=== PATIENT | male | born 1945 | race Caucasian/White ===

== ENCOUNTER → 2018-12-12 | Outpatient (CLI) | payer MEDICARE, OTHER, SELFPAY ==
--- NOTE | 2018-12-12 12:47 | MRI_ITS ---
STUDY: MRI BRAIN WITH AND WITHOUT CONTRAST REASON FOR EXAM: Male, 73 years old. Headache. TECHNIQUE: Standardized multiplanar fat and water weighted pulse sequences were obtained. 22 IV Dotarem was administered for the contrast portion of the examination. COMPARISON: None. FINDINGS: No restricted diffusion to suspect acute or subacute ischemic infarct. Normal size of the ventricles and extra-axial spaces for the patient's age. T2 FLAIR hyperintensity foci in the white matter of both cerebral hemispheres are chronic white matter ischemic changes. No midline shift and no mass effects. No enhancing lesions in intra-axially and extra-axially. Normal bilateral basal ganglia. Normal thalami. There is no extra-axial fluid accumulation. Normal flow voids within the major intracranial circulation suggesting patency by spin echo criteria. Normal venous enhancement. There is no enhancing intra-axial or extra-axial abnormality. Normal sella turcica, pituitary gland, infundibular stalk, optic chiasm and hypothalamus. Normal tectal plate and pineal gland. Normal midbrain, chet and medulla. Old ischemic infarct with cystic encephalomalacia and atrophy of the right cerebellar hemisphere. Normal left cerebellum. Normal basal cisterns. Normal bilateral temporal bones. Normal bilateral internal auditory canals. No demonstrated orbital abnormality, within the constraints of a routine brain study. Normal visualized paranasal sinuses. Normal calvarium and skull base. Normal visualized soft tissue structures. Normal visualized upper cervical spine. MRI/Brain W/WO Contrast IMPRESSION: 1. No MRI evidence of acute or subacute ischemic infarct. 2. Old ischemic infarct with cystic atrophy of the right cerebellar hemisphere. 3. Chronic white matter ischemic changes in both cerebral hemispheres. 4. No MRI evidence of any enhancing lesions extra-axially and intraaxially. Electronically Signed: Triston Jaimes MD at 15:14 EDT , Service support ,
--- NOTE | 2018-12-12 12:47 | MRI_ITS ---
STUDY: MRI CERVICAL SPINE WITHOUT CONTRAST REASON FOR EXAM: Male, 73 years old. Neck pain. Headache. TECHNIQUE: Standardized fat and water weighted pulse sequences were obtained in the sagittal and axial planes. COMPARISON: None FINDINGS: Normal foramen magnum and brainstem-cervical cord junction. Normal craniovertebral junction. Normal anterior atlantoaxial articulation. Normal odontoid process. Straightening of the C-spine curve. Normal vertebral bodies and posterior osseous elements. C2-3: Normal endplates. Normal disc height, signal and morphology. Normal central canal and intervertebral neural foramina. C3-4: Normal endplates. Normal disc height, signal and morphology. Normal central canal and intervertebral neural foramina. C4-5: Normal endplates. Minimal disc space height narrowing. Small posterior bulging discs. Normal central canal and bilateral intervertebral neural foramina. C5-6: Normal endplates. Minimal disc space height narrowing. Small posterior bulging disc. Normal central canal and bilateral intervertebral neural foramina. C6-7: Normal endplates. Normal disc height, signal and morphology. Normal central canal and intervertebral neural foramina. C7-T1: Normal C7 inferior endplate. Minimal anterior wedging of T11 superior endplates may be developmental or from remote injury. Normal disc height and morphology. Normal central canal and bilateral intervertebral neural foramina. T1-T2, T2-T3 and T3-T4: (Sagittal only). Normal endplates. Normal disc height and morphology. Normal central canal and bilateral intervertebral neural foramina. Normal cervical cord. Old cystic infarct with atrophy of the right cerebellar hemisphere. Normal visualized soft tissue structures. MRI/Spine Cervical (Routine) IMPRESSION: 1. No MRI evidence of cervical extruded disc fragment, spinal stenosis or cervical nerve root displacement. 2. Small posterior bulging discs at C4-C5 and C5-C6 disc space levels. 3. Old cystic infarct with atrophy in the right cerebellar hemisphere. Electronically Signed: Triston Jaimes MD at 15:19 EDT , Service support ,
[2018-12-12 13:05] LABS: CREATININE FINGERSTICK 1.3 mg/dL (0.70-1.30)
== END | disposition home or self-care (01) ==
PROVIDERS: Family Provider Internal Medicine; PCP Internal Medicine; Referring Provider Internal Medicine; Visit Provider Internal Medicine
DX: R51 Headache (principal); M54.2 Cervicalgia
CPT/HCPCS: 70553; 72141; A9575

== ENCOUNTER 2020-03-20 10:33 | Inpatient (IN) | payer MEDICARE, OTHER, SELFPAY ==
[2020-03-20] VITALS (24 sets, daily range): BP systolic 123–142; BP diastolic 66–79; PULSE 55–79; RESP 13–20; TEMP 36.3–36.9; O2SAT 91–99; BMI 34.7; BMI 34.8
--- NOTE | 2020-03-20 10:47 | RAD_ITS ---
STUDY: X-RAY CHEST REASON FOR EXAM: Male, 75 years old. COVID, INCREASED SOB AND WEAKNESS TECHNIQUE: Single AP portable view of the chest. COMPARISON: Comparison is made with prior study dated 11/07/2012. FINDINGS: EKG electrodes are seen. There is evidence of a bilateral pulmonary infiltrates with a peripheral distribution. With the patient''s history of Covid positive, this is suggestive of a cold pneumonitis. Stable elevation of the right hemidiaphragm. Normal size heart. Normal mediastinum and anupam. Normal visualized pulmonary arteries. There is atherosclerotic tortuosity of the aortic arch and descending thoracic aorta. There are diffuse degenerative changes of the visualized thoracic spine. Healed right rib fractures. There is no demonstrated abnormality of the visualized soft tissue structures of the upper abdomen. RAD/Chest 1 View (Portable) IMPRESSION: Bilateral pulmonary infiltrates with a peripheral tendency for distribution. With the patient''s history of Covid positive, this is in keeping with coal but pneumonitis. Electronically Signed: Ross Ulrich, at 11:17 EDT , Service support ,
--- NOTE | 2020-03-20 10:47 | EKG12_ITS ---
Test Reason : SOB Blood Pressure : / mmHG Vent. Rate : 068 BPM Atrial Rate : 068 BPM P-R Int : 150 ms QRS Dur : 148 ms QT Int : 454 ms P-R-T Axes : 041 032 000 degrees QTc Int : 482 ms Normal sinus rhythm Right bundle branch block Abnormal ECG Confirmed by DEJA HEATH, KOBI ([id number]), design editor LEONEL DAILEY ([id number]) on 03/27/2020 12:51:00 P M Referred By: PARDEEP Confirmed By:RYAN SHORT MD
--- NOTE | 2020-03-20 10:49 | ED.DCSUM_ITS ---
History of Present Illness Chief Complaint: Shortness of Breath Informant: Patient Onset: Days Context: Gradual Onset Current Severity: Moderate Maximum Severity: Moderate Narrative: She presents with increased cough and congestion. He started becoming ill 6 days ago with cough and congestion. He states symptoms worsened over the weekend. He was tested for Covid on Tuesday and received the results yesterday that he was positive. Due to increased body aches, cough, shortness of breath he was evaluated by his PCP and found to have O2 sats in the 80s. EMS was called and patient was placed on nonrebreather. O2 sats are in the high 90s on this on arrival. - Past Medical History (1) Myocardial infarction Status: Resolved (2) Coronary artery disease Status: Chronic (3) CVA (cerebral vascular accident) Status: Chronic (4) Essential hypertension Status: Chronic (5) HLD (hyperlipidemia) Status: Chronic Past Medical History - Allergies and Home Meds Allergies/Adverse Reactions: Allergies Penicillins Allergy (Verified 03/20/20 10:34) Unknown Primary Care Physician: Libia Corona MD [Primary Care Provider] - Prior records reviewed: Yes Lives: Spouse/ Significant Other Smoking Status: Never smoker Review of Systems General: Denies: Chills, Fever Eyes: Denies: Visual changes - bilaterally ENT: Denies: Bilateral ear pain Cardiovascular: Denies: Chest pain Respiratory: Reports: Dyspnea, Cough Gastrointestinal: Reports: - - Anorexia. Denies: Abdominal pain Genitourinary: Denies: Dysuria Musculoskeletal: Reports: Myalgias Skin: Denies: Rash Hematologic: Denies: Easy bruising, Easy bleeding Allergy: Denies: Uticaria Physical Exam Vital Signs/Narrative: Vital Signs Temp Pulse Resp BP Pulse Ox 03/20/20 10:40 98 F 79 13 129/66 H 96 03/20/20 10:34 98 F 79 13 129/66 H 96 Inital Vital Signs reviewed: Yes General: Well nourished, Well developed Head: Normocephalic ENT: Moist mucous membranes Neck: Supple Cardiovascular: Regular rate, Regular rhythm Respiratory: No distress, CTA bilaterally Abdomen: Soft, Nontender, Normal bowel sounds Extremities: Nontender Skin: Normal color Neurological: Alert, Oriented x3 Psychological: Normal affect Diagnostic/Tx/Re-eval Impressions Chest X-Ray 03/20/20 10:47 IMPRESSION: Bilateral pulmonary infiltrates with a peripheral tendency for distribution. With the patient''s history of Covid positive, this is in keeping with coal but pneumonitis. Electronically Signed: Ross Ulrich, at 11:17 EDT , Service support , Chest CTA 03/20/20 11:43 IMPRESSION: Diffuse bilateral infiltrates involving both lungs in the differential peripheral distribution in keeping with the patient''s Covid diagnosis. 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 Electronically Signed: Ross Ulrich, at 12:45 EDT , Service support , 03/20/20 10:47 Chest 1 View (Portable) [RAD] Stat 03/20/20 11:43 CTA Chest W/WO Contrast [CT] Stat Laboratory Results 03/20/20 03/20/20 03/20/20 10:45 10:45 10:45 WBC 6.6 RBC 4.65 Hgb 13.4 Hct 42.1 MCV 90.5 MCH 28.8 MCHC 31.8 L RDW Std Deviation 48.4 H RDW Coeff of Fadumo 14.6 Plt Count 189 MPV 10.2 Immature Gran % (Auto) 0.600 Neut % (Auto) 81.6 H Lymph % (Auto) 11.1 L [place] % (Auto) 3.9 Eos % (Auto) 2.6 Baso % (Auto) 0.2 Absolute Neuts (auto) 5.4 Absolute Lymphs (auto) 0.73 L Nucleated RBC % 0 Differential Comment SCANNED D-Dimer Quant (PE/DVT) 0.95 H* Sodium 142 Potassium 3.8 Chloride 104 Carbon Dioxide 33.0 H Anion Gap 5 BUN 24 H Creatinine 1.39 H Estim Creat Clear Calc 48.87 Est GFR (MDRD) Af Amer 64 Est GFR (MDRD) Non-Af 53 L BUN/Creatinine Ratio 17.3 Glucose 123 H Lactic Acid Calcium 8.3 L Total Bilirubin 0.50 AST 78 H ALT 62 H Alkaline Phosphatase 64 Total Protein 7.4 Albumin 3.2 Globulin 4.2 Albumin/Globulin Ratio 0.8 L Procalcitonin 03/20/20 03/20/20 03/20/20 10:45 10:45 11:15 WBC RBC Hgb Hct MCV MCH MCHC RDW Std Deviation RDW Coeff of Fadumo Plt Count MPV Immature Gran % (Auto) Neut % (Auto) Lymph % (Auto) [place] % (Auto) Eos % (Auto) Baso % (Auto) Absolute Neuts (auto) Absolute Lymphs (auto) Nucleated RBC % Differential Comment D-Dimer Quant (PE/DVT) Sodium Potassium Chloride Carbon Dioxide Anion Gap BUN Creatinine Estim Creat Clear Calc Est GFR (MDRD) Af Amer Est GFR (MDRD) Non-Af BUN/Creatinine Ratio Glucose Lactic Acid Cancelled 1.3 Calcium Total Bilirubin AST ALT Alkaline Phosphatase Total Protein Albumin Globulin Albumin/Globulin Ratio Procalcitonin 0.49 H - EKG Initial EKG Interpretation: Sinus Rhythm - Sinus at 68 with a right bundle branch block. No old is available for comparison. No acute ischemia. - Medical Decision Making Patient is nonrebreather was changed down to 50% Ventimask. At this time his O2 sat is 90% on this. Blood work is reviewed. His d-dimer and pro calcitonin are both elevated. CTA of the chest reveals no evidence of PE, however changes consistent with Covid are noted in his lungs. Patient was given a dose of IV Solu-Medrol. I will speak with hospitalist regarding admission. ED Disposition - Plan for ED Patient: Disposition: [facility] Diagnosis: COVID-19, Respiratory failure Referrals: Libia Corona MD [Primary Care Provider] -
[2020-03-20] MEDS: MethylPREDNISolone 125 MG/2 ML Vial 80 MG IV (11:00)
[2020-03-20 11:04] LABS: Absolute Lymphocyte Count 0.73 X10^3/uL (0.83-4.51); Absolute Neutrophil Count 5.4 X10^3/uL (2.0-7.7); Basophil# 0.01 X10^3/uL; Basophil% 0.2 % (0-1); Eosinophil# 0.17 X10^3/uL; Eosinophils% 2.6 % (0-5); Hematocrit 42.1 % (40-54); Hemoglobin 13.4 g/dL (13.0-16.5); Lymphocyte # 0.73 X10^3/ul (4.0); Lymphocyte % 11.1 % (19-41); Mean Corp Hgb Conc 31.8 g/dL (32-36); Mean Corpuscular Hgb 28.8 pg (27.0-32.0); Mean Corpuscular Volume 90.5 fL (80-94); Mean Platelet Vol. 10.2 fl (6.2-12.0); Monocyte# 0.26 X10^3/uL; Monocyte% 3.9 % (0-10); NRBC Flagged by Analyzer 0 % (0-5); Neutrophil # 5.39 X10^3/uL (2.7-7.7); Neutrophil % 81.6 % (47-70); POSITIVE MORPHOLOGY YES; Platelet Count 189 K/mm3 (150-450); RBC Distribution Width CV 14.6 % (11.6-14.6); RBC Distribution Width SD 48.4 fl (35.1-43.9); Red Blood Count 4.65 M/mm3 (4.6-6.2); White Blood Count 6.6 K/mm3 (4.4-11.0)
[2020-03-20 11:17] LABS: ALB/GLOB Ratio 0.8 RATIO (0.9-2.4); AST(SGOT) 78 U/L (15-37); Alanine Aminotransfer ALT/SGPT 62 U/L (16-61); Albumin, Serum 3.2 g/dL (3.2-5.0); Alkaline Phosphatase 64 U/L (45-117); Anion Gap 5 (5-15); BUN 24 mg/dL (7-18); BUN/Creat Ratio 17.3 RATIO (10-20); Calcium,Total 8.3 mg/dL (8.5-10.1); Chloride 104 mmol/L (98-107); Creatinine, Serum 1.39 mg/dL (0.70-1.30); EST Glomerular Filtration Rate 53 mL/min (>60); Est Glom Filt Rate - Afr Amer 64 mL/min (>60); Estimated Creatinine Clearance 48.87 ml/min; Globulin 4.2 g/dL (2.2-4.2); Glucose 123 mg/dL (74-106); Potassium 3.8 mmol/L (3.5-5.1); Protein, Total 7.4 g/dL (6.4-8.2); Sodium Level 142 mmol/L (136-145)
[2020-03-20 11:20] LABS: D-Dimer Quantitative (DVT/PE) 0.95 FEU/ug/m (0.27-0.49)
[2020-03-20 11:33] LABS: Procalcitonin 0.49 ng/mL (0.00-0.09)
[2020-03-20 11:35] LABS: Differential Comment SCANNED; Differential Indicated SCAN CRITERIA MET
--- NOTE | 2020-03-20 11:43 | CT_ITS ---
STUDY: CTA CHEST REASON FOR EXAM: Male, 75 years old. PE. COVID + TUESDAY. INCREASE SOB AND WEAKNESS. HX-CVA, HTN, NH, CAD, HLD,STENTS RADIATION DOSAGE (If Supplied By Facility): CTDIvol = ( 13.69 ) mGy, DLP = ( 498.53 ) mGycm TECHNIQUE: The examination was performed with the intravenous administration of IV 100mL Isovue-370. Post-processing of the angiographic images was performed, with multiplanar reformation and 3D reconstruction. Individualized dose optimization techniques were used for this CT. COMPARISON: Comparison is made with prior study dated 11/02/2012. FINDINGS: Small benign-appearing bilateral axillary lymph nodes. Normal enhancement of the main pulmonary artery and right and left pulmonary arteries. Normal enhancement of the bilateral peripheral pulmonary arteries. There is no demonstrated pulmonary embolism. Normal thoracic aorta and visualized great vessels. There is no demonstrated aortic dissection. There are calcifications of the coronary arteries. Normal mediastinum. Normal hilar regions. Normal visualized trachea and bronchi. The lungs are well expanded. Diffuse bilateral infiltrates involving both lungs diffusely. There is also evidence of a preferential peripheral distribution. This is in keeping with the patient''s Covid diagnosis. Normal pleura. Normal chest wall structures. There are degenerative changes of thoracic spine. Hyperplasia and nodular thickening of the left adrenal gland. Fatty infiltration of the liver. CT/CTA Chest W/WO Contrast IMPRESSION: Diffuse bilateral infiltrates involving both lungs in the differential peripheral distribution in keeping with the patient''s Covid diagnosis. 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 Electronically Signed: Ross Ulrich, at 12:45 EDT , Service support ,
[2020-03-20 11:51] LABS: Lactic Acid 1.3 mmol/L (0.4-1.9)
--- NOTE | 2020-03-20 13:08 | NURSING ---
ICU COVID JUAN PABLO
--- NOTE | 2020-03-20 13:11 | ED.RN ---
TC MADE TO , UPDATED ON ADMISSION
--- NOTE | 2020-03-20 13:39 | HP.PCM_ITS ---
Problem List (1) Myocardial infarction Status: Resolved (2) Coronary artery disease Status: Chronic (3) COVID-19 Status: Acute (4) Respiratory failure Status: Acute (5) CVA (cerebral vascular accident) Status: Chronic (6) HLD (hyperlipidemia) Status: Chronic (7) Essential hypertension Status: Chronic History of Present Illness Date of Admission: 03/20/20 Chief Complaint: Shortness of breath. The patient is a 75 year old M who presents to the emergency room due to shortness of breath, cough X1 week. Patient was tested for COVID on Tuesday and received results yesterday that he was positive for COVID-19. He was evaluated by his primary care provider today and was noted to be hypoxic with O2 saturations in the 80s. He reports mild fever at home. Patient states his tested positive for COVID as well however she has very mild symptoms. Patient currently has Ventimask on in ED and reports improvement in breathing and cough. He denies nausea, vomiting, diarrhea. Denies other associated symptoms. He has a past medical history of chronic renal insufficiency, hypertension, hyperlipidemia, history of CVA. Past Medical History Past Medical History (Chronic Problems): Chronic Problems (Last Updated 02/12/19 @ 14:15 by Gisele Barnhart) Coronary artery disease (Chronic) CVA (cerebral vascular accident) (Chronic 2012) HLD (hyperlipidemia) (Chronic) Essential hypertension (Chronic) Medical History: Medical History (Last Updated 02/12/19 @ 14:15 by Gisele Barnhart) CVA (cerebral vascular accident) (Chronic) Onset Date: 2012 I63.9 HLD (hyperlipidemia) (Chronic) E78.5 Essential hypertension (Chronic) I10 Anemia D64.9 Obesity E66.9 GI bleed K92.2 Non-ST elevation (NSTEMI) myocardial infarction I21.4 Atherosclerosis of coronary artery of [place] heart without angina pectoris (Ruled-out) I25.10 Allergies Penicillins Allergy (Verified 03/20/20 10:34) Unknown Home Medications: Ambulatory Orders Medication Instructions Recorded Amlodipine [Norvasc] 10 mg PO DAILY 03/20/20 Aspirin [Aspirin, Baby] 81 mg PO DAILY@0800 03/20/20 Atorvastatin Calcium [Lipitor] 10 mg PO QHS 03/20/20 Cholecalciferol (Vitamin D3) 5,000 unit PO DAILY 03/20/20 [Vitamin D3] Hydralazine HCl 100 mg PO BID 03/20/20 Labetalol HCl 300 mg PO TID 03/20/20 Phenylephrine/Dm/Acetaminop/GG 1 tab PO BID 03/20/20 [Tylenol Cold & Flu Severe Cplt] Surgical History: Surgical History (Last Updated 02/03/18 @ 15:02 by Nettie Magallon) H/O: knee surgery Z98.890 Surgical History: - - Knee surgery Psychiatric History: No pertinent psych hx Lives: Spouse/ Significant Other Smoking Status: Never smoker Alcohol: None Drugs: None - *Family History Paternal Family History: Family History (Last Updated 02/03/18 @ 15:02 by Nettie Magallon) Father CAD (coronary artery disease) History Items: Heart Disease Maternal Family History: Family History (Last Updated 02/03/18 @ 15:02 by Nettie Magallon) Father CAD (coronary artery disease) History Items: - - Denies known maternal medical history including cardiac history. Review of Systems Constitutional: Reports: Chills, Fever, Malaise HEENT: Denies: Head Aches, Sinus Congestion, Sinus Drainage Cardiovascular: Denies: Chest Pain, Edema, Light Headedness, Palpitations, Syncope Respiratory: Reports: Cough, Shortness of Breath, Sputum production Gastrointestinal: Denies: Abdominal Pain, Nausea, Vomiting Genitourinary: Denies: Dysuria Musculoskeletal: Denies: Joint Pain, Joint Tenderness Skin: Denies: Rash, Wounds Neurological: Denies: Numbness, Tingling, Focal weakness Psychiatric: Denies: Anxiety, Depression, Homicidal Ideations, Suicidal Ideations Hematologic/ Lymphatic: Denies: Easy Bruising, Easy Bleeding VTE Information - Inpt Only VTE Present on Admission: No VTE Mechan Device Prophylaxis: None VTE Pharm Prophylaxis ordered?: Yes Patient Problems: Active and Suspected Problems (Last Updated 02/12/19 @ 14:15 by Gisele Barnhart) COVID-19 (Acute) Respiratory failure (Acute) - Physical Exam Vitals/I&O's: Vital Signs Temp Pulse Resp BP Pulse Ox 97.8 F 57 L 18 129/74 H 99 03/20/20 13:06 03/20/20 13:06 03/20/20 13:06 03/20/20 13:06 03/20/20 13:06 Oxygen Flow Rate (L/min) 12 Oxygen Delivery Method Venturi Mask Weight: 242 lb 4.608 oz Body Mass Index (BMI) 34.7 General: Alert, Oriented x3, Cooperative HEENT: Atraumatic, PERRLA, EOMI, Normocephalic Oral: Dry Mucosa Neck: Supple, No JVD, Negative Carotid Bruits Lungs: Clear to auscultation, Diminished Cardiovascular: Regular rate, No murmurs Abdomen: Bowel Sounds Present, Soft, Non Tender, Non-Distended Extremities: No clubbing, No cyanosis, No edema, Capillary Refill Less than 3 Seconds Skin: No rashes, No breakdown Musculoskeletal: No Tenderness to Palpation of Joints or Extremities Neurological: Cranial nerves II-XII grossly intact, Neuro grossly intact Psych/Mental Status: Normal Affect, Appropriate Laboratory Results 03/20/20 10:45: WBC 6.6, RBC 4.65, Hgb 13.4, Hct 42.1, MCV 90.5, MCH 28.8, MCHC 31.8 L, RDW Std Deviation 48.4 H, RDW Coeff of Fadumo 14.6, Plt Count 189, MPV 10.2, Immature Gran % (Auto) 0.600, Neut % (Auto) 81.6 H, Lymph % (Auto) 11.1 L, [place] % (Auto) 3.9, Eos % (Auto) 2.6, Baso % (Auto) 0.2, Absolute Neuts (auto) 5.4, Absolute Lymphs (auto) 0.73 L, Nucleated RBC % 0, Differential Comment SCANNED 03/20/20 10:45: D-Dimer Quant (PE/DVT) 0.95 H* 03/20/20 10:45: Sodium 142, Potassium 3.8, Chloride 104, Carbon Dioxide 33.0 H, Anion Gap 5, BUN 24 H, Creatinine 1.39 H, Estim Creat Clear Calc 48.87, Est GFR (MDRD) Af Amer 64, Est GFR (MDRD) Non-Af 53 L, BUN/Creatinine Ratio 17.3, Glucose 123 H, Calcium 8.3 L, Total Bilirubin 0.50, AST 78 H, ALT 62 H, Alkaline Phosphatase 64, Total Protein 7.4, Albumin 3.2, Globulin 4.2, Albumin/Globulin Ratio 0.8 L 03/20/20 10:45: Lactic Acid Cancelled 03/20/20 10:45: Procalcitonin 0.49 H 03/20/20 11:15: Lactic Acid 1.3 Assessment/Plan All Active Problems (Last Updated 02/12/19 @ 14:15 by Gisele Barnhart) Myocardial infarction (Resolved) COVID-19 (Acute) Respiratory failure (Acute) Atherosclerosis of coronary artery of [place] heart without angina pectoris (Ruled-out) 1. Acute hypoxic respiratory failure secondary to COVID-19/viral pneumonia-CT of chest demonstrates diffuse bilateral infiltrates involving both lungs. Continue supplement oxygen to maintain O2 sat above 90%. IV Solu-Medrol. Albuterol aerosol. IV fluids. ID consult. 2. Chronic renal insufficiency- appears at baseline. 3. Hypertension-stable, continue hydralazine, labetalol. 4. Hyperlipidemia- continue statin. 5. History of CVA-continue aspirin, statin. DVT prophylaxis-therapeutic Lovenox sc This patient was seen by DIVINA Lopez under the supervision of Dr. Gongora.
[2020-03-20] MEDS: 0.9% Normal Saline 1,000 ML 100 ML IV (15:30)
[2020-03-20] MEDS: Labetalol 200 MG Tablet 300 MG PO (17:55)
--- NOTE | 2020-03-20 19:00 | CPS ---
pt placed on airHublished- raghavendra well -60lpm, 60%, 31 degress
[2020-03-20] MEDS: 0.9% Saline Lock 10 ML Syringe IV (22:02)
[2020-03-20] MEDS: Enoxaparin 120 MG/0.8 ML Syringe 110 MG SC (22:04)
[2020-03-20] MEDS: hydrALAZINE 50 MG Tablet 100 MG PO (22:05)
[2020-03-20] MEDS: Temazepam 15 MG Capsule PO (22:05)
[2020-03-20] MEDS: guaiFENesin Dm 10 ML UDC PO (22:05)
--- NOTE | 2020-03-20 22:12 | CPS ---
O2 INCREASED TO 75% FOR LOW SATS 88%
[2020-03-21] VITALS (22 sets, daily range): BP systolic 108–131; BP diastolic 59–71; PULSE 51–70; RESP 16–23; TEMP 35.9–36.5; O2SAT 89–94; BMI 33.5
[2020-03-21 05:08] LABS: Absolute Lymphocyte Count 0.77 X10^3/uL (0.83-4.51); Basophil# 0.01 X10^3/uL; Basophil% 0.1 % (0-1); Hematocrit 41.4 % (40-54); Hemoglobin 13.3 g/dL (13.0-16.5); Lymphocyte # 0.77 X10^3/ul (4.0); Lymphocyte % 8.4 % (19-41); Mean Corp Hgb Conc 32.1 g/dL (32-36); Mean Corpuscular Hgb 28.8 pg (27.0-32.0); Mean Corpuscular Volume 89.6 fL (80-94); Mean Platelet Vol. 9.7 fl (6.2-12.0); Monocyte% 3.3 % (0-10); NRBC Flagged by Analyzer 0 % (0-5); Neutrophil # 8.03 X10^3/uL (2.7-7.7); Neutrophil % 87.4 % (47-70); POSITIVE MORPHOLOGY YES; Platelet Count 207 K/mm3 (150-450); RBC Distribution Width CV 14.3 % (11.6-14.6); Red Blood Count 4.62 M/mm3 (4.6-6.2); White Blood Count 9.2 K/mm3 (4.4-11.0)
[2020-03-21 05:09] LABS: Differential Indicated SCAN CRITERIA MET
[2020-03-21 05:23] LABS: AST(SGOT) 71 U/L (15-37); Alanine Aminotransfer ALT/SGPT 62 U/L (16-61); Albumin, Serum 2.9 g/dL (3.2-5.0); Alkaline Phosphatase 61 U/L (45-117); Anion Gap 9 (5-15); BUN 27 mg/dL (7-18); BUN/Creat Ratio 21.4 RATIO (10-20); Bilirubin, Direct 0.15 mg/dL (0.00-0.30); Calcium,Total 8.1 mg/dL (8.5-10.1); Chloride 104 mmol/L (98-107); Creatinine, Serum 1.26 mg/dL (0.70-1.30); EST Glomerular Filtration Rate 60 mL/min (>60); Est Glom Filt Rate - Afr Amer 72 mL/min (>60); Estimated Creatinine Clearance 53.91 ml/min; Globulin 4.3 g/dL (2.2-4.2); Glucose 182 mg/dL (74-106); Potassium 3.5 mmol/L (3.5-5.1); Protein, Total 7.2 g/dL (6.4-8.2); Sodium Level 142 mmol/L (136-145)
[2020-03-21 05:28] LABS: Differential Comment SCANNED
--- NOTE | 2020-03-21 06:23 | CON.PCM_ITS ---
Reason for Consult Date of Consultation: 03/21/20 Reason for Consultation: Acute hypoxemic respiratory failure History of Present Illness: The patient is a 75-year-old male, with a history as outlined below, who presented to the emergency department on March 20 with complaints of a one- week course of fatigue, cough, sputum production and low-grade fever. The patient was evaluated by his primary care provider, Dr. Corona, on March 17 with the aforementioned symptoms. A coronavirus test was ordered at that time and found to be positive on March 19. Despite conservative home management, the patient symptoms continue to progress. The patient is a lifelong non-smoker without any baseline pulmonary diagnoses. On presentation to the emergency department, the patient was noted to be afebrile and hemodynamically stable. He was, nevertheless, significantly hypoxemic requiring a nonrebreather. Laboratory evaluation revealed a normal white blood cell count. D-dimer was elevated to 0.95. Creatinine was mildly increased to 1.39. Lactate was within normal limits. AST and ALT were mildly increased to 78 and 62, respectively. Procalcitonin was elevated to 0.49. CTA chest was obtained and revealed no evidence for PE. There was evidence of bilateral infiltrates, nonetheless. The patient was started on steroids and admitted to the medical intensive care unit for further management. Overnight, the patient was transitioned to Airvo heated high flow with an FiO2 requirement of 75% and flow rate of 60 L/min. Past Medical History Past Medical History (Chronic Problems): Chronic Problems (Last Updated 02/12/19 @ 14:15 by Gisele Barnhart) Coronary artery disease (Chronic) CVA (cerebral vascular accident) (Chronic 2012) HLD (hyperlipidemia) (Chronic) Essential hypertension (Chronic) Medical History: Medical History (Last Updated 02/12/19 @ 14:15 by Gisele Barnhart) CVA (cerebral vascular accident) (Chronic) Onset Date: 2012 I63.9 HLD (hyperlipidemia) (Chronic) E78.5 Essential hypertension (Chronic) I10 Anemia D64.9 Obesity E66.9 GI bleed K92.2 Non-ST elevation (NSTEMI) myocardial infarction I21.4 Atherosclerosis of coronary artery of [place] heart without angina pectoris (Ruled-out) I25.10 Allergies Penicillins Allergy (Verified 03/20/20 10:34) Unknown Home Medications: Ambulatory Orders Medication Instructions Recorded Amlodipine [Norvasc] 10 mg PO DAILY 03/20/20 Aspirin [Aspirin, Baby] 81 mg PO DAILY@0800 03/20/20 Atorvastatin Calcium [Lipitor] 10 mg PO QHS 03/20/20 Cholecalciferol (Vitamin D3) 5,000 unit PO DAILY 03/20/20 [Vitamin D3] Hydralazine HCl 100 mg PO BID 03/20/20 Labetalol HCl 300 mg PO TID 03/20/20 Phenylephrine/Dm/Acetaminop/GG 1 tab PO BID 03/20/20 [Tylenol Cold & Flu Severe Cplt] Surgical History: Surgical History (Last Updated 02/03/18 @ 15:02 by Nettie Magallon) H/O: knee surgery Z98.890 Surgical History: - - Knee surgery Psychiatric History: No pertinent psych hx Lives: Spouse/ Significant Other Smoking Status: Never smoker Tobacco Use: Non-smoker Alcohol: None Drugs: None - *Family History Paternal Family History: Family History (Last Updated 02/03/18 @ 15:02 by Nettie Magallon) Father CAD (coronary artery disease) History Items: Heart Disease Maternal Family History: Family History (Last Updated 02/03/18 @ 15:02 by Nettie Magallon) Father CAD (coronary artery disease) History Items: - - Denies known maternal medical history including cardiac history. Review of Systems Constitutional: Reports: Fever, Malaise, Fatigue Eyes: Denies: Blurred vision, Double vision HEENT: Reports: Nasal Congestion, Sore Throat. Denies: Head Aches, Sinus Congestion, Sinus Drainage Cardiovascular: Denies: Chest Pain, Palpitations Respiratory: Reports: Cough, Shortness of Breath, Sputum production Gastrointestinal: Denies: Abdominal Pain, Nausea, Vomiting Genitourinary: Denies: Dysuria Musculoskeletal: Denies: Joint Pain, Joint Tenderness Skin: Denies: Rash, Wounds Neurological: Denies: Numbness, Tingling, Focal weakness Psychiatric: Denies: Anxiety, Depression, Homicidal Ideations, Suicidal Ideations Hematologic/ Lymphatic: Denies: Easy Bruising, Easy Bleeding Patient Problems: Active and Suspected Problems (Last Updated 02/12/19 @ 14:15 by Gisele Barnhart) COVID-19 (Acute) Respiratory failure (Acute) Objective: The patient's most recent lab work, culture data and imaging studies have all been personally reviewed. - Physical Exam Vitals/I&O's: Vital Signs Temp Pulse Resp BP Pulse Ox 97.7 F L 53 L 19 H 129/59 H 94 03/21/20 02:17 03/21/20 03:00 03/21/20 02:50 03/21/20 02:17 03/21/20 02:50 Oxygen Flow Rate (L/min) 60 Oxygen Delivery Method CPAP Weight: 233 lb 14.567 oz Body Mass Index (BMI) 34.7 Intake and Output for Last 24 Hours 03/19/20 03/20/20 03/21/20 23:59 23:59 23:59 Intake Total 376.67 / 676.67 650 / 650 Output Total 250 / 250 Balance 376.67 / 676.67 400 / 400 General: Alert, Oriented x3, Cooperative, No apparent distress HEENT: Atraumatic, PERRLA, Normocephalic Oral: Moist Mucosa, No Gingival or Mucosal Lesions/ Ulcerations Neck: Supple, No Nodes, Trachea Midline Lungs: Diminished Cardiovascular: Regular rate, Regular Rhythm Abdomen: Bowel Sounds Present, Soft, Non Tender, Obese Extremities: No clubbing, No cyanosis, No edema Skin: No breakdown Musculoskeletal: No Tenderness to Palpation of Joints or Extremities, No Muscle Wasting Lymphatic: No Cervical, Supraclavicular, or Inguinal Adenopathy Neurological: Cranial nerves II-XII grossly intact, Neuro grossly intact Psych/Mental Status: Normal Affect, Appropriate Labs (Last 48 Hours) 03/20/20 03/20/20 03/20/20 10:45 10:45 10:45 WBC 6.6 RBC 4.65 Hgb 13.4 Hct 42.1 MCV 90.5 MCH 28.8 MCHC 31.8 L RDW Std Deviation 48.4 H RDW Coeff of Fadumo 14.6 Plt Count 189 MPV 10.2 Immature Gran % (Auto) 0.600 Neut % (Auto) 81.6 H Lymph % (Auto) 11.1 L Evans % (Auto) 3.9 Eos % (Auto) 2.6 Baso % (Auto) 0.2 Absolute Neuts (auto) 5.4 Absolute Lymphs (auto) 0.73 L Nucleated RBC % 0 Differential Comment SCANNED D-Dimer Quant (PE/DVT) 0.95 H* Sodium 142 Potassium 3.8 Chloride 104 Carbon Dioxide 33.0 H Anion Gap 5 BUN 24 H Creatinine 1.39 H Estim Creat Clear Calc 48.87 Est GFR (MDRD) Af Amer 64 Est GFR (MDRD) Non-Af 53 L BUN/Creatinine Ratio 17.3 Glucose 123 H Lactic Acid Calcium 8.3 L Total Bilirubin 0.50 Direct Bilirubin AST 78 H ALT 62 H Alkaline Phosphatase 64 Total Protein 7.4 Albumin 3.2 Globulin 4.2 Albumin/Globulin Ratio 0.8 L Procalcitonin 03/20/20 03/20/20 03/20/20 10:45 10:45 11:15 WBC RBC Hgb Hct MCV MCH MCHC RDW Std Deviation RDW Coeff of Fadumo Plt Count MPV Immature Gran % (Auto) Neut % (Auto) Lymph % (Auto) [place] % (Auto) Eos % (Auto) Baso % (Auto) Absolute Neuts (auto) Absolute Lymphs (auto) Nucleated RBC % Differential Comment D-Dimer Quant (PE/DVT) Sodium Potassium Chloride Carbon Dioxide Anion Gap BUN Creatinine Estim Creat Clear Calc Est GFR (MDRD) Af Amer Est GFR (MDRD) Non-Af BUN/Creatinine Ratio Glucose Lactic Acid Cancelled 1.3 Calcium Total Bilirubin Direct Bilirubin AST ALT Alkaline Phosphatase Total Protein Albumin Globulin Albumin/Globulin Ratio Procalcitonin 0.49 H 03/21/20 03/21/20 05:00 05:00 WBC 9.2 RBC 4.62 Hgb 13.3 Hct 41.4 MCV 89.6 MCH 28.8 MCHC 32.1 RDW Std Deviation 47.0 H RDW Coeff of Fadumo 14.3 Plt Count 207 MPV 9.7 Immature Gran % (Auto) 0.800 Neut % (Auto) 87.4 H Lymph % (Auto) 8.4 L [place] % (Auto) 3.3 Eos % (Auto) 0.0 Baso % (Auto) 0.1 Absolute Neuts (auto) 8.0 H Absolute Lymphs (auto) 0.77 L Nucleated RBC % 0 Differential Comment SCANNED D-Dimer Quant (PE/DVT) Sodium 142 Potassium 3.5 Chloride 104 Carbon Dioxide 29.0 Anion Gap 9 BUN 27 H Creatinine 1.26 Estim Creat Clear Calc 53.91 Est GFR (MDRD) Af Amer 72 Est GFR (MDRD) Non-Af 60 BUN/Creatinine Ratio 21.4 H Glucose 182 H Lactic Acid Calcium 8.1 L Total Bilirubin 0.30 Direct Bilirubin 0.15 AST 71 H ALT 62 H Alkaline Phosphatase 61 Total Protein 7.2 Albumin 2.9 L Globulin 4.3 H Albumin/Globulin Ratio Procalcitonin Clinical Impression(s) from Imaging Studies Chest X-Ray 03/20/20 10:47 IMPRESSION: Bilateral pulmonary infiltrates with a peripheral tendency for distribution. With the patient''s history of Covid positive, this is in keeping with coal but pneumonitis. Electronically Signed: Ross Mojgan, at 11:17 EDT , Service support , Chest CTA 03/20/20 11:43 IMPRESSION: Diffuse bilateral infiltrates involving both lungs in the differential peripheral distribution in keeping with the patient''s Covid diagnosis. 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 Electronically Signed: Ross Ulrich, at 12:45 EDT , Service support , Current Medications Acetaminophen (Tylenol) 650 mg PO Q6H PRN PRN PRN Reason: Pain Score 1-10/Temp > 100.7 F Albuterol Sulfate (Ventolin Aerosols) 2.5 mg INHALATION Q2H PRN PRN PRN Reason: SOB/Wheezing Amlodipine Besylate (Norvasc) 10 mg PO DAILY [facility] Aspirin (Aspirin, Baby) 81 mg PO DAILY [facility] Atorvastatin Calcium (Lipitor) 10 mg PO DAILY [facility] Enoxaparin Sodium (Lovenox) 110 mg SC Q12 [facility] Last Admin: 03/20/20 22:04 Dose: 110 mg Documented by: Guaifenesin (Robitussin Dm) 10 ml PO Q6H PRN PRN PRN Reason: COUGH Last Admin: 03/20/20 22:05 Dose: 10 ml Documented by: Hydralazine HCl (Apresoline) 100 mg PO BID [facility] Last Admin: 03/20/20 22:05 Dose: 100 mg Documented by: Labetalol HCl (Trandate) 300 mg PO TIDCM [facility] Last Admin: 03/20/20 17:55 Dose: 300 mg Documented by: Methylprednisolone (Solu-Medrol) 40 mg IV TIDCM [facility] Last Admin: 03/20/20 17:50 Dose: 40 mg Documented by: Ondansetron HCl (Zofran) 4 mg IV Q8H PRN PRN PRN Reason: NAUSEA/VOMITING Sodium Chloride () 10 - 40 ml IV UD PRN PRN Reason: SALINE FLUSH Last Admin: 03/20/20 22:02 Dose: 10 ml Documented by: Temazepam (Restoril) 15 mg PO QHS PRN PRN PRN Reason: INSOMNIA Last Admin: 03/20/20 22:05 Dose: 15 mg Documented by: Assessment/Plan Active and Suspected Problems (Last Updated 02/12/19 @ 14:15 by Gisele Barnhart) COVID-19 (Acute) Respiratory failure (Acute) RECOMMENDATIONS: 1. Continue current supportive measures and wean FiO2 to maintain oxygen saturations at or above 90%. 2. Continue Decadron 6 mg daily with plans to complete a 10-day treatment course. 3. Infectious diseases consultation is pending. 4. Start Remdesevir. 5. Obtain consent for convalescent plasma. Orders have been placed. 6. Continue Lovenox therapy as ordered. IMPRESSIONS: 1. Acute hypoxemic respiratory failure secondary to coronavirus pneumonia The patient was diagnosed several days ago with coronavirus infection and does appear to have bilateral infiltrates on CTA chest consistent with COVID pneumonia. Plan at this time will include supportive measures including supplemental oxygen to maintain saturations at or above 90%. In addition, the patient has been started on Lovenox twice daily along with Decadron 6 mg by mouth daily with plans to complete a 10-day treatment course. I spoke with the patient this morning at the bedside regarding the use of remdesevir and convalescent plasma in this particular situation. The patient did give consent to proceed with both of the aforementioned interventions. Orders have been placed accordingly. If the patient were to continue to decompensate from a respiratory perspective, I would recommend that BiPAP be next utilized as a rescue intervention. 2. History of CVA/chronic kidney disease/hypertension/hyperlipidemia Complicates care, management, recovery and prognosis. Continue home medications as indicated. CODE status: Discussed CODE status at length including difference between FULL code, DNR-CCA and DNR-CC status. Following discussions about the differences in these status, patient requested FULL CODE STATUS. Advanced Care Planning Face to Face Time: 14 minutes. Patient or caregiver was given a copy of the Remdesivir Fact Sheet for Patients and Parents/Caregivers. The following information was communicated to the patient or caregiver: Remdesivir is not an FDA approved drug. The FDA has authorized the emergency use of Remdesivir. The patient had the option to refuse or accept treatment with Remdesivir. The patient was informed that the number of people treated with Remdesivir is small at this time. The potential benefits and potential risks of Remdesivir are not fully known. Potential benefits of Remdesivir include a shorter time to recovery of COVID-19 infection. Potential risks or side effects of Remdesivir include sweating, shivering, nausea and vomiting or low blood pressure related to a reaction to the medication infusion and increases in liver enzymes. No drugs are approved by the FDA to treat COVID-19 at this time. The patient (or appointed risk control representative) stated understanding of information communicated and wished to proceed with Remdesivir treatment. This note was generated with [employer] software. It may contain incorrect words, spelling, and punctuation that were not noted in checking the note before signing. Inpatient E&M: 69848 Init Hosp L3 Procedures: 29584 Advncd Care Plan 30 Min
--- NOTE | 2020-03-21 07:55 | NT.THERAPY_ITS ---
Nutrition Therapy Report - History Nutrition Services has been consulted to:: Manage nutrient details of diet order Current diet / nutrition support order:: Regular - general - Anthropometric Measurements Height:: 5 ft 10 in Weight:: 106.1 kg Body Mass Index (BMI):: 33.5 - Relevant Labs Relevant Labs:: MCHC 31.8 g/dL (32-36) L 03/20/20 10:45 RDW Std Deviation 47.0 fl (35.1-43.9) H 03/21/20 05:00 Neut % (Auto) 87.4 % (47-70) H 03/21/20 05:00 Lymph % (Auto) 8.4 % (19-41) L 03/21/20 05:00 Absolute Neuts (auto) 8.0 X10^3/uL (2.0-7.7) H 03/21/20 05:00 Absolute Lymphs (auto) 0.77 X10^3/uL (0.83-4.51) L 03/21/20 05:00 D-Dimer Quant (PE/DVT) 0.95 FEU/ug/m (0.27-0.49) H* 03/20/20 10:45 Carbon Dioxide 33.0 mmol/L (21.0-32.0) H 03/20/20 10:45 BUN 27 mg/dL (7-18) H 03/21/20 05:00 Creatinine 1.39 mg/dL (0.70-1.30) H 03/20/20 10:45 Est GFR (MDRD) Non-Af 53 mL/min (>60) L 03/20/20 10:45 BUN/Creatinine Ratio 21.4 RATIO (10-20) H 03/21/20 05:00 Glucose 182 mg/dL (74-106) H 03/21/20 05:00 Calcium 8.1 mg/dL (8.5-10.1) L 03/21/20 05:00 AST 71 U/L (15-37) H 03/21/20 05:00 ALT 62 U/L (16-61) H 03/21/20 05:00 Albumin 2.9 g/dL (3.2-5.0) L 03/21/20 05:00 Globulin 4.3 g/dL (2.2-4.2) H 03/21/20 05:00 Albumin/Globulin Ratio 0.8 RATIO (0.9-2.4) L 03/20/20 10:45 Procalcitonin 0.49 ng/mL (0.00-0.09) H 03/20/20 10:45 - Assessment Food / Nutrition-Related History:: Unable to talk to pt on phone so called spouse for diet/wt hx. Pt prepares low salt/no convenience foods at home. Pt po intake normally good, but lousy in past week d/t COVID. UBW: 111.13 kg - wt loss of 4.6% x 1 wk (significant). feels pt may be accepting of Ensure Clear - does not like milkshake type drinks. Pt has been on CPAP while in [facility]. Gluc elevated - on steroid. [ End ] - Nutrition Diagnosis Problem / Etiology / Signs & Symptoms (PES):: Pt with inadequate oral food/drink intake d/t feeling ill w/ +COVID AEB 4.6% wt loss and po intake <75% x 1 wk Evidence of Malnutrition Exists:: Yes Severe PCM:: Acute Illness - Nutrition Intervention Nutrition Prescription:: [id number] tab / 100-110 gm pro / day - Food / Nutrient Delivery Interventions Summary of nutrition intervention:: Rec continue liberal Regular diet. Will provide ensure clear w/ meals for increased nutrition if consumed. [ End ] - MNT Monitoring Further MNT monitoring and evaluation required?: Yes MNT Follow-up in:: 3-5 days - please call RD/LD if questions x [phone]
[2020-03-21] MEDS: 0.9% Saline Lock 10 ML Syringe IV ×2 (09:53→17:09)
[2020-03-21] MEDS: Atorvastatin Calcium 10 MG Tablet PO (09:54)
[2020-03-21] MEDS: Enoxaparin 120 MG/0.8 ML Syringe 110 MG SC (09:54)
[2020-03-21] MEDS: Aspirin 81 MG TAB.CHEW PO (09:54)
[2020-03-21] MEDS: hydrALAZINE 50 MG Tablet 100 MG PO ×2 (09:56→19:59)
[2020-03-21] MEDS: amLODIPine 10 MG Tablet PO (09:56)
[2020-03-21] MEDS: Labetalol 200 MG Tablet 300 MG PO ×2 (09:57→17:09)
--- NOTE | 2020-03-21 10:07 | PN_ITS ---
Patient Problems: Active and Suspected Problems (Last Updated 02/12/19 @ 14:15 by Gisele Barnhart) COVID-19 (Acute) Respiratory failure (Acute) Subjective: Patient seen and examined. Reports increased cough this morning. Denies fever, chills. Breathing is stable, on CPAP. - Physical Exam Vitals/I&O's: Vital Signs Temp Pulse Resp BP Pulse Ox 97.7 F L 61 20 H 129/59 H 92 03/21/20 02:17 03/21/20 10:05 03/21/20 10:05 03/21/20 02:17 03/21/20 10:05 Oxygen Flow Rate (L/min) 60 Oxygen Delivery Method CPAP Weight: 233 lb 14.567 oz Body Mass Index (BMI) 33.5 Intake and Output for Last 24 Hours 03/19/20 03/20/20 03/21/20 23:59 23:59 23:59 Intake Total 376.67 / 676.67 650 / 650 Output Total 250 / 250 Balance 376.67 / 676.67 400 / 400 General: Alert, Oriented x3, Cooperative HEENT: Atraumatic, PERRLA, EOMI, Normocephalic Neck: Supple, No JVD, Negative Carotid Bruits Lungs: Clear to auscultation, Diminished Cardiovascular: Regular rate, No murmurs Abdomen: Bowel Sounds Present, Soft, Non Tender Extremities: No clubbing, No cyanosis, No edema, Capillary Refill Less than 3 Seconds Skin: No rashes, No breakdown Musculoskeletal: No Tenderness to Palpation of Joints or Extremities Neurological: Cranial nerves II-XII grossly intact, Neuro grossly intact Psych/Mental Status: Normal Affect, Appropriate Laboratory Results 03/20/20 10:45: WBC 6.6, RBC 4.65, Hgb 13.4, Hct 42.1, MCV 90.5, MCH 28.8, MCHC 31.8 L, RDW Std Deviation 48.4 H, RDW Coeff of Fadumo 14.6, Plt Count 189, MPV 10.2, Immature Gran % (Auto) 0.600, Neut % (Auto) 81.6 H, Lymph % (Auto) 11.1 L, [place] % (Auto) 3.9, Eos % (Auto) 2.6, Baso % (Auto) 0.2, Absolute Neuts (auto) 5.4, Absolute Lymphs (auto) 0.73 L, Nucleated RBC % 0, Differential Comment SCANNED 03/20/20 10:45: D-Dimer Quant (PE/DVT) 0.95 H* 03/20/20 10:45: Sodium 142, Potassium 3.8, Chloride 104, Carbon Dioxide 33.0 H, Anion Gap 5, BUN 24 H, Creatinine 1.39 H, Estim Creat Clear Calc 48.87, Est GFR (MDRD) Af Amer 64, Est GFR (MDRD) Non-Af 53 L, BUN/Creatinine Ratio 17.3, Glucose 123 H, Calcium 8.3 L, Total Bilirubin 0.50, AST 78 H, ALT 62 H, Alkaline Phosphatase 64, Total Protein 7.4, Albumin 3.2, Globulin 4.2, Albumin/Globulin Ratio 0.8 L 03/20/20 10:45: Lactic Acid Cancelled 03/20/20 10:45: Procalcitonin 0.49 H 03/20/20 11:15: Lactic Acid 1.3 03/21/20 05:00: WBC 9.2, RBC 4.62, Hgb 13.3, Hct 41.4, MCV 89.6, MCH 28.8, MCHC 32.1, RDW Std Deviation 47.0 H, RDW Coeff of Fadumo 14.3, Plt Count 207, MPV 9.7, Immature Gran % (Auto) 0.800, Neut % (Auto) 87.4 H, Lymph % (Auto) 8.4 L, [place] % (Auto) 3.3, Eos % (Auto) 0.0, Baso % (Auto) 0.1, Absolute Neuts (auto) 8.0 H, Absolute Lymphs (auto) 0.77 L, Nucleated RBC % 0, Differential Comment SCANNED 03/21/20 05:00: Sodium 142, Potassium 3.5, Chloride 104, Carbon Dioxide 29.0, Anion Gap 9, BUN 27 H, Creatinine 1.26, Estim Creat Clear Calc 53.91, Est GFR (MDRD) Af Amer 72, Est GFR (MDRD) Non-Af 60, BUN/Creatinine Ratio 21.4 H, Glucose 182 H, Calcium 8.1 L, Total Bilirubin 0.30, Direct Bilirubin 0.15, AST 71 H, ALT 62 H, Alkaline Phosphatase 61, Total Protein 7.2, Albumin 2.9 L, Globulin 4.3 H 03/21/20 05:00: Alkaline Phosphatase Cancelled 03/21/20 09:30: Blood Type Pending Current Medications Acetaminophen (Tylenol) 650 mg PO Q6H PRN PRN PRN Reason: Pain Score 1-10/Temp > 100.7 F Albuterol Sulfate (Ventolin Aerosols) 2.5 mg INHALATION Q2H PRN PRN PRN Reason: SOB/Wheezing Amlodipine Besylate (Norvasc) 10 mg PO DAILY [facility] Last Admin: 03/21/20 09:56 Dose: 10 mg Documented by: Aspirin (Aspirin, Baby) 81 mg PO DAILY [facility] Last Admin: 03/21/20 09:54 Dose: 81 mg Documented by: Atorvastatin Calcium (Lipitor) 10 mg PO DAILY [facility] Last Admin: 03/21/20 09:54 Dose: 10 mg Documented by: Dexamethasone (Decadron) 6 mg PO DAILY@0800 [facility] Enoxaparin Sodium (Lovenox) 110 mg SC Q12 [facility] Last Admin: 03/21/20 09:54 Dose: 110 mg Documented by: Guaifenesin (Robitussin Dm) 10 ml PO Q6H PRN PRN PRN Reason: COUGH Last Admin: 03/20/20 22:05 Dose: 10 ml Documented by: Hydralazine HCl (Apresoline) 100 mg PO BID [facility] Last Admin: 03/21/20 09:56 Dose: 100 mg Documented by: Remdesivir (Investigational) (200 mg/ Sodium Chloride) 250 mls @ 125 mls/hr IV X1 ONE; Protocol Stop: 03/21/20 11:59 Remdesivir (Investigational) (100 mg/ Sodium Chloride) 250 mls @ 125 mls/hr IV DAILY [facility]; Protocol Stop: 03/25/20 11:59 Labetalol HCl (Trandate) 300 mg PO TIDCM [facility] Last Admin: 03/21/20 09:57 Dose: 300 mg Documented by: Ondansetron HCl (Zofran) 4 mg IV Q8H PRN PRN PRN Reason: NAUSEA/VOMITING Sodium Chloride () 10 - 40 ml IV UD PRN PRN Reason: SALINE FLUSH Last Admin: 03/21/20 09:53 Dose: 10 ml Documented by: Temazepam (Restoril) 15 mg PO QHS PRN PRN PRN Reason: INSOMNIA Last Admin: 03/20/20 22:05 Dose: 15 mg Documented by: Medical Necessity - Tobacco Use Smoking Status: Never smoker Tobacco Use: Non-smoker Assessment/Plan All Active Problems (Last Updated 02/12/19 @ 14:15 by Gisele Barnhart) Myocardial infarction (Resolved) COVID-19 (Acute) Respiratory failure (Acute) Atherosclerosis of coronary artery of [place] heart without angina pectoris (Ruled-out) 1. Acute hypoxic respiratory failure secondary to COVID-19/viral pneumonia-CT of chest demonstrates diffuse bilateral infiltrates involving both lungs. Continue supplement oxygen to maintain O2 sat above 90%. ID consulted. Continue Decadron. Initiated on Remdesevir. Plasma ordered. As needed albuterol aerosol. 2. Chronic renal insufficiency- appears at baseline. 3. Hypertension-stable, continue hydralazine, labetalol. 4. Hyperlipidemia- continue statin. 5. History of CVA-continue aspirin, statin. DVT prophylaxis-therapeutic Lovenox sc This patient was seen by DIVINA Lopez under the supervision of Dr. Gongora.
[2020-03-21] MEDS: dexAMETHasone 4 MG Tablet 6 MG PO (10:10)
--- NOTE | 2020-03-21 13:45 | CASEMGMT ---
RN CM GROCERY CARRIER CM placed call to pt's room for initial RN CM assessment. Introduced self and role of RN CM. Pt is A/O at this time and answers all questions appropriately. Care providers, pharmacy, and demographics verified/updated at this time. PCP: Dr Corona Specialists: None. [facility]erred [facility]acy[facility] Insurance: [facility], MMO. Prescription Benefit: Pt states thinks he has rx benefits but he is not certain. Living Will/HPOA: Has both LW and Healthcare POA, who is his , Sade. Pt aware copies are not on file @ [facility]. He states he will ask his to bring in if possible. LNOK: , Sade Living Arrangements: Lives w/his in 3-story home w/basement. Has elevator access to part of the home. Denies difficulty w/stairs. States is independent w/ADL's. does laundry. Pt/ share making meals and other home mgmt tasks. Transportation: Pt states drives self and states no transportation concerns at this time. also drives DME: Denies using any DME and denies needs. Does not have home O2. States has no preference of DME company if he would qualify for oxygen at discharge. HHC/SNF: Hx TCU. No history of HHC. Denies need for HHC at this time. States would be interested in OP therapy and would like to go to [facility]. PT/OT evals pending. Pt would like script for OP therapy and then could take to [facility] once no longer in COVID isolation precautions. Pt wishes to return home and states has no concerns with going home at time of discharge. CM to follow for home oxygen needs and any further discharge planning/needs. Pt voices no further concerns/needs at this time. Advised pt to ask for CM if any further questions/concerns/needs arise. Voices understanding. PLAN: Home w/. Will need Home oxygen qualification testing completed. If qualifies for Home O2, pt has no preference of DME company. PT/OT evals pending. Pt would like script for OP therapy @ [facility] and could go once COVID isolation precautions completed. Sapna CORONAN SHERINE BANKS
--- NOTE | 2020-03-21 14:08 | PCM.HP.ID ---
Problem List (1) COVID-19 Status: Acute Reason for Consult: covid Consulted by: Dr. Gongora History of Present Illness: The patient is a 75 year old M presented yesterday to ED with 6 days of dry cough, dyspnea, fever, aches. No change in taste/smell. Did have loss of appetite, nausea, and fatigue. at home also sick but improving. Admitted on decadron, feeling about the same today. Remdesivir and plasma ordered. Full ROS performed and neg except as noted above. - Medical History Past Medical History (Chronic Problems): Chronic Problems (Last Updated 02/12/19 @ 14:15 by Gisele Barnhart) Coronary artery disease (Chronic) CVA (cerebral vascular accident) (Chronic 2012) HLD (hyperlipidemia) (Chronic) Essential hypertension (Chronic) Allergies/Adverse Reactions: Allergies Penicillins Allergy (Verified 03/20/20 10:34) Unknown Home Medications: Ambulatory Orders Medication Instructions Recorded Amlodipine [Norvasc] 10 mg PO DAILY 03/20/20 Aspirin [Aspirin, Baby] 81 mg PO DAILY@0800 03/20/20 Atorvastatin Calcium [Lipitor] 10 mg PO QHS 03/20/20 Cholecalciferol (Vitamin D3) 5,000 unit PO DAILY 03/20/20 [Vitamin D3] Hydralazine HCl 100 mg PO BID 03/20/20 Labetalol HCl 300 mg PO TID 03/20/20 Phenylephrine/Dm/Acetaminop/GG 1 tab PO BID 03/20/20 [Tylenol Cold & Flu Severe Cplt] - Social History Tobacco Use: non-smoker Vital Signs Temp Pulse Resp BP Pulse Ox 97.0 F L 52 L 20 H 125/71 H 92 03/21/20 09:50 03/21/20 11:56 03/21/20 10:05 03/21/20 09:50 03/21/20 10:05 Oxygen Flow Rate (L/min) 60 Oxygen Delivery Method CPAP Weight: 106.1 kg Body Mass Index (BMI) 33.5 Laboratory Tests Past 24 Hrs 03/21/20 03/21/20 03/21/20 05:00 05:00 05:00 WBC 9.2 RBC 4.62 Hgb 13.3 Hct 41.4 MCV 89.6 MCH 28.8 MCHC 32.1 RDW Std Deviation 47.0 H RDW Coeff of Fadumo 14.3 Plt Count 207 MPV 9.7 Immature Gran % (Auto) 0.800 Neut % (Auto) 87.4 H Lymph % (Auto) 8.4 L [place] % (Auto) 3.3 Eos % (Auto) 0.0 Baso % (Auto) 0.1 Absolute Neuts (auto) 8.0 H Absolute Lymphs (auto) 0.77 L Nucleated RBC % 0 Differential Comment SCANNED Sodium 142 Potassium 3.5 Chloride 104 Carbon Dioxide 29.0 Anion Gap 9 BUN 27 H Creatinine 1.26 Estim Creat Clear Calc 53.91 Est GFR (MDRD) Af Amer 72 Est GFR (MDRD) Non-Af 60 BUN/Creatinine Ratio 21.4 H Glucose 182 H Calcium 8.1 L Total Bilirubin 0.30 Direct Bilirubin 0.15 AST 71 H ALT 62 H Alkaline Phosphatase 61 Cancelled Total Protein 7.2 Albumin 2.9 L Globulin 4.3 H Blood Type 03/21/20 09:30 WBC RBC Hgb Hct MCV MCH MCHC RDW Std Deviation RDW Coeff of Fadumo Plt Count MPV Immature Gran % (Auto) Neut % (Auto) Lymph % (Auto) [place] % (Auto) Eos % (Auto) Baso % (Auto) Absolute Neuts (auto) Absolute Lymphs (auto) Nucleated RBC % Differential Comment Sodium Potassium Chloride Carbon Dioxide Anion Gap BUN Creatinine Estim Creat Clear Calc Est GFR (MDRD) Af Amer Est GFR (MDRD) Non-Af BUN/Creatinine Ratio Glucose Calcium Total Bilirubin Direct Bilirubin AST ALT Alkaline Phosphatase Total Protein Albumin Globulin Blood Type O NEGATIVE - Other Studies Radiology: [] reviewed Other Studies: [] Route of nutrition/ use of supplements: [] Nutritional Intake: [] IV Site: [] Dejesus Catheter: [] - Physical Exam General: Alert, Oriented x3, Cooperative, - - ill appearing HEENT: Atraumatic, PERRLA, EOMI Neck: Supple, No Nodes Lungs: Diminished Cardiovascular: Regular rate, Regular Rhythm Abdomen: Soft, Non Tender, Non-Distended Extremities: No edema Skin: No rashes IV Site: Peripheral, without redness Musculoskeletal: No Tenderness to Palpation of Joints or Extremities Neurological: Cranial nerves II-XII grossly intact - Assessment/Plan Antibiotics: [] Assessment/Plan: [] Active and Suspected Problems (Last Updated 02/12/19 @ 14:15 by Gisele Barnhart) COVID-19 (Acute) Respiratory failure (Acute) Acute hypoxic resp failure due to covid - on decadron. CTA neg for PE. Mildly elevated d-dimer, so recommend decreasing lovenox dose. Discussed with Dr. Gongora and Dr. Ureña, agree with convalescent plasma and remdesivir. Order monitoring labs for next 5 days. will follow, thank you.
[2020-03-21] MEDS: Enoxaparin 40 MG/0.4 ML Syringe SC (19:59)
[2020-03-21] MEDS: guaiFENesin Dm 10 ML UDC PO (22:28)
[2020-03-21] MEDS: Temazepam 15 MG Capsule PO (22:28)
[2020-03-22] VITALS (34 sets, daily range): BP systolic 129–157; BP diastolic 60–83; PULSE 49–67; RESP 12–27; TEMP 36.1–36.6; O2SAT 92–97
[2020-03-22] MEDS: guaiFENesin Dm 10 ML UDC PO ×2 (04:04→20:20)
[2020-03-22] MEDS: 0.9% Saline Lock 10 ML Syringe IV ×3 (04:07→12:44)
[2020-03-22 04:24] LABS: Hematocrit 41.3 % (40-54); Hemoglobin 13.1 g/dL (13.0-16.5); Mean Corp Hgb Conc 31.7 g/dL (32-36); Mean Corpuscular Hgb 28.7 pg (27.0-32.0); Mean Corpuscular Volume 90.4 fL (80-94); Mean Platelet Vol. 10.1 fl (6.2-12.0); Platelet Count 300 K/mm3 (150-450); RBC Distribution Width CV 14.6 % (11.6-14.6); RBC Distribution Width SD 49.1 fl (35.1-43.9); Red Blood Count 4.57 M/mm3 (4.6-6.2); White Blood Count 17.2 K/mm3 (4.4-11.0)
[2020-03-22 04:44] LABS: ALB/GLOB Ratio 0.7 RATIO (0.9-2.4); AST(SGOT) 76 U/L (15-37); Alanine Aminotransfer ALT/SGPT 75 U/L (16-61); Alkaline Phosphatase 69 U/L (45-117); Anion Gap 9 (5-15); BUN 42 mg/dL (7-18); BUN/Creat Ratio 29.4 RATIO (10-20); Calcium,Total 8.3 mg/dL (8.5-10.1); Chloride 105 mmol/L (98-107); Creatinine, Serum 1.43 mg/dL (0.70-1.30); EST Glomerular Filtration Rate 52 mL/min (>60); Est Glom Filt Rate - Afr Amer 62 mL/min (>60); Globulin 4.3 g/dL (2.2-4.2); Glucose 160 mg/dL (74-106); Potassium 3.5 mmol/L (3.5-5.1); Protein, Total 7.3 g/dL (6.4-8.2); Sodium Level 143 mmol/L (136-145)
--- NOTE | 2020-03-22 06:08 | PN_ITS ---
Subjective: The patient was seen and examined at the bedside this morning. Events from the last 24 hours have been reviewed. The patient is currently afebrile, hemodynamically stable and maintaining appropriate oxygen saturations on Airvo high flow oxygen with an FiO2 requirement of 80% and flow rate of 60 L/min. Overnight, the patient ambulated to the bathroom to a bowel movement and reportedly became significantly hypoxemic, requiring an escalation in his FiO2 to 80%. Despite this, the patient reported to me this morning that he was feeling better. Nevertheless, he does continue to have shortness of breath and a dry, nonproductive cough. He is agreeable to BiPAP use and once again verbalized to me that he is agreeable with intubation, if needed. P.o. intake has been minimal over the last 24 hours. The patient did receive convalescent plasma overnight as well. Objective: The patient's most recent lab work, culture data and imaging studies have all been personally reviewed. Blood cultures are currently pending. General: Alert, Cooperative, - - Currently sitting upright in bed. HEENT: Atraumatic, Normocephalic Oral: No Gingival or Mucosal Lesions/ Ulcerations Neck: Supple, No Nodes, Trachea Midline Lungs: No rhonchi, No wheeze, No rales, Diminished, Tachypneic Cardiovascular: Normal S1, Normal S2, No murmurs, Bradycardic Abdomen: Bowel Sounds Present, Soft, Non Tender, Obese Extremities: No clubbing, No cyanosis, No edema Skin: No breakdown Musculoskeletal: No Tenderness to Palpation of Joints or Extremities, No Muscle Wasting Lymphatic: No Cervical, Supraclavicular, or Inguinal Adenopathy Neurological: Cranial nerves II-XII grossly intact, Neuro grossly intact Psych/Mental Status: Normal Affect, Appropriate Vital Signs Temp Pulse Resp BP Pulse Ox 97.9 F 51 L 25 H 136/62 H 93 03/22/20 03:00 03/22/20 05:00 03/22/20 05:00 03/22/20 05:03/22/20 05:00 Oxygen Flow Rate (L/min) 60 Oxygen Delivery Method CPAP Weight: 233 lb 3.985 oz Body Mass Index (BMI) 33.5 Intake and Output for Last 24 Hours 03/20/20 03/21/20 03/22/20 23:59 23:59 23:59 Intake Total 376.67 / 676.67 1150 / 1150 425 / 425 Output Total 1675 / 1675 Balance 376.67 / 676.67 -525 / -525 425 / 425 Labs (Last 48 Hours) 03/20/20 03/20/20 03/20/20 10:45 10:45 10:45 WBC 6.6 RBC 4.65 Hgb 13.4 Hct 42.1 MCV 90.5 MCH 28.8 MCHC 31.8 L RDW Std Deviation 48.4 H RDW Coeff of Fadumo 14.6 Plt Count 189 MPV 10.2 Immature Gran % (Auto) 0.600 Neut % (Auto) 81.6 H Lymph % (Auto) 11.1 L [place] % (Auto) 3.9 Eos % (Auto) 2.6 Baso % (Auto) 0.2 Absolute Neuts (auto) 5.4 Absolute Lymphs (auto) 0.73 L Nucleated RBC % 0 Differential Comment SCANNED D-Dimer Quant (PE/DVT) 0.95 H* Sodium 142 Potassium 3.8 Chloride 104 Carbon Dioxide 33.0 H Anion Gap 5 BUN 24 H Creatinine 1.39 H Estim Creat Clear Calc 48.87 Est GFR (MDRD) Af Amer 64 Est GFR (MDRD) Non-Af 53 L BUN/Creatinine Ratio 17.3 Glucose 123 H Lactic Acid Calcium 8.3 L Total Bilirubin 0.50 Direct Bilirubin AST 78 H ALT 62 H Alkaline Phosphatase 64 Total Protein 7.4 Albumin 3.2 Globulin 4.2 Albumin/Globulin Ratio 0.8 L Procalcitonin Blood Type 03/20/20 03/20/20 03/20/20 10:45 10:45 11:15 WBC RBC Hgb Hct MCV MCH MCHC RDW Std Deviation RDW Coeff of Fadumo Plt Count MPV Immature Gran % (Auto) Neut % (Auto) Lymph % (Auto) [place] % (Auto) Eos % (Auto) Baso % (Auto) Absolute Neuts (auto) Absolute Lymphs (auto) Nucleated RBC % Differential Comment D-Dimer Quant (PE/DVT) Sodium Potassium Chloride Carbon Dioxide Anion Gap BUN Creatinine Estim Creat Clear Calc Est GFR (MDRD) Af Amer Est GFR (MDRD) Non-Af BUN/Creatinine Ratio Glucose Lactic Acid Cancelled 1.3 Calcium Total Bilirubin Direct Bilirubin AST ALT Alkaline Phosphatase Total Protein Albumin Globulin Albumin/Globulin Ratio Procalcitonin 0.49 H Blood Type 03/21/20 03/21/20 03/21/20 05:00 05:00 05:00 WBC 9.2 RBC 4.62 Hgb 13.3 Hct 41.4 MCV 89.6 MCH 28.8 MCHC 32.1 RDW Std Deviation 47.0 H RDW Coeff of Fadumo 14.3 Plt Count 207 MPV 9.7 Immature Gran % (Auto) 0.800 Neut % (Auto) 87.4 H Lymph % (Auto) 8.4 L [place] % (Auto) 3.3 Eos % (Auto) 0.0 Baso % (Auto) 0.1 Absolute Neuts (auto) 8.0 H Absolute Lymphs (auto) 0.77 L Nucleated RBC % 0 Differential Comment SCANNED D-Dimer Quant (PE/DVT) Sodium 142 Potassium 3.5 Chloride 104 Carbon Dioxide 29.0 Anion Gap 9 BUN 27 H Creatinine 1.26 Estim Creat Clear Calc 53.91 Est GFR (MDRD) Af Amer 72 Est GFR (MDRD) Non-Af 60 BUN/Creatinine Ratio 21.4 H Glucose 182 H Lactic Acid Calcium 8.1 L Total Bilirubin 0.30 Direct Bilirubin 0.15 AST 71 H ALT 62 H Alkaline Phosphatase 61 Cancelled Total Protein 7.2 Albumin 2.9 L Globulin 4.3 H Albumin/Globulin Ratio Procalcitonin Blood Type 03/21/20 03/22/20 03/22/20 09:30 04:10 04:10 WBC 17.2 H RBC 4.57 L Hgb 13.1 Hct 41.3 MCV 90.4 MCH 28.7 MCHC 31.7 L RDW Std Deviation 49.1 H RDW Coeff of Fadumo 14.6 Plt Count 300 MPV 10.1 Immature Gran % (Auto) Neut % (Auto) Lymph % (Auto) [place] % (Auto) Eos % (Auto) Baso % (Auto) Absolute Neuts (auto) Absolute Lymphs (auto) Nucleated RBC % Differential Comment D-Dimer Quant (PE/DVT) Sodium 143 Potassium 3.5 Chloride 105 Carbon Dioxide 29.0 Anion Gap 9 BUN 42 H Creatinine 1.43 H Estim Creat Clear Calc 47.50 Est GFR (MDRD) Af Amer 62 Est GFR (MDRD) Non-Af 52 L BUN/Creatinine Ratio 29.4 H Glucose 160 H Lactic Acid Calcium 8.3 L Total Bilirubin 0.40 Direct Bilirubin AST 76 H ALT 75 H Alkaline Phosphatase 69 Total Protein 7.3 Albumin 3.0 L Globulin 4.3 H Albumin/Globulin Ratio 0.7 L Procalcitonin Blood Type O NEGATIVE Clinical Impression(s) from Imaging Studies Chest X-Ray 03/20/20 10:47 IMPRESSION: Bilateral pulmonary infiltrates with a peripheral tendency for distribution. With the patient''s history of Covid positive, this is in keeping with coal but pneumonitis. Electronically Signed: Ross Mojgan, at 11:17 EDT , Service support , Chest CTA 03/20/20 11:43 IMPRESSION: Diffuse bilateral infiltrates involving both lungs in the differential peripheral distribution in keeping with the patient''s Covid diagnosis. 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 Electronically Signed: Ross Ulrich, at 12:45 EDT , Service support , Medical Necessity - Tobacco Use Smoking Status: Never smoker Tobacco Use: Non-smoker Assessment/Plan All Active Problems (Last Updated 02/12/19 @ 14:15 by Gisele Barnhart) Myocardial infarction (Resolved) COVID-19 (Acute) Respiratory failure (Acute) Atherosclerosis of coronary artery of [place] heart without angina pectoris (Ruled-out) RECOMMENDATIONS: 1. Continue current supportive measures. Attempt to transition the patient from Airvo to BIPAP. Goal to maintain oxygen saturations at or above 90%. 2. Continue Decadron 6 mg daily with plans to complete a 10-day treatment course. 3. Continue Remdesevir and Lovenox. 4. Start gentle IV fluid hydration, given limited p.o. intake. 5. Obtain repeat plain film chest x-ray this morning. IMPRESSIONS: 1. Acute hypoxemic respiratory failure secondary to coronavirus pneumonia The patient was diagnosed several days ago with coronavirus infection and does appear to have bilateral infiltrates on CTA chest consistent with COVID pneumonia. Plan at this time will include supportive measures including supplemental oxygen to maintain saturations at or above 90%. In addition, the patient will be continued on Lovenox twice daily along with Decadron 6 mg by mouth daily with plans to complete a 10-day treatment course. The patient is already received convalescent plasma and is currently on a Remdesevir treatment regimen. Given the patient's marginal oxygen saturations on Airvo, will attempt to transition him to BiPAP therapy this morning. P.o. intake has been limited. Therefore, gentle IV fluid hydration will be initiated. 2. History of CVA/chronic kidney disease/hypertension/hyperlipidemia/CODE STATUS Complicates care, management, recovery and prognosis. Continue home medications as indicated. The patient remains full CODE STATUS following my discussion with him. This note was generated with [employer] dictation software. It may contain incorrect words, spelling, and punctuation that were not noted in checking the note before signing.
--- NOTE | 2020-03-22 06:29 | RAD_ITS ---
HISTORY: COUGH AND SOB ADDITIONAL HISTORY: None provided. EXAMINATION/TECHNIQUE: XR Chest 1 View AP/PA Number of images including paperwork: 2 COMPARISON: 03/20/2020 FINDINGS: LUNGS AND PLEURA: No gross change in bilateral infiltrates given lung volumes, projection and technique. CARDIAC SILHOUETTE: Stable. MEDIASTINUM AND USHA: Aortic tortuosity. UPPER ABDOMEN: Unremarkable. SKELETON AND SOFT TISSUES: No acute skeletal findings. Degenerative changes. OTHER DEVICES AND HARDWARE: None. RAD/Chest 1 View (Portable) IMPRESSION: Minimal change in bilateral infiltrates. at 0700 Reported and signed by: Sushma Fong MD Electronically Signed: Sushma Fong MD at 7:00 EDT Tel , Service support ,
[2020-03-22 08:02] LABS: BNP,B-Type NATRIURETIC PEPTIDE 44.6 pg/mL (0-100)
[2020-03-22] MEDS: Enoxaparin 40 MG/0.4 ML Syringe SC ×2 (10:53→20:21)
[2020-03-22] MEDS: Lactated Ringers 1,000 ML 100 ML IV (11:15)
[2020-03-22] MEDS: dexAMETHasone 10 MG/ML Vial 6 MG IV (12:44)
--- NOTE | 2020-03-22 12:57 | PCM.PROGNOTE ---
Patient Problems: Active and Suspected Problems (Last Updated 02/12/19 @ 14:15 by Gisele Barnhart) COVID-19 (Acute) Respiratory failure (Acute) Subjective: Patient seen and examined. Currently on BiPAP. Reports increased shortness of breath with minimal movement. Denies significant cough. States he feels improved while wearing a BiPAP. Earlier complained of abdominal pain to nursing however he states this is since resolved. Had a bowel movement earlier today. - Physical Exam Vitals/I&O's: Vital Signs Temp Pulse Resp BP Pulse Ox 97.8 F 64 22 H 142/80 H 95 03/22/20 12:00 03/22/20 12:15 03/22/20 12:15 03/22/20 12:00 03/22/20 12:15 Oxygen Flow Rate (L/min) 60 Oxygen Delivery Method Bi-pap Weight: 233 lb 3.985 oz Body Mass Index (BMI) 33.5 Intake and Output for Last 24 Hours 03/20/20 03/21/20 03/22/20 23:59 23:59 23:59 Intake Total 376.67 / 676.67 1150 / 1150 425 / 425 Output Total 1675 / 1675 Balance 376.67 / 676.67 -525 / -525 425 / 425 General: Alert, Oriented x3, Cooperative, - - Fatigued appearing Oral: Dry Mucosa Neck: Supple, No JVD, Negative Carotid Bruits Lungs: Clear to auscultation, Diminished Cardiovascular: Regular rate, No murmurs Abdomen: Bowel Sounds Present, Soft, Non Tender, Non-Distended, Obese Extremities: No clubbing, No cyanosis, No edema, Capillary Refill Less than 3 Seconds Skin: No rashes, No breakdown Musculoskeletal: No Tenderness to Palpation of Joints or Extremities Neurological: Cranial nerves II-XII grossly intact, Neuro grossly intact Psych/Mental Status: Normal Affect, Appropriate Microbiology Past 72 Hours 03/20/20 10:45 Blood Culture (Wb) - Anticubital Left Blood Culture - Preliminary No growth in 48 hours. 03/20/20 10:45 Blood Culture (Wb) - Left Hand Blood Culture - Preliminary No growth in 48 hours. Laboratory Results 03/21/20 09:30: Blood Type O NEGATIVE 03/22/20 04:10: WBC 17.2 H, RBC 4.57 L, Hgb 13.1, Hct 41.3, MCV 90.4, MCH 28.7, MCHC 31.7 L, RDW Std Deviation 49.1 H, RDW Coeff of Fadumo 14.6, Plt Count 300, MPV 10.1 03/22/20 04:10: Sodium 143, Potassium 3.5, Chloride 105, Carbon Dioxide 29.0, Anion Gap 9, BUN 42 H, Creatinine 1.43 H, Estim Creat Clear Calc 47.50, Est GFR (MDRD) Af Amer 62, Est GFR (MDRD) Non-Af 52 L, BUN/Creatinine Ratio 29.4 H, Glucose 160 H, Calcium 8.3 L, Total Bilirubin 0.40, AST 76 H, ALT 75 H, Alkaline Phosphatase 69, Total Protein 7.3, Albumin 3.0 L, Globulin 4.3 H, Albumin/Globulin Ratio 0.7 L 03/22/20 04:10: Troponin I 0.031 03/22/20 04:10: B-Natriuretic Peptide 44.6 Current Medications Acetaminophen (Tylenol) 650 mg PO Q6H PRN PRN PRN Reason: Pain Score 1-10/Temp > 100.7 F Albuterol Sulfate (Ventolin Aerosols) 2.5 mg INHALATION Q2H PRN PRN PRN Reason: SOB/Wheezing Amlodipine Besylate (Norvasc) 10 mg PO DAILY [facility] Last Admin: 03/21/20 09:56 Dose: 10 mg Documented by: Aspirin (Aspirin, Baby) 81 mg PO DAILY [facility] Last Admin: 03/21/20 09:54 Dose: 81 mg Documented by: Atorvastatin Calcium (Lipitor) 10 mg PO DAILY [facility] Last Admin: 03/21/20 09:54 Dose: 10 mg Documented by: Dexamethasone Sodium Phosphate (Decadron) 6 mg IV DAILY [facility] Last Admin: 03/22/20 12:44 Dose: 6 mg Documented by: Enoxaparin Sodium (Lovenox) 40 mg SC Q12 [facility] Last Admin: 03/22/20 10:53 Dose: 40 mg Documented by: Guaifenesin (Robitussin Dm) 10 ml PO Q6H PRN PRN PRN Reason: COUGH Last Admin: 03/22/20 04:04 Dose: 10 ml Documented by: Hydralazine HCl (Apresoline) 100 mg PO BID [facility] Last Admin: 03/21/20 19:59 Dose: 100 mg Documented by: Hydralazine HCl (Apresoline Iv) 20 mg IV Q4H PRN PRN PRN Reason: SBP > 160 Remdesivir (Investigational) (100 mg/ Sodium Chloride) 250 mls @ 125 mls/hr IV DAILY [facility]; Protocol Stop: 03/25/20 11:59 Lactated Ringer's () 1,000 mls @ 100 mls/hr IV .Q10H [facility] Last Admin: 03/22/20 11:15 Dose: 100 mls/hr Documented by: Ondansetron HCl (Zofran) 4 mg IV Q8H PRN PRN PRN Reason: NAUSEA/VOMITING Sodium Chloride () 10 - 40 ml IV UD PRN PRN Reason: SALINE FLUSH Last Admin: 03/22/20 12:44 Dose: 10 ml Documented by: Temazepam (Restoril) 15 mg PO QHS PRN PRN PRN Reason: INSOMNIA Last Admin: 03/21/20 22:28 Dose: 15 mg Documented by: Medical Necessity - Tobacco Use Smoking Status: Never smoker Tobacco Use: Non-smoker Assessment/Plan All Active Problems (Last Updated 02/12/19 @ 14:15 by Gisele Barnhart) Myocardial infarction (Resolved) COVID-19 (Acute) Respiratory failure (Acute) Atherosclerosis of coronary artery of [place] heart without angina pectoris (Ruled-out) 1. Acute hypoxic respiratory failure secondary to COVID-19/viral pneumonia-CT of chest demonstrates diffuse bilateral infiltrates involving both lungs. Continue supplement oxygen to maintain O2 sat above 90%. Continue BiPAP as tolerated. ID consulted. Continue Decadron. Continue Remdesevir. Patient received plasma. As needed albuterol aerosol. 2. Chronic renal insufficiency- appears at baseline. 3. Hypertension-stable, continue hydralazine, labetalol. 4. Hyperlipidemia- continue statin. 5. History of CVA-continue aspirin, statin. DVT prophylaxis- Lovenox sc This patient was seen by DIVINA Lopez under the supervision of Dr. Gongora.
[2020-03-22] MEDS: Temazepam 15 MG Capsule PO (20:20)
[2020-03-23] VITALS (40 sets, daily range): BP systolic 130–169; BP diastolic 67–88; PULSE 45–74; RESP 12–25; TEMP 35.7–36.2; O2SAT 91–98
[2020-03-23] MEDS: Lactated Ringers 1,000 ML 100 ML IV ×3 (00:48→22:00)
[2020-03-23] MEDS: hydrALAZINE 50 MG Tablet 100 MG PO ×2 (01:23→20:39)
[2020-03-23] MEDS: guaiFENesin Dm 10 ML UDC PO ×4 (01:25→20:39)
[2020-03-23 05:17] LABS: Hematocrit 39.1 % (40-54); Hemoglobin 12.3 g/dL (13.0-16.5); Mean Corp Hgb Conc 31.5 g/dL (32-36); Mean Corpuscular Hgb 28.9 pg (27.0-32.0); Mean Corpuscular Volume 91.8 fL (80-94); Mean Platelet Vol. 9.8 fl (6.2-12.0); Platelet Count 285 K/mm3 (150-450); RBC Distribution Width CV 14.8 % (11.6-14.6); RBC Distribution Width SD 49.7 fl (35.1-43.9); Red Blood Count 4.26 M/mm3 (4.6-6.2); White Blood Count 12.6 K/mm3 (4.4-11.0)
[2020-03-23 05:33] LABS: ALB/GLOB Ratio 0.7 RATIO (0.9-2.4); AST(SGOT) 53 U/L (15-37); Alanine Aminotransfer ALT/SGPT 75 U/L (16-61); Albumin, Serum 2.7 g/dL (3.2-5.0); Alkaline Phosphatase 63 U/L (45-117); Anion Gap 4 (5-15); BUN 35 mg/dL (7-18); BUN/Creat Ratio 39.8 RATIO (10-20); Calcium,Total 8.2 mg/dL (8.5-10.1); Chloride 109 mmol/L (98-107); Creatinine, Serum 0.88 mg/dL (0.70-1.30); EST Glomerular Filtration Rate 90 mL/min (>60); Est Glom Filt Rate - Afr Amer 109 mL/min (>60); Estimated Creatinine Clearance 77.19 ml/min; Globulin 4.1 g/dL (2.2-4.2); Glucose 172 mg/dL (74-106); Protein, Total 6.8 g/dL (6.4-8.2); Sodium Level 144 mmol/L (136-145)
--- NOTE | 2020-03-23 05:56 | PCM.PN.INT ---
Subjective: The patient was seen and examined at the bedside this morning. Events from the last 24 hours have been reviewed. The patient is currently afebrile, hemodynamically stable and maintaining appropriate oxygen saturations on AVAPS with an FiO2 requirement of 60%. The patient continues to have shortness of breath and nonproductive cough. He gets very dyspneic with even minimal amounts of exertion. Objective: The patient's most recent lab work, culture data and imaging studies have all been personally reviewed. Blood cultures have shown no growth to date. General: Alert, Cooperative, No apparent distress HEENT: Atraumatic, Normocephalic Oral: Moist Mucosa Neck: Supple, No Nodes, Trachea Midline Lungs: No rhonchi, No wheeze, No rales, Diminished Cardiovascular: Normal S1, Normal S2, No murmurs, Bradycardic Abdomen: Bowel Sounds Present, Soft, Non Tender, Obese Extremities: No clubbing, No cyanosis, No edema Skin: No breakdown Musculoskeletal: No Tenderness to Palpation of Joints or Extremities, No Muscle Wasting Lymphatic: No Cervical, Supraclavicular, or Inguinal Adenopathy Neurological: Cranial nerves II-XII grossly intact, Neuro grossly intact Psych/Mental Status: Normal Affect, Appropriate Vital Signs Temp Pulse Resp BP Pulse Ox 97.1 F L 47 L 16 150/67 H 96 03/23/20 05:00 03/23/20 05:00 03/23/20 05:00 03/23/20 05:00 03/23/20 05:00 Oxygen Flow Rate (L/min) 60 Oxygen Delivery Method Bi-pap Weight: 234 lb 9.149 oz Body Mass Index (BMI) 33.5 Intake and Output for Last 24 Hours 03/21/20 03/22/20 03/23/20 23:59 23:59 23:59 Intake Total 1150 / 1150 1675.00 / 1775.00 100 / 100 Output Total 1675 / 1675 675 / 975 300 / 300 Balance -525 / -525 1000.00 / 800.00 -200 / -200 Labs (Last 48 Hours) 03/21/20 03/21/20 03/22/20 05:00 09:30 04:10 WBC 17.2 H RBC 4.57 L Hgb 13.1 Hct 41.3 MCV 90.4 MCH 28.7 MCHC 31.7 L RDW Std Deviation 49.1 H RDW Coeff of Fadumo 14.6 Plt Count 300 MPV 10.1 Sodium Potassium Chloride Carbon Dioxide Anion Gap BUN Creatinine Estim Creat Clear Calc Est GFR (MDRD) Af Amer Est GFR (MDRD) Non-Af BUN/Creatinine Ratio Glucose Calcium Total Bilirubin AST ALT Alkaline Phosphatase Cancelled Troponin I B-Natriuretic Peptide Total Protein Albumin Globulin Albumin/Globulin Ratio Blood Type O NEGATIVE 03/22/20 03/22/20 03/22/20 04:10 04:10 04:10 WBC RBC Hgb Hct MCV MCH MCHC RDW Std Deviation RDW Coeff of Fadumo Plt Count MPV Sodium 143 Potassium 3.5 Chloride 105 Carbon Dioxide 29.0 Anion Gap 9 BUN 42 H Creatinine 1.43 H Estim Creat Clear Calc 47.50 Est GFR (MDRD) Af Amer 62 Est GFR (MDRD) Non-Af 52 L BUN/Creatinine Ratio 29.4 H Glucose 160 H Calcium 8.3 L Total Bilirubin 0.40 AST 76 H ALT 75 H Alkaline Phosphatase 69 Troponin I 0.031 B-Natriuretic Peptide 44.6 Total Protein 7.3 Albumin 3.0 L Globulin 4.3 H Albumin/Globulin Ratio 0.7 L Blood Type 03/23/20 03/23/20 05:10 05:10 WBC 12.6 H RBC 4.26 L Hgb 12.3 L Hct 39.1 L MCV 91.8 MCH 28.9 MCHC 31.5 L RDW Std Deviation 49.7 H RDW Coeff of Fadumo 14.8 H Plt Count 285 MPV 9.8 Sodium 144 Potassium 4.0 Chloride 109 H Carbon Dioxide 31.0 Anion Gap 4 L BUN 35 H Creatinine 0.88 Estim Creat Clear Calc 77.19 Est GFR (MDRD) Af Amer 109 Est GFR (MDRD) Non-Af 90 BUN/Creatinine Ratio 39.8 H Glucose 172 H Calcium 8.2 L Total Bilirubin 0.40 AST 53 H ALT 75 H Alkaline Phosphatase 63 Troponin I B-Natriuretic Peptide Total Protein 6.8 Albumin 2.7 L Globulin 4.1 Albumin/Globulin Ratio 0.7 L Blood Type Microbiology 03/20/20 10:45 Blood Culture (Wb) - Anticubital Left Blood Culture - Preliminary No growth in 48 hours. 03/20/20 10:45 Blood Culture (Wb) - Left Hand Blood Culture - Preliminary No growth in 48 hours. Clinical Impression(s) from Imaging Studies Chest X-Ray 03/20/20 10:47 IMPRESSION: Bilateral pulmonary infiltrates with a peripheral tendency for distribution. With the patient''s history of Covid positive, this is in keeping with coal but pneumonitis. Electronically Signed: Ross Ulrich, at 11:17 EDT , Service support , Chest CTA 03/20/20 11:43 IMPRESSION: Diffuse bilateral infiltrates involving both lungs in the differential peripheral distribution in keeping with the patient''s Covid diagnosis. 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 Electronically Signed: Ross Ulrich, at 12:45 EDT , Service support , Chest X-Ray 03/22/20 06:29 IMPRESSION: Minimal change in bilateral infiltrates. at 0700 Reported and signed by: Sushma Fong MD Electronically Signed: Sushma Fong MD at 7:00 EDT Tel , Service support , Medical Necessity - Tobacco Use Smoking Status: Never smoker Tobacco Use: Non-smoker Assessment/Plan All Active Problems (Last Updated 02/12/19 @ 14:15 by Gisele Barnhart) Myocardial infarction (Resolved) COVID-19 (Acute) Respiratory failure (Acute) Atherosclerosis of coronary artery of [place] heart without angina pectoris (Ruled-out) RECOMMENDATIONS: 1. Continue current supportive measures, including noninvasive positive pressure ventilatory support. Goal to maintain oxygen saturations at or above 90%. 2. Continue Decadron with plans to complete a 10-day treatment course. 3. Continue Remdesevir and Lovenox. 4. Continue gentle IV fluid hydration, given limited p.o. intake. 5. Continue to hold labetalol. IMPRESSIONS: 1. Acute hypoxemic respiratory failure secondary to coronavirus pneumonia The patient was diagnosed several days ago with coronavirus infection and does appear to have bilateral infiltrates on CTA chest consistent with COVID pneumonia. Plan at this time will include supportive measures including supplemental oxygen to maintain saturations at or above 90%. In addition, the patient will be continued on Lovenox twice daily along with Decadron 6 mg by mouth daily with plans to complete a 10-day treatment course. The patient has already received convalescent plasma and is currently on a Remdesevir treatment regimen. The patient will be continued on AVAPS with breaks given as tolerated. Given the patient's limited p.o. intake, continue supplemental IV fluid hydration to offset insensible losses. 2. History of CVA/chronic kidney disease/hypertension/hyperlipidemia/CODE STATUS Complicates care, management, recovery and prognosis. Home beta-blaze remains on hold due to bradycardia. The patient remains full CODE STATUS. This note was generated with [employer] dictation software. It may contain incorrect words, spelling, and punctuation that were not noted in checking the note before signing. Inpatient E&M: [id number] [facility] L3
[2020-03-23] MEDS: Aspirin 81 MG TAB.CHEW PO (09:14)
[2020-03-23] MEDS: dexAMETHasone 10 MG/ML Vial 6 MG IV (09:15)
[2020-03-23] MEDS: 0.9% Saline Lock 10 ML Syringe IV (09:15)
[2020-03-23] MEDS: Atorvastatin Calcium 10 MG Tablet PO (09:15)
[2020-03-23] MEDS: Enoxaparin 40 MG/0.4 ML Syringe SC ×2 (09:15→20:40)
[2020-03-23] MEDS: amLODIPine 10 MG Tablet PO (09:15)
--- NOTE | 2020-03-23 10:50 | PN_ITS ---
Patient Problems: Active and Suspected Problems (Last Updated 02/12/19 @ 14:15 by Gisele Barnhart) COVID-19 (Acute) Respiratory failure (Acute) Subjective: Patient seen and examined. Breathing improved overnight. Denies significant cough. Denies fever, chills. Denies further abdominal pain. - Physical Exam Vitals/I&O's: Vital Signs Temp Pulse Resp BP Pulse Ox 96.2 F L 50 L 17 150/68 H 98 03/23/20 08:00 03/23/20 10:00 03/23/20 10:00 03/23/20 10:00 03/23/20 10:00 Oxygen Flow Rate (L/min) 60 Oxygen Delivery Method Bi-pap Weight: 234 lb 9.149 oz Body Mass Index (BMI) 33.5 Intake and Output for Last 24 Hours 03/21/20 03/22/20 03/23/20 23:59 23:59 23:59 Intake Total 1150 / 1150 1675.00 / 1775.00 1341.67 / 1341.67 Output Total 1675 / 1675 675 / 975 1050 / 1050 Balance -525 / -525 1000.00 / 800.00 291.67 / 291.67 General: Alert, Oriented x3, Cooperative HEENT: Atraumatic, PERRLA, EOMI, Normocephalic Oral: Dry Mucosa Neck: Supple, No JVD, Negative Carotid Bruits Lungs: Clear to auscultation, Diminished Cardiovascular: Regular rate, No murmurs Abdomen: Bowel Sounds Present, Soft, Non Tender, Non-Distended, Obese Extremities: No clubbing, No cyanosis, No edema, Capillary Refill Less than 3 Seconds Skin: No rashes, No breakdown Musculoskeletal: No Tenderness to Palpation of Joints or Extremities Neurological: Cranial nerves II-XII grossly intact, Neuro grossly intact Psych/Mental Status: Normal Affect, Appropriate Microbiology Past 72 Hours 03/20/20 10:45 Blood Culture (Wb) - Anticubital Left Blood Culture - Preliminary No growth in 48 hours. 03/20/20 10:45 Blood Culture (Wb) - Left Hand Blood Culture - Preliminary No growth in 48 hours. Laboratory Results 03/23/20 05:10: WBC 12.6 H, RBC 4.26 L, Hgb 12.3 L, Hct 39.1 L, MCV 91.8, MCH 28.9, MCHC 31.5 L, RDW Std Deviation 49.7 H, RDW Coeff of Fadumo 14.8 H, Plt Count 285, MPV 9.8 03/23/20 05:10: Sodium 144, Potassium 4.0, Chloride 109 H, Carbon Dioxide 31.0, Anion Gap 4 L, BUN 35 H, Creatinine 0.88, Estim Creat Clear Calc 77.19, Est GFR (MDRD) Af Amer 109, Est GFR (MDRD) Non-Af 90, BUN/Creatinine Ratio 39.8 H, Glucose 172 H, Calcium 8.2 L, Total Bilirubin 0.40, AST 53 H, ALT 75 H, Alkaline Phosphatase 63, Total Protein 6.8, Albumin 2.7 L, Globulin 4.1, Albumin/Globulin Ratio 0.7 L Current Medications Acetaminophen (Tylenol) 650 mg PO Q6H PRN PRN PRN Reason: Pain Score 1-10/Temp > 100.7 F Albuterol Sulfate (Ventolin Aerosols) 2.5 mg INHALATION Q2H PRN PRN PRN Reason: SOB/Wheezing Amlodipine Besylate (Norvasc) 10 mg PO DAILY [facility] Last Admin: 03/23/20 09:15 Dose: 10 mg Documented by: Aspirin (Aspirin, Baby) 81 mg PO DAILY [facility] Last Admin: 03/23/20 09:14 Dose: 81 mg Documented by: Atorvastatin Calcium (Lipitor) 10 mg PO DAILY [facility] Last Admin: 03/23/20 09:15 Dose: 10 mg Documented by: Dexamethasone Sodium Phosphate (Decadron) 6 mg IV DAILY [facility] Last Admin: 03/23/20 09:15 Dose: 6 mg Documented by: Enoxaparin Sodium (Lovenox) 40 mg SC Q12 [facility] Last Admin: 03/23/20 09:15 Dose: 40 mg Documented by: Ergocalciferol (Vitamin D) 50,000 unit PO Q7D [facility] Last Admin: 03/23/20 09:15 Dose: 50,000 unit Documented by: Guaifenesin (Robitussin Dm) 10 ml PO Q4H PRN PRN PRN Reason: COUGH Last Admin: 03/23/20 09:23 Dose: 10 ml Documented by: Hydralazine HCl (Apresoline) 100 mg PO BID [facility] Last Admin: 03/23/20 01:23 Dose: 100 mg Documented by: Hydralazine HCl (Apresoline Iv) 20 mg IV Q4H PRN PRN PRN Reason: SBP > 160 Remdesivir (Investigational) (100 mg/ Sodium Chloride) 250 mls @ 125 mls/hr IV DAILY [facility]; Protocol Stop: 03/25/20 11:59 Last Admin: 03/23/20 09:59 Dose: 125 mls/hr Documented by: Lactated Ringer's () 1,000 mls @ 100 mls/hr IV .Q10H [facility] Last Infusion: 03/23/20 10:01 Dose: 0 mls/hr Documented by: Ondansetron HCl (Zofran) 4 mg IV Q8H PRN PRN PRN Reason: NAUSEA/VOMITING Sodium Chloride () 10 - 40 ml IV UD PRN PRN Reason: SALINE FLUSH Last Admin: 03/23/20 09:15 Dose: 10 ml Documented by: Temazepam (Restoril) 15 mg PO QHS PRN PRN PRN Reason: INSOMNIA Last Admin: 03/22/20 20:20 Dose: 15 mg Documented by: Medical Necessity - Tobacco Use Smoking Status: Never smoker Tobacco Use: Non-smoker Assessment/Plan All Active Problems (Last Updated 02/12/19 @ 14:15 by Gisele Barnhart) Myocardial infarction (Resolved) COVID-19 (Acute) Respiratory failure (Acute) Atherosclerosis of coronary artery of [place] heart without angina pectoris (Ruled-out) 1. Acute hypoxic respiratory failure secondary to COVID-19/viral pneumonia-CT of chest demonstrates diffuse bilateral infiltrates involving both lungs. Continue supplement oxygen to maintain O2 sat above 90%. ID following. [place] Decadron. Continue Remdesevir. Patient received plasma. As needed albuterol aerosol. 2. Chronic renal insufficiency- appears at baseline. 3. Hypertension-stable, continue hydralazine, amlodipine. Will resume labetalol at lower dose, 100 mg twice daily with hold for pulse less than 50. 4. Hyperlipidemia- continue statin. 5. History of CVA-continue aspirin, statin. DVT prophylaxis- Lovenox sc This patient was seen by DIVINA Lopez under the supervision of Dr. Gongora.
[2020-03-23] MEDS: Temazepam 15 MG Capsule PO (20:39)
[2020-03-24] VITALS (41 sets, daily range): BP systolic 93–167; BP diastolic 47–80; PULSE 45–75; RESP 12–26; TEMP 36.1–37.1; O2SAT 90–99
[2020-03-24] MEDS: guaiFENesin Dm 10 ML UDC PO (05:33)
[2020-03-24 05:51] LABS: Hematocrit 38.4 % (40-54); Hemoglobin 12.2 g/dL (13.0-16.5); Mean Corp Hgb Conc 31.8 g/dL (32-36); Mean Corpuscular Hgb 29.1 pg (27.0-32.0); Mean Corpuscular Volume 91.6 fL (80-94); Platelet Count 302 K/mm3 (150-450); RBC Distribution Width CV 14.4 % (11.6-14.6); RBC Distribution Width SD 48.6 fl (35.1-43.9); Red Blood Count 4.19 M/mm3 (4.6-6.2); White Blood Count 11.3 K/mm3 (4.4-11.0)
[2020-03-24 06:07] LABS: ALB/GLOB Ratio 0.7 RATIO (0.9-2.4); AST(SGOT) 75 U/L (15-37); Alanine Aminotransfer ALT/SGPT 129 U/L (16-61); Albumin, Serum 2.6 g/dL (3.2-5.0); Alkaline Phosphatase 66 U/L (45-117); Anion Gap 3 (5-15); BUN 32 mg/dL (7-18); BUN/Creat Ratio 39.3 RATIO (10-20); Calcium,Total 8.2 mg/dL (8.5-10.1); Chloride 108 mmol/L (98-107); Creatinine, Serum 0.82 mg/dL (0.70-1.30); EST Glomerular Filtration Rate 99 mL/min (>60); Est Glom Filt Rate - Afr Amer 119 mL/min (>60); Estimated Creatinine Clearance 82.84 ml/min; Globulin 3.7 g/dL (2.2-4.2); Glucose 157 mg/dL (74-106); Protein, Total 6.3 g/dL (6.4-8.2); Sodium Level 142 mmol/L (136-145)
--- NOTE | 2020-03-24 06:56 | PN_ITS ---
Subjective: Patient did well overnight. Patient was on BiPAP from 9 PM until 6 AM, but tolerated that well. Patient did require increased in high flow nasal cannula this morning to 80%, but subjectively feels improved compared to yesterday. Patient does have a cough, but this is largely nonproductive. General: Alert, Oriented x3, Cooperative, No apparent distress, Well developed, Well nourished, - - Obese. Speaking in full sentences. HEENT: Atraumatic, PERRLA, EOMI, Normocephalic, - - No scleral icterus or injection noted Oral: Moist Mucosa, No Gingival or Mucosal Lesions/ Ulcerations Neck: Supple, No JVD, No Nodes, Trachea Midline Lungs: No rhonchi, No wheeze, No rales, Diminished, - - Symmetric expansion. Cardiovascular: Regular rate, Regular Rhythm, Normal S1, Normal S2, No murmurs, No rub noted, No Gallop Abdomen: Bowel Sounds Present, Soft, Non Tender, Non-Distended, Obese Extremities: No clubbing, No cyanosis, No edema Skin: No rashes, No breakdown Musculoskeletal: No Tenderness to Palpation of Joints or Extremities Lymphatic: No Cervical, Supraclavicular, or Inguinal Adenopathy Neurological: Cranial nerves II-XII grossly intact, Neuro grossly intact, Motor Exam 5/5 strength throughout Psych/Mental Status: Alert and oriented to time, place, person, mood and affect Vital Signs Temp Pulse Resp BP Pulse Ox 36.1 C L 56 L 19 H 155/75 H 96 03/24/20 06:00 03/24/20 06:00 03/24/20 06:00 03/24/20 06:00 03/24/20 06:00 Oxygen Flow Rate (L/min) 60 Oxygen Delivery Method Bi-pap Weight: 107.2 kg Body Mass Index (BMI) 33.5 Intake and Output for Last 24 Hours 03/22/20 03/23/20 03/24/20 23:59 23:59 23:59 Intake Total 1675.00 / 1775.00 3530.00 / 3680.00 200 / 200 Output Total 675 / 975 2075 / 2425 750 / 750 Balance 1000.00 / 800.00 1455.00 / 1255.00 -550 / -550 Labs (Last 48 Hours) 03/22/20 03/22/20 03/23/20 04:10 04:10 05:10 WBC 12.6 H RBC 4.26 L Hgb 12.3 L Hct 39.1 L MCV 91.8 MCH 28.9 MCHC 31.5 L RDW Std Deviation 49.7 H RDW Coeff of Fadumo 14.8 H Plt Count 285 MPV 9.8 Sodium Potassium Chloride Carbon Dioxide Anion Gap BUN Creatinine Estim Creat Clear Calc Est GFR (MDRD) Af Amer Est GFR (MDRD) Non-Af BUN/Creatinine Ratio Glucose Calcium Total Bilirubin AST ALT Alkaline Phosphatase Troponin I 0.031 B-Natriuretic Peptide 44.6 Total Protein Albumin Globulin Albumin/Globulin Ratio 03/23/20 03/24/20 03/24/20 05:10 05:25 05:25 WBC 11.3 H RBC 4.19 L Hgb 12.2 L Hct 38.4 L MCV 91.6 MCH 29.1 MCHC 31.8 L RDW Std Deviation 48.6 H RDW Coeff of Fadumo 14.4 Plt Count 302 MPV 10.0 Sodium 144 142 Potassium 4.0 4.0 Chloride 109 H 108 H Carbon Dioxide 31.0 31.0 Anion Gap 4 L 3 L BUN 35 H 32 H Creatinine 0.88 0.82 Estim Creat Clear Calc 77.19 82.84 Est GFR (MDRD) Af Amer 109 119 Est GFR (MDRD) Non-Af 90 99 BUN/Creatinine Ratio 39.8 H 39.3 H Glucose 172 H 157 H Calcium 8.2 L 8.2 L Total Bilirubin 0.40 0.50 AST 53 H 75 H ALT 75 H 129 H Alkaline Phosphatase 63 66 Troponin I B-Natriuretic Peptide Total Protein 6.8 6.3 L Albumin 2.7 L 2.6 L Globulin 4.1 3.7 Albumin/Globulin Ratio 0.7 L 0.7 L Microbiology 03/20/20 10:45 Blood Culture (Wb) - Anticubital Left Blood Culture - Preliminary No growth in 48 hours. 03/20/20 10:45 Blood Culture (Wb) - Left Hand Blood Culture - Preliminary No growth in 48 hours. Medical Necessity - Tobacco Use Smoking Status: Never smoker Tobacco Use: Non-smoker Assessment/Plan All Active Problems (Last Updated 02/12/19 @ 14:15 by Gisele Barnhart) Myocardial infarction (Resolved) COVID-19 (Acute) Respiratory failure (Acute) Atherosclerosis of coronary artery of [place] heart without angina pectoris (Ruled-out) RECOMMENDATIONS: 1. High flow nasal cannula with BiPAP while sleeping and for rescue. Goal to maintain oxygen saturations at or above 90%. 2. Continue Decadron with plans to complete a 10-day treatment course. 3. Continue Remdesevir and Lovenox. Possibly transition to 10 a inhibitor in the next 48 hours 4. May attempt to discontinue IV fluids 5. Continue to hold labetalol. IMPRESSIONS: 1. Acute hypoxemic respiratory failure secondary to coronavirus pneumonia The patient was diagnosed several days ago with coronavirus infection and does appear to have bilateral infiltrates on CTA chest consistent with COVID pneumonia. Plan at this time will include supportive measures including supplemental oxygen to maintain saturations at or above 90%. In addition, the patient will be continued on Lovenox twice daily along with Decadron 6 mg by mouth daily with plans to complete a 10-day treatment course. The patient has already received convalescent plasma and is currently on a Remdesevir treatment regimen. The patient will be continued on AVAPS with breaks given as tolerated. May attempt to discontinue IV fluids to avoid fluid retention. Possibly transition to a 10 a inhibitor to avoid complications with high dose Lovenox in 24 to 48 hours. 2. History of CVA/chronic kidney disease/hypertension/hyperlipidemia/CODE STATUS Complicates care, management, recovery and prognosis. Home beta-blaze remains on hold due to bradycardia. The patient remains full CODE STATUS. Inpatient E&M: [id number] [facility] Hosp L3
[2020-03-24] MEDS: Enoxaparin 40 MG/0.4 ML Syringe SC (08:26)
[2020-03-24] MEDS: hydrALAZINE 50 MG Tablet 100 MG PO ×2 (08:26→19:55)
[2020-03-24] MEDS: Labetalol 100 MG Tablet PO ×2 (08:27→19:55)
[2020-03-24] MEDS: amLODIPine 10 MG Tablet PO (08:27)
[2020-03-24] MEDS: Atorvastatin Calcium 10 MG Tablet PO (08:27)
[2020-03-24] MEDS: Aspirin 81 MG TAB.CHEW PO (08:27)
[2020-03-24] MEDS: dexAMETHasone 10 MG/ML Vial 6 MG IV (08:27)
--- NOTE | 2020-03-24 08:56 | CPS ---
Talked to his nurse about lowering O2 and she stated wanted to leave at that level due to desats with any kind of activity.
--- NOTE | 2020-03-24 14:03 | PCM.PROGNOTE ---
Patient Problems: Active and Suspected Problems (Last Updated 02/12/19 @ 14:15 by Gisele Barnhart) COVID-19 (Acute) Respiratory failure (Acute) Subjective: Patient seen and examined. Reports continued improvement in breathing. Denies significant cough. Denies fever, chills. States he has been using incentive spirometer consistently. - Physical Exam Vitals/I&O's: Vital Signs Temp Pulse Resp BP Pulse Ox 98.7 F 62 26 H 114/58 L 95 03/24/20 12:00 03/24/20 13:00 03/24/20 13:00 03/24/20 13:00 03/24/20 13:00 Oxygen Flow Rate (L/min) 60 Oxygen Delivery Method CPAP Weight: 236 lb 5.369 oz Body Mass Index (BMI) 33.5 Intake and Output for Last 24 Hours 03/22/20 03/23/20 03/24/20 23:59 23:59 23:59 Intake Total 1675.00 / 1775.00 3530.00 / 3680.00 1495 / 1495 Output Total 675 / 975 2075 / 2425 1200 / 1200 Balance 1000.00 / 800.00 1455.00 / 1255.00 295 / 295 General: Alert, Oriented x3, Cooperative HEENT: Atraumatic, PERRLA, EOMI, Normocephalic Neck: Supple, No JVD, Negative Carotid Bruits Lungs: Clear to auscultation, Diminished Cardiovascular: Regular rate, No murmurs Abdomen: Bowel Sounds Present, Soft, Non Tender, Non-Distended Extremities: No clubbing, No cyanosis, No edema, Capillary Refill Less than 3 Seconds Skin: No rashes, No breakdown Musculoskeletal: No Tenderness to Palpation of Joints or Extremities Neurological: Cranial nerves II-XII grossly intact, Neuro grossly intact Psych/Mental Status: Normal Affect, Appropriate Microbiology Past 72 Hours 03/20/20 10:45 Blood Culture (Wb) - Anticubital Left Blood Culture - Preliminary No growth in 48 hours. 03/20/20 10:45 Blood Culture (Wb) - Left Hand Blood Culture - Preliminary No growth in 48 hours. Laboratory Results 03/24/20 05:25: WBC 11.3 H, RBC 4.19 L, Hgb 12.2 L, Hct 38.4 L, MCV 91.6, MCH 29.1, MCHC 31.8 L, RDW Std Deviation 48.6 H, RDW Coeff of Fadumo 14.4, Plt Count 302, MPV 10.0 03/24/20 05:25: Sodium 142, Potassium 4.0, Chloride 108 H, Carbon Dioxide 31.0, Anion Gap 3 L, BUN 32 H, Creatinine 0.82, Estim Creat Clear Calc 82.84, Est GFR (MDRD) Af Amer 119, Est GFR (MDRD) Non-Af 99, BUN/Creatinine Ratio 39.3 H, Glucose 157 H, Calcium 8.2 L, Total Bilirubin 0.50, AST 75 H, ALT 129 H, Alkaline Phosphatase 66, Total Protein 6.3 L, Albumin 2.6 L, Globulin 3.7, Albumin/Globulin Ratio 0.7 L Current Medications Acetaminophen (Tylenol) 650 mg PO Q6H PRN PRN PRN Reason: Pain Score 1-10/Temp > 100.7 F Albuterol Sulfate (Ventolin Aerosols) 2.5 mg INHALATION Q2H PRN PRN PRN Reason: SOB/Wheezing Amlodipine Besylate (Norvasc) 10 mg PO DAILY [facility] Last Admin: 03/24/20 08:27 Dose: 10 mg Documented by: Apixaban (Eliquis) 5 mg PO BID [facility] Aspirin (Aspirin, Baby) 81 mg PO DAILY [facility] Last Admin: 03/24/20 08:27 Dose: 81 mg Documented by: Atorvastatin Calcium (Lipitor) 10 mg PO DAILY [facility] Last Admin: 03/24/20 08:27 Dose: 10 mg Documented by: Dexamethasone Sodium Phosphate (Decadron) 6 mg IV DAILY [facility] Last Admin: 03/24/20 08:27 Dose: 6 mg Documented by: Ergocalciferol (Vitamin D) 50,000 unit PO Q7D [facility] Last Admin: 03/23/20 09:15 Dose: 50,000 unit Documented by: Guaifenesin (Robitussin Dm) 10 ml PO Q4H PRN PRN PRN Reason: COUGH Last Admin: 03/24/20 05:33 Dose: 10 ml Documented by: Hydralazine HCl (Apresoline) 100 mg PO BID [facility] Last Admin: 03/24/20 08:26 Dose: 100 mg Documented by: Hydralazine HCl (Apresoline Iv) 20 mg IV Q4H PRN PRN PRN Reason: SBP > 160 Remdesivir (Investigational) (100 mg/ Sodium Chloride) 250 mls @ 125 mls/hr IV DAILY [facility]; Protocol Stop: 03/25/20 11:59 Last Admin: 03/24/20 10:45 Dose: 125 mls/hr Documented by: Labetalol HCl (Trandate) 100 mg PO BID [facility] Last Admin: 03/24/20 08:27 Dose: 100 mg Documented by: Ondansetron HCl (Zofran) 4 mg IV Q8H PRN PRN PRN Reason: NAUSEA/VOMITING Sodium Chloride () 10 - 40 ml IV UD PRN PRN Reason: SALINE FLUSH Last Admin: 03/23/20 09:15 Dose: 10 ml Documented by: Temazepam (Restoril) 15 mg PO QHS PRN PRN PRN Reason: INSOMNIA Last Admin: 03/23/20 20:39 Dose: 15 mg Documented by: Medical Necessity - Tobacco Use Smoking Status: Never smoker Tobacco Use: Non-smoker Assessment/Plan All Active Problems (Last Updated 02/12/19 @ 14:15 by Gisele Barnhart) Myocardial infarction (Resolved) COVID-19 (Acute) Respiratory failure (Acute) Atherosclerosis of coronary artery of [place] heart without angina pectoris (Ruled-out) 1. Acute hypoxic respiratory failure secondary to COVID-19/viral pneumonia-CT of chest demonstrates diffuse bilateral infiltrates involving both lungs. Continue supplement oxygen to maintain O2 sat above 90%. ID following. Continue Decadron. Continue Remdesevir. Patient received plasma. As needed albuterol aerosol. Overall improving. 2. Chronic renal insufficiency-unknown stage of CKD. Appears at baseline. 3. Hypertension-stable, continue hydralazine, amlodipine. Will resume labetalol at lower dose, 100 mg twice daily with hold for pulse less than 60. 4. Hyperlipidemia- continue statin. 5. History of CVA-continue aspirin, statin. 6. Moderate protein calorie malnutrition-dietitian consult. DVT prophylaxis- Lovenox sc This patient was seen by DIVINA Lopez under the supervision of Dr. Gongora.
--- NOTE | 2020-03-24 14:17 | PN.ID_ITS ---
Patient Problems: Active and Suspected Problems (Last Updated 02/12/19 @ 14:15 by Gisele Barnhart) COVID-19 (Acute) Respiratory failure (Acute) Subjective: Feeling better, dyspnea and cough better. No fever, no n/v/d. - Physical Exam Vitals/I&O's: Vital Signs Temp Pulse Resp BP Pulse Ox 98.7 F 62 26 H 114/58 L 95 03/24/20 12:00 03/24/20 13:00 03/24/20 13:00 03/24/20 13:00 03/24/20 13:00 Oxygen Flow Rate (L/min) 60 Oxygen Delivery Method CPAP Weight: 107.2 kg Body Mass Index (BMI) 33.5 Intake and Output for Last 24 Hours 03/22/20 03/23/20 03/24/20 23:59 23:59 23:59 Intake Total 1675.00 / 1775.00 3530.00 / 3680.00 1495 / 1495 Output Total 675 / 975 2075 / 2425 1200 / 1200 Balance 1000.00 / 800.00 1455.00 / 1255.00 295 / 295 General: Alert, Cooperative, No apparent distress Lungs: Clear to auscultation, Normal air movement, Diminished Cardiovascular: Regular rate, Regular Rhythm Abdomen: Soft, Non Tender, Non-Distended Skin: No rashes Microbiology Past 72 Hours 03/20/20 10:45 Blood Culture (Wb) - Anticubital Left Blood Culture - Preliminary No growth in 48 hours. 03/20/20 10:45 Blood Culture (Wb) - Left Hand Blood Culture - Preliminary No growth in 48 hours. Laboratory Results 03/24/20 05:25: WBC 11.3 H, RBC 4.19 L, Hgb 12.2 L, Hct 38.4 L, MCV 91.6, MCH 29.1, MCHC 31.8 L, RDW Std Deviation 48.6 H, RDW Coeff of Fadumo 14.4, Plt Count 302, MPV 10.0 03/24/20 05:25: Sodium 142, Potassium 4.0, Chloride 108 H, Carbon Dioxide 31.0, Anion Gap 3 L, BUN 32 H, Creatinine 0.82, Estim Creat Clear Calc 82.84, Est GFR (MDRD) Af Amer 119, Est GFR (MDRD) Non-Af 99, BUN/Creatinine Ratio 39.3 H, Glucose 157 H, Calcium 8.2 L, Total Bilirubin 0.50, AST 75 H, ALT 129 H, Alkaline Phosphatase 66, Total Protein 6.3 L, Albumin 2.6 L, Globulin 3.7, Albumin/Globulin Ratio 0.7 L Current Medications Acetaminophen (Tylenol) 650 mg PO Q6H PRN PRN PRN Reason: Pain Score 1-10/Temp > 100.7 F Albuterol Sulfate (Ventolin Aerosols) 2.5 mg INHALATION Q2H PRN PRN PRN Reason: SOB/Wheezing Amlodipine Besylate (Norvasc) 10 mg PO DAILY [facility] Last Admin: 03/24/20 08:27 Dose: 10 mg Documented by: Apixaban (Eliquis) 5 mg PO BID [facility] Aspirin (Aspirin, Baby) 81 mg PO DAILY [facility] Last Admin: 03/24/20 08:27 Dose: 81 mg Documented by: Atorvastatin Calcium (Lipitor) 10 mg PO DAILY [facility] Last Admin: 03/24/20 08:27 Dose: 10 mg Documented by: Dexamethasone Sodium Phosphate (Decadron) 6 mg IV DAILY [facility] Last Admin: 03/24/20 08:27 Dose: 6 mg Documented by: Ergocalciferol (Vitamin D) 50,000 unit PO Q7D [facility] Last Admin: 03/23/20 09:15 Dose: 50,000 unit Documented by: Guaifenesin (Robitussin Dm) 10 ml PO Q4H PRN PRN PRN Reason: COUGH Last Admin: 03/24/20 05:33 Dose: 10 ml Documented by: Hydralazine HCl (Apresoline) 100 mg PO BID [facility] Last Admin: 03/24/20 08:26 Dose: 100 mg Documented by: Hydralazine HCl (Apresoline Iv) 20 mg IV Q4H PRN PRN PRN Reason: SBP > 160 Remdesivir (Investigational) (100 mg/ Sodium Chloride) 250 mls @ 125 mls/hr IV DAILY [facility]; Protocol Stop: 03/25/20 11:59 Last Admin: 03/24/20 10:45 Dose: 125 mls/hr Documented by: Labetalol HCl (Trandate) 100 mg PO BID [facility] Last Admin: 03/24/20 08:27 Dose: 100 mg Documented by: Ondansetron HCl (Zofran) 4 mg IV Q8H PRN PRN PRN Reason: NAUSEA/VOMITING Sodium Chloride () 10 - 40 ml IV UD PRN PRN Reason: SALINE FLUSH Last Admin: 03/23/20 09:15 Dose: 10 ml Documented by: Temazepam (Restoril) 15 mg PO QHS PRN PRN PRN Reason: INSOMNIA Last Admin: 03/23/20 20:39 Dose: 15 mg Documented by: Medical Necessity - Tobacco Use Smoking Status: Never smoker Tobacco Use: Non-smoker Route of nutrition/ use of supplements: [] Nutritional Intake: [] IV Site: [] Dejesus Catheter: [] - Assessment/Plan Antibiotics: [] Assessment/Plan: [] Active and Suspected Problems (Last Updated 02/12/19 @ 14:15 by Gisele Barnhart) COVID-19 (Acute) Respiratory failure (Acute) Acute hypoxic resp failure due to covid - on decadron. CTA neg for PE. Mildly elevated d-dimer. Received plasma, on 5 day course of remdesivir. Feeling better, still needing high O2. will follow
[2020-03-24] MEDS: APIXABAN 5 MG TABLET PO (19:56)
[2020-03-25] VITALS (34 sets, daily range): BP systolic 102–189; BP diastolic 45–105; PULSE 43–75; RESP 12–26; TEMP 36.4–37.1; O2SAT 19–97
[2020-03-25 04:32] LABS: Hematocrit 34.9 % (40-54); Hemoglobin 11.1 g/dL (13.0-16.5); Mean Corp Hgb Conc 31.8 g/dL (32-36); Mean Corpuscular Hgb 28.7 pg (27.0-32.0); Mean Corpuscular Volume 90.2 fL (80-94); Mean Platelet Vol. 10.3 fl (6.2-12.0); Platelet Count 329 K/mm3 (150-450); RBC Distribution Width CV 13.9 % (11.6-14.6); RBC Distribution Width SD 46.3 fl (35.1-43.9); Red Blood Count 3.87 M/mm3 (4.6-6.2); White Blood Count 10.9 K/mm3 (4.4-11.0)
[2020-03-25 04:47] LABS: ALB/GLOB Ratio 0.7 RATIO (0.9-2.4); AST(SGOT) 104 U/L (15-37); Alanine Aminotransfer ALT/SGPT 235 U/L (16-61); Albumin, Serum 2.5 g/dL (3.2-5.0); Alkaline Phosphatase 70 U/L (45-117); Anion Gap 4 (5-15); BUN 30 mg/dL (7-18); BUN/Creat Ratio 35.9 RATIO (10-20); Calcium,Total 8.2 mg/dL (8.5-10.1); Chloride 106 mmol/L (98-107); Creatinine, Serum 0.84 mg/dL (0.70-1.30); EST Glomerular Filtration Rate 96 mL/min (>60); Est Glom Filt Rate - Afr Amer 116 mL/min (>60); Estimated Creatinine Clearance 80.87 ml/min; Globulin 3.4 g/dL (2.2-4.2); Glucose 164 mg/dL (74-106); Protein, Total 5.9 g/dL (6.4-8.2); Sodium Level 141 mmol/L (136-145)
--- NOTE | 2020-03-25 08:09 | PCM.PN.INT ---
Subjective: Patient did well overnight. No acute issues were reported. Patient still requiring high flow nasal cannula at 70% FiO2 during the day. Patient with cooperation with therapy and took more p.o. yesterday. Patient reports subjective improvement. Patient did tolerate BiPAP overnight. General: Alert, Oriented x3, Cooperative, No apparent distress, - - No conversational dyspnea. Good BiPAP synchrony. Obese. HEENT: Atraumatic, PERRLA, EOMI, Normocephalic, - - No scleral icterus or injection noted Oral: Moist Mucosa, No Gingival or Mucosal Lesions/ Ulcerations Neck: Supple, No JVD, No Nodes, Trachea Midline Lungs: No rhonchi, No wheeze, No rales, Diminished, - - Symmetric expansion. No dullness to percussion. Cardiovascular: Normal S1, Normal S2, No murmurs, Bradycardic, No rub noted, No Gallop Abdomen: Bowel Sounds Present, Soft, Non Tender, Non-Distended, Obese Extremities: No clubbing, No cyanosis, No edema, Capillary Refill Less than 3 Seconds Skin: No rashes, No breakdown Musculoskeletal: No Tenderness to Palpation of Joints or Extremities Lymphatic: No Cervical, Supraclavicular, or Inguinal Adenopathy Neurological: Cranial nerves II-XII grossly intact, Neuro grossly intact, Motor Exam 5/5 strength throughout Psych/Mental Status: Alert and oriented to time, place, person, mood and affect Vital Signs Temp Pulse Resp BP Pulse Ox 36.8 C 55 L 26 H 159/72 H 91 03/25/20 04:00 03/25/20 07:00 03/25/20 07:00 03/25/20 07:00 03/25/20 07:00 Oxygen Flow Rate (L/min) 3 Oxygen Delivery Method Bi-pap Weight: 107.2 kg Body Mass Index (BMI) 33.5 Intake and Output for Last 24 Hours 03/23/20 03/24/20 03/25/20 23:59 23:59 23:59 Intake Total 3530.00 / 3680.00 1920 / 2040 120 / 120 Output Total 2075 / 2425 1500 / 1900 400 / 400 Balance 1455.00 / 1255.00 420 / 140 -280 / -280 Labs (Last 48 Hours) 03/24/20 03/24/20 03/25/20 05:25 05:25 03:45 WBC 11.3 H 10.9 RBC 4.19 L 3.87 L Hgb 12.2 L 11.1 L Hct 38.4 L 34.9 L MCV 91.6 90.2 MCH 29.1 28.7 MCHC 31.8 L 31.8 L RDW Std Deviation 48.6 H 46.3 H RDW Coeff of Fadumo 14.4 13.9 Plt Count 302 329 MPV 10.0 10.3 Sodium 142 Potassium 4.0 Chloride 108 H Carbon Dioxide 31.0 Anion Gap 3 L BUN 32 H Creatinine 0.82 Estim Creat Clear Calc 82.84 Est GFR (MDRD) Af Amer 119 Est GFR (MDRD) Non-Af 99 BUN/Creatinine Ratio 39.3 H Glucose 157 H Calcium 8.2 L Total Bilirubin 0.50 AST 75 H ALT 129 H Alkaline Phosphatase 66 Total Protein 6.3 L Albumin 2.6 L Globulin 3.7 Albumin/Globulin Ratio 0.7 L 03/25/20 03:45 WBC RBC Hgb Hct MCV MCH MCHC RDW Std Deviation RDW Coeff of Fadumo Plt Count MPV Sodium 141 Potassium 4.0 Chloride 106 Carbon Dioxide 31.0 Anion Gap 4 L BUN 30 H Creatinine 0.84 Estim Creat Clear Calc 80.87 Est GFR (MDRD) Af Amer 116 Est GFR (MDRD) Non-Af 96 BUN/Creatinine Ratio 35.9 H Glucose 164 H Calcium 8.2 L Total Bilirubin 0.40 AST 104 H ALT 235 H Alkaline Phosphatase 70 Total Protein 5.9 L Albumin 2.5 L Globulin 3.4 Albumin/Globulin Ratio 0.7 L Medical Necessity - Tobacco Use Smoking Status: Never smoker Tobacco Use: Non-smoker Assessment/Plan All Active Problems (Last Updated 02/12/19 @ 14:15 by Gisele Barnhart) Myocardial infarction (Resolved) COVID-19 (Acute) Respiratory failure (Acute) Atherosclerosis of coronary artery of [place] heart without angina pectoris (Ruled-out) RECOMMENDATIONS: 1. High flow nasal cannula with BiPAP while sleeping and for rescue. Goal to maintain oxygen saturations at or above 90%. 2. Continue Decadron with plans to complete a 10-day treatment course. 3. Continue Remdesevir and Eliquis 4. Could consider transition to p.o. Decadron, but defer to ID 5. Titrate antihypertensives IMPRESSIONS: 1. Acute hypoxemic respiratory failure secondary to coronavirus pneumonia The patient was diagnosed several days ago with coronavirus infection and does appear to have bilateral infiltrates on CTA chest consistent with COVID pneumonia. Plan at this time will include supportive measures including supplemental oxygen to maintain saturations at or above 90%. In addition, the patient will be continued on Eliquis for 21 days along with Decadron 6 mg by mouth daily with plans to complete a 10-day treatment course. The patient has already received convalescent plasma and is currently on a Remdesevir treatment regimen. The patient will be continued on AVAPS with sleep. Weight is slightly up today. May dose with Lasix therapy tomorrow if trend continues 2. History of CVA/chronic kidney disease/hypertension/hyperlipidemia/CODE STATUS Complicates care, management, recovery and prognosis. Home beta-blaze remains on hold due to bradycardia. The patient remains full CODE STATUS. Inpatient E&M: 74247 Subs Hosp L3
[2020-03-25] MEDS: 0.9% Saline Lock 10 ML Syringe IV ×3 (08:26→22:26)
[2020-03-25] MEDS: amLODIPine 10 MG Tablet PO (08:27)
[2020-03-25] MEDS: hydrALAZINE 50 MG Tablet 100 MG PO ×2 (08:28→20:34)
[2020-03-25] MEDS: Labetalol 100 MG Tablet PO ×2 (08:28→20:35)
[2020-03-25] MEDS: Aspirin 81 MG TAB.CHEW PO (08:28)
[2020-03-25] MEDS: Atorvastatin Calcium 10 MG Tablet PO (08:28)
[2020-03-25] MEDS: APIXABAN 5 MG TABLET PO ×2 (08:29→20:35)
[2020-03-25] MEDS: dexAMETHasone 10 MG/ML Vial 6 MG IV (08:29)
--- NOTE | 2020-03-25 10:19 | CASEMGMT ---
RN CM Note- participated in ICU interdisciplinary rounds. Patient remains on 70% airvo and 55% Bipap when sleeping. Will try to wean oxygen further today. Patient is ambulatory in room. Last dose Remdesivir today, then Decadron to continue x 10 days. Patient will need Home Oxygen testing prior to discharge and anticipate Home oxygen through [facility] as patient did not have a preference. DC PLAN: anticipate home with home oxygen. Subhash WEBER RN ACM
--- NOTE | 2020-03-25 14:02 | PCM.PROGNOTE ---
Patient Problems: Active and Suspected Problems (Last Updated 02/12/19 @ 14:15 by Gisele Barnhart) COVID-19 (Acute) Respiratory failure (Acute) Subjective: Patient seen and examined. Reports continued improvement in breathing. Tolerating a diet. Denies nausea, vomiting. States he is up to 1000 on incentive spirometer which is improved significantly from yesterday. Denies other symptoms or complaints. - Physical Exam Vitals/I&O's: Vital Signs Temp Pulse Resp BP Pulse Ox 97.9 F 56 L 15 133/45 H 95 03/25/20 12:00 03/25/20 12:00 03/25/20 12:00 03/25/20 12:00 03/25/20 12:00 Oxygen Flow Rate (L/min) 40 Oxygen Delivery Method CPAP Weight: 236 lb 5.369 oz Body Mass Index (BMI) 33.5 Intake and Output for Last 24 Hours 03/23/20 03/24/20 03/25/20 23:59 23:59 23:59 Intake Total 3530.00 / 3680.00 192 / 0 570 / 570 Output Total 2075 / 2425 1500 / 1900 1000 / 1000 Balance 1455.00 / 1255.00 420 / 140 -430 / -430 General: Alert, Oriented x3, Cooperative HEENT: Atraumatic, PERRLA, EOMI, Normocephalic Neck: Supple, No JVD, Negative Carotid Bruits Lungs: Clear to auscultation, Diminished Cardiovascular: Regular rate, No murmurs Abdomen: Bowel Sounds Present, Soft, Non Tender, Non-Distended Extremities: No clubbing, No cyanosis, No edema Skin: No rashes, No breakdown Musculoskeletal: No Tenderness to Palpation of Joints or Extremities Neurological: Cranial nerves II-XII grossly intact, Neuro grossly intact Psych/Mental Status: Normal Affect, Appropriate Microbiology Past 72 Hours 03/20/20 10:45 Blood Culture (Wb) - Left Hand Blood Culture - Final No growth in 5 days. 03/20/20 10:45 Blood Culture (Wb) - Anticubital Left Blood Culture - Final No growth in 5 days. Laboratory Results 03/25/20 03:45: WBC 10.9, RBC 3.87 L, Hgb 11.1 L, Hct 34.9 L, MCV 90.2, MCH 28.7, MCHC 31.8 L, RDW Std Deviation 46.3 H, RDW Coeff of Fadumo 13.9, Plt Count 329, MPV 10.3 03/25/20 03:45: Sodium 141, Potassium 4.0, Chloride 106, Carbon Dioxide 31.0, Anion Gap 4 L, BUN 30 H, Creatinine 0.84, Estim Creat Clear Calc 80.87, Est GFR (MDRD) Af Amer 116, Est GFR (MDRD) Non-Af 96, BUN/Creatinine Ratio 35.9 H, Glucose 164 H, Calcium 8.2 L, Total Bilirubin 0.40, AST 104 H, ALT 235 H, Alkaline Phosphatase 70, Total Protein 5.9 L, Albumin 2.5 L, Globulin 3.4, Albumin/Globulin Ratio 0.7 L Current Medications Acetaminophen (Tylenol) 650 mg PO Q6H PRN PRN PRN Reason: Pain Score 1-10/Temp > 100.7 F Albuterol Sulfate (Ventolin Aerosols) 2.5 mg INHALATION Q2H PRN PRN PRN Reason: SOB/Wheezing Amlodipine Besylate (Norvasc) 10 mg PO DAILY [facility] Last Admin: 03/25/20 08:27 Dose: 10 mg Documented by: Apixaban (Eliquis) 5 mg PO BID [facility] Last Admin: 03/25/20 08:29 Dose: 5 mg Documented by: Aspirin (Aspirin, Baby) 81 mg PO DAILY [facility] Last Admin: 03/25/20 08:28 Dose: 81 mg Documented by: Atorvastatin Calcium (Lipitor) 10 mg PO DAILY [facility] Last Admin: 03/25/20 08:28 Dose: 10 mg Documented by: Dexamethasone Sodium Phosphate (Decadron) 6 mg IV DAILY [facility] Last Admin: 03/25/20 08:29 Dose: 6 mg Documented by: Ergocalciferol (Vitamin D) 50,000 unit PO Q7D [facility] Last Admin: 03/23/20 09:15 Dose: 50,000 unit Documented by: Guaifenesin (Robitussin Dm) 10 ml PO Q4H PRN PRN PRN Reason: COUGH Last Admin: 03/24/20 05:33 Dose: 10 ml Documented by: Hydralazine HCl (Apresoline) 100 mg PO BID [facility] Last Admin: 03/25/20 08:28 Dose: 100 mg Documented by: Hydralazine HCl (Apresoline Iv) 20 mg IV Q4H PRN PRN PRN Reason: SBP > 160 Labetalol HCl (Trandate) 100 mg PO BID [facility] Last Admin: 03/25/20 08:28 Dose: 100 mg Documented by: Ondansetron HCl (Zofran) 4 mg IV Q8H PRN PRN PRN Reason: NAUSEA/VOMITING Sodium Chloride () 10 - 40 ml IV UD PRN PRN Reason: SALINE FLUSH Last Admin: 03/25/20 11:11 Dose: 10 ml Documented by: Temazepam (Restoril) 15 mg PO QHS PRN PRN PRN Reason: INSOMNIA Last Admin: 03/23/20 20:39 Dose: 15 mg Documented by: Medical Necessity - Tobacco Use Smoking Status: Never smoker Tobacco Use: Non-smoker Assessment/Plan All Active Problems (Last Updated 02/12/19 @ 14:15 by Gisele Barnhart) Myocardial infarction (Resolved) COVID-19 (Acute) Respiratory failure (Acute) Atherosclerosis of coronary artery of [place] heart without angina pectoris (Ruled-out) 1. Acute hypoxic respiratory failure secondary to COVID-19/viral pneumonia-CT of chest demonstrates diffuse bilateral infiltrates involving both lungs. Continue supplement oxygen to maintain O2 sat above 90%. ID following. Continue Decadron. Continue Remdesevir and Eliquis. Patient received plasma. As needed albuterol aerosol. Overall continuing to improve. 2. Chronic renal insufficiency-unknown stage of CKD. Appears at baseline. 3. Hypertension-stable, continue hydralazine, amlodipine. Will resume labetalol at lower dose, 100 mg twice daily with hold for pulse less than 60. 4. Hyperlipidemia- continue statin. 5. History of CVA-continue aspirin, statin. 6. Moderate protein calorie malnutrition-dietitian consult. DVT prophylaxis-Eliquis This patient was seen by DIVINA Lopez under the supervision of Dr. Gongora.
[2020-03-25] MEDS: Ondansetron 4 MG/2 ML Vial IV (22:26)
[2020-03-25] MEDS: Temazepam 15 MG Capsule PO (22:26)
[2020-03-26] VITALS (31 sets, daily range): BP systolic 117–181; BP diastolic 56–81; PULSE 50–91; RESP 13–21; TEMP 36.2–37.3; O2SAT 87–97
[2020-03-26] MEDS: hydrALAZINE 20 MG/ML Vial IV (00:23)
[2020-03-26] MEDS: proCHLORPERazine 10 MG/2 ML Vial 5 MG IV (00:24)
[2020-03-26] MEDS: 0.9% Saline Lock 10 ML Syringe IV ×3 (00:24→10:50)
--- NOTE | 2020-03-26 00:33 | NURSING ---
Pt has been having intractable nausea, after administration of ordered Zofran. Notified Dr. Michel and order for Compazine received and administered. Pt BP also elevated with SBP >180, administered ordered hydralazine. During episodes of dry heaving, pt desaturates and takes approximately 5-10 minutes to recuperate.
[2020-03-26] MEDS: guaiFENesin Dm 10 ML UDC PO (02:53)
[2020-03-26 03:32] LABS: Hemoglobin 12.5 g/dL (13.0-16.5); Mean Corp Hgb Conc 32.9 g/dL (32-36); Mean Corpuscular Hgb 29.1 pg (27.0-32.0); Mean Corpuscular Volume 88.6 fL (80-94); Mean Platelet Vol. 10.1 fl (6.2-12.0); Platelet Count 440 K/mm3 (150-450); RBC Distribution Width CV 13.8 % (11.6-14.6); RBC Distribution Width SD 44.5 fl (35.1-43.9); Red Blood Count 4.29 M/mm3 (4.6-6.2); White Blood Count 14.1 K/mm3 (4.4-11.0)
[2020-03-26 03:54] LABS: ALB/GLOB Ratio 0.7 RATIO (0.9-2.4); AST(SGOT) 45 U/L (15-37); Alanine Aminotransfer ALT/SGPT 186 U/L (16-61); Albumin, Serum 2.9 g/dL (3.2-5.0); Alkaline Phosphatase 70 U/L (45-117); Anion Gap 6 (5-15); BUN 28 mg/dL (7-18); BUN/Creat Ratio 30.8 RATIO (10-20); Calcium,Total 8.9 mg/dL (8.5-10.1); Chloride 103 mmol/L (98-107); Creatinine, Serum 0.91 mg/dL (0.70-1.30); EST Glomerular Filtration Rate 87 mL/min (>60); Est Glom Filt Rate - Afr Amer 105 mL/min (>60); Estimated Creatinine Clearance 74.65 ml/min; Globulin 3.9 g/dL (2.2-4.2); Glucose 173 mg/dL (74-106); Potassium 4.2 mmol/L (3.5-5.1); Protein, Total 6.8 g/dL (6.4-8.2); Sodium Level 139 mmol/L (136-145)
--- NOTE | 2020-03-26 06:45 | PN_ITS ---
Subjective: Patient has remained hemodynamically stable over the last 24 hours. However, patient has reported constipation with associated nausea. Patient states he is attempted to have a bowel movement but was unsuccessful. Because of nausea, patient was nervous about wearing BiPAP overnight, so remain on air Vo. Patient has had some improvement in oxygen demands. Patient does have difficulties with intermittent constipation prior to this hospitalization. General: Alert, Oriented x3, Cooperative, No apparent distress, Well developed, Well nourished, - - Obese. Speaking in full sentences. HEENT: Atraumatic, PERRLA, EOMI, Normocephalic, - - No scleral icterus or injection noted Oral: Moist Mucosa, No Gingival or Mucosal Lesions/ Ulcerations Neck: Supple, No JVD, No Nodes, Trachea Midline Lungs: No rhonchi, No wheeze, No rales, Diminished, - - Symmetric expansion. Cardiovascular: Regular rate, Regular Rhythm, Normal S1, Normal S2, No murmurs, No rub noted, No Gallop Abdomen: Bowel Sounds Present, Soft, Non Tender, Distended - Slightly, Obese, - - Reported nausea worsening with palpation Extremities: No clubbing, No cyanosis, No edema, Capillary Refill Less than 3 Seconds Skin: No rashes, No breakdown Musculoskeletal: No Tenderness to Palpation of Joints or Extremities Lymphatic: No Cervical, Supraclavicular, or Inguinal Adenopathy Neurological: Cranial nerves II-XII grossly intact, Neuro grossly intact, Motor Exam 5/5 strength throughout Psych/Mental Status: Alert and oriented to time, place, person, mood and affect Vital Signs Temp Pulse Resp BP Pulse Ox 36.2 C L 62 17 159/67 H 95 03/26/20 04:00 03/26/20 06:00 03/26/20 06:00 03/26/20 06:00 03/26/20 06:00 Oxygen Flow Rate (L/min) 40 Oxygen Delivery Method CPAP Weight: 107.2 kg Body Mass Index (BMI) 33.5 Intake and Output for Last 24 Hours 03/24/20 03/25/20 03/26/20 23:59 23:59 23:59 Intake Total 1920 / 2040 1380 / 1380 Output Total 1500 / 1900 2200 / 2200 300 / 300 Balance 420 / 140 -820 / -820 -300 / -300 Labs (Last 48 Hours) 03/25/20 03/25/20 03/26/20 03:45 03:45 03:05 WBC 10.9 14.1 H RBC 3.87 L 4.29 L Hgb 11.1 L 12.5 L Hct 34.9 L 38.0 L MCV 90.2 88.6 MCH 28.7 29.1 MCHC 31.8 L 32.9 RDW Std Deviation 46.3 H 44.5 H RDW Coeff of Fadumo 13.9 13.8 Plt Count 329 440 MPV 10.3 10.1 Sodium 141 Potassium 4.0 Chloride 106 Carbon Dioxide 31.0 Anion Gap 4 L BUN 30 H Creatinine 0.84 Estim Creat Clear Calc 80.87 Est GFR (MDRD) Af Amer 116 Est GFR (MDRD) Non-Af 96 BUN/Creatinine Ratio 35.9 H Glucose 164 H Calcium 8.2 L Total Bilirubin 0.40 AST 104 H ALT 235 H Alkaline Phosphatase 70 Total Protein 5.9 L Albumin 2.5 L Globulin 3.4 Albumin/Globulin Ratio 0.7 L 03/26/20 03:05 WBC RBC Hgb Hct MCV MCH MCHC RDW Std Deviation RDW Coeff of Fadumo Plt Count MPV Sodium 139 Potassium 4.2 Chloride 103 Carbon Dioxide 30.0 Anion Gap 6 BUN 28 H Creatinine 0.91 Estim Creat Clear Calc 74.65 Est GFR (MDRD) Af Amer 105 Est GFR (MDRD) Non-Af 87 BUN/Creatinine Ratio 30.8 H Glucose 173 H Calcium 8.9 Total Bilirubin 0.60 AST 45 H ALT 186 H Alkaline Phosphatase 70 Total Protein 6.8 Albumin 2.9 L Globulin 3.9 Albumin/Globulin Ratio 0.7 L Microbiology 03/20/20 10:45 Blood Culture (Wb) - Left Hand Blood Culture - Final No growth in 5 days. 03/20/20 10:45 Blood Culture (Wb) - Anticubital Left Blood Culture - Final No growth in 5 days. Medical Necessity - Tobacco Use Smoking Status: Never smoker Tobacco Use: Non-smoker Assessment/Plan All Active Problems (Last Updated 02/12/19 @ 14:15 by Gisele Barnhart) Myocardial infarction (Resolved) COVID-19 (Acute) Respiratory failure (Acute) Atherosclerosis of coronary artery of [place] heart without angina pectoris (Ruled-out) RECOMMENDATIONS: 1. High flow nasal cannula with BiPAP while sleeping and for rescue. Goal to maintain oxygen saturations at or above 90%. 2. Continue Decadron with plans to complete a 10-day treatment course. 3. Completed Remdesevir and anticipate 21 days of Eliquis 4. Could consider transition to p.o. Decadron, but defer to ID 5. Titrate antihypertensives IMPRESSIONS: 1. Acute hypoxemic respiratory failure secondary to coronavirus pneumonia The patient was diagnosed several days ago with coronavirus infection and does appear to have bilateral infiltrates on CTA chest consistent with COVID pneumonia. Plan at this time will include supportive measures including supplemental oxygen to maintain saturations at or above 90%. In addition, the patient will be continued on Eliquis for 21 days along with Decadron 6 mg by mouth daily with plans to complete a 10-day treatment course. The patient has already received convalescent plasma and completed course of Remdesevir treatment regimen. The patient will be continued on AVAPS with sleep. Will attempt to address constipation to see if nausea improves. Patient may be more somnolent today secondary to noncompliance with FAUSTO therapy. 2. History of CVA/chronic kidney disease/hypertension/hyperlipidemia/CODE STATUS Complicates care, management, recovery and prognosis. Home beta-blaze remains on hold due to bradycardia. The patient remains full CODE STATUS. Inpatient E&M: 24196 Subs Hosp L3
[2020-03-26] MEDS: Labetalol 100 MG Tablet PO ×2 (10:40→22:32)
[2020-03-26] MEDS: APIXABAN 5 MG TABLET PO ×2 (10:40→22:32)
[2020-03-26] MEDS: Atorvastatin Calcium 10 MG Tablet PO (10:40)
[2020-03-26] MEDS: amLODIPine 10 MG Tablet PO (10:40)
[2020-03-26] MEDS: Aspirin 81 MG TAB.CHEW PO (10:40)
[2020-03-26] MEDS: hydrALAZINE 50 MG Tablet 100 MG PO ×2 (10:40→22:32)
[2020-03-26] MEDS: dexAMETHasone 10 MG/ML Vial 6 MG IV (10:40)
[2020-03-26] MEDS: Ondansetron 4 MG/2 ML Vial IV (10:49)
[2020-03-26] MEDS: Senna Tablet 2 TABLET PO ×2 (10:49→18:32)
--- NOTE | 2020-03-26 12:48 | PN.ID_ITS ---
Patient Problems: Active and Suspected Problems (Last Updated 02/12/19 @ 14:15 by Gisele Barnhart) COVID-19 (Acute) Respiratory failure (Acute) Subjective: Feeling better, using IS, no fever, no n/v/d. - Physical Exam Vitals/I&O's: Vital Signs Temp Pulse Resp BP Pulse Ox 97.9 F 68 20 H 174/79 H 92 03/26/20 08:00 03/26/20 11:00 03/26/20 11:00 03/26/20 11:00 03/26/20 11:00 Oxygen Flow Rate (L/min) 40 Oxygen Delivery Method CPAP Weight: 107.2 kg Body Mass Index (BMI) 33.5 Intake and Output for Last 24 Hours 03/24/20 03/25/20 03/26/20 23:59 23:59 23:59 Intake Total 1920 / 2040 1380 / 1380 Output Total 1500 / 1900 2200 / 2200 1200 / 1200 Balance 420 / 140 -820 / -820 -1200 / -1200 General: Alert, Cooperative, No apparent distress Lungs: Clear to auscultation, Normal air movement Cardiovascular: Regular rate, Regular Rhythm Abdomen: Soft, Non Tender, Non-Distended Skin: No rashes Microbiology Past 72 Hours 03/20/20 10:45 Blood Culture (Wb) - Left Hand Blood Culture - Final No growth in 5 days. 03/20/20 10:45 Blood Culture (Wb) - Anticubital Left Blood Culture - Final No growth in 5 days. Laboratory Results 03/26/20 03:05: WBC 14.1 H, RBC 4.29 L, Hgb 12.5 L, Hct 38.0 L, MCV 88.6, MCH 29.1, MCHC 32.9, RDW Std Deviation 44.5 H, RDW Coeff of Fadumo 13.8, Plt Count 440, MPV 10.1 03/26/20 03:05: Sodium 139, Potassium 4.2, Chloride 103, Carbon Dioxide 30.0, Anion Gap 6, BUN 28 H, Creatinine 0.91, Estim Creat Clear Calc 74.65, Est GFR (MDRD) Af Amer 105, Est GFR (MDRD) Non-Af 87, BUN/Creatinine Ratio 30.8 H, Glucose 173 H, Calcium 8.9, Total Bilirubin 0.60, AST 45 H, ALT 186 H, Alkaline Phosphatase 70, Total Protein 6.8, Albumin 2.9 L, Globulin 3.9, Albumin/Globulin Ratio 0.7 L Current Medications Acetaminophen (Tylenol) 650 mg PO Q6H PRN PRN PRN Reason: Pain Score 1-10/Temp > 100.7 F Albuterol Sulfate (Ventolin Aerosols) 2.5 mg INHALATION Q2H PRN PRN PRN Reason: SOB/Wheezing Amlodipine Besylate (Norvasc) 10 mg PO DAILY [facility] Last Admin: 03/26/20 10:40 Dose: 10 mg Documented by: Apixaban (Eliquis) 5 mg PO BID [facility] Last Admin: 03/26/20 10:40 Dose: 5 mg Documented by: Aspirin (Aspirin, Baby) 81 mg PO DAILY [facility] Last Admin: 03/26/20 10:40 Dose: 81 mg Documented by: Atorvastatin Calcium (Lipitor) 10 mg PO DAILY [facility] Last Admin: 03/26/20 10:40 Dose: 10 mg Documented by: Dexamethasone Sodium Phosphate (Decadron) 6 mg IV DAILY [facility] Last Admin: 03/26/20 10:40 Dose: 6 mg Documented by: Ergocalciferol (Vitamin D) 50,000 unit PO Q7D [facility] Last Admin: 03/23/20 09:15 Dose: 50,000 unit Documented by: Guaifenesin (Robitussin Dm) 10 ml PO Q4H PRN PRN PRN Reason: COUGH Last Admin: 03/26/20 02:53 Dose: 10 ml Documented by: Hydralazine HCl (Apresoline) 100 mg PO BID [facility] Last Admin: 03/26/20 10:40 Dose: 100 mg Documented by: Hydralazine HCl (Apresoline Iv) 20 mg IV Q4H PRN PRN PRN Reason: SBP > 160 Last Admin: 03/26/20 00:23 Dose: 20 mg Documented by: Labetalol HCl (Trandate) 100 mg PO TID [facility] Last Admin: 03/26/20 10:40 Dose: 100 mg Documented by: Ondansetron HCl (Zofran) 4 mg IV Q8H PRN PRN PRN Reason: NAUSEA/VOMITING Last Admin: 03/26/20 10:49 Dose: 4 mg Documented by: Prochlorperazine Edisylate (Compazine Iv) 5 mg IV Q6H PRN PRN PRN Reason: NAUSEA/VOMITING Last Admin: 03/26/20 00:24 Dose: 5 mg Documented by: Senna (Senokot) 2 tablet PO BID [facility] Last Admin: 03/26/20 10:49 Dose: 2 tablet Documented by: Sodium Chloride () 10 - 40 ml IV UD PRN PRN Reason: SALINE FLUSH Last Admin: 03/26/20 10:50 Dose: 10 ml Documented by: Temazepam (Restoril) 15 mg PO QHS PRN PRN PRN Reason: INSOMNIA Last Admin: 03/25/20 22:26 Dose: 15 mg Documented by: Medical Necessity - Tobacco Use Smoking Status: Never smoker Tobacco Use: Non-smoker Route of nutrition/ use of supplements: [] Nutritional Intake: [] IV Site: [] Dejesus Catheter: [] - Assessment/Plan Antibiotics: [] Assessment/Plan: [] Active and Suspected Problems (Last Updated 02/12/19 @ 14:15 by Gisele Barnhart) COVID-19 (Acute) Respiratory failure (Acute) Acute hypoxic resp failure due to covid - on decadron. CTA neg for PE. Mildly elevated d-dimer. Received plasma, completed 5 day course of remdesivir. Feeling better, still needing high O2. will follow
--- NOTE | 2020-03-26 16:17 | PCM.PROGNOTE ---
Patient Problems: Active and Suspected Problems (Last Updated 02/12/19 @ 14:15 by Gisele Barnhart) COVID-19 (Acute) Respiratory failure (Acute) Subjective: Patient was seen and examined today in the ICU, he is resting quietly, he had a fitful night last night and had nausea and was not placed on BiPAP, he appears stable today on high flow oxygen. - Physical Exam Vitals/I&O's: Vital Signs Temp Pulse Resp BP Pulse Ox 98.7 F 74 18 152/72 H 94 03/26/20 14:00 03/26/20 15:15 03/26/20 15:15 03/26/20 14:00 03/26/20 15:15 Oxygen Flow Rate (L/min) 40 Oxygen Delivery Method CPAP Weight: 107.2 kg Body Mass Index (BMI) 33.5 Intake and Output for Last 24 Hours 03/24/20 03/25/20 03/26/20 23:59 23:59 23:59 Intake Total 1920 / 2040 1380 / 1380 Output Total 1500 / 1900 2200 / 2200 1325 / 1325 Balance 420 / 140 -820 / -820 -1325 / -1325 General: Alert, Oriented x3, Cooperative, No apparent distress, Well developed HEENT: Atraumatic, PERRLA, EOMI, Normocephalic Oral: Moist Mucosa Neck: Supple, No JVD, No Nuchal Rigidity, Trachea Midline Lungs: Clear to auscultation, Normal air movement, No rhonchi, No wheeze, No rales Cardiovascular: Regular rate, Regular Rhythm, Normal S1, Normal S2, No murmurs, PMI Normal, No rub noted, No Gallop Abdomen: Bowel Sounds Present, Soft, Non Tender, Non-Distended Extremities: No clubbing, No cyanosis, No edema, Capillary Refill Less than 3 Seconds Skin: No rashes, No breakdown Musculoskeletal: No Tenderness to Palpation of Joints or Extremities Neurological: Cranial nerves II-XII grossly intact, Neuro grossly intact, Sensory exam intact to light touch and pain, Coordination normal Psych/Mental Status: Normal Affect, Appropriate Microbiology Past 72 Hours 03/20/20 10:45 Blood Culture (Wb) - Left Hand Blood Culture - Final No growth in 5 days. 03/20/20 10:45 Blood Culture (Wb) - Anticubital Left Blood Culture - Final No growth in 5 days. Laboratory Results 03/26/20 03:05: WBC 14.1 H, RBC 4.29 L, Hgb 12.5 L, Hct 38.0 L, MCV 88.6, MCH 29.1, MCHC 32.9, RDW Std Deviation 44.5 H, RDW Coeff of Fadumo 13.8, Plt Count 440, MPV 10.1 03/26/20 03:05: Sodium 139, Potassium 4.2, Chloride 103, Carbon Dioxide 30.0, Anion Gap 6, BUN 28 H, Creatinine 0.91, Estim Creat Clear Calc 74.65, Est GFR (MDRD) Af Amer 105, Est GFR (MDRD) Non-Af 87, BUN/Creatinine Ratio 30.8 H, Glucose 173 H, Calcium 8.9, Total Bilirubin 0.60, AST 45 H, ALT 186 H, Alkaline Phosphatase 70, Total Protein 6.8, Albumin 2.9 L, Globulin 3.9, Albumin/Globulin Ratio 0.7 L Current Medications Acetaminophen (Tylenol) 650 mg PO Q6H PRN PRN PRN Reason: Pain Score 1-10/Temp > 100.7 F Albuterol Sulfate (Ventolin Aerosols) 2.5 mg INHALATION Q2H PRN PRN PRN Reason: SOB/Wheezing Amlodipine Besylate (Norvasc) 10 mg PO DAILY [facility] Last Admin: 03/26/20 10:40 Dose: 10 mg Documented by: Apixaban (Eliquis) 5 mg PO BID [facility] Last Admin: 03/26/20 10:40 Dose: 5 mg Documented by: Aspirin (Aspirin, Baby) 81 mg PO DAILY [facility] Last Admin: 03/26/20 10:40 Dose: 81 mg Documented by: Atorvastatin Calcium (Lipitor) 10 mg PO DAILY [facility] Last Admin: 03/26/20 10:40 Dose: 10 mg Documented by: Dexamethasone Sodium Phosphate (Decadron) 6 mg IV DAILY [facility] Last Admin: 03/26/20 10:40 Dose: 6 mg Documented by: Ergocalciferol (Vitamin D) 50,000 unit PO Q7D [facility] Last Admin: 03/23/20 09:15 Dose: 50,000 unit Documented by: Guaifenesin (Robitussin Dm) 10 ml PO Q4H PRN PRN PRN Reason: COUGH Last Admin: 03/26/20 02:53 Dose: 10 ml Documented by: Hydralazine HCl (Apresoline) 100 mg PO BID [facility] Last Admin: 03/26/20 10:40 Dose: 100 mg Documented by: Hydralazine HCl (Apresoline Iv) 20 mg IV Q4H PRN PRN PRN Reason: SBP > 160 Last Admin: 03/26/20 00:23 Dose: 20 mg Documented by: Labetalol HCl (Trandate) 100 mg PO TID [facility] Last Admin: 03/26/20 14:02 Dose: Not Given Documented by: Ondansetron HCl (Zofran) 4 mg IV Q8H PRN PRN PRN Reason: NAUSEA/VOMITING Last Admin: 03/26/20 10:49 Dose: 4 mg Documented by: Prochlorperazine Edisylate (Compazine Iv) 5 mg IV Q6H PRN PRN PRN Reason: NAUSEA/VOMITING Last Admin: 03/26/20 00:24 Dose: 5 mg Documented by: Senna (Senokot) 2 tablet PO BID [facility] Last Admin: 03/26/20 10:49 Dose: 2 tablet Documented by: Sodium Chloride () 10 - 40 ml IV UD PRN PRN Reason: SALINE FLUSH Last Admin: 03/26/20 10:50 Dose: 10 ml Documented by: Temazepam (Restoril) 15 mg PO QHS PRN PRN PRN Reason: INSOMNIA Last Admin: 03/25/20 22:26 Dose: 15 mg Documented by: Medical Necessity - Tobacco Use Smoking Status: Never smoker Tobacco Use: Non-smoker Assessment/Plan All Active Problems (Last Updated 02/12/19 @ 14:15 by Gisele Barnhart) Myocardial infarction (Resolved) COVID-19 (Acute) Respiratory failure (Acute) Atherosclerosis of coronary artery of [place] heart without angina pectoris (Ruled-out) #1 acute COVID-19 infection with resultant viral pneumonia-continue present care per infectious diseases and pulmonary medicine #2 acute hypoxic respiratory failure secondary to COVID-19 pneumonia-continue present treatment #3 cerebrovascular disease #4 essential hypertension-continue to monitor blood pressure #5 hyperlipidemia #6 coronary artery disease-nonocclusive Inpatient E&M: [id number] [facility] Hosp L2
[2020-03-26] MEDS: Temazepam 15 MG Capsule PO (22:32)
[2020-03-27] VITALS (19 sets, daily range): BP systolic 99–160; BP diastolic 54–79; PULSE 54–78; RESP 15–24; TEMP 36.5–36.7; O2SAT 90–97
[2020-03-27] MEDS: Labetalol 100 MG Tablet PO ×3 (05:41→21:08)
--- NOTE | 2020-03-27 06:49 | PCM.PN.INT ---
Subjective: Patient did well overnight. Patient has not had a bowel movement and still reporting some nausea. No fever or hemodynamic instability was noted. Patient has had some elevated blood pressures. No emesis has been reported. Patient believes his lack of bowel movement is secondary to not having coffee and thinks this will work. Patient has not had any change in his FiO2 overnight, but baseline saturations have been improving. General: Alert, Oriented x3, Cooperative, No apparent distress, Well developed, Well nourished, - - Obese. Speaking in full sentences. HEENT: Atraumatic, PERRLA, EOMI, Normocephalic, - - No scleral icterus or injection noted Oral: Moist Mucosa, No Gingival or Mucosal Lesions/ Ulcerations Neck: Supple, No JVD, No Nodes, Trachea Midline Lungs: No rhonchi, No wheeze, No rales, Diminished, - - Symmetric expansion. No dullness to percussion. Cardiovascular: Normal S1, Normal S2, No murmurs, Bradycardic, No rub noted, No Gallop Abdomen: Bowel Sounds Present, Soft, Non Tender, Non-Distended, Obese Extremities: No clubbing, No cyanosis, No edema, Capillary Refill Less than 3 Seconds Skin: No rashes, No breakdown Musculoskeletal: No Tenderness to Palpation of Joints or Extremities Lymphatic: No Cervical, Supraclavicular, or Inguinal Adenopathy Neurological: Cranial nerves II-XII grossly intact, Neuro grossly intact, Motor Exam 5/5 strength throughout Psych/Mental Status: Alert and oriented to time, place, person, mood and affect Vital Signs Temp Pulse Resp BP Pulse Ox 36.5 C L 63 16 139/79 H 95 03/27/20 02:00 03/27/20 05:41 03/27/20 04:45 03/27/20 05:41 03/27/20 04:45 Oxygen Flow Rate (L/min) 40 Oxygen Delivery Method CPAP Weight: 107.2 kg Body Mass Index (BMI) 33.5 Intake and Output for Last 24 Hours 03/25/20 03/26/20 03/27/20 23:59 23:59 23:59 Intake Total 1380 / 1380 460 / 460 50 / 50 Output Total 2200 / 2200 2049 / 2049 375 / 375 Balance -820 / -820 -1590 / -1590 -325 / -325 Labs (Last 48 Hours) 03/26/20 03/26/20 03:05 03:05 WBC 14.1 H RBC 4.29 L Hgb 12.5 L Hct 38.0 L MCV 88.6 MCH 29.1 MCHC 32.9 RDW Std Deviation 44.5 H RDW Coeff of Fadumo 13.8 Plt Count 440 MPV 10.1 Sodium 139 Potassium 4.2 Chloride 103 Carbon Dioxide 30.0 Anion Gap 6 BUN 28 H Creatinine 0.91 Estim Creat Clear Calc 74.65 Est GFR (MDRD) Af Amer 105 Est GFR (MDRD) Non-Af 87 BUN/Creatinine Ratio 30.8 H Glucose 173 H Calcium 8.9 Total Bilirubin 0.60 AST 45 H ALT 186 H Alkaline Phosphatase 70 Total Protein 6.8 Albumin 2.9 L Globulin 3.9 Albumin/Globulin Ratio 0.7 L Microbiology 03/20/20 10:45 Blood Culture (Wb) - Left Hand Blood Culture - Final No growth in 5 days. 03/20/20 10:45 Blood Culture (Wb) - Anticubital Left Blood Culture - Final No growth in 5 days. Medical Necessity - Tobacco Use Smoking Status: Never smoker Tobacco Use: Non-smoker Assessment/Plan All Active Problems (Last Updated 02/12/19 @ 14:15 by Gisele Barnhart) Myocardial infarction (Resolved) COVID-19 (Acute) Respiratory failure (Acute) Atherosclerosis of coronary artery of [place] heart without angina pectoris (Ruled-out) RECOMMENDATIONS: 1. High flow nasal cannula. Okay to discontinue AVAPS. Goal to maintain oxygen saturations at or above 90%. 2. Continue Decadron with plans to complete a 10-day treatment course. 3. Completed Remdesevir and anticipate 21 days of Eliquis 4. Lab holiday today. 5. Add MiraLAX as needed for bowel regimen IMPRESSIONS: 1. Acute hypoxemic respiratory failure secondary to coronavirus pneumonia The patient was diagnosed several days ago with coronavirus infection and does appear to have bilateral infiltrates on CTA chest consistent with COVID pneumonia. Plan at this time will include supportive measures including supplemental oxygen to maintain saturations at or above 90%. In addition, the patient will be continued on Eliquis for 21 days along with Decadron 6 mg daily with plans to complete a 10-day treatment course. The patient has already received convalescent plasma and completed course of Remdesevir treatment regimen. Okay to discontinue BiPAP from my perspective. We will add MiraLAX for constipation. Potentially obtain abdominal x-ray if continues to have complaints. Does not appear to be progressing. 2. History of CVA/chronic kidney disease/hypertension/hyperlipidemia/CODE STATUS Complicates care, management, recovery and prognosis. Home beta-blaze remains on hold due to bradycardia. The patient remains full CODE STATUS. Inpatient E&M: 43447 Subs Hosp L3
[2020-03-27] MEDS: APIXABAN 5 MG TABLET PO ×2 (08:50→21:08)
[2020-03-27] MEDS: Senna Tablet 2 TABLET PO ×2 (08:50→21:08)
[2020-03-27] MEDS: hydrALAZINE 50 MG Tablet 100 MG PO ×2 (08:50→21:08)
[2020-03-27] MEDS: Atorvastatin Calcium 10 MG Tablet PO (08:51)
[2020-03-27] MEDS: Aspirin 81 MG TAB.CHEW PO (08:51)
[2020-03-27] MEDS: proCHLORPERazine 10 MG/2 ML Vial 5 MG IV (09:33)
[2020-03-27] MEDS: 0.9% Saline Lock 10 ML Syringe IV ×2 (09:34→21:07)
[2020-03-27] MEDS: dexAMETHasone 10 MG/ML Vial 6 MG IV (09:34)
[2020-03-27] MEDS: Polyethylene Glycol 3350 17 GM PACKET PO (11:19)
[2020-03-27] MEDS: Bisacodyl 10 MG Suppository RECTAL (14:06)
--- NOTE | 2020-03-27 15:44 | PN_ITS ---
Patient Problems: Active and Suspected Problems (Last Updated 02/12/19 @ 14:15 by Gisele Barnhart) COVID-19 (Acute) Respiratory failure (Acute) Subjective: Patient was seen and examined today, he is still on high flow oxygen, he is sitting in a chair and voices no complaints. Objective: eneral: Alert, Oriented x3, Cooperative, No apparent distress, Well developed HEENT: Atraumatic, PERRLA, EOMI, Normocephalic Oral: Moist Mucosa Neck: Supple, No JVD, No Nuchal Rigidity, Trachea Midline Lungs: Clear to auscultation, Normal air movement, No rhonchi, No wheeze, No rales Cardiovascular: Regular rate, Regular Rhythm, Normal S1, Normal S2, No murmurs, PMI Normal, No rub noted, No Gallop Abdomen: Bowel Sounds Present, Soft, Non Tender, Non-Distended Extremities: No clubbing, No cyanosis, No edema, Capillary Refill Less than 3 Seconds Skin: No rashes, No breakdown Musculoskeletal: No Tenderness to Palpation of Joints or Extremities Neurological: Cranial nerves II-XII grossly intact, Neuro grossly intact, Sensory exam intact to light touch and pain, Coordination normal Psych/Mental Status: Normal Affect, Appropriate - Physical Exam Vitals/I&O's: Vital Signs Temp Pulse Resp BP Pulse Ox 98.0 F 71 20 H 99/54 L 91 03/27/20 11:25 03/27/20 11:25 03/27/20 11:25 03/27/20 11:25 03/27/20 11:25 Oxygen Flow Rate (L/min) 5 Oxygen Delivery Method Nasal Cannula Weight: 107.2 kg Body Mass Index (BMI) 33.5 Intake and Output for Last 24 Hours 03/25/20 03/26/20 03/27/20 23:59 23:59 23:59 Intake Total 1380 / 1380 460 / 460 350 / 350 Output Total 2200 / 2200 2049 / 2049 650 / 650 Balance -820 / -820 -1590 / -1590 -300 / -300 Microbiology Past 72 Hours 03/20/20 10:45 Blood Culture (Wb) - Left Hand Blood Culture - Final No growth in 5 days. 03/20/20 10:45 Blood Culture (Wb) - Anticubital Left Blood Culture - Final No growth in 5 days. Current Medications Acetaminophen (Tylenol) 650 mg PO Q6H PRN PRN PRN Reason: Pain Score 1-10/Temp > 100.7 F Albuterol Sulfate (Ventolin Aerosols) 2.5 mg INHALATION Q2H PRN PRN PRN Reason: SOB/Wheezing Amlodipine Besylate (Norvasc) 10 mg PO DAILY [facility] Last Admin: 03/26/20 10:40 Dose: 10 mg Documented by: Apixaban (Eliquis) 5 mg PO BID [facility] Last Admin: 03/27/20 08:50 Dose: 5 mg Documented by: Aspirin (Aspirin, Baby) 81 mg PO DAILY [facility] Last Admin: 03/27/20 08:51 Dose: 81 mg Documented by: Atorvastatin Calcium (Lipitor) 10 mg PO DAILY [facility] Last Admin: 03/27/20 08:51 Dose: 10 mg Documented by: Dexamethasone Sodium Phosphate (Decadron) 6 mg IV DAILY [facility] Last Admin: 03/27/20 09:34 Dose: 6 mg Documented by: Ergocalciferol (Vitamin D) 50,000 unit PO Q7D [facility] Last Admin: 03/23/20 09:15 Dose: 50,000 unit Documented by: Guaifenesin (Robitussin Dm) 10 ml PO Q4H PRN PRN PRN Reason: COUGH Last Admin: 03/26/20 02:53 Dose: 10 ml Documented by: Hydralazine HCl (Apresoline) 100 mg PO BID [facility] Last Admin: 03/27/20 08:50 Dose: 100 mg Documented by: Hydralazine HCl (Apresoline Iv) 20 mg IV Q4H PRN PRN PRN Reason: SBP > 160 Last Admin: 03/26/20 00:23 Dose: 20 mg Documented by: Labetalol HCl (Trandate) 100 mg PO TID [facility] Last Admin: 03/27/20 08:51 Dose: 100 mg Documented by: Lisinopril (Zestril) 5 mg PO DAILY [facility] Ondansetron HCl (Zofran) 4 mg IV Q8H PRN PRN PRN Reason: NAUSEA/VOMITING Last Admin: 03/26/20 10:49 Dose: 4 mg Documented by: Polyethylene Glycol (Miralax) 17 gm PO DAILY PRN PRN Reason: Constipation Last Admin: 03/27/20 11:19 Dose: 17 gm Documented by: Prochlorperazine Edisylate (Compazine Iv) 5 mg IV Q6H PRN PRN PRN Reason: NAUSEA/VOMITING Last Admin: 03/27/20 09:33 Dose: 5 mg Documented by: Senmat (Senokot) 2 tablet PO BID [facility] Last Admin: 03/27/20 08:50 Dose: 2 tablet Documented by: Sodium Chloride () 10 - 40 ml IV UD PRN PRN Reason: SALINE FLUSH Last Admin: 03/27/20 09:34 Dose: 30 ml Documented by: Temazepam (Restoril) 15 mg PO QHS PRN PRN PRN Reason: INSOMNIA Last Admin: 03/26/20 22:32 Dose: 15 mg Documented by: Medical Necessity - Tobacco Use Smoking Status: Never smoker Tobacco Use: Non-smoker Assessment/Plan All Active Problems (Last Updated 02/12/19 @ 14:15 by Gisele Barnhart) Myocardial infarction (Resolved) COVID-19 (Acute) Respiratory failure (Acute) Atherosclerosis of coronary artery of [place] heart without angina pectoris (Ruled-out) #1 acute COVID-19 infection with resultant viral pneumonia-continue present care per infectious diseases and pulmonary medicine, patient's oxygen requirement has remained stable since yesterday #2 acute hypoxic respiratory failure secondary to COVID-19 pneumonia-continue present treatment #3 cerebrovascular disease #4 essential hypertension-continue to monitor blood pressure #5 hyperlipidemia #6 coronary artery disease-nonocclusive Inpatient E&M: [id number] Subs Hosp L2
[2020-03-27] MEDS: Temazepam 15 MG Capsule PO (21:08)
[2020-03-28] VITALS (71 sets, daily range): BP systolic 51–176; BP diastolic 21–114; PULSE 68–116; RESP 12–60; TEMP 36.6–38.7; O2SAT 82–100
[2020-03-28] MEDS: 0.9% Saline Lock 10 ML Syringe IV ×2 (04:20→08:33)
[2020-03-28] MEDS: Labetalol 100 MG Tablet PO (04:20)
[2020-03-28 05:38] LABS: Absolute Lymphocyte Count 0.57 X10^3/uL (0.83-4.51); Absolute Neutrophil Count 17.3 X10^3/uL (2.0-7.7); Basophil# 0.02 X10^3/uL; Basophil% 0.1 % (0-1); Hematocrit 34.8 % (40-54); Hemoglobin 11.4 g/dL (13.0-16.5); Lymphocyte # 0.57 X10^3/ul (4.0); Mean Corp Hgb Conc 32.8 g/dL (32-36); Mean Corpuscular Hgb 29.2 pg (27.0-32.0); Mean Corpuscular Volume 89.2 fL (80-94); Mean Platelet Vol. 10.4 fl (6.2-12.0); Monocyte% 4.7 % (0-10); NRBC Flagged by Analyzer 0 % (0-5); Neutrophil # 17.28 X10^3/uL (2.7-7.7); Neutrophil % 90.9 % (47-70); POSITIVE DIFFERENTIAL YES; Platelet Count 518 K/mm3 (150-450); RBC Distribution Width CV 13.9 % (11.6-14.6); RBC Distribution Width SD 44.8 fl (35.1-43.9)
[2020-03-28 05:41] LABS: Differential Indicated SCAN CRITERIA MET
[2020-03-28 05:47] LABS: Anion Gap 5 (5-15); BUN 50 mg/dL (7-18); BUN/Creat Ratio 44.2 RATIO (10-20); Calcium,Total 8.4 mg/dL (8.5-10.1); Chloride 100 mmol/L (98-107); Creatinine, Serum 1.13 mg/dL (0.70-1.30); EST Glomerular Filtration Rate 68 mL/min (>60); Est Glom Filt Rate - Afr Amer 82 mL/min (>60); Estimated Creatinine Clearance 60.12 ml/min; Glucose 196 mg/dL (74-106); Potassium 4.3 mmol/L (3.5-5.1); Sodium Level 138 mmol/L (136-145)
[2020-03-28 06:19] LABS: Differential Comment SCANNED
--- NOTE | 2020-03-28 07:12 | NURSING ---
Called to room by [employer] d/t pt acting weird after getting patient up to [facility]. DR. Villanueva notified also. Upon entering room pt was nonresponsive. Pt was placed back into bed at which time a large amount of melana was noted along with a strong iron smell. initial bp 63/33, HR 63. REpeat BP 83/55 with pt in supine position in bed. CBC, PT/INR, PTT, 1L bolus ordered per Dr. Villanueva.
[2020-03-28] MEDS: 0.9% Normal Saline 1,000 ML 999 ML IV (07:31)
[2020-03-28 07:51] LABS: Absolute Lymphocyte Count 1.15 X10^3/uL (0.83-4.51); Absolute Neutrophil Count 16.9 X10^3/uL (2.0-7.7); Basophil# 0.03 X10^3/uL; Basophil% 0.2 % (0-1); Eosinophil# 0.01 X10^3/uL; Eosinophils% 0.1 % (0-5); Hematocrit 32.1 % (40-54); Hemoglobin 10.3 g/dL (13.0-16.5); Lymphocyte # 1.15 X10^3/ul (4.0); Lymphocyte % 5.9 % (19-41); Mean Corp Hgb Conc 32.1 g/dL (32-36); Mean Corpuscular Hgb 29.2 pg (27.0-32.0); Mean Corpuscular Volume 90.9 fL (80-94); Mean Platelet Vol. 10.8 fl (6.2-12.0); Monocyte# 0.87 X10^3/uL; Monocyte% 4.5 % (0-10); NRBC Flagged by Analyzer 0 % (0-5); Neutrophil # 16.91 X10^3/uL (2.7-7.7); Neutrophil % 87.4 % (47-70); Platelet Count 433 K/mm3 (150-450); RBC Distribution Width SD 45.8 fl (35.1-43.9); Red Blood Count 3.53 M/mm3 (4.6-6.2); White Blood Count 19.3 K/mm3 (4.4-11.0)
[2020-03-28 08:08] LABS: ALB/GLOB Ratio 0.7 RATIO (0.9-2.4); AST(SGOT) 26 U/L (15-37); Alanine Aminotransfer ALT/SGPT 87 U/L (16-61); Albumin, Serum 2.3 g/dL (3.2-5.0); Alkaline Phosphatase 53 U/L (45-117); Anion Gap 11 (5-15); BUN 63 mg/dL (7-18); BUN/Creat Ratio 39.6 RATIO (10-20); Calcium,Total 8.3 mg/dL (8.5-10.1); Chloride 101 mmol/L (98-107); Creatinine, Serum 1.59 mg/dL (0.70-1.30); EST Glomerular Filtration Rate 46 mL/min (>60); Est Glom Filt Rate - Afr Amer 55 mL/min (>60); Estimated Creatinine Clearance 42.72 ml/min; Globulin 3.2 g/dL (2.2-4.2); Glucose 290 mg/dL (74-106); Potassium 4.5 mmol/L (3.5-5.1); Protein, Total 5.5 g/dL (6.4-8.2); Sodium Level 140 mmol/L (136-145)
[2020-03-28] MEDS: HUMAN PROTHROMBIN COMPLX IV (08:10)
[2020-03-28] MEDS: VIAFLEX IV (08:10)
[2020-03-28 08:12] LABS: International Normalized Ratio 1.6; Prothrombin Time (Protime)PT. 18.2 SECONDS (11.7-14.9)
[2020-03-28 08:13] LABS: Partial Thromboplast Time 25.2 Seconds (24.1-36.2)
--- NOTE | 2020-03-28 09:30 | NURSING ---
Dr. Villanueva, Ashley [facility], and myself at bedside for intubation. Procedure explained to patient, consent signed by d/t patient confusion. Etomidate and Succinylcholine given. Size [address] Villanueva using Glidescope. 24 @LL. 14F OG inserted 50cm, taped to ET tube. CXR ordered. ET advanced 2cm and OG advanced 6cm.
--- NOTE | 2020-03-28 09:45 | CON.PCM_ITS ---
Problem List (1) Upper GI bleed Status: Acute Reason for Consult Date of Consultation: 03/28/20 Reason for Consultation: Upper GI bleed and possible bleeding ulcer History of Present Illness: The patient is a 75 year old M who has been in the intensive care unit being treated for COVID. He has been on Eliquis as well as steroids. He was on nasal cannula and improving but he had not had a bowel movement. The patient has been having retching and vomiting for the last few days. He does describe some abdominal pain but does not localize. The patient's says that he had a bleeding ulcer in 2012 which was treated endoscopically. The patient had a large melanotic stool this morning and began to have hypotension. There is no blood in his vomiting yesterday. Past Medical History Past Medical History (Chronic Problems): Chronic Problems (Last Updated 02/12/19 @ 14:15 by Gisele Barnhart) Coronary artery disease (Chronic) CVA (cerebral vascular accident) (Chronic 2012) HLD (hyperlipidemia) (Chronic) Essential hypertension (Chronic) Medical History: Medical History (Last Updated 02/12/19 @ 14:15 by Gisele Barnhart) CVA (cerebral vascular accident) (Chronic) Onset Date: 2012 I63.9 HLD (hyperlipidemia) (Chronic) E78.5 Essential hypertension (Chronic) I10 Anemia D64.9 Obesity E66.9 GI bleed K92.2 Non-ST elevation (NSTEMI) myocardial infarction I21.4 Atherosclerosis of coronary artery of [place] heart without angina pectoris (Ruled-out) I25.10 Allergies Penicillins Allergy (Verified 03/20/20 10:34) Unknown Home Medications: Ambulatory Orders Medication Instructions Recorded Amlodipine [Norvasc] 10 mg PO DAILY 03/20/20 Aspirin [Aspirin, Baby] 81 mg PO DAILY@0800 03/20/20 Atorvastatin Calcium [Lipitor] 10 mg PO QHS 03/20/20 Cholecalciferol (Vitamin D3) 5,000 unit PO DAILY 03/20/20 [Vitamin D3] Hydralazine HCl 100 mg PO BID 03/20/20 Labetalol HCl 300 mg PO TID 03/20/20 Phenylephrine/Dm/Acetaminop/GG 1 tab PO BID 03/20/20 [Tylenol Cold & Flu Severe Cplt] Surgical History: Surgical History (Last Updated 02/03/18 @ 15:02 by Nettie Magallon) H/O: knee surgery Z98.890 Surgical History: - - Knee surgery Psychiatric History: No pertinent psych hx Lives: Spouse/ Significant Other Smoking Status: Never smoker Tobacco Use: Non-smoker Alcohol: None Drugs: None - *Family History Paternal Family History: Family History (Last Updated 02/03/18 @ 15:02 by Nettie Magallon) Father CAD (coronary artery disease) History Items: Heart Disease Maternal Family History: Family History (Last Updated 02/03/18 @ 15:02 by Nettie Magallon) Father CAD (coronary artery disease) History Items: - - Denies known maternal medical history including cardiac history. Review of Systems Constitutional: Denies: Anorexia, Fever HEENT: Denies: Difficulty Swallowing Respiratory: Reports: Shortness of Breath Gastrointestinal: Reports: Abdominal Pain, Constipation, Hematochezia, Nausea, Melena, Vomiting. Denies: Diarrhea, Hematemesis Musculoskeletal: Denies: Joint Tenderness Skin: Denies: Jaundice Hematologic/ Lymphatic: Reports: - - History of bleeding ulcer Patient Problems: Active and Suspected Problems (Last Updated 02/12/19 @ 14:15 by Gisele Barnhart) COVID-19 (Acute) Respiratory failure (Acute) Upper GI bleed (Acute) - Physical Exam Vitals/I&O's: Vital Signs Temp Pulse Resp BP Pulse Ox 98.5 F 88 19 H 99/50 L 93 03/28/20 04:05 03/28/20 09:10 03/28/20 09:10 03/28/20 09:10 03/28/20 09:10 Oxygen Flow Rate (L/min) 4 Oxygen Delivery Method Bi-pap Weight: 236 lb 5.369 oz Body Mass Index (BMI) 33.5 Intake and Output for Last 24 Hours 03/26/20 03/27/20 03/28/20 23:59 23:59 23:59 Intake Total 460 / 460 940 / 940 1421.96 / 1421.96 Output Total 2049 1175 / 1175 550 / 550 Balance -1590 / -1590 -235 / -235 871.96 / 871.96 General: Alert HEENT: Atraumatic Lungs: Short of Breath Cardiovascular: Regular rate, Regular Rhythm Abdomen: Soft, Non-Distended Extremities: No clubbing Musculoskeletal: No Muscle Wasting Microbiology Past 72 Hours 03/20/20 10:45 Blood Culture (Wb) - Left Hand Blood Culture - Final No growth in 5 days. 03/20/20 10:45 Blood Culture (Wb) - Anticubital Left Blood Culture - Final No growth in 5 days. Laboratory Results 03/28/20 04:15: WBC 19.0 H, RBC 3.90 L, Hgb 11.4 L, Hct 34.8 L, MCV 89.2, MCH 29.2, MCHC 32.8, RDW Std Deviation 44.8 H, RDW Coeff of Faduom 13.9, Plt Count 518 H, MPV 10.4, Immature Gran % (Auto) 1.300 H, Neut % (Auto) 90.9 H, Lymph % (Auto) 3.0 L, [place] % (Auto) 4.7, Eos % (Auto) 0.0, Baso % (Auto) 0.1, Absolute Neuts (auto) 17.3 H, Absolute Lymphs (auto) 0.57 L, Nucleated RBC % 0, Differential Comment SCANNED 03/28/20 04:15: Sodium 138, Potassium 4.3, Chloride 100, Carbon Dioxide 33.0 H, Anion Gap 5, BUN 50 H, Creatinine 1.13, Estim Creat Clear Calc 60.12, Est GFR (MDRD) Af Amer 82, Est GFR (MDRD) Non-Af 68, BUN/Creatinine Ratio 44.2 H, Glucose 196 H, Calcium 8.4 L 03/28/20 07:35: WBC 19.3 H, RBC 3.53 L, Hgb 10.3 L, Hct 32.1 L, MCV 90.9, MCH 29.2, MCHC 32.1, RDW Std Deviation 45.8 H, RDW Coeff of Fadumo 14.0, Plt Count 433, MPV 10.8, Immature Gran % (Auto) 1.900 H, Neut % (Auto) 87.4 H, Lymph % (Auto) 5.9 L, [place] % (Auto) 4.5, Eos % (Auto) 0.1, Baso % (Auto) 0.2, Absolute Neuts (auto) 16.9 H, Absolute Lymphs (auto) 1.15, Nucleated RBC % 0 03/28/20 07:35: PT 18.2 H, INR 1.6, APTT 25.2 03/28/20 07:35: Blood Type O NEGATIVE, Antibody Screen NEGATIVE 03/28/20 07:35: Sodium 140, Potassium 4.5, Chloride 101, Carbon Dioxide 28.0, Anion Gap 11, BUN 63 H, Creatinine 1.59 H, Estim Creat Clear Calc 42.72, Est GFR (MDRD) Af Amer 55 L, Est GFR (MDRD) Non-Af 46 L, BUN/Creatinine Ratio 39.6 H, Glucose 290 H, Calcium 8.3 L, Total Bilirubin 0.50, AST 26, ALT 87 H, Alkaline Phosphatase 53, Total Protein 5.5 L, Albumin 2.3 L, Globulin 3.2, Albumin/Globulin Ratio 0.7 L 03/28/20 07:35: Crossmatch See Detail Current Medications Acetaminophen (Tylenol) 650 mg PO Q6H PRN PRN PRN Reason: Pain Score 1-10/Temp > 100.7 F Albuterol Sulfate (Ventolin Aerosols) 2.5 mg INHALATION Q2H PRN PRN PRN Reason: SOB/Wheezing Amlodipine Besylate (Norvasc) 10 mg PO DAILY [facility] Last Admin: 03/26/20 10:40 Dose: 10 mg Documented by: Aspirin (Aspirin, Baby) 81 mg PO DAILY [facility] Last Admin: 03/27/20 08:51 Dose: 81 mg Documented by: Atorvastatin Calcium (Lipitor) 10 mg PO DAILY [facility] Last Admin: 03/27/20 08:51 Dose: 10 mg Documented by: Dexamethasone Sodium Phosphate (Decadron) 6 mg IV DAILY [facility] Last Admin: 03/27/20 09:34 Dose: 6 mg Documented by: Ergocalciferol (Vitamin D) 50,000 unit PO Q7D [facility] Last Admin: 03/23/20 09:15 Dose: 50,000 unit Documented by: Guaifenesin (Robitussin Dm) 10 ml PO Q4H PRN PRN PRN Reason: COUGH Last Admin: 03/26/20 02:53 Dose: 10 ml Documented by: Hydralazine HCl (Apresoline) 100 mg PO BID [facility] Last Admin: 03/27/20 21:08 Dose: 100 mg Documented by: Hydralazine HCl (Apresoline Iv) 20 mg IV Q4H PRN PRN PRN Reason: SBP > 160 Last Admin: 03/26/20 00:23 Dose: 20 mg Documented by: Norepinephrine Bitartrate 8 mg (/ Sodium Chloride) 250 mls @ 9.375 mls/hr CONT INF .[id number] [facility]; Protocol Last Titration: 03/28/20 09:10 Dose: 10 mcg/min, 18.8 mls/hr Documented by: Labetalol HCl (Trandate) 100 mg PO TID [facility] Last Admin: 03/28/20 04:20 Dose: 100 mg Documented by: Lisinopril (Zestril) 5 mg PO DAILY [facility] Ondansetron HCl (Zofran) 4 mg IV Q8H PRN PRN PRN Reason: NAUSEA/VOMITING Last Admin: 03/26/20 10:49 Dose: 4 mg Documented by: Polyethylene Glycol (Miralax) 17 gm PO DAILY PRN PRN Reason: Constipation Last Admin: 03/27/20 11:19 Dose: 17 gm Documented by: Prochlorperazine Edisylate (Compazine Iv) 5 mg IV Q6H PRN PRN PRN Reason: NAUSEA/VOMITING Last Admin: 03/27/20 09:33 Dose: 5 mg Documented by: Senna (Senokot) 2 tablet PO BID [facility] Last Admin: 03/27/20 21:08 Dose: 2 tablet Documented by: Sodium Chloride () 10 - 40 ml IV UD PRN PRN Reason: SALINE FLUSH Last Admin: 03/28/20 08:33 Dose: 40 ml Documented by: Temazepam (Restoril) 15 mg PO QHS PRN PRN PRN Reason: INSOMNIA Last Admin: 03/27/20 21:08 Dose: 15 mg Documented by: Assessment/Plan All Active Problems (Last Updated 02/12/19 @ 14:15 by Gisele Barnhart) Myocardial infarction (Resolved) COVID-19 (Acute) Respiratory failure (Acute) Upper GI bleed (Acute) Atherosclerosis of coronary artery of [place] heart without angina pectoris (Ruled-out) 75-year-old male with upper GI bleeding and melena 1. Patient had large melanotic bowel movement this morning. The patient's hemoglobin slightly decreased but his blood pressure had became unstable. He was started on pressors. I discussed the case with his and the securities attorney. I discussed utility of EGD in this situation. The patient's was informed that if EGD was to be attempted he would need to be intubated. A central line would also need to be placed for pressor support. The patient is ordered bolus and blood transfusion. Patient is started on a PPI. 2. I discussed EGD with the patient's and I discussed the risks of increasing the bleeding. I discussed the attempts to stop the bleeding if it was a bleeding ulcer including injection of epinephrine or clipping. Patient understands the risks of an EGD and consents for procedure. The patient will be intubated and a central line will be placed and the patient will be stabilized. Plan for EGD later this morning at the bedside. I explained endoscopy in detail to the patient. I explained the risks including but not limited to stroke or heart attack with anesthesia, perforation of the GI tract, bleeding, infection. I explained that any of these could necessitate further emergency surgery. The patient understands and all questions were answered sufficiently. The patient wishes to proceed with procedure. Sami Figueroa MD Pager: [facility] [address] [place] [address] [address] [place] [address] Office:
[2020-03-28] MEDS: Etomidate 20 MG/10 ML Vial IV (10:00)
[2020-03-28] MEDS: Propofol 10MG/Ml 1,000 MG/100 ML Bottle 6.4 MG CONT INF (10:01)
--- NOTE | 2020-03-28 10:05 | RAD_ITS ---
STUDY: X-RAY CHEST REASON FOR EXAM: Male, 75 years old. ETT AND OG PLACEMENT TECHNIQUE: Single AP portable view of the chest. COMPARISON: Comparison is made with prior study dated 03/22/2020. FINDINGS: An endotracheal tube in situ. The tip is at 4.8 cm proximal to the juan luis. An orogastric tube is in place. The tip is at the gastroesophageal junction. Persistent increased markings at the lung bases worse on the left side although there has been moderate improvement as compared to prior study. Blunting of the left costophrenic angle. Normal size heart. Normal mediastinum and anupam. Normal visualized pulmonary arteries. There is atherosclerotic tortuosity of the aortic arch and descending thoracic aorta. There are diffuse degenerative changes of the visualized thoracic spine. Normal visualized ribs, clavicles, and shoulders. Gaseous distention of the stomach. RAD/Chest 1 View (Portable) IMPRESSION: Bibasilar infiltrates left greater than right although there has been improvement. The tip of the orogastric tube is at the gastroesophageal junction. Electronically Signed: Ross Ulrich, at 10:24 EDT , Service support ,
--- NOTE | 2020-03-28 10:11 | PN_ITS ---
Subjective: The patient did well overnight with no acute issues. No fevers have been noted. Patient did not have a bowel movement yesterday despite suppository, MiraLAX and senna. Patient was alert and oriented this morning when first evaluated around 6 AM. Patient did not require BiPAP overnight. At approximately 7 AM, patient was taken to the bedside commode by the preventive maintenance coordinator. While on the bedside commode, patient became pale and unresponsive. Several staff responded including myself. Patient was found to have melena from his rectum and was put back into bed. Patient received 1 L of normal saline emergently. Patient was also increased to 100% FiO2 through the high flow nasal cannula. There was discussion about possible intubation, but mentation continue to improve. Patient's initial blood pressure was 50s over 20s. This did respond to fluid resuscitation. Patient was also given K Centra and vitamin K. Type and cross along with CBC were also obtained. Patient was initiated on peripheral Levophed to allow for perfusion. Patient was eventually able to answer questions and denied any nausea. Patient stated that his abdominal fullness felt better. General surgery was contacted urgently, along with spouse. The patient did not receive CPR or any vasoactive medications initially. Patient did eventually have to be placed on Levophed secondary to persistent hypotension. When spouse arrived she was updated. Patient reportedly has had a bleeding ulcer previously that was not mentioned. Spouse was updated on patient's condition and after review the risks, benefits and alternatives it was decided to proceed with an elective intubation, central line placement and possible EGD later this morning after stabilization. Patient spouse understands the patient was on blood thinners previously and would have increased risk for both excessive bleeding and blood clots at this time. At 947, the patient was semi-electively intubated using 20 of etomidate and 80 of succinylcholine and a glide scope. Patient tolerated the procedure well without complication. Central line is currently being addressed. General: - - Before intubation patient was pale, but alert, oriented and aware of his situation. HEENT: Atraumatic, PERRLA, EOMI, Normocephalic, - - Pale conjunctive a Oral: No Gingival or Mucosal Lesions/ Ulcerations, Dry Mucosa Neck: Supple, No JVD, No Nodes, Trachea Midline Lungs: No rhonchi, No wheeze, No rales, Diminished, - - Symmetric expansion. No dullness to percussion. Cardiovascular: Regular rate, Regular Rhythm, Normal S1, Normal S2, No murmurs, No rub noted, No Gallop Abdomen: Bowel Sounds Present, Soft, Non Tender, Non-Distended, Obese Extremities: No clubbing, No cyanosis, Edema - Trace lower extremity Skin: No rashes, No breakdown Musculoskeletal: No Tenderness to Palpation of Joints or Extremities Lymphatic: No Cervical, Supraclavicular, or Inguinal Adenopathy Neurological: Cranial nerves II-XII grossly intact, Neuro grossly intact Psych/Mental Status: Appropriate, Flat Affect Vital Signs Temp Pulse Resp BP Pulse Ox 36.9 C 88 19 H 99/50 L 93 03/28/20 04:05 03/28/20 09:10 03/28/20 09:10 03/28/20 09:10 03/28/20 09:10 Oxygen Flow Rate (L/min) 4 Oxygen Delivery Method Bi-pap Weight: 107.2 kg Body Mass Index (BMI) 33.5 Intake and Output for Last 24 Hours 03/26/20 03/27/20 03/28/20 23:59 23:59 23:59 Intake Total 460 / 460 940 / 940 1421.96 / 1421.96 Output Total 2049 / 2049 1175 / 1175 550 / 550 Balance -1590 / -1590 -235 / -235 871.96 / 871.96 Labs (Last 48 Hours) 03/28/20 03/28/20 03/28/20 04:15 04:15 07:35 WBC 19.0 H 19.3 H RBC 3.90 L 3.53 L Hgb 11.4 L 10.3 L Hct 34.8 L 32.1 L MCV 89.2 90.9 MCH 29.2 29.2 MCHC 32.8 32.1 RDW Std Deviation 44.8 H 45.8 H RDW Coeff of Fadumo 13.9 14.0 Plt Count 518 H 433 MPV 10.4 10.8 Immature Gran % (Auto) 1.300 H 1.900 H Neut % (Auto) 90.9 H 87.4 H Lymph % (Auto) 3.0 L 5.9 L [place] % (Auto) 4.7 4.5 Eos % (Auto) 0.0 0.1 Baso % (Auto) 0.1 0.2 Absolute Neuts (auto) 17.3 H 16.9 H Absolute Lymphs (auto) 0.57 L 1.15 Nucleated RBC % 0 0 Differential Comment SCANNED PT INR APTT Sodium 138 Potassium 4.3 Chloride 100 Carbon Dioxide 33.0 H Anion Gap 5 BUN 50 H Creatinine 1.13 Estim Creat Clear Calc 60.12 Est GFR (MDRD) Af Amer 82 Est GFR (MDRD) Non-Af 68 BUN/Creatinine Ratio 44.2 H Glucose 196 H Calcium 8.4 L Total Bilirubin AST ALT Alkaline Phosphatase Total Protein Albumin Globulin Albumin/Globulin Ratio Blood Type Antibody Screen Crossmatch 03/28/20 03/28/20 03/28/20 07:35 07:35 07:35 WBC RBC Hgb Hct MCV MCH MCHC RDW Std Deviation RDW Coeff of Fadumo Plt Count MPV Immature Gran % (Auto) Neut % (Auto) Lymph % (Auto) [place] % (Auto) Eos % (Auto) Baso % (Auto) Absolute Neuts (auto) Absolute Lymphs (auto) Nucleated RBC % Differential Comment PT 18.2 H INR 1.6 APTT 25.2 Sodium 140 Potassium 4.5 Chloride 101 Carbon Dioxide 28.0 Anion Gap 11 BUN 63 H Creatinine 1.59 H Estim Creat Clear Calc 42.72 Est GFR (MDRD) Af Amer 55 L Est GFR (MDRD) Non-Af 46 L BUN/Creatinine Ratio 39.6 H Glucose 290 H Calcium 8.3 L Total Bilirubin 0.50 AST 26 ALT 87 H Alkaline Phosphatase 53 Total Protein 5.5 L Albumin 2.3 L Globulin 3.2 Albumin/Globulin Ratio 0.7 L Blood Type O NEGATIVE Antibody Screen NEGATIVE Crossmatch 03/28/20 07:35 WBC RBC Hgb Hct MCV MCH MCHC RDW Std Deviation RDW Coeff of Fadumo Plt Count MPV Immature Gran % (Auto) Neut % (Auto) Lymph % (Auto) [place] % (Auto) Eos % (Auto) Baso % (Auto) Absolute Neuts (auto) Absolute Lymphs (auto) Nucleated RBC % Differential Comment PT INR APTT Sodium Potassium Chloride Carbon Dioxide Anion Gap BUN Creatinine Estim Creat Clear Calc Est GFR (MDRD) Af Amer Est GFR (MDRD) Non-Af BUN/Creatinine Ratio Glucose Calcium Total Bilirubin AST ALT Alkaline Phosphatase Total Protein Albumin Globulin Albumin/Globulin Ratio Blood Type Antibody Screen Crossmatch See Detail Medical Necessity - Tobacco Use Smoking Status: Never smoker Tobacco Use: Non-smoker Assessment/Plan All Active Problems (Last Updated 02/12/19 @ 14:15 by Gisele Barnhart) Myocardial infarction (Resolved) COVID-19 (Acute) Respiratory failure (Acute) Upper GI bleed (Acute) Atherosclerosis of coronary artery of [place] heart without angina pectoris (Ruled-out) RECOMMENDATIONS: 1. Continue mechanical ventilation at the current settings. Goal to maintain oxygen saturations at or above 90%. 2. Discontinue Decadron if patient is found to have an upper GI bleed from ulcer 3. Completed Remdesevir. Discontinue anticoagulation 4. Continue H&H every 4 for 24 hours 5. Possible EGD once hemodynamically stable IMPRESSIONS: 1. Acute hypoxemic respiratory failure secondary to coronavirus pneumonia The patient was diagnosed several days ago with coronavirus infection and does appear to have bilateral infiltrates on CTA chest consistent with COVID pneumonia. Plan at this time will include supportive measures including supplemental oxygen to maintain saturations at or above 90%. In addition, the patient will be continued on Eliquis for 21 days along with Decadron 6 mg daily with plans to complete a 10-day treatment course. The patient has already received convalescent plasma and completed course of Remdesevir treatment regimen. Patient was intubated more for protection of the airway and hemodynamic stability more than progression of COVID-19. We will continue with spontaneous breathing and awakening trials per protocol and hopefully extubate in the next 24 to 48 hours with stabilization of hemodynamics. 2. Hemorrhagic shock secondary to possible upper GI bleed, complicated by anticoagulation Patient may have had an element of vasovagal reaction associated with GI bleed. Patient reportedly does have a history of a GI bleed in 2006 that was not mentioned previously. Patient is currently on Levophed pending volume resuscitation. H&H has not changed much, but this may take time to normalize. Patient was given 2 units of crossmatched blood to help with blood pressures. Patient is also received vitamin K and Kcentra. Patient will be placed on a Protonix drip. 3. History of CVA/chronic kidney disease/hypertension/hyperlipidemia/CODE STATUS Complicates care, management, recovery and prognosis. Hold antihypertensives for now.. The patient remains full CODE STATUS. Addendum 1:53 PM: Patient had his EGD at approximately noon. Surgery was supported with propofol for sedation. OG was found coiled in the back of the throat and had to be removed. Extensive investigation with approximately 750 ML's of blood was removed from the stomach. An ulcer was noted by surgery and extensive injections and 5 clips showed some marginal improvement, but still had some oozing. Patient remained hemodynamically stable throughout the procedure. See surgical documentation for further details. has been updated. Patient wi ll remain on H&H's every 4 hours. Will add vasopressin to help with pressor requirements and potentially help with GI bleed despite this not being variceal in nature. TIME: 215 minutes of critical care time spent addressing patient's hemorrhagic shock, hypoxic respiratory failure, COVID-19, anticoagulation, review of all data and collaboration with care team (7 AM to 10:30 AM, 12 PM to 1:45 PM) Procedures: [id number] Critial Care Addl 30 Min - x5 -215 minutes of critical care time 9xxxx: [id number] Critical care first hour
--- NOTE | 2020-03-28 10:20 | NURSING ---
KENNEDI Machuca at bedside for central line placement.
[2020-03-28 10:26] LABS: Bedside Glucose 280 mg/dL (70-110)
--- NOTE | 2020-03-28 10:45 | RAD_ITS ---
STUDY: X-RAY CHEST REASON FOR EXAM: Male, 75 years old. LINE PLACEMENT TECHNIQUE: Single AP portable view of the chest. COMPARISON: Comparison is made with prior examination done earlier in the day at 9:55 AM. FINDINGS: A right-sided central venous catheter has been placed. Tip is at the junction of the superior vena cava and right atrium. The remainder of the examination is unchanged. RAD/CXR for Line Placement IMPRESSION: The tip of the right central catheter is at the junction of the superior vena cava and right atrium. Electronically Signed: Ross Ulrich, at 11:48 EDT , Service support ,
--- NOTE | 2020-03-28 10:54 | PCM.OPRPT ---
Report of Operation Date of Procedure: 03/28/20 Surgery/Procedure Performed:: Triple-lumen catheter insertion Description of Surgical Findings:: Central line placement procedure note Indication: IV access/hemodynamic instability/vasoactive medications Procedure: A time-out was completed to verify correct patient, indication, medication allergies, procedure, coagulation studies, informed consent signed, and equipment needed. The patient was placed in the supine position for a central line placement to the rt IJ vein. The patients rt neck was prepped using chlorhexidine and a full body sterile drape was applied. 1% lidocaine was used to anesthetize the surrounding skin. A 7fr 16 cm blue guard triple lumen catheter introduced into the internal jugular vein using the modified Seldinger technique with the assistance of ultrasound. The catheter was threaded smoothly over the guidewire, the guidewire was removed easily, nonpulsatile blood returned. All ports were aspirated of air and flushed with sterile saline. The catheter was sutured in place and covered with an occlusive dressing impregnated with chlorhexidine. Post-procedure: The patient tolerated the procedure well. Vital signs remained stable. EBL 3 cc. No complications. Chest X Ray ordered to confirm tip placement and the absence of pneumothorax. Procedures: [id number] Insert Non-tunnel CV Cath
--- NOTE | 2020-03-28 11:45 | NURSING ---
Dr. Figueroa at bedside for EGD. Upon inserting scope OG coiled in oropharynx. OG removed and replaced by Dr. Figueroa post scope.
[2020-03-28 11:49] LABS: CPK Total, Creatine Kinase 150 U/L (39-308); Triglycerides 136 mg/dL
[2020-03-28 11:51] LABS: Allen Test Positive; Base Excess 2 mmol/L (-2 to +2); Bicarbonate 25.7 mmol/L (22-26); Blood Gas Specimen Type ART; FI02 45; Mode AC; O2 Delivery Device Adult Vent; PO2 66 mmHG (75-100); SITE R Radial; SO2 94 % (95-99); Total Carbon Dioxide 27 mmol/L; Vt 500; pH 7.44 (7.35-7.45)
[2020-03-28 12:14] LABS: Hematocrit 31.3 % (40-54); Hemoglobin 10.1 g/dL (13.0-16.5)
--- NOTE | 2020-03-28 13:26 | OP.CCLET_ITS ---
03/28/2020 Libia Corona Re : Upper GI endoscopy procedure for Phu Mccormackr Chloe This procedure was performed on Saturday, March 28, 2020. My impressions and recommendations are as follows: Impressions : - Spurting gastric ulcer with adherent clot. Treatment not successful. Clips were placed. - No specimens collected. Recommendations : - Continue present medications. My findings are described in the full procedure note, which is enclosed. If I can be of further assistance, please feel free to contact me at Doctor phone number(s): , Work: . Sincerely, Sami Figueroa MD 03/28/2020 1:25:25 PM This report has been signed electronically.
--- NOTE | 2020-03-28 13:26 | OP.EGD_ITS ---
Patient Name: Phu Hatfield Procedure Date: 03/28/2020 11:43 AM Date of : 1945 Age: 75 Procedure: Upper GI endoscopy Indications: Hematochezia, Melena Providers: Sami Figueroa MD Medicines: Monitored Anesthesia Care Patient Profile: This is a 75 year old male. Refer to note in patient chart for documentation of history and physical. Complications: Significant bleeding - required epinephrine Procedure: Pre-Anesthesia Assessment: - Prior to the procedure, a History and Physical was performed, and patient medications and allergies were reviewed. The patient's tolerance of previous anesthesia was also reviewed. The risks and benefits of the procedure and the sedation options and risks were discussed with the patient. All questions were answered, and informed consent was obtained. Prior Anticoagulants: The patient has taken Eliquis (apixaban), last dose was day of procedure. After reviewing the risks and benefits, the patient was deemed in satisfactory condition to undergo the procedure. After obtaining informed consent, the endoscope was passed under direct vision. Throughout the procedure, the patient's blood pressure, pulse, and oxygen saturations were monitored continuously. The Endoscope was introduced through the mouth, and advanced to the second part of duodenum. Scope In: 11:55:17 AM Scope Out: 12:56:36 PM Total Procedure Duration Time 1 hour 1 minute 19 seconds Findings: One spurting cratered gastric ulcer with adherent clot was found at the pylorus. Area was unsuccessfully injected with 5 mL of a 1:10,000 solution of epinephrine for hemostasis. For hemostasis, four hemostatic clips were successfully placed. Impression: - Spurting gastric ulcer with adherent clot. Treatment not successful. Clips were placed. - No specimens collected. Recommendation: - Continue present medications. Procedure Code(s): --- Professional --- 29243, Esophagogastroduodenoscopy, flexible, transoral; with control of bleeding, any method Diagnosis Code(s): --- Professional --- K25.4, Chronic or unspecified gastric ulcer with hemorrhage K92.1, Melena (includes Hematochezia) CPT copyright 2017 [employer]. All rights reserved. The codes documented in this report are preliminary and upon ingot caster review may be revised to meet current compliance requirements. Sami Figueroa MD 03/28/2020 1:25:25 PM This report has been signed electronically. Number of Addenda: 0 Note Initiated On: 03/28/2020 11:43 AM
--- NOTE | 2020-03-28 14:42 | PCM.PN.ID ---
Patient Problems: Active and Suspected Problems (Last Updated 02/12/19 @ 14:15 by Gisele Barnhart) COVID-19 (Acute) Respiratory failure (Acute) Upper GI bleed (Acute) Subjective: Intubation, pressors, and EGD this AM due to UGI bleed. - Physical Exam Vitals/I&O's: Vital Signs Temp Pulse Resp BP Pulse Ox 98.9 F 101 H 17 92/49 L 95 03/28/20 12:00 03/28/20 13:30 03/28/20 13:30 03/28/20 13:15 03/28/20 13:30 Oxygen Flow Rate (L/min) 4 Oxygen Delivery Method Mechanical Ventilator Weight: 107.2 kg Body Mass Index (BMI) 33.5 Intake and Output for Last 24 Hours 03/26/20 03/27/20 03/28/20 23:59 23:59 23:59 Intake Total 460 / 460 940 / 940 2032.13 / 2032.13 Output Total 2049 / 2049 1175 / 1175 1750 / 1750 Balance -1590 / -1590 -235 / -235 282.13 / 282.13 General: - - intubated, sedated Lungs: Clear to auscultation, Normal air movement Cardiovascular: Tachycardic Abdomen: Soft, Non Tender, Distended Skin: No rashes Microbiology Past 72 Hours 03/20/20 10:45 Blood Culture (Wb) - Left Hand Blood Culture - Final No growth in 5 days. 03/20/20 10:45 Blood Culture (Wb) - Anticubital Left Blood Culture - Final No growth in 5 days. Laboratory Results 03/28/20 04:15: WBC 19.0 H, RBC 3.90 L, Hgb 11.4 L, Hct 34.8 L, MCV 89.2, MCH 29.2, MCHC 32.8, RDW Std Deviation 44.8 H, RDW Coeff of Fadumo 13.9, Plt Count 518 H, MPV 10.4, Immature Gran % (Auto) 1.300 H, Neut % (Auto) 90.9 H, Lymph % (Auto) 3.0 L, [place] % (Auto) 4.7, Eos % (Auto) 0.0, Baso % (Auto) 0.1, Absolute Neuts (auto) 17.3 H, Absolute Lymphs (auto) 0.57 L, Nucleated RBC % 0, Differential Comment SCANNED 03/28/20 04:15: Sodium 138, Potassium 4.3, Chloride 100, Carbon Dioxide 33.0 H, Anion Gap 5, BUN 50 H, Creatinine 1.13, Estim Creat Clear Calc 60.12, Est GFR (MDRD) Af Amer 82, Est GFR (MDRD) Non-Af 68, BUN/Creatinine Ratio 44.2 H, Glucose 196 H, Calcium 8.4 L 03/28/20 07:26: POC Glucose 280 H 03/28/20 07:35: WBC 19.3 H, RBC 3.53 L, Hgb 10.3 L, Hct 32.1 L, MCV 90.9, MCH 29.2, MCHC 32.1, RDW Std Deviation 45.8 H, RDW Coeff of Fadumo 14.0, Plt Count 433, MPV 10.8, Immature Gran % (Auto) 1.900 H, Neut % (Auto) 87.4 H, Lymph % (Auto) 5.9 L, [place] % (Auto) 4.5, Eos % (Auto) 0.1, Baso % (Auto) 0.2, Absolute Neuts (auto) 16.9 H, Absolute Lymphs (auto) 1.15, Nucleated RBC % 0 03/28/20 07:35: PT 18.2 H, INR 1.6, APTT 25.2 03/28/20 07:35: Blood Type O NEGATIVE, Antibody Screen NEGATIVE 03/28/20 07:35: Sodium 140, Potassium 4.5, Chloride 101, Carbon Dioxide 28.0, Anion Gap 11, BUN 63 H, Creatinine 1.59 H, Estim Creat Clear Calc 42.72, Est GFR (MDRD) Af Amer 55 L, Est GFR (MDRD) Non-Af 46 L, BUN/Creatinine Ratio 39.6 H, Glucose 290 H, Calcium 8.3 L, Total Bilirubin 0.50, AST 26, ALT 87 H, Alkaline Phosphatase 53, Total Protein 5.5 L, Albumin 2.3 L, Globulin 3.2, Albumin/Globulin Ratio 0.7 L 03/28/20 07:35: Crossmatch See Detail 03/28/20 07:35: Total Creatine Kinase 150, Triglycerides 136 03/28/20 11:45: Specimen Type ART, Sample Site R Radial, pH 7.44, Bicarbonate Actual 25.7, Total CO2 27, Base Excess 2, O2 Saturation 94 L, O2 % 45, ABG pCO2 38.0, ABG pO2 66 L, Floyd Test Positive, Respiration Rate 14.0000, O2 Delivery Device Adult Vent, Vent Mode AC, Tidal Volume 500 03/28/20 12:00: Hgb 10.1 L, Hct 31.3 L Current Medications Acetaminophen (Tylenol) 650 mg PO Q6H PRN PRN PRN Reason: Pain Score 1-10/Temp > 100.7 F Albuterol Sulfate (Ventolin Aerosols) 2.5 mg INHALATION Q2H PRN PRN PRN Reason: SOB/Wheezing Aspirin (Aspirin, Baby) 81 mg PO DAILY [facility] Last Admin: 03/28/20 11:08 Dose: Not Given Documented by: Atorvastatin Calcium (Lipitor) 10 mg PO DAILY [facility] Last Admin: 03/28/20 11:30 Dose: Not Given Documented by: Ergocalciferol (Vitamin D) 50,000 unit PO Q7D [facility] Last Admin: 03/23/20 09:15 Dose: 50,000 unit Documented by: Guaifenesin (Robitussin Dm) 10 ml PO Q4H PRN PRN PRN Reason: COUGH Last Admin: 03/26/20 02:53 Dose: 10 ml Documented by: Hydralazine HCl (Apresoline Iv) 20 mg IV Q4H PRN PRN PRN Reason: SBP > 160 Last Admin: 03/26/20 00:23 Dose: 20 mg Documented by: Norepinephrine Bitartrate 8 mg (/ Sodium Chloride) 250 mls @ 9.375 mls/hr CONT INF .[id number] [facility]; Protocol Last Titration: 03/28/20 13:15 Dose: 20 mcg/min, 37.5 mls/hr Documented by: Pantoprazole Sodium 80 mg/ (Sodium Chloride) 100 mls @ 10 mls/hr CONT INF Q10H [facility] Last Admin: 03/28/20 11:45 Dose: 10 mls/hr Documented by: Fentanyl Citrate 1,000 mcg/ (Sodium Chloride) 100 mls @ 5 mls/hr CONT INF .Q20H [facility]; Protocol Last Titration: 03/28/20 13:00 Dose: 200 mcg/hr, 20 mls/hr Documented by: Propofol (Diprivan) 1,000 mg in 100 mls @ 6.432 mls/hr CONT INF .Q12H [facility]; Protocol Last Titration: 03/28/20 13:00 Dose: 10 mcg/kg/min, 6.4 mls/hr Documented by: Vasopressin 20 units/ Sodium (Chloride) 25 mls @ 3 mls/hr IV .Q8H20M [facility] Last Admin: 03/28/20 14:07 Dose: 0.04 units/min, 3 mls/hr Documented by: Ondansetron HCl (Zofran) 4 mg IV Q8H PRN PRN PRN Reason: NAUSEA/VOMITING Last Admin: 03/26/20 10:49 Dose: 4 mg Documented by: Polyethylene Glycol (Miralax) 17 gm PO DAILY PRN PRN Reason: Constipation Last Admin: 03/27/20 11:19 Dose: 17 gm Documented by: Prochlorperazine Edisylate (Compazine Iv) 5 mg IV Q6H PRN PRN PRN Reason: NAUSEA/VOMITING Last Admin: 03/27/20 09:33 Dose: 5 mg Documented by: Senna (Senokot) 2 tablet PO BID [facility] Last Admin: 03/28/20 11:08 Dose: Not Given Documented by: Sodium Chloride () 10 - 40 ml IV UD PRN PRN Reason: SALINE FLUSH Last Admin: 03/28/20 08:33 Dose: 40 ml Documented by: Temazepam (Restoril) 15 mg PO QHS PRN PRN PRN Reason: INSOMNIA Last Admin: 03/27/20 21:08 Dose: 15 mg Documented by: Medical Necessity - Tobacco Use Smoking Status: Never smoker Tobacco Use: Non-smoker Route of nutrition/ use of supplements: [] Nutritional Intake: [] IV Site: [] Dejesus Catheter: [] - Assessment/Plan Antibiotics: [] Assessment/Plan: [] Active and Suspected Problems (Last Updated 02/12/19 @ 14:15 by Gisele Barnhart) COVID-19 (Acute) Respiratory failure (Acute) Acute hypoxic resp failure due to covid - on decadron. CTA neg for PE. Received plasma, completed 5 day course of remdesivir. Now on vent due to GI bleed. will follow, d/w nursing.
--- NOTE | 2020-03-28 15:00 | PCM.PN.BLA ---
Progress Note EGD was performed at the bedside. There was 750 cc of dark blood in the stomach upon entry of the stomach. The patient had a bleeding prepyloric ulcer. Injection of epinephrine around the site did not stop the bleeding. Placement of clips was technically very difficult due to the amount of bleeding. At the end of the procedure there was still bright red blood oozing from the ulcer. OG was replaced in the stomach. At this point I was unable to stop the bleed adequately. The patient will likely need transfer to a tertiary care center for IR intervention for hemostasis. I discussed this with the patient's . Sami Figueroa MD Pager: [facility] [address] [place] [address], [address] [place] [address] Office: [facility] Vital Signs/Narrative: Vital Signs Temp Pulse Resp BP Pulse Ox 03/28/20 14:45 92 18 118/68 96 03/28/20 14:30 93 18 67/49 L 97 03/28/20 14:15 97 19 H 79/53 L 96 03/28/20 14:00 94 18 112/71 96 03/28/20 13:45 102 H 17 78/47 L 96 03/28/20 13:30 102 H 18 92/52 L 95 03/28/20 13:15 101 H 14 92/49 L 96 03/28/20 13:00 101 H 20 H 109/64 96 03/28/20 12:45 93 19 H 112/66 100 03/28/20 12:30 81 20 H 124/63 H 100 03/28/20 12:15 84 20 H 143/67 H 100 03/28/20 12:00 98.9 F 93 19 H 119/59 L 98 03/28/20 11:25 83 18 94 03/28/20 11:15 83 18 109/43 L 94 03/28/20 11:02 82
[2020-03-28 16:38] LABS: Hemoglobin 10.2 g/dL (13.0-16.5)
--- NOTE | 2020-03-28 17:59 | PCM.PROGNOTE ---
Patient Problems: Active and Suspected Problems (Last Updated 02/12/19 @ 14:15 by Gisele Barnhart) COVID-19 (Acute) Respiratory failure (Acute) Upper GI bleed (Acute) Subjective: Patient was seen and examined today, around 7:00 this morning he had to be intubated and lines had to be placed due to hypotension and shock from presumed blood loss. Patient underwent an EGD which showed a gastric ulceration with a clot adhered to it, attempts were made to inject the area but this was unsuccessful at stopping bleeding. It was finally stapled, patient's condition has stabilized somewhat since that time. Patient had a central line inserted, he is still on pressor agents. Time my examination, patient is sedated and on the ventilator - Physical Exam Vitals/I&O's: Vital Signs Temp Pulse Resp BP Pulse Ox 98.9 F 89 18 104/70 94 03/28/20 12:00 03/28/20 17:00 03/28/20 17:00 03/28/20 17:00 03/28/20 17:00 Oxygen Flow Rate (L/min) 4 Oxygen Delivery Method Mechanical Ventilator Weight: 107.2 kg Body Mass Index (BMI) 33.5 Intake and Output for Last 24 Hours 03/26/20 03/27/20 03/28/20 23:59 23:59 23:59 Intake Total 460 / 460 940 / 940 2276.77 / 2276.77 Output Total 2049 / 2049 1175 / 1175 1750 / 1750 Balance -1590 / -1590 -235 / -235 526.77 / 526.77 General: - - Patient is currently on the ventilator and is under sedation HEENT: Atraumatic, Normocephalic Oral: Moist Mucosa Neck: Supple, Trachea Midline, Thyroid Normal Size and Texture Lungs: Clear to auscultation, Normal air movement, No rhonchi, No wheeze, No rales Cardiovascular: Regular rate, Regular Rhythm, Normal S1, Normal S2, No murmurs, PMI Normal, No rub noted, No Gallop Abdomen: Bowel Sounds Present, Soft, Non Tender, Non-Distended Extremities: No clubbing, No cyanosis, No edema, Capillary Refill Less than 3 Seconds Skin: No rashes, No breakdown Neurological: Cranial nerves II-XII grossly intact Laboratory Results 03/28/20 04:15: WBC 19.0 H, RBC 3.90 L, Hgb 11.4 L, Hct 34.8 L, MCV 89.2, MCH 29.2, MCHC 32.8, RDW Std Deviation 44.8 H, RDW Coeff of Fadumo 13.9, Plt Count 518 H, MPV 10.4, Immature Gran % (Auto) 1.300 H, Neut % (Auto) 90.9 H, Lymph % (Auto) 3.0 L, [place] % (Auto) 4.7, Eos % (Auto) 0.0, Baso % (Auto) 0.1, Absolute Neuts (auto) 17.3 H, Absolute Lymphs (auto) 0.57 L, Nucleated RBC % 0, Differential Comment SCANNED 03/28/20 04:15: Sodium 138, Potassium 4.3, Chloride 100, Carbon Dioxide 33.0 H, Anion Gap 5, BUN 50 H, Creatinine 1.13, Estim Creat Clear Calc 60.12, Est GFR (MDRD) Af Amer 82, Est GFR (MDRD) Non-Af 68, BUN/Creatinine Ratio 44.2 H, Glucose 196 H, Calcium 8.4 L 03/28/20 07:26: POC Glucose 280 H 03/28/20 07:35: WBC 19.3 H, RBC 3.53 L, Hgb 10.3 L, Hct 32.1 L, MCV 90.9, MCH 29.2, MCHC 32.1, RDW Std Deviation 45.8 H, RDW Coeff of Fadumo 14.0, Plt Count 433, MPV 10.8, Immature Gran % (Auto) 1.900 H, Neut % (Auto) 87.4 H, Lymph % (Auto) 5.9 L, [place] % (Auto) 4.5, Eos % (Auto) 0.1, Baso % (Auto) 0.2, Absolute Neuts (auto) 16.9 H, Absolute Lymphs (auto) 1.15, Nucleated RBC % 0 03/28/20 07:35: PT 18.2 H, INR 1.6, APTT 25.2 03/28/20 07:35: Blood Type O NEGATIVE, Antibody Screen NEGATIVE 03/28/20 07:35: Sodium 140, Potassium 4.5, Chloride 101, Carbon Dioxide 28.0, Anion Gap 11, BUN 63 H, Creatinine 1.59 H, Estim Creat Clear Calc 42.72, Est GFR (MDRD) Af Amer 55 L, Est GFR (MDRD) Non-Af 46 L, BUN/Creatinine Ratio 39.6 H, Glucose 290 H, Calcium 8.3 L, Total Bilirubin 0.50, AST 26, ALT 87 H, Alkaline Phosphatase 53, Total Protein 5.5 L, Albumin 2.3 L, Globulin 3.2, Albumin/Globulin Ratio 0.7 L 03/28/20 07:35: Crossmatch See Detail 03/28/20 07:35: Total Creatine Kinase 150, Triglycerides 136 03/28/20 11:45: Specimen Type ART, Sample Site R Radial, pH 7.44, Bicarbonate Actual 25.7, Total CO2 27, Base Excess 2, O2 Saturation 94 L, O2 % 45, ABG pCO2 38.0, ABG pO2 66 L, Floyd Test Positive, Respiration Rate 14.0000, O2 Delivery Device Adult Vent, Vent Mode AC, Tidal Volume 500 03/28/20 12:00: Hgb 10.1 L, Hct 31.3 L 03/28/20 16:05: Hgb 10.2 L, Hct 32.0 L Current Medications Acetaminophen (Tylenol) 650 mg PO Q6H PRN PRN PRN Reason: Pain Score 1-10/Temp > 100.7 F Albuterol Sulfate (Ventolin Aerosols) 2.5 mg INHALATION Q2H PRN PRN PRN Reason: SOB/Wheezing Aspirin (Aspirin, Baby) 81 mg PO DAILY [facility] Last Admin: 03/28/20 11:08 Dose: Not Given Documented by: Atorvastatin Calcium (Lipitor) 10 mg PO DAILY [facility] Last Admin: 03/28/20 11:30 Dose: Not Given Documented by: Ergocalciferol (Vitamin D) 50,000 unit PO Q7D [facility] Last Admin: 03/23/20 09:15 Dose: 50,000 unit Documented by: Guaifenesin (Robitussin Dm) 10 ml PO Q4H PRN PRN PRN Reason: COUGH Last Admin: 03/26/20 02:53 Dose: 10 ml Documented by: Hydralazine HCl (Apresoline Iv) 20 mg IV Q4H PRN PRN PRN Reason: SBP > 160 Last Admin: 03/26/20 00:23 Dose: 20 mg Documented by: Norepinephrine Bitartrate 8 mg (/ Sodium Chloride) 250 mls @ 9.375 mls/hr CONT INF .[id number] [facility]; Protocol Last Titration: 03/28/20 17:00 Dose: 20 mcg/min, 37.5 mls/hr Documented by: Pantoprazole Sodium 80 mg/ (Sodium Chloride) 100 mls @ 10 mls/hr CONT INF Q10H [facility] Last Admin: 03/28/20 11:45 Dose: 10 mls/hr Documented by: Fentanyl Citrate 1,000 mcg/ (Sodium Chloride) 100 mls @ 5 mls/hr CONT INF .Q20H [facility]; Protocol Last Titration: 03/28/20 17:00 Dose: 200 mcg/hr, 20 mls/hr Documented by: Vasopressin 20 units/ Sodium (Chloride) 25 mls @ 3 mls/hr IV .Q8H20M [facility] Last Admin: 03/28/20 16:43 Dose: 0.04 units/min, 3 mls/hr Documented by: Dexmedetomidine HCl 400 mcg/ (Sodium Chloride) 100 mls @ 13.4 mls/hr CONT INF .Q7H28M [facility]; Protocol Last Titration: 03/28/20 17:15 Dose: 0.5 mcg/kg/hr, 13.4 mls/hr Documented by: Ondansetron HCl (Zofran) 4 mg IV Q8H PRN PRN PRN Reason: NAUSEA/VOMITING Last Admin: 03/26/20 10:49 Dose: 4 mg Documented by: Polyethylene Glycol (Miralax) 17 gm PO DAILY PRN PRN Reason: Constipation Last Admin: 03/27/20 11:19 Dose: 17 gm Documented by: Prochlorperazine Edisylate (Compazine Iv) 5 mg IV Q6H PRN PRN PRN Reason: NAUSEA/VOMITING Last Admin: 03/27/20 09:33 Dose: 5 mg Documented by: Senna (Senokot) 2 tablet PO BID [facility] Last Admin: 03/28/20 11:08 Dose: Not Given Documented by: Sodium Chloride () 10 - 40 ml IV UD PRN PRN Reason: SALINE FLUSH Last Admin: 03/28/20 08:33 Dose: 40 ml Documented by: Temazepam (Restoril) 15 mg PO QHS PRN PRN PRN Reason: INSOMNIA Last Admin: 03/27/20 21:08 Dose: 15 mg Documented by: Medical Necessity - Tobacco Use Smoking Status: Never smoker Tobacco Use: Non-smoker Assessment/Plan All Active Problems (Last Updated 02/12/19 @ 14:15 by Gisele Barnhart) Myocardial infarction (Resolved) COVID-19 (Acute) Respiratory failure (Acute) Upper GI bleed (Acute) Atherosclerosis of coronary artery of [place] heart without angina pectoris (Ruled-out) #1 acute COVID-19 infection with resultant viral pneumonia-patient completed treatment with Remdisivir and with convalescent plasma #2 acute hemorrhagic shock-secondary to upper GI bleed, patient is still on pressor agents ##3 acute hypoxic respiratory failure secondary to COVID-19 pneumonia with hemorrhagic shock-patient is currently on the ventilator #4 cerebrovascular disease #4 essential hypertension #5 hyperlipidemia #6 coronary artery disease-nonocclusive #7 gastric ulcer with resultant upper GI bleed causing hemorrhagic shock-continue IV PPI, transfuse as necessary #8 acute blood loss anemia secondary to hemorrhagic gastric ulcer Inpatient E&M: 65222 Subs Hosp L2
[2020-03-28 20:41] LABS: Hemoglobin 9.8 g/dL (13.0-16.5)
[2020-03-28] MEDS: Acetaminophen 650 MG/20 ML UDC GT (22:58)
[2020-03-29] VITALS (47 sets, daily range): BP systolic 99–152; BP diastolic 30–61; PULSE 65–90; RESP 14–20; TEMP 37.9–38.7; O2SAT 88–98; BMI 31.8
[2020-03-29 00:30] LABS: Hemoglobin 9.7 g/dL (13.0-16.5)
[2020-03-29 04:02] LABS: Absolute Neutrophil Count 19.8 X10^3/uL (2.0-7.7); Basophil# 0.04 X10^3/uL; Basophil% 0.2 % (0-1); Eosinophil# 0.01 X10^3/uL; Hematocrit 30.6 % (40-54); Hemoglobin 10.1 g/dL (13.0-16.5); Lymphocyte % 5.6 % (19-41); Mean Corpuscular Hgb 29.4 pg (27.0-32.0); Mean Platelet Vol. 10.4 fl (6.2-12.0); Monocyte# 1.51 X10^3/uL; Monocyte% 6.5 % (0-10); NRBC Flagged by Analyzer 0 % (0-5); Neutrophil % 85.9 % (47-70); POSITIVE DIFFERENTIAL YES; Platelet Count 433 K/mm3 (150-450); RBC Distribution Width CV 15.1 % (11.6-14.6); Red Blood Count 3.44 M/mm3 (4.6-6.2); White Blood Count 23.1 K/mm3 (4.4-11.0)
[2020-03-29 04:04] LABS: Differential Indicated SCAN CRITERIA MET
[2020-03-29 04:43] LABS: Anion Gap 6 (5-15); BUN 92 mg/dL (7-18); BUN/Creat Ratio 32.9 RATIO (10-20); Calcium,Total 7.3 mg/dL (8.5-10.1); Chloride 104 mmol/L (98-107); EST Glomerular Filtration Rate 24 mL/min (>60); Est Glom Filt Rate - Afr Amer 29 mL/min (>60); Estimated Creatinine Clearance 24.26 ml/min; Glucose 302 mg/dL (74-106); Magnesium 2.6 mg/dL (1.6-2.6); Phosphorus 3.5 mg/dL (2.5-4.9); Potassium 4.9 mmol/L (3.5-5.1); Sodium Level 140 mmol/L (136-145)
[2020-03-29 05:50] LABS: Differential Comment SCANNED
--- NOTE | 2020-03-29 06:36 | PCM.PN.SRG ---
Patient Problems: Active and Suspected Problems (Last Updated 02/12/19 @ 14:15 by Gisele Barnhart) COVID-19 (Acute) Respiratory failure (Acute) Upper GI bleed (Acute) Objective: Patient on ventilator. Still requiring 2 pressors. No report of stool overnight. By report NG tube output has diminished significantly. Still appears coffee-ground no bright red blood. The patient is denying abdominal pain. Hemoglobin hematocrit has remained stable on serial evaluation. Current white blood cell count remains elevated at 23.1 thousand. Hemoglobin 10.1 with a hematocrit of 30.6. Platelet count 433,000. 85% neutrophils - Physical Exam Vitals/I&O's: Vital Signs Temp Pulse Resp BP Pulse Ox 100.4 F H 69 14 124/55 H 94 03/29/20 06:00 03/29/20 06:00 03/29/20 06:00 03/29/20 06:00 03/29/20 06:00 Oxygen Flow Rate (L/min) 4 Oxygen Delivery Method Mechanical Ventilator Weight: 221 lb 12.56 oz Body Mass Index (BMI) 33.5 Intake and Output for Last 24 Hours 03/27/20 03/28/20 03/29/20 23:59 23:59 23:59 Intake Total 940 / 940 2858.34 / 2902.13 585.66 / 585.66 Output Total 1175 / 1175 3350 / 3380 Balance -235 / -235 -491.66 / -477.87 555.66 / 555.66 Laboratory Results 03/28/20 07:26: POC Glucose 280 H 03/28/20 07:35: WBC 19.3 H, RBC 3.53 L, Hgb 10.3 L, Hct 32.1 L, MCV 90.9, MCH 29.2, MCHC 32.1, RDW Std Deviation 45.8 H, RDW Coeff of Fadumo 14.0, Plt Count 433, MPV 10.8, Immature Gran % (Auto) 1.900 H, Neut % (Auto) 87.4 H, Lymph % (Auto) 5.9 L, [place] % (Auto) 4.5, Eos % (Auto) 0.1, Baso % (Auto) 0.2, Absolute Neuts (auto) 16.9 H, Absolute Lymphs (auto) 1.15, Nucleated RBC % 0 03/28/20 07:35: PT 18.2 H, INR 1.6, APTT 25.2 03/28/20 07:35: Blood Type O NEGATIVE, Antibody Screen NEGATIVE 03/28/20 07:35: Sodium 140, Potassium 4.5, Chloride 101, Carbon Dioxide 28.0, Anion Gap 11, BUN 63 H, Creatinine 1.59 H, Estim Creat Clear Calc 42.72, Est GFR (MDRD) Af Amer 55 L, Est GFR (MDRD) Non-Af 46 L, BUN/Creatinine Ratio 39.6 H, Glucose 290 H, Calcium 8.3 L, Total Bilirubin 0.50, AST 26, ALT 87 H, Alkaline Phosphatase 53, Total Protein 5.5 L, Albumin 2.3 L, Globulin 3.2, Albumin/Globulin Ratio 0.7 L 03/28/20 07:35: Crossmatch See Detail 03/28/20 07:35: Total Creatine Kinase 150, Triglycerides 136 03/28/20 07:35: Crossmatch See Detail 03/28/20 11:45: Specimen Type ART, Sample Site R Radial, pH 7.44, Bicarbonate Actual 25.7, Total CO2 27, Base Excess 2, O2 Saturation 94 L, O2 % 45, ABG pCO2 38.0, ABG pO2 66 L, Floyd Test Positive, Respiration Rate 14.0000, O2 Delivery Device Adult Vent, Vent Mode AC, Tidal Volume 500 03/28/20 12:00: Hgb 10.1 L, Hct 31.3 L 03/28/20 16:05: Hgb 10.2 L, Hct 32.0 L 03/28/20 20:20: Hgb 9.8 L, Hct 30.0 L 03/29/20 00:20: Hgb 9.7 L, Hct 30.0 L 03/29/20 03:55: WBC 23.1 H, RBC 3.44 L, Hgb 10.1 L, Hct 30.6 L, MCV 89.0, MCH 29.4, MCHC 33.0, RDW Std Deviation 49.0 H, RDW Coeff of Fadumo 15.1 H, Plt Count 433, MPV 10.4, Immature Gran % (Auto) 1.800 H, Neut % (Auto) 85.9 H, Lymph % (Auto) 5.6 L, [place] % (Auto) 6.5, Eos % (Auto) 0.0, Baso % (Auto) 0.2, Absolute Neuts (auto) 19.8 H, Absolute Lymphs (auto) 1.30, Nucleated RBC % 0, Differential Comment SCANNED, Diff Path Review October03/29/20 03:55: Sodium 140, Potassium 4.9, Chloride 104, Carbon Dioxide 30.0, Anion Gap 6, BUN 92 H, Creatinine 2.80 H, Estim Creat Clear Calc 24.26, Est GFR (MDRD) Af Amer 29 L, Est GFR (MDRD) Non-Af 24 L, BUN/Creatinine Ratio 32.9 H, Glucose 302 H, Calcium 7.3 L, Phosphorus 3.5, Magnesium 2.6 Current Medications Acetaminophen (Tylenol Liquid) 650 mg GT Q6H PRN PRN PRN Reason: Pain Score 1-10/Temp > 100.7 F Last Admin: 03/28/20 22:58 Dose: 650 mg Documented by: Albuterol Sulfate (Ventolin Aerosols) 2.5 mg INHALATION Q2H PRN PRN PRN Reason: SOB/Wheezing Atorvastatin Calcium (Lipitor) 10 mg GT DAILY [facility] Chlorhexidine Gluconate () 15 ml PO BID [facility] Chlorhexidine Gluconate () 1 each TOPICAL DAILY [facility] Ergocalciferol (Vitamin D) 50,000 unit PO Q7D [facility] Last Admin: 03/23/20 09:15 Dose: 50,000 unit Documented by: Guaifenesin (Robitussin Dm) 10 ml GT Q4H PRN PRN PRN Reason: COUGH Hydralazine HCl (Apresoline Iv) 20 mg IV Q4H PRN PRN PRN Reason: SBP > 160 Last Admin: 03/26/20 00:23 Dose: 20 mg Documented by: Norepinephrine Bitartrate 8 mg (/ Sodium Chloride) 250 mls @ 9.375 mls/hr CONT INF .[id number] [facility]; Protocol Last Titration: 03/29/20 06:00 Dose: 21 mcg/min, 39.4 mls/hr Documented by: Pantoprazole Sodium 80 mg/ (Sodium Chloride) 100 mls @ 10 mls/hr CONT INF Q10H [facility] Last Admin: 03/29/20 06:00 Dose: 10 mls/hr Documented by: Fentanyl Citrate 1,000 mcg/ (Sodium Chloride) 100 mls @ 5 mls/hr CONT INF .Q20H [facility]; Protocol Last Titration: 03/29/20 05:00 Dose: 50 mcg/hr, 5 mls/hr Documented by: Vasopressin 20 units/ Sodium (Chloride) 25 mls @ 3 mls/hr IV .Q8H20M [facility] Last Infusion: 03/29/20 05:34 Dose: 0.04 units/min, 3 mls/hr Documented by: Dexmedetomidine HCl 400 mcg/ (Sodium Chloride) 100 mls @ 13.4 mls/hr CONT INF .Q7H28M [facility]; Protocol Last Admin: 03/29/20 06:00 Dose: 0.5 mcg/kg/hr, 13.4 mls/hr Documented by: Ondansetron HCl (Zofran) 4 mg IV Q8H PRN PRN PRN Reason: NAUSEA/VOMITING Last Admin: 03/26/20 10:49 Dose: 4 mg Documented by: Polyethylene Glycol (Miralax) 17 gm GT DAILY PRN PRN Reason: Constipation Prochlorperazine Edisylate (Compazine Iv) 5 mg IV Q6H PRN PRN PRN Reason: NAUSEA/VOMITING Last Admin: 03/27/20 09:33 Dose: 5 mg Documented by: Senna (Senokot) 2 tablet GT BID [facility] Sodium Chloride () 10 - 40 ml IV UD PRN PRN Reason: SALINE FLUSH Last Admin: 03/28/20 08:33 Dose: 40 ml Documented by: Temazepam (Restoril) 15 mg PO QHS PRN PRN PRN Reason: INSOMNIA Last Admin: 03/27/20 21:08 Dose: 15 mg Documented by: Medical Necessity - Tobacco Use Smoking Status: Never smoker Tobacco Use: Non-smoker Assessment/Plan All Active Problems (Last Updated 02/12/19 @ 14:15 by Gisele Barnhart) Myocardial infarction (Resolved) COVID-19 (Acute) Respiratory failure (Acute) Upper GI bleed (Acute) Atherosclerosis of coronary artery of [place] heart without angina pectoris (Ruled-out) Patient requiring persistent use of norepinephrine and vasopressin. Pantoprazole therapy ongoing. Aspirin will now be ceased. Steroids have been ceased. Anticoagulation has been ceased. DVT prophylaxis in the form of sequential venous compression devices BUN is now 92 and creatinine 2.8. This may be in part secondary to the upper GI bleed and resorption. Urine output yesterday appears sufficient; today appears to be decreasing likely in part secondary to the pressor treatment. Does not appear that he has persistent active upper GI bleeding at this time. Kishan Sutherland M.D., F.A.C.S.
[2020-03-29] MEDS: CHLORHEXIDINE GLUC 2% CLOTH 1 EACH TOWELETTE TOPICAL (07:18)
--- NOTE | 2020-03-29 07:41 | PCM.PN.INT ---
Subjective: Patient did okay overnight. Patient has had pressor requirement since acute issues yesterday. These have been relatively stable. Patient has been able to be decreased on fentanyl drip and is interacting. Patient is denying any abdominal pain at this time. No spontaneous breathing trial was attempted this morning secondary to high pressor requirements. H&H has remained stable and no bowel movements have been reported overnight. General: Alert, Cooperative, No apparent distress, - - Good vent synchrony. Follows commands and interacts appropriately HEENT: Atraumatic, PERRLA, EOMI, Normocephalic, - - No scleral icterus or injection noted. Color improved compared to acute issues yesterday. Oral: Moist Mucosa, No Gingival or Mucosal Lesions/ Ulcerations Neck: Supple, No JVD, No Nodes, Trachea Midline Lungs: Clear to auscultation, Normal air movement, No rhonchi, No wheeze, No rales, - - Symmetric expansion Cardiovascular: Regular rate, Regular Rhythm, Normal S1, Normal S2, No murmurs, No rub noted, No Gallop Abdomen: Bowel Sounds Present, Soft, Distended - Slightly, Obese, Tender - Right upper quadrant tenderness and rebound improved from yesterday Extremities: No clubbing, No cyanosis, Edema Skin: No rashes, No breakdown Musculoskeletal: No Tenderness to Palpation of Joints or Extremities Lymphatic: No Cervical, Supraclavicular, or Inguinal Adenopathy Neurological: Cranial nerves II-XII grossly intact, Neuro grossly intact, Motor Exam 5/5 strength throughout Psych/Mental Status: Normal Affect, Appropriate Vital Signs Temp Pulse Resp BP Pulse Ox 37.9 C H 69 14 152/30 H 94 03/29/20 07:00 03/29/20 07:00 03/29/20 07:00 03/29/20 07:00 03/29/20 07:00 Oxygen Flow Rate (L/min) 4 Oxygen Delivery Method Mechanical Ventilator Weight: 100.6 kg Body Mass Index (BMI) 33.5 Intake and Output for Last 24 Hours 03/27/20 03/28/20 03/29/20 23:59 23:59 23:59 Intake Total 940 / 940 2858.34 / 2902.13 648.46 / 648.46 Output Total 1175 / 1175 3350 / 3380 705 / 705 Balance -235 / -235 -491.66 / -477.87 -56.54 / -56.54 Labs (Last 48 Hours) 03/28/20 03/28/20 03/28/20 04:15 04:15 07:26 WBC 19.0 H RBC 3.90 L Hgb 11.4 L Hct 34.8 L MCV 89.2 MCH 29.2 MCHC 32.8 RDW Std Deviation 44.8 H RDW Coeff of Fadumo 13.9 Plt Count 518 H MPV 10.4 Immature Gran % (Auto) 1.300 H Neut % (Auto) 90.9 H Lymph % (Auto) 3.0 L [place] % (Auto) 4.7 Eos % (Auto) 0.0 Baso % (Auto) 0.1 Absolute Neuts (auto) 17.3 H Absolute Lymphs (auto) 0.57 L Nucleated RBC % 0 Differential Comment SCANNED Diff Path Review PT INR APTT Specimen Type Sample Site pH Bicarbonate Actual Total CO2 Base Excess O2 Saturation O2 % ABG pCO2 ABG pO2 Floyd Test Respiration Rate O2 Delivery Device Vent Mode Tidal Volume Sodium 138 Potassium 4.3 Chloride 100 Carbon Dioxide 33.0 H Anion Gap 5 BUN 50 H Creatinine 1.13 Estim Creat Clear Calc 60.12 Est GFR (MDRD) Af Amer 82 Est GFR (MDRD) Non-Af 68 BUN/Creatinine Ratio 44.2 H Glucose 196 H Calcium 8.4 L Phosphorus Magnesium Total Bilirubin AST ALT Alkaline Phosphatase Total Creatine Kinase Total Protein Albumin Globulin Albumin/Globulin Ratio Triglycerides POC Glucose 280 H Blood Type Antibody Screen Crossmatch 03/28/20 03/28/20 03/28/20 07:35 07:35 07:35 WBC 19.3 H RBC 3.53 L Hgb 10.3 L Hct 32.1 L MCV 90.9 MCH 29.2 MCHC 32.1 RDW Std Deviation 45.8 H RDW Coeff of Fadumo 14.0 Plt Count 433 MPV 10.8 Immature Gran % (Auto) 1.900 H Neut % (Auto) 87.4 H Lymph % (Auto) 5.9 L [place] % (Auto) 4.5 Eos % (Auto) 0.1 Baso % (Auto) 0.2 Absolute Neuts (auto) 16.9 H Absolute Lymphs (auto) 1.15 Nucleated RBC % 0 Differential Comment Diff Path Review PT 18.2 H INR 1.6 APTT 25.2 Specimen Type Sample Site pH Bicarbonate Actual Total CO2 Base Excess O2 Saturation O2 % ABG pCO2 ABG pO2 Floyd Test Respiration Rate O2 Delivery Device Vent Mode Tidal Volume Sodium Potassium Chloride Carbon Dioxide Anion Gap BUN Creatinine Estim Creat Clear Calc Est GFR (MDRD) Af Amer Est GFR (MDRD) Non-Af BUN/Creatinine Ratio Glucose Calcium Phosphorus Magnesium Total Bilirubin AST ALT Alkaline Phosphatase Total Creatine Kinase Total Protein Albumin Globulin Albumin/Globulin Ratio Triglycerides POC Glucose Blood Type O NEGATIVE Antibody Screen NEGATIVE Crossmatch 03/28/20 03/28/20 03/28/20 07:35 07:35 07:35 WBC RBC Hgb Hct MCV MCH MCHC RDW Std Deviation RDW Coeff of Fadumo Plt Count MPV Immature Gran % (Auto) Neut % (Auto) Lymph % (Auto) [place] % (Auto) Eos % (Auto) Baso % (Auto) Absolute Neuts (auto) Absolute Lymphs (auto) Nucleated RBC % Differential Comment Diff Path Review PT INR APTT Specimen Type Sample Site pH Bicarbonate Actual Total CO2 Base Excess O2 Saturation O2 % ABG pCO2 ABG pO2 Flody Test Respiration Rate O2 Delivery Device Vent Mode Tidal Volume Sodium 140 Potassium 4.5 Chloride 101 Carbon Dioxide 28.0 Anion Gap 11 BUN 63 H Creatinine 1.59 H Estim Creat Clear Calc 42.72 Est GFR (MDRD) Af Amer 55 L Est GFR (MDRD) Non-Af 46 L BUN/Creatinine Ratio 39.6 H Glucose 290 H Calcium 8.3 L Phosphorus Magnesium Total Bilirubin 0.50 AST 26 ALT 87 H Alkaline Phosphatase 53 Total Creatine Kinase 150 Total Protein 5.5 L Albumin 2.3 L Globulin 3.2 Albumin/Globulin Ratio 0.7 L Triglycerides 136 POC Glucose Blood Type Antibody Screen Crossmatch See Detail 03/28/20 03/28/20 03/28/20 07:35 11:45 12:00 WBC RBC Hgb 10.1 L Hct 31.3 L MCV MCH MCHC RDW Std Deviation RDW Coeff of Fadumo Plt Count MPV Immature Gran % (Auto) Neut % (Auto) Lymph % (Auto) [place] % (Auto) Eos % (Auto) Baso % (Auto) Absolute Neuts (auto) Absolute Lymphs (auto) Nucleated RBC % Differential Comment Diff Path Review PT INR APTT Specimen Type ART Sample Site R Radial pH 7.44 Bicarbonate Actual 25.7 Total CO2 27 Base Excess 2 O2 Saturation 94 L O2 % 45 ABG pCO2 38.0 ABG pO2 66 L Floyd Test Positive Respiration Rate 14.0000 O2 Delivery Device Adult Vent Vent Mode AC Tidal Volume 500 Sodium Potassium Chloride Carbon Dioxide Anion Gap BUN Creatinine Estim Creat Clear Calc Est GFR (MDRD) Af Amer Est GFR (MDRD) Non-Af BUN/Creatinine Ratio Glucose Calcium Phosphorus Magnesium Total Bilirubin AST ALT Alkaline Phosphatase Total Creatine Kinase Total Protein Albumin Globulin Albumin/Globulin Ratio Triglycerides POC Glucose Blood Type Antibody Screen Crossmatch See Detail 03/28/20 03/28/20 03/29/20 16:05 20:20 00:20 WBC RBC Hgb 10.2 L 9.8 L 9.7 L Hct 32.0 L 30.0 L 30.0 L MCV MCH MCHC RDW Std Deviation RDW Coeff of Fadumo Plt Count MPV Immature Gran % (Auto) Neut % (Auto) Lymph % (Auto) [place] % (Auto) Eos % (Auto) Baso % (Auto) Absolute Neuts (auto) Absolute Lymphs (auto) Nucleated RBC % Differential Comment Diff Path Review PT INR APTT Specimen Type Sample Site pH Bicarbonate Actual Total CO2 Base Excess O2 Saturation O2 % ABG pCO2 ABG pO2 Floyd Test Respiration Rate O2 Delivery Device Vent Mode Tidal Volume Sodium Potassium Chloride Carbon Dioxide Anion Gap BUN Creatinine Estim Creat Clear Calc Est GFR (MDRD) Af Amer Est GFR (MDRD) Non-Af BUN/Creatinine Ratio Glucose Calcium Phosphorus Magnesium Total Bilirubin AST ALT Alkaline Phosphatase Total Creatine Kinase Total Protein Albumin Globulin Albumin/Globulin Ratio Triglycerides POC Glucose Blood Type Antibody Screen Crossmatch 03/29/20 03/29/20 03:55 03:55 WBC 23.1 H RBC 3.44 L Hgb 10.1 L Hct 30.6 L MCV 89.0 MCH 29.4 MCHC 33.0 RDW Std Deviation 49.0 H RDW Coeff of Fadumo 15.1 H Plt Count 433 MPV 10.4 Immature Gran % (Auto) 1.800 H Neut % (Auto) 85.9 H Lymph % (Auto) 5.6 L [place] % (Auto) 6.5 Eos % (Auto) 0.0 Baso % (Auto) 0.2 Absolute Neuts (auto) 19.8 H Absolute Lymphs (auto) 1.30 Nucleated RBC % 0 Differential Comment SCANNED Diff Path Review May foll PT INR APTT Specimen Type Sample Site pH Bicarbonate Actual Total CO2 Base Excess O2 Saturation O2 % ABG pCO2 ABG pO2 Floyd Test Respiration Rate O2 Delivery Device Vent Mode Tidal Volume Sodium 140 Potassium 4.9 Chloride 104 Carbon Dioxide 30.0 Anion Gap 6 BUN 92 H Creatinine 2.80 H Estim Creat Clear Calc 24.26 Est GFR (MDRD) Af Amer 29 L Est GFR (MDRD) Non-Af 24 L BUN/Creatinine Ratio 32.9 H Glucose 302 H Calcium 7.3 L Phosphorus 3.5 Magnesium 2.6 Total Bilirubin AST ALT Alkaline Phosphatase Total Creatine Kinase Total Protein Albumin Globulin Albumin/Globulin Ratio Triglycerides POC Glucose Blood Type Antibody Screen Crossmatch Clinical Impression(s) from Imaging Studies Chest X-Ray 03/28/20 10:05 IMPRESSION: Bibasilar infiltrates left greater than right although there has been improvement. The tip of the orogastric tube is at the gastroesophageal junction. Electronically Signed: Ross Ulrich, at 10:24 EDT , Service support , Chest X-Ray 03/28/20 10:45 IMPRESSION: The tip of the right central catheter is at the junction of the superior vena cava and right atrium. Electronically Signed: Ross Ulrich, at 11:48 EDT , Service support , Medical Necessity - Tobacco Use Smoking Status: Never smoker Tobacco Use: Non-smoker Assessment/Plan All Active Problems (Last Updated 02/12/19 @ 14:15 by Gisele Barnhart) Myocardial infarction (Resolved) COVID-19 (Acute) Respiratory failure (Acute) Upper GI bleed (Acute) Atherosclerosis of coronary artery of [place] heart without angina pectoris (Ruled-out) RECOMMENDATIONS: 1. Continue mechanical ventilation at the current settings. Goal to maintain oxygen saturations at or above 90%. 2. May attempt stress dose steroids if still requires pressors in another 24 to 48 hours 3. Completed Remdesevir. Discontinue anticoagulation given bleeding peptic ulcer 4. Continue H&H every 8 for 24 hours 5. No transfusions at this time 6. Spontaneous breathing and awakening trials per protocol IMPRESSIONS: 1. Acute hypoxemic respiratory failure secondary to coronavirus pneumonia The patient was diagnosed several days ago with coronavirus infection and does appear to have bilateral infiltrates on CTA chest consistent with COVID pneumonia. Plan at this time will include supportive measures including supplemental oxygen to maintain saturations at or above 90%. Patient was significant decompensation yesterday from a hemodynamic standpoint requiring repeat intubation. Patient did complete a course of REM does severe, but steroids and anticoagulation have been discontinued secondary to high risk profile. 2. Hemorrhagic shock secondary to bleeding peptic ulcer, complicated by anticoagulation Patient may have had an element of vasovagal reaction associated with GI bleed. Patient reportedly does have a history of a GI bleed in 2006 that was not mentioned previously. Patient has been given 2 units of packed red blood cells and does appear to be holding his blood counts. Patient did receive vitamin K and Kcentra yesterday, but Eliquis should be out of his system at this point. Patient currently on Levophed and vasopressin. If not improving in the next 24 hours, may initiate stress dose steroids as adrenal insufficiency may also lead to the current symptomatology. Patient's reports that she is open for the patient to be transferred if necessary if bleeding were to recur. May attempt to place an arterial line later today to facilitate weaning of pressors. 3. History of CVA/chronic kidney disease/hypertension/hyperlipidemia/CODE STATUS Complicates care, management, recovery and prognosis. Hold antihypertensives for now.. The patient remains full CODE STATUS. TIME: 35 minutes of critical care time spent addressing patient's hemorrhagic shock, hypoxic respiratory failure, COVID-19, anticoagulation, review of all data and collaboration with care team (7 AM to 8 AM) [phone]: [phone] Critical care first hour
--- NOTE | 2020-03-29 08:04 | PCM.NTREPORT ---
Nutrition Therapy Report - History Nutrition Services has been consulted to:: Manage enteral nutrition Current diet / nutrition support order:: NPO - Anthropometric Measurements Height:: 5 ft 10 in Weight:: 100.6 kg Body Mass Index (BMI):: 31.8 - Relevant Labs Relevant Labs:: WBC 23.1 K/mm3 (4.4-11.0) H 03/29/20 03:55 RBC 3.44 M/mm3 (4.6-6.2) L 03/29/20 03:55 Hgb 10.1 g/dL (13.0-16.5) L 03/29/20 03:55 Hct 30.6 % (40-54) L 03/29/20 03:55 MCHC 31.8 g/dL (32-36) L 03/25/20 03:45 RDW Std Deviation 49.0 fl (35.1-43.9) H 03/29/20 03:55 RDW Coeff of Fadumo 15.1 % (11.6-14.6) H 03/29/20 03:55 Plt Count 518 K/mm3 (150-450) H 03/28/20 04:15 Immature Gran % (Auto) 1.800 % (0.0-0.9) H 03/29/20 03:55 Neut % (Auto) 85.9 % (47-70) H 03/29/20 03:55 Lymph % (Auto) 5.6 % (19-41) L 03/29/20 03:55 Absolute Neuts (auto) 19.8 X10^3/uL (2.0-7.7) H 03/29/20 03:55 Absolute Lymphs (auto) 0.57 X10^3/uL (0.83-4.51) L 03/28/20 04:15 PT 18.2 SECONDS (11.7-14.9) H 03/28/20 07:35 D-Dimer Quant (PE/DVT) 0.95 FEU/ug/m (0.27-0.49) H* 03/20/20 10:45 Chloride 108 mmol/L (98-107) H 03/24/20 05:25 Carbon Dioxide 33.0 mmol/L (21.0-32.0) H 03/28/20 04:15 Anion Gap 4 (5-15) L 03/25/20 03:45 BUN 92 mg/dL (7-18) H 03/29/20 03:55 Creatinine 2.80 mg/dL (0.70-1.30) H 03/29/20 03:55 Est GFR (MDRD) Af Amer 29 mL/min (>60) L 03/29/20 03:55 Est GFR (MDRD) Non-Af 24 mL/min (>60) L 03/29/20 03:55 BUN/Creatinine Ratio 32.9 RATIO (10-20) H 03/29/20 03:55 Glucose 302 mg/dL (74-106) H 03/29/20 03:55 Calcium 7.3 mg/dL (8.5-10.1) L 03/29/20 03:55 AST 45 U/L (15-37) H 03/26/20 03:05 ALT 87 U/L (16-61) H 03/28/20 07:35 Total Protein 5.5 g/dL (6.4-8.2) L 03/28/20 07:35 Albumin 2.3 g/dL (3.2-5.0) L 03/28/20 07:35 Globulin 4.3 g/dL (2.2-4.2) H 03/22/20 04:10 Albumin/Globulin Ratio 0.7 RATIO (0.9-2.4) L 03/28/20 07:35 Procalcitonin 0.49 ng/mL (0.00-0.09) H 03/20/20 10:45 - Assessment Food / Nutrition-Related History:: Pt now on vent. Has OG to low wall suction. Wt decrease of 6.6 kg since last review - will monitor for wt trends. No BM since 03/25 on meds to help w/ bowel regularity. On steroid which may cause elevated gluc. . [ End ] - Nutrition Diagnosis Problem / Etiology / Signs & Symptoms (PES):: Pt w/ s/s of severe malnutrition in the context of acute illness/injury r/t inadequate energy intake d/t feeling ill w/ +COVID AEB 4.6% wt loss and consuming <50% of estimated energy intake >/=5 days - now NPO d/t on vent. [ End ] Evidence of Malnutrition Exists:: Yes Severe PCM:: Acute Illness - Nutrition Intervention Nutrition Prescription:: [id number] tab / 100-110 gm pro / day - Food / Nutrient Delivery Interventions Summary of nutrition intervention:: While pt on vent, rec enteral nutrition support. Rec Vital AF 1.2 at goal of 240 ml every 4 hours with 100 ml water flush to provide ~ 1728 tab / 108 gm pro /1767 ml free water per day. Would start tf at 100 ml for first fours hours, increase to 160 ml for second four hours and then to goal of 240 ml every four hours as pt tolerates. [ End ]. [ End ] Nutrition education provided?: No - MNT Monitoring Further MNT monitoring and evaluation required?: Yes MNT Follow-up in:: 1-2 days - if questions, please call RD/LD at [phone]
--- NOTE | 2020-03-29 09:09 | PCM.PN.HOSP ---
Patient Problems: Active and Suspected Problems (Last Updated 02/12/19 @ 14:15 by Gisele Barnhart) COVID-19 (Acute) Respiratory failure (Acute) Upper GI bleed (Acute) Subjective: Patient seen and examined. He had no acute event overnight per discussion with his nurse. Patient still remains on pressors. He was alert and able to communicate. He denied any pain, any nausea vomiting. NG tube suctioning has decreased. He has remained hemodynamically stable. He is running a low fever this morning of 100.3 Fahrenheit. Creatinine has trended up to 2.8. WBC is also trended up to 23.1. Hemoglobin today is 10.1. Vitals/I&O's: Vital Signs Temp Pulse Resp BP Pulse Ox 100.3 F H 65 14 145/50 H 92 03/29/20 08:00 03/29/20 08:00 03/29/20 08:00 03/29/20 08:00 03/29/20 08:00 Oxygen Flow Rate (L/min) 4 Oxygen Delivery Method Mechanical Ventilator Weight: 221 lb 12.56 oz Body Mass Index (BMI) 31.8 Intake and Output for Last 24 Hours 03/27/20 03/28/20 03/29/20 23:59 23:59 23:59 Intake Total 940 / 940 2858.34 / 2902.13 695.74 / 695.74 Output Total 1175 / 1175 3350 / 3380 705 / 705 Balance -235 / -235 -491.66 / -477.87 -9.26 / -9.26 General: Alert, Cooperative, No apparent distress HEENT: Atraumatic, PERRLA, EOMI, Normocephalic, - - intubated, RASS score is 0 Neck: Supple, No JVD, Negative Carotid Bruits Lungs: Clear to auscultation, Normal air movement, No rhonchi, No wheeze, - - intubated Cardiovascular: Regular rate, Regular Rhythm, Normal S1, Normal S2, No murmurs Abdomen: Bowel Sounds Present, Soft, Non Tender, Non-Distended, No Hepato-splenomegaly Extremities: No clubbing, No cyanosis, No edema, Capillary Refill Less than 3 Seconds Skin: No rashes, No breakdown Musculoskeletal: No Tenderness to Palpation of Joints or Extremities Lymphatic: No Cervical, Supraclavicular, or Inguinal Adenopathy Neurological: Cranial nerves II-XII grossly intact, Neuro grossly intact, Motor Exam 5/5 strength throughout Psych/Mental Status: - - intubated, sedated, RASS score is 0 Laboratory Results 03/28/20 07:26: POC Glucose 280 H 03/28/20 07:35: Crossmatch See Detail 03/28/20 07:35: Total Creatine Kinase 150, Triglycerides 136 03/28/20 07:35: Crossmatch See Detail 03/28/20 11:45: Specimen Type ART, Sample Site R Radial, pH 7.44, Bicarbonate Actual 25.7, Total CO2 27, Base Excess 2, O2 Saturation 94 L, O2 % 45, ABG pCO2 38.0, ABG pO2 66 L, Floyd Test Positive, Respiration Rate 14.0000, O2 Delivery Device Adult Vent, Vent Mode AC, Tidal Volume 500 03/28/20 12:00: Hgb 10.1 L, Hct 31.3 L 03/28/20 16:05: Hgb 10.2 L, Hct 32.0 L 03/28/20 20:20: Hgb 9.8 L, Hct 30.0 L 03/29/20 00:20: Hgb 9.7 L, Hct 30.0 L 03/29/20 03:55: WBC 23.1 H, RBC 3.44 L, Hgb 10.1 L, Hct 30.6 L, MCV 89.0, MCH 29.4, MCHC 33.0, RDW Std Deviation 49.0 H, RDW Coeff of Fadumo 15.1 H, Plt Count 433, MPV 10.4, Immature Gran % (Auto) 1.800 H, Neut % (Auto) 85.9 H, Lymph % (Auto) 5.6 L, [place] % (Auto) 6.5, Eos % (Auto) 0.0, Baso % (Auto) 0.2, Absolute Neuts (auto) 19.8 H, Absolute Lymphs (auto) 1.30, Nucleated RBC % 0, Differential Comment SCANNED, Diff Path Review October03/29/20 03:55: Sodium 140, Potassium 4.9, Chloride 104, Carbon Dioxide 30.0, Anion Gap 6, BUN 92 H, Creatinine 2.80 H, Estim Creat Clear Calc 24.26, Est GFR (MDRD) Af Amer 29 L, Est GFR (MDRD) Non-Af 24 L, BUN/Creatinine Ratio 32.9 H, Glucose 302 H, Calcium 7.3 L, Phosphorus 3.5, Magnesium 2.6 Current Medications Acetaminophen (Tylenol Liquid) 650 mg GT Q6H PRN PRN PRN Reason: Pain Score 1-10/Temp > 100.7 F Last Admin: 03/28/20 22:58 Dose: 650 mg Documented by: Albuterol Sulfate (Ventolin Aerosols) 2.5 mg INHALATION Q2H PRN PRN PRN Reason: SOB/Wheezing Atorvastatin Calcium (Lipitor) 10 mg GT DAILY [facility] Chlorhexidine Gluconate () 15 ml PO BID [facility] Chlorhexidine Gluconate () 1 each TOPICAL DAILY [facility] Last Admin: 03/29/20 07:18 Dose: 1 each Documented by: Ergocalciferol (Vitamin D) 50,000 unit PO Q7D [facility] Last Admin: 03/23/20 09:15 Dose: 50,000 unit Documented by: Guaifenesin (Robitussin Dm) 10 ml GT Q4H PRN PRN PRN Reason: COUGH Hydralazine HCl (Apresoline Iv) 20 mg IV Q4H PRN PRN PRN Reason: SBP > 160 Last Admin: 03/26/20 00:23 Dose: 20 mg Documented by: Norepinephrine Bitartrate 8 mg (/ Sodium Chloride) 250 mls @ 9.375 mls/hr CONT INF .[id number] [facility]; Protocol Last Admin: 03/29/20 08:12 Dose: 21 mcg/min, 39.4 mls/hr Documented by: Pantoprazole Sodium 80 mg/ (Sodium Chloride) 100 mls @ 10 mls/hr CONT INF Q10H [facility] Last Admin: 03/29/20 06:00 Dose: 10 mls/hr Documented by: Fentanyl Citrate 1,000 mcg/ (Sodium Chloride) 100 mls @ 5 mls/hr CONT INF .Q20H [facility]; Protocol Last Titration: 03/29/20 07:00 Dose: 50 mcg/hr, 5 mls/hr Documented by: Vasopressin 20 units/ Sodium (Chloride) 25 mls @ 3 mls/hr IV .Q8H20M [facility] Last Infusion: 03/29/20 05:34 Dose: 0.04 units/min, 3 mls/hr Documented by: Dexmedetomidine HCl 400 mcg/ (Sodium Chloride) 100 mls @ 13.4 mls/hr CONT INF .Q7H28M [facility]; Protocol Last Titration: 03/29/20 07:00 Dose: 0.5 mcg/kg/hr, 13.4 mls/hr Documented by: Ciprofloxacin (Cipro) 200 mg in 100 mls @ 100 mls/hr IV Q12 [facility] Ondansetron HCl (Zofran) 4 mg IV Q8H PRN PRN PRN Reason: NAUSEA/VOMITING Last Admin: 03/26/20 10:49 Dose: 4 mg Documented by: Polyethylene Glycol (Miralax) 17 gm GT DAILY PRN PRN Reason: Constipation Prochlorperazine Edisylate (Compazine Iv) 5 mg IV Q6H PRN PRN PRN Reason: NAUSEA/VOMITING Last Admin: 03/27/20 09:33 Dose: 5 mg Documented by: Senna (Senokot) 2 tablet GT BID [facility] Sodium Chloride () 10 - 40 ml IV UD PRN PRN Reason: SALINE FLUSH Last Admin: 03/28/20 08:33 Dose: 40 ml Documented by: Temazepam (Restoril) 15 mg PO QHS PRN PRN PRN Reason: INSOMNIA Last Admin: 03/27/20 21:08 Dose: 15 mg Documented by: STROKE Vital Signs/Narrative: Vital Signs Temp Pulse Resp BP Pulse Ox 03/29/20 08:00 100.3 F H 65 14 145/50 H 92 03/29/20 07:25 71 14 96 03/29/20 07:00 100.3 F H 69 14 152/30 H 94 03/29/20 06:00 100.4 F H 69 14 124/55 H 94 03/29/20 05:15 70 15 95 Medical Necessity - Tobacco Use Smoking Status: Never smoker Tobacco Use: Non-smoker Assessment/Plan All Active Problems (Last Updated 02/12/19 @ 14:15 by Gisele Barnhart) Myocardial infarction (Resolved) COVID-19 (Acute) Respiratory failure (Acute) Upper GI bleed (Acute) Atherosclerosis of coronary artery of [place] heart without angina pectoris (Ruled-out) # Acute hemorrhagic shock due to bleeding peptic ulcer patient still on pressors. received Kcentra and Vitamin K yesterday had EGD which showed bleeding peptic ulcer with adherent clot, and required injection of epinephrine, and clips. Hb today is ~ 10 on protonix drip critical care and general surgery on board # Acute hypoxic respiratory failure in setting of covid 19 infection patient was emergently intubated yesterday to protect his airway critical care on board # COVID 19 infection: completed course of remdesivir and received convalescent plasma. steroids and anticoagulation discontinued due to bleeding ulcer. # Bleeding peptic ulcer: as under hemorrhagic shock. # CAROLYNN: Cr today is 2.8./ may be due to bleeding peptic ulcer. was 1.59 yesterday. Will check renal USG and hydrate gently with iVF. IF Cr doesnt trend down, will consult nephrology # History of CVA; stable # Hypertension; BP meds on hold o/a of of hemorrhgic shock # CAD: on statin. aspirin on hold o/a of bleeding peptic ulcer DVT prophylaxis: on SCDs Inpatient E&M: 24570 Subs Hosp L3
--- NOTE | 2020-03-29 09:43 | US_ITS ---
STUDY: RENAL ULTRASOUND - COMPLETE REASON FOR EXAM: Male, 75 years old. CAROLYNN TECHNIQUE: Ultrasound evaluation of the kidneys was performed with real-time and static larose-scale imaging. COMPARISON: None. FINDINGS: RIGHT KIDNEY: Normal location of the right kidney, which is normal in size. The right kidney measures 11.5 x 5.5 x 5.5 cm. There is a normal cortex of the right kidney. The renal cortex measures 1.4 cm. There is no right renal mass or cyst. There are no right renal calculi. There is no right hydronephrosis. DISTAL RIGHT URETER: There is non-visualization of the distal right ureter. There is no demonstrated right ureterovesical junction calculus. There is no demonstrated right ureteral jet. LEFT KIDNEY: Normal location of the left kidney, which is normal in size. The left kidney measures 10.9 x 5.1 x 6.4 cm. There is a normal cortex of the left kidney. The renal cortex measures 1.9 cm. There is no left renal mass or cyst. There are no left renal calculi. There is no left hydronephrosis. DISTAL LEFT URETER: There is non-visualization of the distal left ureter. There is no demonstrated left ureterovesical junction calculus. There is no demonstrated left ureteral jet. BLADDER: The urinary bladder is decompressed by a JOHANSEN catheter. US/Kidney and Bladder IMPRESSION: No hydronephrosis. Electronically Signed: Kostas Aquino MD ([place]) at 12:42 EDT , Service support ,
--- NOTE | 2020-03-29 11:20 | NURSING ---
Vasopressin continues to run despite EMAR states the bag is infused. The bags are messed up d/t extra tubing being used for covid isolation.
[2020-03-29 13:50] LABS: Hematocrit 27.7 % (40-54); Hemoglobin 9.3 g/dL (13.0-16.5)
[2020-03-29] MEDS: Chlorhexidine 15 ML PO ×2 (14:20→20:41)
[2020-03-29] MEDS: Ciprofloxacin 200 MG/100 ML BAG 100 MG IV ×2 (14:20→21:16)
[2020-03-29] MEDS: Atorvastatin Calcium 10 MG Tablet GT (14:21)
[2020-03-29 14:37] LABS: Urine Sodium 14 mmol/L (Not Establ.)
--- NOTE | 2020-03-29 16:55 | NURSING ---
Vasopressin has been running continuously today at 0.04 units/min (3 ml/hr) despite EMAR showing it completed. The bag volumes were off d/t priming extra extension tubing for covid isolation as pumps are outside room.
[2020-03-29] MEDS: 0.9% Saline Lock 10 ML Syringe IV ×2 (17:34→20:42)
[2020-03-29] MEDS: Insulin Lispro 100 UNIT/ML INSULN.PEN SC (17:34)
[2020-03-29 18:00] LABS: Bedside Glucose 288 mg/dL (70-110)
--- NOTE | 2020-03-29 18:05 | NURSING ---
Protonix GTT has been running continuously despite EMAR stating it ws infused. Timing off on meds.
[2020-03-29 21:37] LABS: Hemoglobin 8.6 g/dL (13.0-16.5)
[2020-03-30] VITALS (88 sets, daily range): BP systolic 84–169; BP diastolic 45–63; PULSE 57–95; RESP 13–27; TEMP 37.1–38.8; O2SAT 90–97
[2020-03-30] MEDS: Insulin Lispro 100 UNIT/ML INSULN.PEN SC ×5 (00:01→23:00)
[2020-03-30 02:01] LABS: Bedside Glucose 313 mg/dL (70-110)
[2020-03-30] MEDS: 0.9% Saline Lock 10 ML Syringe IV ×3 (04:06→20:12)
[2020-03-30 04:35] LABS: International Normalized Ratio 1.6; Prothrombin Time (Protime)PT. 18.3 SECONDS (11.7-14.9)
[2020-03-30 04:36] LABS: Partial Thromboplast Time 30.3 Seconds (24.1-36.2)
[2020-03-30 04:39] LABS: Absolute Neutrophil Count 15.8 X10^3/uL (2.0-7.7); Basophil# 0.02 X10^3/uL; Basophil% 0.1 % (0-1); Hematocrit 28.5 % (40-54); Hemoglobin 9.3 g/dL (13.0-16.5); Lymphocyte % 3.4 % (19-41); Mean Corp Hgb Conc 32.6 g/dL (32-36); Mean Corpuscular Hgb 29.3 pg (27.0-32.0); Mean Corpuscular Volume 89.9 fL (80-94); Mean Platelet Vol. 10.4 fl (6.2-12.0); Monocyte# 1.08 X10^3/uL; Monocyte% 6.1 % (0-10); NRBC Flagged by Analyzer 0 % (0-5); Neutrophil # 15.82 X10^3/uL (2.7-7.7); Neutrophil % 89.6 % (47-70); POSITIVE DIFFERENTIAL YES; POSITIVE MORPHOLOGY YES; Platelet Count 366 K/mm3 (150-450); RBC Distribution Width CV 14.6 % (11.6-14.6); Red Blood Count 3.17 M/mm3 (4.6-6.2); White Blood Count 17.7 K/mm3 (4.4-11.0)
[2020-03-30 04:41] LABS: Differential Indicated SCAN CRITERIA MET
[2020-03-30 04:43] LABS: ALB/GLOB Ratio 0.5 RATIO (0.9-2.4); AST(SGOT) 16 U/L (15-37); Alanine Aminotransfer ALT/SGPT 42 U/L (16-61); Albumin, Serum 1.8 g/dL (3.2-5.0); Alkaline Phosphatase 59 U/L (45-117); Anion Gap 3 (5-15); BUN 75 mg/dL (7-18); BUN/Creat Ratio 40.1 RATIO (10-20); Calcium,Total 7.5 mg/dL (8.5-10.1); Chloride 112 mmol/L (98-107); Creatinine, Serum 1.87 mg/dL (0.70-1.30); EST Glomerular Filtration Rate 38 mL/min (>60); Est Glom Filt Rate - Afr Amer 46 mL/min (>60); Estimated Creatinine Clearance 36.33 ml/min; Globulin 3.7 g/dL (2.2-4.2); Glucose 310 mg/dL (74-106); Magnesium 2.8 mg/dL (1.6-2.6); Protein, Total 5.5 g/dL (6.4-8.2); Sodium Level 145 mmol/L (136-145)
[2020-03-30] MEDS: TITRATION PARAMETER CHANGE 1 EACH IV (05:32)
[2020-03-30 06:11] LABS: Bedside Glucose 285 mg/dL (70-110)
[2020-03-30 06:47] LABS: Platelet Estimate ADEQUATE (ADEQ)
--- NOTE | 2020-03-30 06:56 | PCM.PN.SRG ---
Patient Problems: Active and Suspected Problems (Last Updated 02/12/19 @ 14:15 by Gisele Barnhart) COVID-19 (Acute) Respiratory failure (Acute) Upper GI bleed (Acute) Subjective: Report from nursing patient still having NG tube output dark coffee-ground very thick. Hemoglobin dropped to 8.6 so he received 1 unit of packed red cells. His current white blood cell count has improved to 17.7. Hemoglobin 9.3. Hematocrit 28.5. Platelet count 366,000. 89% neutrophils. INR is 1.6 with a PT of 18.3 and a PTT of 30.3. BUN has improved to 75 and creatinine has improved to 1.87. Glucose remains uncontrolled at 310. Albumin is low at 1.8 with a total protein of 5.5 - Physical Exam Vitals/I&O's: Vital Signs Temp Pulse Resp BP Pulse Ox 101.1 F H 76 16 148/54 H 92 03/30/20 06:30 03/30/20 06:30 03/30/20 06:30 03/30/20 06:30 03/30/20 06:30 Oxygen Flow Rate (L/min) 4 Oxygen Delivery Method Mechanical Ventilator Weight: 220 lb 3.869 oz Body Mass Index (BMI) 31.8 Intake and Output for Last 24 Hours 03/28/20 03/29/20 03/30/20 23:59 23:59 23:59 Intake Total 2858.34 / 2902.13 1957.92 / 2042.49 888.40 / 888.40 Output Total 3350 / 3380 2905 / 3005 875 / 875 Balance -491.66 / -477.87 -947.08 / -962.51 13.40 / 13.40 Laboratory Results 03/28/20 07:35: Crossmatch See Detail 03/28/20 07:35: Crossmatch See Detail 03/28/20 07:35: Crossmatch See Detail 03/29/20 13:30: Hgb 9.3 L, Hct 27.7 L 03/29/20 14:00: Urine Creatinine 84.70 03/29/20 14:00: Ur Random Sodium 14 03/29/20 17:28: POC Glucose 288 H 03/29/20 21:00: Hgb 8.6 L, Hct 27.0 L 03/29/20 23:55: POC Glucose 313 H 03/30/20 04:00: WBC 17.7 H, RBC 3.17 L, Hgb 9.3 L, Hct 28.5 L, MCV 89.9, MCH 29.3, MCHC 32.6, RDW Std Deviation 48.0 H, RDW Coeff of Fadumo 14.6, Plt Count 366, MPV 10.4, Immature Gran % (Auto) 0.800, Neut % (Auto) 89.6 H, Lymph % (Auto) 3.4 L, [place] % (Auto) 6.1, Eos % (Auto) 0.0, Baso % (Auto) 0.1, Absolute Neuts (auto) 15.8 H, Absolute Lymphs (auto) 0.60 L, Nucleated RBC % 0, Differential Comment COMMENT, Platelet Estimate ADEQUATE, Anisocytosis 2+, Crenated Cell 1+ 03/30/20 04:00: PT 18.3 H, INR 1.6, APTT 30.3 03/30/20 04:00: Sodium 145, Potassium 4.0, Chloride 112 H, Carbon Dioxide 30.0, Anion Gap 3 L, BUN 75 H, Creatinine 1.87 H, Estim Creat Clear Calc 36.33, Est GFR (MDRD) Af Amer 46 L, Est GFR (MDRD) Non-Af 38 L, BUN/Creatinine Ratio 40.1 H, Glucose 310 H, Calcium 7.5 L, Phosphorus 2.0 L, Magnesium 2.8 H, Total Bilirubin 0.50, AST 16, ALT 42, Alkaline Phosphatase 59, Total Protein 5.5 L, Albumin 1.8 L, Globulin 3.7, Albumin/Globulin Ratio 0.5 L 03/30/20 05:38: POC Glucose 285 H Current Medications Acetaminophen (Tylenol Liquid) 650 mg GT Q6H PRN PRN PRN Reason: Pain Score 1-10/Temp > 100.7 F Last Admin: 03/28/20 22:58 Dose: 650 mg Documented by: Albuterol Sulfate (Ventolin Aerosols) 2.5 mg INHALATION Q2H PRN PRN PRN Reason: SOB/Wheezing Atorvastatin Calcium (Lipitor) 10 mg GT DAILY [facility] Last Admin: 03/29/20 14:21 Dose: 10 mg Documented by: Chlorhexidine Gluconate () 15 ml PO BID [facility] Last Admin: 03/29/20 20:41 Dose: 15 ml Documented by: Chlorhexidine Gluconate () 1 each TOPICAL DAILY [facility] Last Admin: 03/29/20 07:18 Dose: 1 each Documented by: Dextrose (D50w Syringe) 0 gm IV X1 PRN; Protocol PRN Reason: Hypoglycemia Ergocalciferol (Vitamin D) 50,000 unit PO Q7D [facility] Last Admin: 03/23/20 09:15 Dose: 50,000 unit Documented by: Glucagon () 1 mg IM .X1 PRN PRN Reason: Hypoglycemia Guaifenesin (Robitussin Dm) 10 ml GT Q4H PRN PRN PRN Reason: COUGH Hydralazine HCl (Apresoline Iv) 20 mg IV Q4H PRN PRN PRN Reason: SBP > 160 Last Admin: 03/26/20 00:23 Dose: 20 mg Documented by: Norepinephrine Bitartrate 8 mg (/ Sodium Chloride) 250 mls @ 9.375 mls/hr CONT INF .[id number] [facility]; Protocol Last Titration: 03/30/20 06:30 Dose: 11 mcg/min, 20.6 mls/hr Documented by: Pantoprazole Sodium 80 mg/ (Sodium Chloride) 100 mls @ 10 mls/hr CONT INF Q10H [facility] Last Admin: 03/30/20 03:21 Dose: 10 mls/hr Documented by: Fentanyl Citrate 1,000 mcg/ (Sodium Chloride) 100 mls @ 5 mls/hr CONT INF .Q20H [facility]; Protocol Last Titration: 03/30/20 06:00 Dose: 75 mcg/hr, 7.5 mls/hr Documented by: Vasopressin 20 units/ Sodium (Chloride) 25 mls @ 3 mls/hr IV .Q8H20M [facility] Last Infusion: 03/30/20 06:00 Dose: 0.04 units/min, 3 mls/hr Documented by: Dexmedetomidine HCl 400 mcg/ (Sodium Chloride) 100 mls @ 12.488 mls/hr CONT INF .Q8H1M [facility]; Protocol Last Titration: 03/30/20 06:00 Dose: 0.5 mcg/kg/hr, 12.5 mls/hr Documented by: Ciprofloxacin (Cipro) 200 mg in 100 mls @ 100 mls/hr IV Q12 [facility] Last Infusion: 03/29/20 22:16 Dose: Infused Documented by: Insulin Glargine (Lantus (Bk)) 10 units SC DAILY [facility] Insulin Human Lispro (Humalog Kwikpen ([facility])) 0 unit SC Q6 [facility]; Protocol Last Admin: 03/30/20 05:40 Dose: 3 u Documented by: Ondansetron HCl (Zofran) 4 mg IV Q8H PRN PRN PRN Reason: NAUSEA/VOMITING Last Admin: 03/26/20 10:49 Dose: 4 mg Documented by: Polyethylene Glycol (Miralax) 17 gm GT DAILY PRN PRN Reason: Constipation Prochlorperazine Edisylate (Compazine Iv) 5 mg IV Q6H PRN PRN PRN Reason: NAUSEA/VOMITING Last Admin: 03/27/20 09:33 Dose: 5 mg Documented by: Senna (Senokot) 2 tablet GT BID [facility] Last Admin: 03/29/20 20:26 Dose: Not Given Documented by: Sodium Chloride () 10 - 40 ml IV UD PRN PRN Reason: SALINE FLUSH Last Admin: 03/30/20 04:06 Dose: 40 ml Documented by: Temazepam (Restoril) 15 mg PO QHS PRN PRN PRN Reason: INSOMNIA Last Admin: 03/27/20 21:08 Dose: 15 mg Documented by: Medical Necessity - Tobacco Use Smoking Status: Never smoker Tobacco Use: Non-smoker Assessment/Plan All Active Problems (Last Updated 02/12/19 @ 14:15 by Gisele Barnhart) Myocardial infarction (Resolved) COVID-19 (Acute) Respiratory failure (Acute) Upper GI bleed (Acute) Atherosclerosis of coronary artery of [place] heart without angina pectoris (Ruled-out) Unit of blood transfused. Ongoing thick coffee ground NG tube return which should have resolved at this point if the upper GI bleed had stopped. 1 would have anticipated that the anticoagulation effect from the patient's apixaban would now be resolved. BUN and creatinine have improved which obviously is a good sign. Leukocytosis also improving Findings would suggest ongoing slow upper GI bleed. I am aware that previous recommendations were for patient transfer because of the difficulty encountered during the upper endoscopy. It is not clear whether the upper GI bleeding will come to a complete stop but the patient is otherwise showing signs of improvement and stability. Kishan Sutherland M.D., F.A.C.S.
[2020-03-30 06:57] LABS: Anisocytosis 1+
--- NOTE | 2020-03-30 07:58 | PN_ITS ---
Subjective: Patient did okay overnight. Nursing did report increased tracheal secretions, so a repeat sputum culture was obtained. Patient has been persistently febrile since Precedex was initiated. Patient did receive a unit of packed red blood cells overnight secondary to a decrease in blood counts. Patient continues to have approximately 300 cc of gastric removal of dark secretions. No diarrhea has been noted. Patient is denying any pain at this time. Objective: No spontaneous breathing trial this morning secondary to high pressor requirements. General: Alert, Cooperative, No apparent distress, - - Good vent synchrony. HEENT: Atraumatic, PERRLA, EOMI, Normocephalic, - - Better color today. No scleral icterus or injection noted Oral: No Gingival or Mucosal Lesions/ Ulcerations, Dry Mucosa Neck: Supple, No JVD, No Nodes, Trachea Midline Lungs: No rhonchi, No wheeze, Diminished, Rales, - - Symmetric expansion. No dullness to percussion. Cardiovascular: Regular rate, Regular Rhythm, Normal S1, Normal S2, No murmurs, No rub noted, No Gallop Abdomen: Bowel Sounds Present, Soft, Non Tender, Non-Distended, Obese Extremities: No clubbing, No cyanosis, Edema Skin: No rashes, No breakdown Musculoskeletal: No Tenderness to Palpation of Joints or Extremities Lymphatic: No Cervical, Supraclavicular, or Inguinal Adenopathy Neurological: Cranial nerves II-XII grossly intact, Neuro grossly intact, Motor Exam 5/5 strength throughout Psych/Mental Status: Normal Affect, Appropriate Vital Signs Temp Pulse Resp BP Pulse Ox 38.4 C H 84 18 107/51 L 92 03/30/20 07:00 03/30/20 07:00 03/30/20 07:00 03/30/20 07:00 03/30/20 07:00 Oxygen Flow Rate (L/min) 4 Oxygen Delivery Method Mechanical Ventilator Weight: 99.9 kg Body Mass Index (BMI) 31.8 Intake and Output for Last 24 Hours 03/28/20 03/29/20 03/30/20 23:59 23:59 23:59 Intake Total 2858.34 / 2902.13 1957.92 / 2042.49 921.66 / 921.66 Output Total 3350 / 3380 2905 / 3005 875 / 875 Balance -491.66 / -477.87 -947.08 / -962.51 46.66 / 46.66 Labs (Last 48 Hours) 03/28/20 03/28/20 03/28/20 07:26 07:35 07:35 WBC RBC Hgb Hct MCV MCH MCHC RDW Std Deviation RDW Coeff of Fadumo Plt Count MPV Immature Gran % (Auto) Neut % (Auto) Lymph % (Auto) [place] % (Auto) Eos % (Auto) Baso % (Auto) Absolute Neuts (auto) Absolute Lymphs (auto) Nucleated RBC % Differential Comment Diff Path Review Platelet Estimate Anisocytosis Crenated Cell PT 18.2 H INR 1.6 APTT 25.2 Specimen Type Sample Site pH Bicarbonate Actual Total CO2 Base Excess O2 Saturation O2 % ABG pCO2 ABG pO2 Floyd Test Respiration Rate O2 Delivery Device Vent Mode Tidal Volume Sodium Potassium Chloride Carbon Dioxide Anion Gap BUN Creatinine Estim Creat Clear Calc Est GFR (MDRD) Af Amer Est GFR (MDRD) Non-Af BUN/Creatinine Ratio Glucose Calcium Phosphorus Magnesium Total Bilirubin AST ALT Alkaline Phosphatase Total Creatine Kinase Total Protein Albumin Globulin Albumin/Globulin Ratio Triglycerides Ur Random Sodium Urine Creatinine POC Glucose 280 H Blood Type O NEGATIVE Antibody Screen NEGATIVE Crossmatch 03/28/20 03/28/20 03/28/20 07:35 07:35 07:35 WBC RBC Hgb Hct MCV MCH MCHC RDW Std Deviation RDW Coeff of Fadumo Plt Count MPV Immature Gran % (Auto) Neut % (Auto) Lymph % (Auto) [place] % (Auto) Eos % (Auto) Baso % (Auto) Absolute Neuts (auto) Absolute Lymphs (auto) Nucleated RBC % Differential Comment Diff Path Review Platelet Estimate Anisocytosis Crenated Cell PT INR APTT Specimen Type Sample Site pH Bicarbonate Actual Total CO2 Base Excess O2 Saturation O2 % ABG pCO2 ABG pO2 Floyd Test Respiration Rate O2 Delivery Device Vent Mode Tidal Volume Sodium 140 Potassium 4.5 Chloride 101 Carbon Dioxide 28.0 Anion Gap 11 BUN 63 H Creatinine 1.59 H Estim Creat Clear Calc 42.72 Est GFR (MDRD) Af Amer 55 L Est GFR (MDRD) Non-Af 46 L BUN/Creatinine Ratio 39.6 H Glucose 290 H Calcium 8.3 L Phosphorus Magnesium Total Bilirubin 0.50 AST 26 ALT 87 H Alkaline Phosphatase 53 Total Creatine Kinase 150 Total Protein 5.5 L Albumin 2.3 L Globulin 3.2 Albumin/Globulin Ratio 0.7 L Triglycerides 136 Ur Random Sodium Urine Creatinine POC Glucose Blood Type Antibody Screen Crossmatch See Detail 03/28/20 03/28/20 03/28/20 07:35 07:35 11:45 WBC RBC Hgb Hct MCV MCH MCHC RDW Std Deviation RDW Coeff of Fadumo Plt Count MPV Immature Gran % (Auto) Neut % (Auto) Lymph % (Auto) [place] % (Auto) Eos % (Auto) Baso % (Auto) Absolute Neuts (auto) Absolute Lymphs (auto) Nucleated RBC % Differential Comment Diff Path Review Platelet Estimate Anisocytosis Crenated Cell PT INR APTT Specimen Type ART Sample Site R Radial pH 7.44 Bicarbonate Actual 25.7 Total CO2 27 Base Excess 2 O2 Saturation 94 L O2 % 45 ABG pCO2 38.0 ABG pO2 66 L Floyd Test Positive Respiration Rate 14.0000 O2 Delivery Device Adult Vent Vent Mode AC Tidal Volume 500 Sodium Potassium Chloride Carbon Dioxide Anion Gap BUN Creatinine Estim Creat Clear Calc Est GFR (MDRD) Af Amer Est GFR (MDRD) Non-Af BUN/Creatinine Ratio Glucose Calcium Phosphorus Magnesium Total Bilirubin AST ALT Alkaline Phosphatase Total Creatine Kinase Total Protein Albumin Globulin Albumin/Globulin Ratio Triglycerides Ur Random Sodium Urine Creatinine POC Glucose Blood Type Antibody Screen Crossmatch See Detail See Detail 03/28/20 03/28/20 03/28/20 12:00 16:05 20:20 WBC RBC Hgb 10.1 L 10.2 L 9.8 L Hct 31.3 L 32.0 L 30.0 L MCV MCH MCHC RDW Std Deviation RDW Coeff of Fadumo Plt Count MPV Immature Gran % (Auto) Neut % (Auto) Lymph % (Auto) [place] % (Auto) Eos % (Auto) Baso % (Auto) Absolute Neuts (auto) Absolute Lymphs (auto) Nucleated RBC % Differential Comment Diff Path Review Platelet Estimate Anisocytosis Crenated Cell PT INR APTT Specimen Type Sample Site pH Bicarbonate Actual Total CO2 Base Excess O2 Saturation O2 % ABG pCO2 ABG pO2 Floyd Test Respiration Rate O2 Delivery Device Vent Mode Tidal Volume Sodium Potassium Chloride Carbon Dioxide Anion Gap BUN Creatinine Estim Creat Clear Calc Est GFR (MDRD) Af Amer Est GFR (MDRD) Non-Af BUN/Creatinine Ratio Glucose Calcium Phosphorus Magnesium Total Bilirubin AST ALT Alkaline Phosphatase Total Creatine Kinase Total Protein Albumin Globulin Albumin/Globulin Ratio Triglycerides Ur Random Sodium Urine Creatinine POC Glucose Blood Type Antibody Screen Crossmatch 03/29/20 03/29/20 03/29/20 00:20 03:55 03:55 WBC 23.1 H RBC 3.44 L Hgb 9.7 L 10.1 L Hct 30.0 L 30.6 L MCV 89.0 MCH 29.4 MCHC 33.0 RDW Std Deviation 49.0 H RDW Coeff of Fadumo 15.1 H Plt Count 433 MPV 10.4 Immature Gran % (Auto) 1.800 H Neut % (Auto) 85.9 H Lymph % (Auto) 5.6 L [place] % (Auto) 6.5 Eos % (Auto) 0.0 Baso % (Auto) 0.2 Absolute Neuts (auto) 19.8 H Absolute Lymphs (auto) 1.30 Nucleated RBC % 0 Differential Comment SCANNED Diff Path Review May foll Platelet Estimate Anisocytosis Crenated Cell PT INR APTT Specimen Type Sample Site pH Bicarbonate Actual Total CO2 Base Excess O2 Saturation O2 % ABG pCO2 ABG pO2 Floyd Test Respiration Rate O2 Delivery Device Vent Mode Tidal Volume Sodium 140 Potassium 4.9 Chloride 104 Carbon Dioxide 30.0 Anion Gap 6 BUN 92 H Creatinine 2.80 H Estim Creat Clear Calc 24.26 Est GFR (MDRD) Af Amer 29 L Est GFR (MDRD) Non-Af 24 L BUN/Creatinine Ratio 32.9 H Glucose 302 H Calcium 7.3 L Phosphorus 3.5 Magnesium 2.6 Total Bilirubin AST ALT Alkaline Phosphatase Total Creatine Kinase Total Protein Albumin Globulin Albumin/Globulin Ratio Triglycerides Ur Random Sodium Urine Creatinine POC Glucose Blood Type Antibody Screen Crossmatch 03/29/20 03/29/20 03/29/20 13:30 14:00 14:00 WBC RBC Hgb 9.3 L Hct 27.7 L MCV MCH MCHC RDW Std Deviation RDW Coeff of Fadumo Plt Count MPV Immature Gran % (Auto) Neut % (Auto) Lymph % (Auto) [place] % (Auto) Eos % (Auto) Baso % (Auto) Absolute Neuts (auto) Absolute Lymphs (auto) Nucleated RBC % Differential Comment Diff Path Review Platelet Estimate Anisocytosis Crenated Cell PT INR APTT Specimen Type Sample Site pH Bicarbonate Actual Total CO2 Base Excess O2 Saturation O2 % ABG pCO2 ABG pO2 Floyd Test Respiration Rate O2 Delivery Device Vent Mode Tidal Volume Sodium Potassium Chloride Carbon Dioxide Anion Gap BUN Creatinine Estim Creat Clear Calc Est GFR (MDRD) Af Amer Est GFR (MDRD) Non-Af BUN/Creatinine Ratio Glucose Calcium Phosphorus Magnesium Total Bilirubin AST ALT Alkaline Phosphatase Total Creatine Kinase Total Protein Albumin Globulin Albumin/Globulin Ratio Triglycerides Ur Random Sodium 14 Urine Creatinine 84.70 POC Glucose Blood Type Antibody Screen Crossmatch 03/29/20 03/29/20 03/29/20 17:28 21:00 23:55 WBC RBC Hgb 8.6 L Hct 27.0 L MCV MCH MCHC RDW Std Deviation RDW Coeff of Fadumo Plt Count MPV Immature Gran % (Auto) Neut % (Auto) Lymph % (Auto) [place] % (Auto) Eos % (Auto) Baso % (Auto) Absolute Neuts (auto) Absolute Lymphs (auto) Nucleated RBC % Differential Comment Diff Path Review Platelet Estimate Anisocytosis Crenated Cell PT INR APTT Specimen Type Sample Site pH Bicarbonate Actual Total CO2 Base Excess O2 Saturation O2 % ABG pCO2 ABG pO2 Floyd Test Respiration Rate O2 Delivery Device Vent Mode Tidal Volume Sodium Potassium Chloride Carbon Dioxide Anion Gap BUN Creatinine Estim Creat Clear Calc Est GFR (MDRD) Af Amer Est GFR (MDRD) Non-Af BUN/Creatinine Ratio Glucose Calcium Phosphorus Magnesium Total Bilirubin AST ALT Alkaline Phosphatase Total Creatine Kinase Total Protein Albumin Globulin Albumin/Globulin Ratio Triglycerides Ur Random Sodium Urine Creatinine POC Glucose 288 H 313 H Blood Type Antibody Screen Crossmatch 03/30/20 03/30/20 03/30/20 04:00 04:00 04:00 WBC 17.7 H RBC 3.17 L Hgb 9.3 L Hct 28.5 L MCV 89.9 MCH 29.3 MCHC 32.6 RDW Std Deviation 48.0 H RDW Coeff of Fadumo 14.6 Plt Count 366 MPV 10.4 Immature Gran % (Auto) 0.800 Neut % (Auto) 89.6 H Lymph % (Auto) 3.4 L [place] % (Auto) 6.1 Eos % (Auto) 0.0 Baso % (Auto) 0.1 Absolute Neuts (auto) 15.8 H Absolute Lymphs (auto) 0.60 L Nucleated RBC % 0 Differential Comment COMMENT Diff Path Review Platelet Estimate ADEQUATE Anisocytosis 1+ Crenated Cell OCCUPATIONAL NURSE PT 18.3 H INR 1.6 APTT 30.3 Specimen Type Sample Site pH Bicarbonate Actual Total CO2 Base Excess O2 Saturation O2 % ABG pCO2 ABG pO2 Floyd Test Respiration Rate O2 Delivery Device Vent Mode Tidal Volume Sodium 145 Potassium 4.0 Chloride 112 H Carbon Dioxide 30.0 Anion Gap 3 L BUN 75 H Creatinine 1.87 H Estim Creat Clear Calc 36.33 Est GFR (MDRD) Af Amer 46 L Est GFR (MDRD) Non-Af 38 L BUN/Creatinine Ratio 40.1 H Glucose 310 H Calcium 7.5 L Phosphorus 2.0 L Magnesium 2.8 H Total Bilirubin 0.50 AST 16 ALT 42 Alkaline Phosphatase 59 Total Creatine Kinase Total Protein 5.5 L Albumin 1.8 L Globulin 3.7 Albumin/Globulin Ratio 0.5 L Triglycerides Ur Random Sodium Urine Creatinine POC Glucose Blood Type Antibody Screen Crossmatch 03/30/20 05:38 WBC RBC Hgb Hct MCV MCH MCHC RDW Std Deviation RDW Coeff of Fadumo Plt Count MPV Immature Gran % (Auto) Neut % (Auto) Lymph % (Auto) [place] % (Auto) Eos % (Auto) Baso % (Auto) Absolute Neuts (auto) Absolute Lymphs (auto) Nucleated RBC % Differential Comment Diff Path Review Platelet Estimate Anisocytosis Crenated Cell PT INR APTT Specimen Type Sample Site pH Bicarbonate Actual Total CO2 Base Excess O2 Saturation O2 % ABG pCO2 ABG pO2 Floyd Test Respiration Rate O2 Delivery Device Vent Mode Tidal Volume Sodium Potassium Chloride Carbon Dioxide Anion Gap BUN Creatinine Estim Creat Clear Calc Est GFR (MDRD) Af Amer Est GFR (MDRD) Non-Af BUN/Creatinine Ratio Glucose Calcium Phosphorus Magnesium Total Bilirubin AST ALT Alkaline Phosphatase Total Creatine Kinase Total Protein Albumin Globulin Albumin/Globulin Ratio Triglycerides Ur Random Sodium Urine Creatinine POC Glucose 285 H Blood Type Antibody Screen Crossmatch Clinical Impression(s) from Imaging Studies Renal Ultrasound 03/29/20 09:43 IMPRESSION: No hydronephrosis. Electronically Signed: Kostas Aquino MD ([place]) at 12:42 EDT , Service support , Medical Necessity - Tobacco Use Smoking Status: Never smoker Tobacco Use: Non-smoker Assessment/Plan All Active Problems (Last Updated 02/12/19 @ 14:15 by Gisele Barnhart) Myocardial infarction (Resolved) COVID-19 (Acute) Respiratory failure (Acute) Upper GI bleed (Acute) Atherosclerosis of coronary artery of [place] heart without angina pectoris (Ruled-out) RECOMMENDATIONS: 1. Continue mechanical ventilation at the current settings. Goal to maintain oxygen saturations at or above 90%. 2. Continue to wean pressors as tolerated 3. Completed Remdesevir. Discontinue anticoagulation given bleeding peptic ulcer 4. Continue H&H every 8 for 24 hours 5. No transfusions at this time 6. Spontaneous breathing and awakening trials per protocol IMPRESSIONS: 1. Acute hypoxemic respiratory failure secondary to coronavirus pneumonia The patient was diagnosed several days ago with coronavirus infection and does appear to have bilateral infiltrates on CTA chest consistent with COVID pneumonia. Plan at this time will include supportive measures including supplemental oxygen to maintain saturations at or above 90%. Patient was taken off of steroids and anticoagulation secondary to gastric ulcer. Increased FiO2 over the last 24 hours likely secondary to volume. Patient will be given Lasix today. Will attempt a spontaneous breathing trial tomorrow if patient is able to be taken off of pressor agents. Patient has had fever since initiation of Precedex therapy, so drug fever is suspected. However, patient did have a change in tracheal secretions, so cultures have been sent. Patient was empirically placed on ciprofloxacin yesterday secondary to concerns for possible GI source 2. Hemorrhagic shock secondary to bleeding peptic ulcer, complicated by anticoagulation Patient may have had an element of vasovagal reaction associated with GI bleed. Patient reportedly does have a history of a GI bleed in 2006 that was not mentioned previously. Patient has been given 3 units of packed red blood cells thus far since the initial event and does appear to be holding his blood counts. Patient did receive vitamin K and Kcentra on the day of bleeding, but Eliquis should be out of his system at this point. Patient currently on Levophed and vasopressin, but doses are improving. Patient's reports that she is open for the patient to be transferred if necessary if bleeding were to recur. Continue arterial line for now 3. History of CVA/chronic kidney disease/hypertension/hyperlipidemia/CODE STATUS Complicates care, management, recovery and prognosis. Hold antihypertensives for now.. The patient remains full CODE STATUS. TIME: 33 minutes of critical care time spent addressing patient's hemorrhagic shock, hypoxic respiratory failure, COVID-19, anticoagulation, review of all data and collaboration with care team (6:30 AM to 7:30 AM) 9xxxx: [id number] Critical care first hour
[2020-03-30] MEDS: Furosemide 20 MG/2 ML VIAL IV (09:13)
--- NOTE | 2020-03-30 09:50 | PN_ITS ---
Patient Problems: Active and Suspected Problems (Last Updated 02/12/19 @ 14:15 by Gisele Barnhart) COVID-19 (Acute) Respiratory failure (Acute) Upper GI bleed (Acute) Subjective: Patient seen and examined. He remains intubated and on Precedex. He is still requiring vasopressor support. He remains on Levophed but vasopressin was weaned off. Patient alert and able to nod or shake his head in response to questions. He denied any chest pain, abdominal pain, diarrhea or vomiting. Hemoglobin dropped to 8.6 yesterday so he was transfused 1 unit of packed red blood cells. He still remains febrile with temperature of 101.2 Fahrenheit today. Per discussion with his nurse, patient also had increase intracheal secretions, so cultures have been sent. he has had increase in FiO2 requirements to 50%. Cr has trended down to 1.87, and wbc is also down to 17.7. Hb is 9.3 today. Vitals/I&O's: Vital Signs Temp Pulse Resp BP Pulse Ox 101.2 F H 84 18 107/51 L 92 03/30/20 07:00 03/30/20 07:00 03/30/20 07:00 03/30/20 07:00 03/30/20 07:00 Oxygen Flow Rate (L/min) 4 Oxygen Delivery Method Mechanical Ventilator Weight: 220 lb 3.869 oz Body Mass Index (BMI) 31.8 Intake and Output for Last 24 Hours 03/28/20 03/29/20 03/30/20 23:59 23:59 23:59 Intake Total 2858.34 / 2902.13 1957.92 / 2042.49 1012.41 / 1012.41 Output Total 3350 / 3380 2905 / 3005 875 / 875 Balance -491.66 / -477.87 -947.08 / -962.51 137.41 / 137.41 General: Alert, Cooperative, No apparent distress HEENT: Atraumatic, PERRLA, EOMI, Normocephalic, - - intubated, RASS score is 0 Neck: Supple, No JVD, Negative Carotid Bruits Lungs: Normal air movement, mildly diminished breath sounds bibasally, No rhonchi, No wheeze, - - intubated Cardiovascular: Regular rate, Regular Rhythm, Normal S1, Normal S2, No murmurs Abdomen: Bowel Sounds Present, Soft, Non Tender, Non-Distended, No Hepato- splenomegaly Extremities: No clubbing, No cyanosis, No edema, Capillary Refill Less than 3 Seconds Skin: No rashes, No breakdown Musculoskeletal: No Tenderness to Palpation of Joints or Extremities Lymphatic: No Cervical, Supraclavicular, or Inguinal Adenopathy Neurological: Cranial nerves II-XII grossly intact, Neuro grossly intact, Motor Exam 5/5 strength throughout Psych/Mental Status: - - intubated, sedated, RASS score is 0 Laboratory Results 03/28/20 07:35: Crossmatch See Detail 03/28/20 07:35: Crossmatch See Detail 03/28/20 07:35: Crossmatch See Detail 03/29/20 13:30: Hgb 9.3 L, Hct 27.7 L 03/29/20 14:00: Urine Creatinine 84.70 03/29/20 14:00: Ur Random Sodium 14 03/29/20 17:28: POC Glucose 288 H 03/29/20 21:00: Hgb 8.6 L, Hct 27.0 L 03/29/20 23:55: POC Glucose 313 H 03/30/20 04:00: WBC 17.7 H, RBC 3.17 L, Hgb 9.3 L, Hct 28.5 L, MCV 89.9, MCH 29.3, MCHC 32.6, RDW Std Deviation 48.0 H, RDW Coeff of Fadumo 14.6, Plt Count 366, MPV 10.4, Immature Gran % (Auto) 0.800, Neut % (Auto) 89.6 H, Lymph % (Auto) 3.4 L, [place] % (Auto) 6.1, Eos % (Auto) 0.0, Baso % (Auto) 0.1, Absolute Neuts (auto) 15.8 H, Absolute Lymphs (auto) 0.60 L, Nucleated RBC % 0, Differential Comment COMMENT, Platelet Estimate ADEQUATE, Anisocytosis 1+, Crenated Cell SMOKE JUMPER 03/30/20 04:00: PT 18.3 H, INR 1.6, APTT 30.3 03/30/20 04:00: Sodium 145, Potassium 4.0, Chloride 112 H, Carbon Dioxide 30.0, Anion Gap 3 L, BUN 75 H, Creatinine 1.87 H, Estim Creat Clear Calc 36.33, Est GFR (MDRD) Af Amer 46 L, Est GFR (MDRD) Non-Af 38 L, BUN/Creatinine Ratio 40.1 H , Glucose 310 H, Calcium 7.5 L, Phosphorus 2.0 L, Magnesium 2.8 H, Total Bilirubin 0.50, AST 16, ALT 42, Alkaline Phosphatase 59, Total Protein 5.5 L, Albumin 1.8 L, Globulin 3.7, Albumin/Globulin Ratio 0.5 L 03/30/20 05:38: POC Glucose 285 H Current Medications Acetaminophen (Tylenol Liquid) 650 mg GT Q6H PRN PRN PRN Reason: Pain Score 1-10/Temp > 100.7 F Last Admin: 03/28/20 22:58 Dose: 650 mg Documented by: Albuterol Sulfate (Ventolin Aerosols) 2.5 mg INHALATION Q2H PRN PRN PRN Reason: SOB/Wheezing Atorvastatin Calcium (Lipitor) 10 mg GT DAILY [facility] Last Admin: 03/29/20 14:21 Dose: 10 mg Documented by: Chlorhexidine Gluconate () 15 ml PO BID [facility] Last Admin: 03/29/20 20:41 Dose: 15 ml Documented by: Chlorhexidine Gluconate () 1 each TOPICAL DAILY [facility] Last Admin: 03/29/20 07:18 Dose: 1 each Documented by: Dextrose (D50w Syringe) 0 gm IV X1 PRN; Protocol PRN Reason: Hypoglycemia Ergocalciferol (Vitamin D) 50,000 unit PO Q7D [facility] Last Admin: 03/23/20 09:15 Dose: 50,000 unit Documented by: Glucagon () 1 mg IM .X1 PRN PRN Reason: Hypoglycemia Guaifenesin (Robitussin Dm) 10 ml GT Q4H PRN PRN PRN Reason: COUGH Hydralazine HCl (Apresoline Iv) 20 mg IV Q4H PRN PRN PRN Reason: SBP > 160 Last Admin: 03/26/20 00:23 Dose: 20 mg Documented by: Norepinephrine Bitartrate 8 mg (/ Sodium Chloride) 250 mls @ 9.375 mls/hr CONT INF .[id number] [facility]; Protocol Last Titration: 03/30/20 07:00 Dose: 11 mcg/min, 20.6 mls/hr Documented by: Pantoprazole Sodium 80 mg/ (Sodium Chloride) 100 mls @ 10 mls/hr CONT INF Q10H [facility] Last Infusion: 03/30/20 08:00 Dose: 10 mls/hr Documented by: Fentanyl Citrate 1,000 mcg/ (Sodium Chloride) 100 mls @ 5 mls/hr CONT INF .Q20H [facility]; Protocol Last Titration: 03/30/20 09:00 Dose: 75 mcg/hr, 7.5 mls/hr Documented by: Vasopressin 20 units/ Sodium (Chloride) 25 mls @ 3 mls/hr IV .Q8H20M [facility] Last Admin: 03/30/20 09:40 Dose: Not Given Documented by: Dexmedetomidine HCl 400 mcg/ (Sodium Chloride) 100 mls @ 12.488 mls/hr CONT INF .Q8H1M [facility]; Protocol Last Titration: 03/30/20 09:00 Dose: 0.5 mcg/kg/hr, 12.5 mls/hr Documented by: Ciprofloxacin (Cipro) 200 mg in 100 mls @ 100 mls/hr IV Q12 [facility] Last Infusion: 03/29/20 22:16 Dose: Infused Documented by: Insulin Glargine (Lantus (Bkc)) 10 units SC DAILY [facility] Insulin Human Lispro (Humalog Kwikpen (Bkc)) 0 unit SC Q6 [facility]; Protocol Last Admin: 03/30/20 05:40 Dose: 3 u Documented by: Ondansetron HCl (Zofran) 4 mg IV Q8H PRN PRN PRN Reason: NAUSEA/VOMITING Last Admin: 03/26/20 10:49 Dose: 4 mg Documented by: Polyethylene Glycol (Miralax) 17 gm GT DAILY PRN PRN Reason: Constipation Prochlorperazine Edisylate (Compazine Iv) 5 mg IV Q6H PRN PRN PRN Reason: NAUSEA/VOMITING Last Admin: 03/27/20 09:33 Dose: 5 mg Documented by: Senna (Senokot) 2 tablet GT BID PRN PRN PRN Reason: Constipation Sodium Chloride () 10 - 40 ml IV UD PRN PRN Reason: SALINE FLUSH Last Admin: 03/30/20 09:13 Dose: 20 ml Documented by: Temazepam (Restoril) 15 mg PO QHS PRN PRN PRN Reason: INSOMNIA Last Admin: 03/27/20 21:08 Dose: 15 mg Documented by: STROKE Vital Signs/Narrative: Vital Signs Temp Pulse Resp BP Pulse Ox 03/30/20 07:00 101.2 F H 84 18 107/51 L 92 03/30/20 06:45 101.1 F H 76 15 147/54 H 92 03/30/20 06:35 72 15 92 03/30/20 06:30 101.1 F H 76 16 148/54 H 92 03/30/20 06:15 101.1 F H 76 15 146/55 H 92 03/30/20 06:00 101 F H 75 16 149/56 H 92 Medical Necessity - Tobacco Use Smoking Status: Never smoker Tobacco Use: Non-smoker Assessment/Plan All Active Problems (Last Updated 02/12/19 @ 14:15 by Gisele Barnhart) Myocardial infarction (Resolved) COVID-19 (Acute) Respiratory failure (Acute) Upper GI bleed (Acute) Atherosclerosis of coronary artery of [place] heart without angina pectoris (Ruled-out) # Acute hemorrhagic shock due to bleeding peptic ulcer * patient still on pressors.now off vasopressin and on levophed. * had EGD which showed bleeding peptic ulcer with adherent clot, and required injection of epinephrine, and clips. * hb dropped to 8.6 yesterday, and he was transfused one unit of PRBC * Hb today is 9.3 * on protonix drip; there is diminished bloody gastric output via NG tube * critical care and general surgery on board * * # Acute hypoxic respiratory failure in setting of covid 19 infection * patient was emergently intubated to protect his airway * critical care on board * now requiring 50% of FiO2; also had increased tracheal secretions * also had a fever, and was started on IV ciprofloxacin for possible GI source of infection. If cultuers are positive, or secretions continue to increase, will consider broadening antibiotics to cover respiratory source; will stop ciprofloxacin and start on meropenem. * in cumulative negative balance by 1.17L; will receive a dose of lasix today # COVID 19 infection: completed course of remdesivir and received convalescent plasma. steroids and anticoagulation discontinued due to bleeding ulcer. # Bleeding peptic ulcer: as under hemorrhagic shock. # CAROLYNN: * Cr today is down to 1.87 today * renal USG was essentially normal * continue trending Cr. * # History of CVA; stable # Hypertension; BP meds on hold o/a of of hemorrhgic shock # CAD: on statin. aspirin on hold o/a of bleeding peptic ulcer DVT prophylaxis: on SCDs Inpatient E&M: [id number] Subs Hosp L3
[2020-03-30] MEDS: CHLORHEXIDINE GLUC 2% CLOTH 1 EACH TOWELETTE TOPICAL (11:54)
[2020-03-30] MEDS: Chlorhexidine 15 ML PO ×2 (11:54→20:11)
[2020-03-30 12:04] LABS: Hemoglobin 8.8 g/dL (13.0-16.5)
[2020-03-30 13:21] LABS: Bedside Glucose 214 mg/dL (70-110)
[2020-03-30] MEDS: Atorvastatin Calcium 10 MG Tablet GT (14:05)
--- NOTE | 2020-03-30 15:23 | PCM.RX.CS ---
Consult Pharmacy has been consulted to manage selected antiobiotic: Vancomycin Type of Consult: New start Suspected Infection: Pneumonia Labs: Sodium 145 mmol/L (136-145) 03/30/20 04:00 Potassium 4.0 mmol/L (3.5-5.1) 03/30/20 04:00 Chloride 112 mmol/L (98-107) H 03/30/20 04:00 Carbon Dioxide 30.0 mmol/L (21.0-32.0) 03/30/20 04:00 Anion Gap 3 (5-15) L 03/30/20 04:00 BUN 75 mg/dL (7-18) H 03/30/20 04:00 Creatinine 1.87 mg/dL (0.70-1.30) H 03/30/20 04:00 Est GFR (MDRD) Af Amer 46 mL/min (>60) L 03/30/20 04:00 Est GFR (MDRD) Non-Af 38 mL/min (>60) L 03/30/20 04:00 BUN/Creatinine Ratio 40.1 RATIO (-20) H 03/30/20 04:00 Glucose 310 mg/dL (74-106) H 03/30/20 04:00 Microbiology: Microbiology 03/29/20 19:15 Sputum, Induced/Lukens Gram Stain - Final 03/29/20 19:15 Sputum, Induced/Lukens Respiratory Culture - Preliminary Staphylococcus aureus 03/20/20 10:45 Blood Culture (Wb) - Left Hand Blood Culture - Final No growth in 5 days. 03/20/20 10:45 Blood Culture (Wb) - Anticubital Left Blood Culture - Final No growth in 5 days. Goal Trough: 15-20 mcg/mL Pharmacy Plan for Drug Dosing: NEW START IV VANCOMYCIN Consulting Physician: TYREL Indication: PNEUMONIA Goal Trough: 15-20 MG/DL SrCr: 1.87 CrCl: 41.7 ML/MIN USING ADJUTED BW Comments: LOADING DOSE OF 2000MG GIVEN 03/30 @ 1500. SPUTUM CX GROWING PRELIM STAPH AUREUS Vancomycin Dose: 750MG Q12H STARTING 03/31 @ 0300 Pharmacy Service will continue to monitor and adjust dosing as required. Labs to be done on [date and time ordered]: 04/01/20 @ 0230
--- NOTE | 2020-03-30 19:25 | NURSING ---
Protonix, Precedex, Fentanyl and Levophed gtts have been continuously running all day despite the EMAR at times showing they are empty.
[2020-03-30 21:07] LABS: Hematocrit 27.2 % (40-54); Hemoglobin 8.7 g/dL (13.0-16.5)
[2020-03-30 21:46] LABS: Bedside Glucose 191 mg/dL (70-110)
[2020-03-30 23:36] LABS: Bedside Glucose 185 mg/dL (70-110)
[2020-03-31] VITALS (43 sets, daily range): BP systolic 93–161; BP diastolic 49–68; PULSE 45–85; RESP 11–23; TEMP 36.2–37; O2SAT 95–99
[2020-03-31] MEDS: 0.9% Saline Lock 10 ML Syringe IV ×3 (03:35→12:51)
[2020-03-31 04:09] LABS: Absolute Neutrophil Count 9.5 X10^3/uL (2.0-7.7); Basophil# 0.01 X10^3/uL; Basophil% 0.1 % (0-1); Eosinophil# 0.01 X10^3/uL; Eosinophils% 0.1 % (0-5); Hematocrit 28.9 % (40-54); Hemoglobin 9.1 g/dL (13.0-16.5); Lymphocyte % 6.4 % (19-41); Mean Corp Hgb Conc 31.5 g/dL (32-36); Mean Corpuscular Hgb 28.2 pg (27.0-32.0); Mean Corpuscular Volume 89.5 fL (80-94); Monocyte# 0.63 X10^3/uL; Monocyte% 5.7 % (0-10); NRBC Flagged by Analyzer 0 % (0-5); Neutrophil # 9.53 X10^3/uL (2.7-7.7); Platelet Count 255 K/mm3 (150-450); RBC Distribution Width CV 15.8 % (11.6-14.6); RBC Distribution Width SD 51.7 fl (35.1-43.9); Red Blood Count 3.23 M/mm3 (4.6-6.2)
[2020-03-31] MEDS: TITRATION PARAMETER CHANGE 1 EACH IV (04:27)
[2020-03-31 04:44] LABS: Anion Gap 2 (5-15); BUN 50 mg/dL (7-18); BUN/Creat Ratio 38.5 RATIO (10-20); Calcium,Total 7.1 mg/dL (8.5-10.1); Chloride 119 mmol/L (98-107); EST Glomerular Filtration Rate 58 mL/min (>60); Est Glom Filt Rate - Afr Amer 70 mL/min (>60); Estimated Creatinine Clearance 52.25 ml/min; Glucose 158 mg/dL (74-106); Potassium 3.6 mmol/L (3.5-5.1); Sodium Level 153 mmol/L (136-145)
[2020-03-31] MEDS: Insulin Lispro 100 UNIT/ML INSULN.PEN SC ×2 (05:18→17:03)
[2020-03-31 05:31] LABS: Bedside Glucose 153 mg/dL (70-110)
--- NOTE | 2020-03-31 07:01 | PCM.PN.INT ---
Subjective: The patient was seen and examined at the bedside this morning. Events from the last 24 hours have been reviewed. The patient is currently afebrile, hemodynamically stable and maintaining appropriate oxygen saturations with an FiO2 requirement of 40%. The patient is currently doing well this morning on spontaneous mode of mechanical ventilation. He was able to be weaned off of levophed just after 1 AM last night. Hemoglobin is stable this morning at 9.1 g/dL. The patient continues to have dark output from his OG tube. Sodium is high this morning at 153. Creatinine has improved to 1.3. The patient is currently documented to be overall net -1.5 L for the hospital admission. Objective: The patient's most recent lab work, culture data and imaging studies have all been personally reviewed. General: - - Remains intubated, minimally sedated and mechanically ventilated. Currently tolerating spontaneous mode of mechanical ventilation. HEENT: Atraumatic, PERRLA, Normocephalic Oral: No Gingival or Mucosal Lesions/ Ulcerations, - - Endotracheal and OG tubes remain in place Neck: Supple, No Nodes, Trachea Midline Lungs: No rhonchi, No wheeze, No rales, Diminished Cardiovascular: Normal S1, Normal S2, No murmurs, Bradycardic Abdomen: Bowel Sounds Present, Soft, Non Tender, Obese Extremities: No clubbing, No cyanosis, No edema Skin: No breakdown Musculoskeletal: No Tenderness to Palpation of Joints or Extremities Lymphatic: No Cervical, Supraclavicular, or Inguinal Adenopathy Neurological: - - No focal neurological deficits. The patient is alert and following simple commands. RASS noted to be 0 to 1+ Vital Signs Temp Pulse Resp BP Pulse Ox 97.8 F 51 L 11 L 130/57 H 96 03/31/20 06:00 03/31/20 06:00 03/31/20 06:00 03/31/20 06:00 03/31/20 06:00 Oxygen Flow Rate (L/min) 4 Oxygen Delivery Method Mechanical Ventilator Weight: 219 lb 2.232 oz Body Mass Index (BMI) 31.8 Intake and Output for Last 24 Hours 03/29/20 03/30/20 03/31/20 23:59 23:59 23:59 Intake Total 1957.92 / 2042.49 3150.17 / 3162.37 857.40 / 857.40 Output Total 2905 / 3005 3550 / 3550 625 / 625 Balance -947.08 / -962.51 -399.83 / -387.63 232.40 / 232.40 Labs (Last 48 Hours) 03/28/20 03/28/20 03/28/20 07:35 07:35 07:35 WBC RBC Hgb Hct MCV MCH MCHC RDW Std Deviation RDW Coeff of Fadumo Plt Count MPV Immature Gran % (Auto) Neut % (Auto) Lymph % (Auto) [place] % (Auto) Eos % (Auto) Baso % (Auto) Absolute Neuts (auto) Absolute Lymphs (auto) Nucleated RBC % Differential Comment Platelet Estimate Anisocytosis Crenated Cell PT INR APTT Sodium Potassium Chloride Carbon Dioxide Anion Gap BUN Creatinine Estim Creat Clear Calc Est GFR (MDRD) Af Amer Est GFR (MDRD) Non-Af BUN/Creatinine Ratio Glucose Calcium Phosphorus Magnesium Total Bilirubin AST ALT Alkaline Phosphatase Total Protein Albumin Globulin Albumin/Globulin Ratio Ur Random Sodium Urine Creatinine POC Glucose Crossmatch See Detail See Detail See Detail 03/29/20 03/29/20 03/29/20 13:30 14:00 14:00 WBC RBC Hgb 9.3 L Hct 27.7 L MCV MCH MCHC RDW Std Deviation RDW Coeff of Fadumo Plt Count MPV Immature Gran % (Auto) Neut % (Auto) Lymph % (Auto) [place] % (Auto) Eos % (Auto) Baso % (Auto) Absolute Neuts (auto) Absolute Lymphs (auto) Nucleated RBC % Differential Comment Platelet Estimate Anisocytosis Crenated Cell PT INR APTT Sodium Potassium Chloride Carbon Dioxide Anion Gap BUN Creatinine Estim Creat Clear Calc Est GFR (MDRD) Af Amer Est GFR (MDRD) Non-Af BUN/Creatinine Ratio Glucose Calcium Phosphorus Magnesium Total Bilirubin AST ALT Alkaline Phosphatase Total Protein Albumin Globulin Albumin/Globulin Ratio Ur Random Sodium 14 Urine Creatinine 84.70 POC Glucose Crossmatch 03/29/20 03/29/20 03/29/20 17:28 21:00 23:55 WBC RBC Hgb 8.6 L Hct 27.0 L MCV MCH MCHC RDW Std Deviation RDW Coeff of Fadumo Plt Count MPV Immature Gran % (Auto) Neut % (Auto) Lymph % (Auto) [place] % (Auto) Eos % (Auto) Baso % (Auto) Absolute Neuts (auto) Absolute Lymphs (auto) Nucleated RBC % Differential Comment Platelet Estimate Anisocytosis Crenated Cell PT INR APTT Sodium Potassium Chloride Carbon Dioxide Anion Gap BUN Creatinine Estim Creat Clear Calc Est GFR (MDRD) Af Amer Est GFR (MDRD) Non-Af BUN/Creatinine Ratio Glucose Calcium Phosphorus Magnesium Total Bilirubin AST ALT Alkaline Phosphatase Total Protein Albumin Globulin Albumin/Globulin Ratio Ur Random Sodium Urine Creatinine POC Glucose 288 H 313 H Crossmatch 03/30/20 03/30/20 03/30/20 04:00 04:00 04:00 WBC 17.7 H RBC 3.17 L Hgb 9.3 L Hct 28.5 L MCV 89.9 MCH 29.3 MCHC 32.6 RDW Std Deviation 48.0 H RDW Coeff of Fadumo 14.6 Plt Count 366 MPV 10.4 Immature Gran % (Auto) 0.800 Neut % (Auto) 89.6 H Lymph % (Auto) 3.4 L [place] % (Auto) 6.1 Eos % (Auto) 0.0 Baso % (Auto) 0.1 Absolute Neuts (auto) 15.8 H Absolute Lymphs (auto) 0.60 L Nucleated RBC % 0 Differential Comment COMMENT Platelet Estimate ADEQUATE Anisocytosis 1+ Crenated Cell FISHING LURE ASSEMBLER PT 18.3 H INR 1.6 APTT 30.3 Sodium 145 Potassium 4.0 Chloride 112 H Carbon Dioxide 30.0 Anion Gap 3 L BUN 75 H Creatinine 1.87 H Estim Creat Clear Calc 36.33 Est GFR (MDRD) Af Amer 46 L Est GFR (MDRD) Non-Af 38 L BUN/Creatinine Ratio 40.1 H Glucose 310 H Calcium 7.5 L Phosphorus 2.0 L Magnesium 2.8 H Total Bilirubin 0.50 AST 16 ALT 42 Alkaline Phosphatase 59 Total Protein 5.5 L Albumin 1.8 L Globulin 3.7 Albumin/Globulin Ratio 0.5 L Ur Random Sodium Urine Creatinine POC Glucose Crossmatch 03/30/20 03/30/20 03/30/20 05:38 07:35 07:35 WBC RBC Hgb Hct MCV MCH MCHC RDW Std Deviation RDW Coeff of Fadumo Plt Count MPV Immature Gran % (Auto) Neut % (Auto) Lymph % (Auto) [place] % (Auto) Eos % (Auto) Baso % (Auto) Absolute Neuts (auto) Absolute Lymphs (auto) Nucleated RBC % Differential Comment Platelet Estimate Anisocytosis Crenated Cell PT INR APTT Sodium Potassium Chloride Carbon Dioxide Anion Gap BUN Creatinine Estim Creat Clear Calc Est GFR (MDRD) Af Amer Est GFR (MDRD) Non-Af BUN/Creatinine Ratio Glucose Calcium Phosphorus Magnesium Total Bilirubin AST ALT Alkaline Phosphatase Total Protein Albumin Globulin Albumin/Globulin Ratio Ur Random Sodium Urine Creatinine POC Glucose 285 H Crossmatch See Detail See Detail 03/30/20 03/30/20 03/30/20 11:29 11:45 18:36 WBC RBC Hgb 8.8 L Hct 27.0 L MCV MCH MCHC RDW Std Deviation RDW Coeff of Fadumo Plt Count MPV Immature Gran % (Auto) Neut % (Auto) Lymph % (Auto) [place] % (Auto) Eos % (Auto) Baso % (Auto) Absolute Neuts (auto) Absolute Lymphs (auto) Nucleated RBC % Differential Comment Platelet Estimate Anisocytosis Crenated Cell PT INR APTT Sodium Potassium Chloride Carbon Dioxide Anion Gap BUN Creatinine Estim Creat Clear Calc Est GFR (MDRD) Af Amer Est GFR (MDRD) Non-Af BUN/Creatinine Ratio Glucose Calcium Phosphorus Magnesium Total Bilirubin AST ALT Alkaline Phosphatase Total Protein Albumin Globulin Albumin/Globulin Ratio Ur Random Sodium Urine Creatinine POC Glucose 214 H 191 H Crossmatch 03/30/20 03/30/20 03/31/20 20:30 22:33 03:50 WBC 11.0 RBC 3.23 L Hgb 8.7 L 9.1 L Hct 27.2 L 28.9 L MCV 89.5 MCH 28.2 MCHC 31.5 L RDW Std Deviation 51.7 H RDW Coeff of Fadumo 15.8 H Plt Count 255 MPV 10.0 Immature Gran % (Auto) 0.700 Neut % (Auto) 87.0 H Lymph % (Auto) 6.4 L [place] % (Auto) 5.7 Eos % (Auto) 0.1 Baso % (Auto) 0.1 Absolute Neuts (auto) 9.5 H Absolute Lymphs (auto) 0.70 L Nucleated RBC % 0 Differential Comment Platelet Estimate Anisocytosis Crenated Cell PT INR APTT Sodium Potassium Chloride Carbon Dioxide Anion Gap BUN Creatinine Estim Creat Clear Calc Est GFR (MDRD) Af Amer Est GFR (MDRD) Non-Af BUN/Creatinine Ratio Glucose Calcium Phosphorus Magnesium Total Bilirubin AST ALT Alkaline Phosphatase Total Protein Albumin Globulin Albumin/Globulin Ratio Ur Random Sodium Urine Creatinine POC Glucose 185 H Crossmatch 03/31/20 03/31/20 03:50 05:15 WBC RBC Hgb Hct MCV MCH MCHC RDW Std Deviation RDW Coeff of Fadumo Plt Count MPV Immature Gran % (Auto) Neut % (Auto) Lymph % (Auto) [place] % (Auto) Eos % (Auto) Baso % (Auto) Absolute Neuts (auto) Absolute Lymphs (auto) Nucleated RBC % Differential Comment Platelet Estimate Anisocytosis Crenated Cell PT INR APTT Sodium 153 H Potassium 3.6 Chloride 119 H Carbon Dioxide 32.0 Anion Gap 2 L BUN 50 H Creatinine 1.30 Estim Creat Clear Calc 52.25 Est GFR (MDRD) Af Amer 70 Est GFR (MDRD) Non-Af 58 L BUN/Creatinine Ratio 38.5 H Glucose 158 H Calcium 7.1 L Phosphorus Magnesium Total Bilirubin AST ALT Alkaline Phosphatase Total Protein Albumin Globulin Albumin/Globulin Ratio Ur Random Sodium Urine Creatinine POC Glucose 153 H Crossmatch Microbiology 03/29/20 19:15 Sputum, Induced/Lukens Gram Stain - Final 03/29/20 19:15 Sputum, Induced/Lukens Respiratory Culture - Preliminary Staphylococcus aureus Clinical Impression(s) from Imaging Studies Chest X-Ray 03/20/20 10:47 IMPRESSION: Bilateral pulmonary infiltrates with a peripheral tendency for distribution. With the patient''s history of Covid positive, this is in keeping with coal but pneumonitis. Electronically Signed: Ross Ulrich, at 11:17 EDT , Service support , Chest CTA 03/20/20 11:43 IMPRESSION: Diffuse bilateral infiltrates involving both lungs in the differential peripheral distribution in keeping with the patient''s Covid diagnosis. 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 Electronically Signed: Ross Ulrich, at 12:45 EDT , Service support , Chest X-Ray 03/22/20 06:29 IMPRESSION: Minimal change in bilateral infiltrates. at 0700 Reported and signed by: Sushma Fong MD Electronically Signed: Sushma Fong MD at 7:00 EDT Tel , Service support , Chest X-Ray 03/28/20 10:05 IMPRESSION: Bibasilar infiltrates left greater than right although there has been improvement. The tip of the orogastric tube is at the gastroesophageal junction. Electronically Signed: Ross Ulrich, at 10:24 EDT , Service support , Chest X-Ray 03/28/20 10:45 IMPRESSION: The tip of the right central catheter is at the junction of the superior vena cava and right atrium. Electronically Signed: Ross Ulrich, at 11:48 EDT , Service support , Renal Ultrasound 03/29/20 09:43 IMPRESSION: No hydronephrosis. Electronically Signed: Kostas Aquino MD ([place]) at 12:42 EDT , Service support , Medical Necessity - Tobacco Use Smoking Status: Never smoker Tobacco Use: Non-smoker Assessment/Plan All Active Problems (Last Updated 02/12/19 @ 14:15 by Gisele Barnhart) Myocardial infarction (Resolved) COVID-19 (Acute) Respiratory failure (Acute) Upper GI bleed (Acute) Atherosclerosis of coronary artery of [place] heart without angina pectoris (Ruled-out) RECOMMENDATIONS: 1. Hold off on extubation until further discussion with general surgery. 2. Transition from continuous PPI therapy to bolus injections twice daily. 3. Start D5W given rising sodium and chloride levels. 4. Place back on assist control mode of mechanical ventilation for now. 5. Continue antimicrobials. IMPRESSIONS: 1. Acute hypoxemic respiratory failure secondary to coronavirus pneumonia The patient was diagnosed with coronavirus infection and does have bilateral infiltrates on CTA chest consistent with COVID pneumonia. The patient initially received supportive measures with supplemental oxygen, convalescent plasma, Remdesevir and Decadron. In addition, the patient was placed on systemic anticoagulation. However, he developed what is likely a bleeding ulcer as a consequence of systemic anticoagulation and eventually had to be intubated. The patient has stabilized at this time. Respiratory status is improving. 2. Hemorrhagic shock secondary to bleeding peptic ulcer complicated by systemic anticoagulation The patient continues to have what is likely slow upper GI bleeding. However, he has been weaned from vasopressor support at this time. Plan to continue to monitor blood counts and transfuse if hemoglobin drops below 7 g/dL. The patient will be continued on twice daily PPI therapy. There are tentative plans for repeat upper endoscopy later today by general surgery. If the patient continues to have a visible source of blood loss, would then need to consider transfer to a care tertiary care facility. 3. Hypernatremia The patients sodium and chloride levels have risen this morning. Accordingly, the patient will be started on D5W. 4. History of CVA/chronic kidney disease/hypertension/hyperlipidemia/CODE STATUS Complicates care, management, recovery and prognosis. CODE STATUS remains full code. TIME: 38 minutes of critical care time, independent of procedures, was spent addressing the patient's acute hypoxemic respiratory failure secondary to coronavirus pneumonia, hemorrhagic shock secondary to bleeding peptic ulcer, hypernatremia, review of all data and collaboration with the care team. [id number]) [phone] [id number] Critical care first hour
--- NOTE | 2020-03-31 08:37 | PCM.PN.SRG ---
Patient Problems: Active and Suspected Problems (Last Updated 02/12/19 @ 14:15 by Gisele Barnhart) COVID-19 (Acute) Respiratory failure (Acute) Upper GI bleed (Acute) Subjective: The patient continues to have dark NG output through the weekend. He received a transfusion yesterday afternoon as well as yesterday evening. - Physical Exam Vitals/I&O's: Vital Signs Temp Pulse Resp BP Pulse Ox 97.7 F L 53 L 14 145/67 H 98 03/31/20 07:00 03/31/20 07:00 03/31/20 07:00 03/31/20 07:00 03/31/20 07:00 Oxygen Flow Rate (L/min) 4 Oxygen Delivery Method Mechanical Ventilator Weight: 219 lb 2.232 oz Body Mass Index (BMI) 31.8 Intake and Output for Last 24 Hours 03/29/20 03/30/20 03/31/20 23:59 23:59 23:59 Intake Total 1957.92 / 2042.49 3150.17 / 3162.37 948.35 / 948.35 Output Total 2905 / 3005 3550 / 3550 625 / 625 Balance -947.08 / -962.51 -399.83 / -387.63 323.35 / 323.35 General: - - Intubated and sedated Microbiology Past 72 Hours 03/29/20 19:15 Sputum, Induced/Lukens Gram Stain - Final 03/29/20 19:15 Sputum, Induced/Lukens Respiratory Culture - Preliminary Staphylococcus aureus Laboratory Results 03/28/20 07:35: Crossmatch See Detail 03/28/20 07:35: Crossmatch See Detail 03/28/20 07:35: Crossmatch See Detail 03/30/20 07:35: Crossmatch See Detail 03/30/20 07:35: Crossmatch See Detail 03/30/20 11:29: POC Glucose 214 H 03/30/20 11:45: Hgb 8.8 L, Hct 27.0 L 03/30/20 18:36: POC Glucose 191 H 03/30/20 20:30: Hgb 8.7 L, Hct 27.2 L 03/30/20 22:33: POC Glucose 185 H 03/31/20 03:50: WBC 11.0, RBC 3.23 L, Hgb 9.1 L, Hct 28.9 L, MCV 89.5, MCH 28.2, MCHC 31.5 L, RDW Std Deviation 51.7 H, RDW Coeff of Fadumo 15.8 H, Plt Count 255, MPV 10.0, Immature Gran % (Auto) 0.700, Neut % (Auto) 87.0 H, Lymph % (Auto) 6.4 L, [place] % (Auto) 5.7, Eos % (Auto) 0.1, Baso % (Auto) 0.1, Absolute Neuts (auto) 9.5 H, Absolute Lymphs (auto) 0.70 L, Nucleated RBC % 0 03/31/20 03:50: Sodium 153 H, Potassium 3.6, Chloride 119 H, Carbon Dioxide 32.0, Anion Gap 2 L, BUN 50 H, Creatinine 1.30, Estim Creat Clear Calc 52.25, Est GFR (MDRD) Af Amer 70, Est GFR (MDRD) Non-Af 58 L, BUN/Creatinine Ratio 38.5 H, Glucose 158 H, Calcium 7.1 L 03/31/20 05:15: POC Glucose 153 H Current Medications Acetaminophen (Tylenol Liquid) 650 mg GT Q6H PRN PRN PRN Reason: Pain Score 1-10/Temp > 100.7 F Last Admin: 03/28/20 22:58 Dose: 650 mg Documented by: Albuterol Sulfate (Ventolin Aerosols) 2.5 mg INHALATION Q2H PRN PRN PRN Reason: SOB/Wheezing Atorvastatin Calcium (Lipitor) 10 mg GT DAILY [facility] Last Admin: 03/30/20 14:05 Dose: 10 mg Documented by: Chlorhexidine Gluconate () 15 ml PO BID [facility] Last Admin: 03/30/20 20:11 Dose: 15 ml Documented by: Chlorhexidine Gluconate () 1 each TOPICAL DAILY [facility] Last Admin: 03/30/20 11:54 Dose: 1 each Documented by: Dextrose (D50w Syringe) 0 gm IV X1 PRN; Protocol PRN Reason: Hypoglycemia Ergocalciferol (Vitamin D) 50,000 unit PO Q7D [facility] Last Admin: 03/30/20 14:06 Dose: Not Given Documented by: Glucagon () 1 mg IM .X1 PRN PRN Reason: Hypoglycemia Guaifenesin (Robitussin Dm) 10 ml GT Q4H PRN PRN PRN Reason: COUGH Hydralazine HCl (Apresoline Iv) 20 mg IV Q4H PRN PRN PRN Reason: SBP > 160 Last Admin: 03/26/20 00:23 Dose: 20 mg Documented by: Fentanyl Citrate 1,000 mcg/ (Sodium Chloride) 100 mls @ 5 mls/hr CONT INF .Q20H [facility]; Protocol Last Titration: 03/31/20 07:00 Dose: 0 mcg/hr, 0 mls/hr Documented by: Vasopressin 20 units/ Sodium (Chloride) 25 mls @ 3 mls/hr IV .Q8H20M [facility] Last Admin: 03/31/20 00:20 Dose: Not Given Documented by: Dexmedetomidine HCl 400 mcg/ (Sodium Chloride) 100 mls @ 12.425 mls/hr CONT INF .Q8H3M [facility]; Protocol Last Admin: 03/31/20 08:00 Dose: 0.6 mcg/kg/hr, 14.9 mls/hr Documented by: Meropenem 2 gm/ Sodium (Chloride) 290 mls @ 97 mls/hr IV Q12 [facility] Last Infusion: 03/30/20 23:46 Dose: Infused Documented by: Vancomycin IV Pharmacy to Dose (1 ea/ Sodium Chloride) 500 mls @ 250 mls/hr IV X1 PRN; Protocol PRN Reason: Rx to Dose Sodium Chloride () 500 mls @ 15 mls/hr IV PRN PRN PRN Reason: Blood Transfusion Sodium Chloride () 250 mls @ 15 mls/hr IV .[id number] PRN PRN Reason: Saline Flush Sodium Chloride () 250 mls @ 15 mls/hr IV .[id number] PRN PRN Reason: Additional IVPB Infusion Vancomycin HCl 750 mg/ Sodium (Chloride) 265 mls @ 250 mls/hr IV Q12H [facility] Last Infusion: 03/31/20 03:27 Dose: Infused Documented by: Pantoprazole Sodium 40 mg/ (Sodium Chloride) 110 mls @ 330 mls/hr IV Q12 [facility] Dextrose () 1,000 mls @ 100 mls/hr IV .Q10H [facility] Last Admin: 03/31/20 08:25 Dose: 100 mls/hr Documented by: Insulin Glargine (Lantus (Bkc)) 10 units SC DAILY [facility] Last Admin: 03/30/20 11:33 Dose: 10 u Documented by: Insulin Human Lispro (Humalog Kwikpen ([facility])) 0 unit SC Q6 [facility]; Protocol Last Admin: 03/31/20 05:18 Dose: 1 u Documented by: Ondansetron HCl (Zofran) 4 mg IV Q8H PRN PRN PRN Reason: NAUSEA/VOMITING Last Admin: 03/26/20 10:49 Dose: 4 mg Documented by: Polyethylene Glycol (Miralax) 17 gm GT DAILY PRN PRN Reason: Constipation Prochlorperazine Edisylate (Compazine Iv) 5 mg IV Q6H PRN PRN PRN Reason: NAUSEA/VOMITING Last Admin: 03/27/20 09:33 Dose: 5 mg Documented by: Senna (Senokot) 2 tablet GT BID PRN PRN PRN Reason: Constipation Sodium Chloride () 10 - 40 ml IV UD PRN PRN Reason: SALINE FLUSH Last Admin: 03/31/20 03:35 Dose: 40 ml Documented by: Sodium Chloride () 10 - 40 ml IV UD PRN PRN Reason: Multilumen/Kim Flush Sodium Chloride (0.9% Nacl (Sterile) Posiflush) 10 - 40 ml IV UD PRN PRN Reason: Port access or dressing change Temazepam (Restoril) 15 mg PO QHS PRN PRN PRN Reason: INSOMNIA Last Admin: 03/27/20 21:08 Dose: 15 mg Documented by: Medical Necessity - Tobacco Use Smoking Status: Never smoker Tobacco Use: Non-smoker Assessment/Plan All Active Problems (Last Updated 02/12/19 @ 14:15 by Gisele Barnhart) Myocardial infarction (Resolved) COVID-19 (Acute) Respiratory failure (Acute) Upper GI bleed (Acute) Atherosclerosis of coronary artery of [place] heart without angina pectoris (Ruled-out) 75-year-old male with GI bleed 1. Patient has upper GI bleed and it seems that the bleeding has continued. The patient has had 300 cc of dark output from his NG. His hemoglobin is 9.1 after receiving two units of packed red blood cells. The response was inadequate. I believe the patient is still slowly bleeding. I discussed this with the patient's . I recommend an EGD this afternoon with hopefully better visualization and slower bleeding I may be able to stop the bleed. If I am unable to stop the bleed during a second scope I recommend transfer to a tertiary care center for interventional radiology intervention. The patient's understands and is willing to david consent. I discussed the procedure with the patient's and I did warn her that it would be possible to make the bleeding worse but she understands the necessity of the procedure and gives consent. Sami Figueroa MD Pager: [facility] [address] [place] [address] [address] [place] [address] Office:
[2020-03-31] MEDS: Chlorhexidine 15 ML PO ×2 (09:23→22:04)
[2020-03-31] MEDS: CHLORHEXIDINE GLUC 2% CLOTH 1 EACH TOWELETTE TOPICAL (09:24)
--- NOTE | 2020-03-31 10:06 | PN_ITS ---
Patient Problems: Active and Suspected Problems (Last Updated 02/12/19 @ 14:15 by Gisele Barnhart) COVID-19 (Acute) Respiratory failure (Acute) Upper GI bleed (Acute) Subjective: Patient seen and examined. He is off pressors. He remains intubated and did well with a spontaneous breathing trial today. he is to have a repeat EGD today before being extubated to make sure bleeding from ulcer has ceased. He has no complaints today. He has remained hemodynamically stable. Sodium has trended up to 153. WBC is down to 11. Hb is 9.1 today. Vitals/I&O's: Vital Signs Temp Pulse Resp BP Pulse Ox 97.8 F 51 L 13 93/63 97 03/31/20 08:00 03/31/20 08:00 03/31/20 08:00 03/31/20 08:00 03/31/20 08:00 Oxygen Flow Rate (L/min) 4 Oxygen Delivery Method Mechanical Ventilator Weight: 219 lb 2.232 oz Body Mass Index (BMI) 31.8 Intake and Output for Last 24 Hours 03/29/20 03/30/20 03/31/20 23:59 23:59 23:59 Intake Total 1957.92 / 2042.49 3150.17 / 3162.37 1058.35 / 1058.35 Output Total 2905 / 3005 3550 / 3550 1100 / 1100 Balance -947.08 / -962.51 -399.83 / -387.63 -41.65 / -41.65 General: Alert, Cooperative, No apparent distress HEENT: Atraumatic, PERRLA, EOMI, Normocephalic, - - intubated, RASS score is 0 Neck: Supple, No JVD, Negative Carotid Bruits Lungs: Normal air movement, mildly diminished breath sounds bibasally, No rhonchi, No wheeze, - - intubated Cardiovascular: Regular rate, Regular Rhythm, Normal S1, Normal S2, No murmurs Abdomen: Bowel Sounds Present, Soft, Non Tender, Non-Distended, No Hepato- splenomegaly Extremities: No clubbing, No cyanosis, No edema, Capillary Refill Less than 3 Seconds Skin: No rashes, No breakdown Musculoskeletal: No Tenderness to Palpation of Joints or Extremities Lymphatic: No Cervical, Supraclavicular, or Inguinal Adenopathy Neurological: Cranial nerves II-XII grossly intact, Neuro grossly intact, Motor Exam 5/5 strength throughout Psych/Mental Status: - - intubated, sedated, RASS score is 0 Microbiology Past 72 Hours 03/29/20 19:15 Sputum, Induced/Lukens Gram Stain - Final 03/29/20 19:15 Sputum, Induced/Lukens Respiratory Culture - Preliminary Staphylococcus aureus Laboratory Results 03/28/20 07:35: Crossmatch See Detail 03/28/20 07:35: Crossmatch See Detail 03/28/20 07:35: Crossmatch See Detail 03/30/20 07:35: Crossmatch See Detail 03/30/20 07:35: Crossmatch See Detail 03/30/20 11:29: POC Glucose 214 H 03/30/20 11:45: Hgb 8.8 L, Hct 27.0 L 03/30/20 18:36: POC Glucose 191 H 03/30/20 20:30: Hgb 8.7 L, Hct 27.2 L 03/30/20 22:33: POC Glucose 185 H 03/31/20 03:50: WBC 11.0, RBC 3.23 L, Hgb 9.1 L, Hct 28.9 L, MCV 89.5, MCH 28.2, MCHC 31.5 L, RDW Std Deviation 51.7 H, RDW Coeff of Fadumo 15.8 H, Plt Count 255, MPV 10.0, Immature Gran % (Auto) 0.700, Neut % (Auto) 87.0 H, Lymph % (Auto) 6.4 L, [place] % (Auto) 5.7, Eos % (Auto) 0.1, Baso % (Auto) 0.1, Absolute Neuts (auto) 9.5 H, Absolute Lymphs (auto) 0.70 L, Nucleated RBC % 0 03/31/20 03:50: Sodium 153 H, Potassium 3.6, Chloride 119 H, Carbon Dioxide 32.0, Anion Gap 2 L, BUN 50 H, Creatinine 1.30, Estim Creat Clear Calc 52.25, Est GFR (MDRD) Af Amer 70, Est GFR (MDRD) Non-Af 58 L, BUN/Creatinine Ratio 38.5 H, Glucose 158 H, Calcium 7.1 L 03/31/20 05:15: POC Glucose 153 H Diagnostic Data Chest CTA 03/20/20 11:43 IMPRESSION: Diffuse bilateral infiltrates involving both lungs in the differential peripheral distribution in keeping with the patient''s Covid diagnosis. 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 Electronically Signed: Ross Mojgan, at 12:45 EDT , Service support , Chest X-Ray 03/28/20 10:45 IMPRESSION: The tip of the right central catheter is at the junction of the superior vena cava and right atrium. Electronically Signed: Ross Ulrich, at 11:48 EDT , Service support , Renal Ultrasound 03/29/20 09:43 IMPRESSION: No hydronephrosis. Electronically Signed: Kostas Aquino MD ([place]) at 12:42 EDT , Service support , Current Medications Acetaminophen (Tylenol Liquid) 650 mg GT Q6H PRN PRN PRN Reason: Pain Score 1-10/Temp > 100.7 F Last Admin: 03/28/20 22:58 Dose: 650 mg Documented by: Albuterol Sulfate (Ventolin Aerosols) 2.5 mg INHALATION Q2H PRN PRN PRN Reason: SOB/Wheezing Atorvastatin Calcium (Lipitor) 10 mg GT DAILY [facility] Last Admin: 03/30/20 14:05 Dose: 10 mg Documented by: Chlorhexidine Gluconate () 15 ml PO BID [facility] Last Admin: 03/31/20 09:23 Dose: 15 ml Documented by: Chlorhexidine Gluconate () 1 each TOPICAL DAILY [facility] Last Admin: 03/31/20 09:24 Dose: 1 each Documented by: Dextrose (D50w Syringe) 0 gm IV X1 PRN; Protocol PRN Reason: Hypoglycemia Ergocalciferol (Vitamin D) 50,000 unit PO Q7D [facility] Last Admin: 03/30/20 14:06 Dose: Not Given Documented by: Glucagon () 1 mg IM .X1 PRN PRN Reason: Hypoglycemia Guaifenesin (Robitussin Dm) 10 ml GT Q4H PRN PRN PRN Reason: COUGH Hydralazine HCl (Apresoline Iv) 20 mg IV Q4H PRN PRN PRN Reason: SBP > 160 Last Admin: 03/26/20 00:23 Dose: 20 mg Documented by: Fentanyl Citrate 1,000 mcg/ (Sodium Chloride) 100 mls @ 5 mls/hr CONT INF .Q20H [facility]; Protocol Last Titration: 03/31/20 07:00 Dose: 0 mcg/hr, 0 mls/hr Documented by: Dexmedetomidine HCl 400 mcg/ (Sodium Chloride) 100 mls @ 12.425 mls/hr CONT INF .Q8H3M [facility]; Protocol Last Admin: 03/31/20 08:00 Dose: 0.6 mcg/kg/hr, 14.9 mls/hr Documented by: Meropenem 2 gm/ Sodium (Chloride) 290 mls @ 97 mls/hr IV Q12 [facility] Last Infusion: 03/30/20 23:46 Dose: Infused Documented by: Vancomycin IV Pharmacy to Dose (1 ea/ Sodium Chloride) 500 mls @ 250 mls/hr IV X1 PRN; Protocol PRN Reason: Rx to Dose Sodium Chloride () 500 mls @ 15 mls/hr IV PRN PRN PRN Reason: Blood Transfusion Sodium Chloride () 250 mls @ 15 mls/hr IV .[id number] PRN PRN Reason: Saline Flush Sodium Chloride () 250 mls @ 15 mls/hr IV .[id number] PRN PRN Reason: Additional IVPB Infusion Vancomycin HCl 750 mg/ Sodium (Chloride) 265 mls @ 250 mls/hr IV Q12H [facility] Last Infusion: 03/31/20 03:27 Dose: Infused Documented by: Pantoprazole Sodium 40 mg/ (Sodium Chloride) 110 mls @ 330 mls/hr IV Q12 [facility] Last Infusion: 03/31/20 09:35 Dose: Infused Documented by: Dextrose () 1,000 mls @ 100 mls/hr IV .Q10H [facility] Last Admin: 03/31/20 08:25 Dose: 100 mls/hr Documented by: Insulin Glargine (Lantus (Bkc)) 10 units SC DAILY [facility] Last Admin: 03/31/20 09:25 Dose: 10 u Documented by: Insulin Human Lispro (Humalog Kwikpen (Bkc)) 0 unit SC Q6 [facility]; Protocol Last Admin: 03/31/20 05:18 Dose: 1 u Documented by: Ondansetron HCl (Zofran) 4 mg IV Q8H PRN PRN PRN Reason: NAUSEA/VOMITING Last Admin: 03/26/20 10:49 Dose: 4 mg Documented by: Polyethylene Glycol (Miralax) 17 gm GT DAILY PRN PRN Reason: Constipation Prochlorperazine Edisylate (Compazine Iv) 5 mg IV Q6H PRN PRN PRN Reason: NAUSEA/VOMITING Last Admin: 03/27/20 09:33 Dose: 5 mg Documented by: Senna (Senokot) 2 tablet GT BID PRN PRN PRN Reason: Constipation Sodium Chloride () 10 - 40 ml IV UD PRN PRN Reason: SALINE FLUSH Last Admin: 03/31/20 09:37 Dose: 10 ml Documented by: Sodium Chloride () 10 - 40 ml IV UD PRN PRN Reason: Multilumen/Kim Flush Sodium Chloride (0.9% Nacl (Sterile) Posiflush) 10 - 40 ml IV UD PRN PRN Reason: Port access or dressing change Temazepam (Restoril) 15 mg PO QHS PRN PRN PRN Reason: INSOMNIA Last Admin: 03/27/20 21:08 Dose: 15 mg Documented by: STROKE Vital Signs/Narrative: Vital Signs Temp Pulse Resp BP BP Pulse Ox 03/31/20 08:00 97.8 F 51 L 13 93/63 97 03/31/20 07:00 97.7 F L 85 16 145/67 H 161/59 H 98 Medical Necessity - Tobacco Use Smoking Status: Never smoker Tobacco Use: Non-smoker Assessment/Plan All Active Problems (Last Updated 02/12/19 @ 14:15 by Gisele Barnhart) Myocardial infarction (Resolved) COVID-19 (Acute) Respiratory failure (Acute) Upper GI bleed (Acute) Atherosclerosis of coronary artery of [place] heart without angina pectoris (Ruled-out) # Acute hemorrhagic shock due to bleeding peptic ulcer * patient now off vasopressors and hemodynamically stable * had EGD which showed bleeding peptic ulcer with adherent clot, and required injection of epinephrine, and clips. * s/p transfusion of 4 units of PRBCs * Hb today is 9.1 * on protonix drip; * critical care and general surgery on board * for repeat EGD today to ensure bleeding has ceased. * * # Acute hypoxic respiratory failure in setting of covid 19 infection * patient was emergently intubated to protect his airway * critical care on board * sputum cultured Staph aureus. on IV meropenem and IV vancomycin * on IV lasix * # COVID 19 infection: * completed course of remdesivir and received convalescent plasma. * steroids and anticoagulation discontinued due to bleeding ulcer. # Bleeding peptic ulcer: as under hemorrhagic shock. # CAROLYNN: * Cr today is down to 1.87 today * renal USG was essentially normal * continue trending Cr. * # History of CVA; stable # Hypertension; BP meds on hold o/a of of hemorrhgic shock # CAD: on statin. aspirin on hold o/a of bleeding peptic ulcer DVT prophylaxis: on SCDs Sade Hatfield updated by phone about patient's condition and plan of care by hospitalist. Inpatient E&M: [id number] [facility] L3
[2020-03-31 12:15] LABS: Pathologist Review Reviewed
[2020-03-31] MEDS: Propofol 200 MG/20 ML Vial 50 MG IV BOLUS (12:43)
[2020-03-31] MEDS: Propofol 200 MG/20 ML Vial 20 MG IV BOLUS (12:52)
--- NOTE | 2020-03-31 12:57 | RAD_ITS ---
STUDY: X-RAY - ABDOMEN/PELVIS REASON FOR EXAM: Male, 75 years old. COVID, NG tube placement TECHNIQUE: Frontal view COMPARISON: None. FINDINGS: Atelectasis at the visualized lung bases. Focal left basilar infiltrate cannot be excluded. There is an unremarkable bowel gas pattern. There is no demonstrated free abdominal air. Nasogastric tube extends into the stomach. Normal soft tissue structures. Degenerative vertebral changes. RAD/Abdomen Single View (Portable) IMPRESSION: Nasogastric tube extends into the stomach. Bibasilar atelectasis. Focal left basilar infiltrate cannot be excluded. Electronically Signed: Moose Simon DO at 15:15 EDT Tel [phone], Service support ,
[2020-03-31 13:10] LABS: Bedside Glucose 149 mg/dL (70-110)
--- NOTE | 2020-03-31 13:15 | OP.CCLET_ITS ---
03/31/2020 Libia Corona Re : Upper GI endoscopy procedure for Phu Hatfield Dear Chloe This procedure was performed on Tuesday, March 31, 2020. My impressions and recommendations are as follows: Impressions : - One non-bleeding duodenal ulcer with pigmented material. - Normal stomach. - Normal esophagus. - No specimens collected. Recommendations : - [facility]. - NPO. - Continue present medications. My findings are described in the full procedure note, which is enclosed. If I can be of further assistance, please feel free to contact me at Doctor phone number(s): , Work: . Sincerely, Sami Figueroa MD 03/31/2020 1:14:43 PM This report has been signed electronically.
--- NOTE | 2020-03-31 13:15 | OP.EGD_ITS ---
Patient Name: Phu Hatfield Procedure Date: 03/31/2020 12:36 PM Date of : 1945 Age: 75 Procedure: Upper GI endoscopy Indications: Melena Providers: Sami Figueroa MD Medicines: Monitored Anesthesia Care Patient Profile: This is a 75 year old male. Refer to note in patient chart for documentation of history and physical. Complications: No immediate complications. Estimated blood loss: Minimal. Procedure: Pre-Anesthesia Assessment: - Prior to the procedure, a History and Physical was performed, and patient medications and allergies were reviewed. The patient's tolerance of previous anesthesia was also reviewed. The risks and benefits of the procedure and the sedation options and risks were discussed with the patient. All questions were answered, and informed consent was obtained. Prior Anticoagulants: The patient has taken Eliquis (apixaban), last dose was 3 days prior to procedure. After reviewing the risks and benefits, the patient was deemed in satisfactory condition to undergo the procedure. After obtaining informed consent, the endoscope was passed under direct vision. Throughout the procedure, the patient's blood pressure, pulse, and oxygen saturations were monitored continuously. The Endoscope was introduced through the mouth, and advanced to the third part of duodenum. The upper GI endoscopy was accomplished without difficulty. The patient tolerated the procedure well. Scope In: 12:44:55 PM Scope Out: 12:51:53 PM Total Procedure Duration Time 0 hours 6 minutes 58 seconds Findings: One non-bleeding cratered duodenal ulcer with pigmented material was found in the duodenal bulb. The stomach was normal. The esophagus was normal. Impression: - One non-bleeding duodenal ulcer with pigmented material. - Normal stomach. - Normal esophagus. - No specimens collected. Recommendation: - Return patient to [facility] for ongoing care. - NPO. - Continue present medications. Procedure Code(s): --- Professional --- 81478, Esophagogastroduodenoscopy, flexible, transoral; diagnostic, including collection of specimen(s) by brushing or washing, when performed (separate procedure) Diagnosis Code(s): --- Professional --- K26.9, Duodenal ulcer, unspecified as acute or chronic, without hemorrhage or perforation K92.1, Melena (includes Hematochezia) CPT copyright 2017 [employer]. All rights reserved. The codes documented in this report are preliminary and upon geothermal system installer review may be revised to meet current compliance requirements. Sami Figueroa MD 03/31/2020 1:14:43 PM This report has been signed electronically. Number of Addenda: 0 Note Initiated On: 03/31/2020 12:36 PM
--- NOTE | 2020-03-31 13:15 | PCM.PN.BLA ---
Progress Note I performed an EEG at the bedside today. The patient had much less blood in his stomach so visualization was a lot better. The OG tube was removed and the pylorus was inspected. The ulcer that was seen previous was actually in the duodenal bulb and not in the stomach. It was very large and occupied at least 50% of circumference. There was no active bleeding. The patient did have some pigmented material in the area but no red blood. I did scope distal to the ulcer and there was no active red blood. There was an area in the ulcer that did return some coffee ground material when the patient coughed but no active bleeding. At this time I did not want to stir up any new bleeding and so the area was suctioned and observed and then the scope was removed and an NG tube was placed that once the patient is extubated suction may continue. At this time I recommend continuing IV PPI as well as n.p.o. with NG suctioning. KUB was obtained to confirm positioning of the new NG tube. If the patient begins to rebleed he would need transfer to tertiary care center for IR intervention versus operative intervention with bypass. Sami Figueroa MD Pager: [facility] [address] [place] [address], [address] [place] [address] Office: STROKE Vital Signs/Narrative: Vital Signs Pulse Resp BP Pulse Ox 03/31/20 12:00 49 L 03/31/20 11:25 52 L 14 95 03/31/20 11:00 51 L 13 161/58 H 96 03/31/20 10:00 53 L 14 141/59 H 97 03/31/20 09:30 54 L 23 H 97
[2020-03-31] MEDS: Atorvastatin Calcium 10 MG Tablet GT (14:38)
[2020-03-31 14:43] LABS: Hematocrit 28.8 % (40-54)
--- NOTE | 2020-03-31 15:46 | PCM.PN.ID ---
Patient Problems: Active and Suspected Problems (Last Updated 02/12/19 @ 14:15 by Gisele Barnhart) COVID-19 (Acute) Respiratory failure (Acute) Upper GI bleed (Acute) Subjective: Feeling ok, awake on vent. Denies fever, dyspnea, or abd pain - Physical Exam Vitals/I&O's: Vital Signs Temp Pulse Resp BP Pulse Ox 97.9 F 45 L 14 148/52 H 98 03/31/20 12:00 03/31/20 15:28 03/31/20 15:00 03/31/20 15:00 03/31/20 15:00 Oxygen Flow Rate (L/min) 4 Oxygen Delivery Method Mechanical Ventilator Weight: 99.4 kg Body Mass Index (BMI) 31.8 Intake and Output for Last 24 Hours 03/29/20 03/30/20 03/31/20 23:59 23:59 23:59 Intake Total 1957.92 / 2042.49 3150.17 / 3162.37 1518.35 / 1518.35 Output Total 2905 / 3005 3550 / 3550 1475 / 1475 Balance -947.08 / -962.51 -399.83 / -387.63 43.35 / 43.35 General: Alert, Cooperative, No apparent distress Lungs: Clear to auscultation, Normal air movement Cardiovascular: Regular rate, Regular Rhythm Abdomen: Soft, Non Tender, Non-Distended Skin: No rashes Microbiology Past 72 Hours 03/29/20 19:15 Sputum, Induced/Lukens Gram Stain - Final 03/29/20 19:15 Sputum, Induced/Lukens Respiratory Culture - Final Staphylococcus aureus Laboratory Results 03/28/20 07:35: Crossmatch See Detail 03/29/20 03:55: Diff Path Review Reviewed 03/30/20 07:35: Crossmatch See Detail 03/30/20 07:35: Crossmatch See Detail 03/30/20 18:36: POC Glucose 191 H 03/30/20 20:30: Hgb 8.7 L, Hct 27.2 L 03/30/20 22:33: POC Glucose 185 H 03/31/20 03:50: WBC 11.0, RBC 3.23 L, Hgb 9.1 L, Hct 28.9 L, MCV 89.5, MCH 28.2, MCHC 31.5 L, RDW Std Deviation 51.7 H, RDW Coeff of Fadumo 15.8 H, Plt Count 255, MPV 10.0, Immature Gran % (Auto) 0.700, Neut % (Auto) 87.0 H, Lymph % (Auto) 6.4 L, [place] % (Auto) 5.7, Eos % (Auto) 0.1, Baso % (Auto) 0.1, Absolute Neuts (auto) 9.5 H, Absolute Lymphs (auto) 0.70 L, Nucleated RBC % 0 03/31/20 03:50: Sodium 153 H, Potassium 3.6, Chloride 119 H, Carbon Dioxide 32.0, Anion Gap 2 L, BUN 50 H, Creatinine 1.30, Estim Creat Clear Calc 52.25, Est GFR (MDRD) Af Amer 70, Est GFR (MDRD) Non-Af 58 L, BUN/Creatinine Ratio 38.5 H, Glucose 158 H, Calcium 7.1 L 03/31/20 05:15: POC Glucose 153 H 03/31/20 12:40: POC Glucose 149 H 03/31/20 14:30: Hgb 9.0 L, Hct 28.8 L Current Medications Acetaminophen (Tylenol Liquid) 650 mg GT Q6H PRN PRN PRN Reason: Pain Score 1-10/Temp > 100.7 F Last Admin: 03/28/20 22:58 Dose: 650 mg Documented by: Albuterol Sulfate (Ventolin Aerosols) 2.5 mg INHALATION Q2H PRN PRN PRN Reason: SOB/Wheezing Atorvastatin Calcium (Lipitor) 10 mg GT DAILY [facility] Last Admin: 03/31/20 14:38 Dose: 10 mg Documented by: Chlorhexidine Gluconate () 15 ml PO BID [facility] Last Admin: 03/31/20 09:23 Dose: 15 ml Documented by: Chlorhexidine Gluconate () 1 each TOPICAL DAILY [facility] Last Admin: 03/31/20 09:24 Dose: 1 each Documented by: Dextrose (D50w Syringe) 0 gm IV X1 PRN; Protocol PRN Reason: Hypoglycemia Ergocalciferol (Vitamin D) 50,000 unit PO Q7D [facility] Last Admin: 03/30/20 14:06 Dose: Not Given Documented by: Glucagon () 1 mg IM .X1 PRN PRN Reason: Hypoglycemia Guaifenesin (Robitussin Dm) 10 ml GT Q4H PRN PRN PRN Reason: COUGH Hydralazine HCl (Apresoline Iv) 20 mg IV Q4H PRN PRN PRN Reason: SBP > 160 Last Admin: 03/26/20 00:23 Dose: 20 mg Documented by: Fentanyl Citrate 1,000 mcg/ (Sodium Chloride) 100 mls @ 5 mls/hr CONT INF .Q20H [facility]; Protocol Last Titration: 03/31/20 15:00 Dose: 0 mcg/hr, 0 mls/hr Documented by: Dexmedetomidine HCl 400 mcg/ (Sodium Chloride) 100 mls @ 12.425 mls/hr CONT INF .Q8H3M [facility]; Protocol Last Admin: 03/31/20 15:16 Dose: 0.6 mcg/kg/hr, 14.9 mls/hr Documented by: Meropenem 2 gm/ Sodium (Chloride) 290 mls @ 97 mls/hr IV Q12 [facility] Last Infusion: 03/31/20 13:49 Dose: Infused Documented by: Vancomycin IV Pharmacy to Dose (1 ea/ Sodium Chloride) 500 mls @ 250 mls/hr IV X1 PRN; Protocol PRN Reason: Rx to Dose Sodium Chloride () 500 mls @ 15 mls/hr IV PRN PRN PRN Reason: Blood Transfusion Sodium Chloride () 250 mls @ 15 mls/hr IV .[id number] PRN PRN Reason: Saline Flush Sodium Chloride () 250 mls @ 15 mls/hr IV .[id number] PRN PRN Reason: Additional IVPB Infusion Vancomycin HCl 750 mg/ Sodium (Chloride) 265 mls @ 250 mls/hr IV Q12H [facility] Last Admin: 03/31/20 14:24 Dose: 250 mls/hr Documented by: Pantoprazole Sodium 40 mg/ (Sodium Chloride) 110 mls @ 330 mls/hr IV Q12 [facility] Last Infusion: 03/31/20 09:35 Dose: Infused Documented by: Dextrose () 1,000 mls @ 100 mls/hr IV .Q10H [facility] Last Admin: 03/31/20 08:25 Dose: 100 mls/hr Documented by: Insulin Glargine (Lantus (Bkc)) 10 units SC DAILY [facility] Last Admin: 03/31/20 09:25 Dose: 10 u Documented by: Insulin Human Lispro (Humalog Kwikpen (Bkc)) 0 unit SC Q6 [facility]; Protocol Last Admin: 03/31/20 12:45 Dose: Not Given Documented by: Ondansetron HCl (Zofran) 4 mg IV Q8H PRN PRN PRN Reason: NAUSEA/VOMITING Last Admin: 03/26/20 10:49 Dose: 4 mg Documented by: Polyethylene Glycol (Miralax) 17 gm GT DAILY PRN PRN Reason: Constipation Prochlorperazine Edisylate (Compazine Iv) 5 mg IV Q6H PRN PRN PRN Reason: NAUSEA/VOMITING Last Admin: 03/27/20 09:33 Dose: 5 mg Documented by: Senna (Senokot) 2 tablet GT BID PRN PRN PRN Reason: Constipation Sodium Chloride () 10 - 40 ml IV UD PRN PRN Reason: SALINE FLUSH Last Admin: 03/31/20 12:51 Dose: 30 ml Documented by: Sodium Chloride () 10 - 40 ml IV UD PRN PRN Reason: Multilumen/Kim Flush Sodium Chloride (0.9% Nacl (Sterile) Posiflush) 10 - 40 ml IV UD PRN PRN Reason: Port access or dressing change Temazepam (Restoril) 15 mg PO QHS PRN PRN PRN Reason: INSOMNIA Last Admin: 03/27/20 21:08 Dose: 15 mg Documented by: Medical Necessity - Tobacco Use Smoking Status: Never smoker Tobacco Use: Non-smoker Route of nutrition/ use of supplements: [] Nutritional Intake: [] IV Site: [] Dejesus Catheter: [] - Assessment/Plan Antibiotics: [] Assessment/Plan: [] Active and Suspected Problems (Last Updated 02/12/19 @ 14:15 by Gisele Barnhart) COVID-19 (Acute) Respiratory failure (Acute) Acute hypoxic resp failure due to covid - on decadron. CTA neg for PE. Received plasma, completed 5 day course of remdesivir. Now on vent due to GI bleed. Sputum with mssa. On vanc/sobeida, will narrow to cefazolin. He reports reaction to PCN as a . Monitor for reaction, but should be low risk. will follow
[2020-03-31 17:16] LABS: Bedside Glucose 170 mg/dL (70-110)
[2020-03-31] MEDS: Cefazolin 2 GM in 0.9% Normal Saline 100 ML IV (21:21)
[2020-04-01] VITALS (31 sets, daily range): BP systolic 95–164; BP diastolic 36–89; PULSE 45–122; RESP 13–24; TEMP 36–37.8; O2SAT 90–99
[2020-04-01 00:36] LABS: Bedside Glucose 149 mg/dL (70-110)
[2020-04-01 04:01] LABS: Absolute Lymphocyte Count 0.67 X10^3/uL (0.83-4.51); Absolute Neutrophil Count 7.6 X10^3/uL (2.0-7.7); Basophil# 0.01 X10^3/uL; Basophil% 0.1 % (0-1); Eosinophil# 0.07 X10^3/uL; Eosinophils% 0.8 % (0-5); Hematocrit 29.5 % (40-54); Hemoglobin 9.3 g/dL (13.0-16.5); Lymphocyte # 0.67 X10^3/ul (4.0); Lymphocyte % 7.6 % (19-41); Mean Corp Hgb Conc 31.5 g/dL (32-36); Mean Corpuscular Hgb 28.4 pg (27.0-32.0); Mean Corpuscular Volume 89.9 fL (80-94); Mean Platelet Vol. 10.1 fl (6.2-12.0); Monocyte# 0.36 X10^3/uL; Monocyte% 4.1 % (0-10); NRBC Flagged by Analyzer 0 % (0-5); Neutrophil # 7.64 X10^3/uL (2.7-7.7); Neutrophil % 86.8 % (47-70); Platelet Count 240 K/mm3 (150-450); RBC Distribution Width CV 16.4 % (11.6-14.6); RBC Distribution Width SD 53.9 fl (35.1-43.9); Red Blood Count 3.28 M/mm3 (4.6-6.2); White Blood Count 8.8 K/mm3 (4.4-11.0)
[2020-04-01 04:12] LABS: Anion Gap 1 (5-15); BUN 38 mg/dL (7-18); BUN/Creat Ratio 36.9 RATIO (10-20); Calcium,Total 7.3 mg/dL (8.5-10.1); Chloride 118 mmol/L (98-107); Creatinine, Serum 1.03 mg/dL (0.70-1.30); EST Glomerular Filtration Rate 75 mL/min (>60); Est Glom Filt Rate - Afr Amer 91 mL/min (>60); Estimated Creatinine Clearance 65.95 ml/min; Glucose 162 mg/dL (74-106); Potassium 3.1 mmol/L (3.5-5.1); Sodium Level 152 mmol/L (136-145)
[2020-04-01] MEDS: Cefazolin 2 GM in 0.9% Normal Saline 100 ML IV ×3 (05:20→22:45)
[2020-04-01] MEDS: Insulin Lispro 100 UNIT/ML INSULN.PEN SC (05:57)
--- NOTE | 2020-04-01 06:08 | PCM.PN.INT ---
Subjective: The patient was seen and examined at the bedside this morning. Events from the last 24 hours have been reviewed. The patient is currently afebrile, hemodynamically stable and maintaining appropriate oxygen saturations on spontaneous mode of mechanical ventilation with an FiO2 requirement of 40%. Repeat upper endoscopy performed yesterday at the bedside did reveal a rather sizable nonbleeding duodenal ulcer. Blood counts remained stable. Sodium is elevated to 152 this morning. Creatinine is within normal limits. Potassium is low at 3.1. The patient is currently documented to be overall net -890 mL's for the hospital admission. Objective: The patient's most recent lab work, culture data and imaging studies have all been personally reviewed. General: Alert, Cooperative, - - Remains intubated and mechanically ventilated. Tolerating spontaneous mode mechanical ventilation without issue. HEENT: Atraumatic, PERRLA, Normocephalic, - - Nasogastric tube in place. Oral: Moist Mucosa, - - Endotracheal tube in place. Neck: Supple, No Nodes, Trachea Midline Lungs: No rhonchi, No wheeze, No rales, Diminished Cardiovascular: Normal S1, Normal S2, Irregular Rate, - - Appears to be in atrial fibrillation on telemetry. Abdomen: Bowel Sounds Present, Soft, Non Tender Extremities: No clubbing, No cyanosis, No edema Skin: No breakdown Musculoskeletal: No Tenderness to Palpation of Joints or Extremities Lymphatic: No Cervical, Supraclavicular, or Inguinal Adenopathy Neurological: - - No focal neurological deficits. Moves extremities spontaneously. Alert and following commands appropriately. Vital Signs Temp Pulse Resp BP Pulse Ox 97.3 F L 82 15 158/73 H 99 04/01/20 05:00 04/01/20 05:02 04/01/20 05:02 04/01/20 05:00 04/01/20 05:02 Oxygen Flow Rate (L/min) 4 Oxygen Delivery Method Mechanical Ventilator Weight: 220 lb 14.451 oz Body Mass Index (BMI) 31.8 Intake and Output for Last 24 Hours 03/30/20 03/31/20 04/01/20 23:59 23:59 23:59 Intake Total 3150.17 / 3162.37 3416.91 / 3436.81 108.61 / 108.61 Output Total 3550 / 3550 2180 / 2180 355 / 355 Balance -399.83 / -387.63 1236.91 / 1256.81 -246.39 / -246.39 Labs (Last 48 Hours) 03/28/20 03/28/20 03/28/20 07:35 07:35 07:35 WBC RBC Hgb Hct MCV MCH MCHC RDW Std Deviation RDW Coeff of Fadumo Plt Count MPV Immature Gran % (Auto) Neut % (Auto) Lymph % (Auto) [place] % (Auto) Eos % (Auto) Baso % (Auto) Absolute Neuts (auto) Absolute Lymphs (auto) Nucleated RBC % Differential Comment Diff Path Review Platelet Estimate Anisocytosis Crenated Cell Sodium Potassium Chloride Carbon Dioxide Anion Gap BUN Creatinine Estim Creat Clear Calc Est GFR (MDRD) Af Amer Est GFR (MDRD) Non-Af BUN/Creatinine Ratio Glucose Calcium POC Glucose Crossmatch See Detail See Detail See Detail 03/29/20 03/30/20 03/30/20 03:55 04:00 05:38 WBC RBC Hgb Hct MCV MCH MCHC RDW Std Deviation RDW Coeff of Fadumo Plt Count MPV Immature Gran % (Auto) Neut % (Auto) Lymph % (Auto) [place] % (Auto) Eos % (Auto) Baso % (Auto) Absolute Neuts (auto) Absolute Lymphs (auto) Nucleated RBC % Differential Comment COMMENT Diff Path Review Reviewed Platelet Estimate ADEQUATE Anisocytosis 1+ Crenated Cell [employer] Sodium Potassium Chloride Carbon Dioxide Anion Gap BUN Creatinine Estim Creat Clear Calc Est GFR (MDRD) Af Amer Est GFR (MDRD) Non-Af BUN/Creatinine Ratio Glucose Calcium POC Glucose 285 H Crossmatch 03/30/20 03/30/20 03/30/20 07:35 07:35 11:29 WBC RBC Hgb Hct MCV MCH MCHC RDW Std Deviation RDW Coeff of Fadumo Plt Count MPV Immature Gran % (Auto) Neut % (Auto) Lymph % (Auto) [place] % (Auto) Eos % (Auto) Baso % (Auto) Absolute Neuts (auto) Absolute Lymphs (auto) Nucleated RBC % Differential Comment Diff Path Review Platelet Estimate Anisocytosis Crenated Cell Sodium Potassium Chloride Carbon Dioxide Anion Gap BUN Creatinine Estim Creat Clear Calc Est GFR (MDRD) Af Amer Est GFR (MDRD) Non-Af BUN/Creatinine Ratio Glucose Calcium POC Glucose 214 H Crossmatch See Detail See Detail 03/30/20 03/30/20 03/30/20 11:45 18:36 20:30 WBC RBC Hgb 8.8 L 8.7 L Hct 27.0 L 27.2 L MCV MCH MCHC RDW Std Deviation RDW Coeff of Fadumo Plt Count MPV Immature Gran % (Auto) Neut % (Auto) Lymph % (Auto) [place] % (Auto) Eos % (Auto) Baso % (Auto) Absolute Neuts (auto) Absolute Lymphs (auto) Nucleated RBC % Differential Comment Diff Path Review Platelet Estimate Anisocytosis Crenated Cell Sodium Potassium Chloride Carbon Dioxide Anion Gap BUN Creatinine Estim Creat Clear Calc Est GFR (MDRD) Af Amer Est GFR (MDRD) Non-Af BUN/Creatinine Ratio Glucose Calcium POC Glucose 191 H Crossmatch 03/30/20 03/31/20 03/31/20 22:33 03:50 03:50 WBC 11.0 RBC 3.23 L Hgb 9.1 L Hct 28.9 L MCV 89.5 MCH 28.2 MCHC 31.5 L RDW Std Deviation 51.7 H RDW Coeff of Fadumo 15.8 H Plt Count 255 MPV 10.0 Immature Gran % (Auto) 0.700 Neut % (Auto) 87.0 H Lymph % (Auto) 6.4 L [place] % (Auto) 5.7 Eos % (Auto) 0.1 Baso % (Auto) 0.1 Absolute Neuts (auto) 9.5 H Absolute Lymphs (auto) 0.70 L Nucleated RBC % 0 Differential Comment Diff Path Review Platelet Estimate Anisocytosis Crenated Cell Sodium 153 H Potassium 3.6 Chloride 119 H Carbon Dioxide 32.0 Anion Gap 2 L BUN 50 H Creatinine 1.30 Estim Creat Clear Calc 52.25 Est GFR (MDRD) Af Amer 70 Est GFR (MDRD) Non-Af 58 L BUN/Creatinine Ratio 38.5 H Glucose 158 H Calcium 7.1 L POC Glucose 185 H Crossmatch 03/31/20 03/31/20 03/31/20 05:15 12:40 14:30 WBC RBC Hgb 9.0 L Hct 28.8 L MCV MCH MCHC RDW Std Deviation RDW Coeff of Fadumo Plt Count MPV Immature Gran % (Auto) Neut % (Auto) Lymph % (Auto) [place] % (Auto) Eos % (Auto) Baso % (Auto) Absolute Neuts (auto) Absolute Lymphs (auto) Nucleated RBC % Differential Comment Diff Path Review Platelet Estimate Anisocytosis Crenated Cell Sodium Potassium Chloride Carbon Dioxide Anion Gap BUN Creatinine Estim Creat Clear Calc Est GFR (MDRD) Af Amer Est GFR (MDRD) Non-Af BUN/Creatinine Ratio Glucose Calcium POC Glucose 153 H 149 H Crossmatch 03/31/20 03/31/20 04/01/20 16:52 23:36 03:45 WBC 8.8 RBC 3.28 L Hgb 9.3 L Hct 29.5 L MCV 89.9 MCH 28.4 MCHC 31.5 L RDW Std Deviation 53.9 H RDW Coeff of Fadumo 16.4 H Plt Count 240 MPV 10.1 Immature Gran % (Auto) 0.600 Neut % (Auto) 86.8 H Lymph % (Auto) 7.6 L [place] % (Auto) 4.1 Eos % (Auto) 0.8 Baso % (Auto) 0.1 Absolute Neuts (auto) 7.6 Absolute Lymphs (auto) 0.67 L Nucleated RBC % 0 Differential Comment Diff Path Review Platelet Estimate Anisocytosis Crenated Cell Sodium Potassium Chloride Carbon Dioxide Anion Gap BUN Creatinine Estim Creat Clear Calc Est GFR (MDRD) Af Amer Est GFR (MDRD) Non-Af BUN/Creatinine Ratio Glucose Calcium POC Glucose 170 H 149 H Crossmatch 04/01/20 03:45 WBC RBC Hgb Hct MCV MCH MCHC RDW Std Deviation RDW Coeff of Fadumo Plt Count MPV Immature Gran % (Auto) Neut % (Auto) Lymph % (Auto) [place] % (Auto) Eos % (Auto) Baso % (Auto) Absolute Neuts (auto) Absolute Lymphs (auto) Nucleated RBC % Differential Comment Diff Path Review Platelet Estimate Anisocytosis Crenated Cell Sodium 152 H Potassium 3.1 L Chloride 118 H Carbon Dioxide 33.0 H Anion Gap 1 L BUN 38 H Creatinine 1.03 Estim Creat Clear Calc 65.95 Est GFR (MDRD) Af Amer 91 Est GFR (MDRD) Non-Af 75 BUN/Creatinine Ratio 36.9 H Glucose 162 H Calcium 7.3 L POC Glucose Crossmatch Microbiology 03/29/20 19:15 Sputum, Induced/Lukens Gram Stain - Final 03/29/20 19:15 Sputum, Induced/Lukens Respiratory Culture - Final Staphylococcus aureus Clinical Impression(s) from Imaging Studies Chest X-Ray 03/20/20 10:47 IMPRESSION: Bilateral pulmonary infiltrates with a peripheral tendency for distribution. With the patient''s history of Covid positive, this is in keeping with coal but pneumonitis. Electronically Signed: Ross Ulrich, at 11:17 EDT , Service support , Chest CTA 03/20/20 11:43 IMPRESSION: Diffuse bilateral infiltrates involving both lungs in the differential peripheral distribution in keeping with the patient''s Covid diagnosis. 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 Electronically Signed: Ross Ulrich, at 12:45 EDT , Service support , Chest X-Ray 03/22/20 06:29 IMPRESSION: Minimal change in bilateral infiltrates. at 0700 Reported and signed by: Sushma Fong MD Electronically Signed: Sushma Fong MD at 7:00 EDT Tel , Service support , Chest X-Ray 03/28/20 10:05 IMPRESSION: Bibasilar infiltrates left greater than right although there has been improvement. The tip of the orogastric tube is at the gastroesophageal junction. Electronically Signed: Ross Ulrich, at 10:24 EDT , Service support , Chest X-Ray 03/28/20 10:45 IMPRESSION: The tip of the right central catheter is at the junction of the superior vena cava and right atrium. Electronically Signed: Ross Ulrich at 11:48 EDT , Service support , Renal Ultrasound 03/29/20 09:43 IMPRESSION: No hydronephrosis. Electronically Signed: Kostas Aquino MD ([place]) at 12:42 EDT , Service support , KUB X-Ray 03/31/20 12:57 IMPRESSION: Nasogastric tube extends into the stomach. Bibasilar atelectasis. Focal left basilar infiltrate cannot be excluded. Electronically Signed: Moose Simon DO at 15:15 EDT Tel [phone], Service support , Medical Necessity - Tobacco Use Smoking Status: Never smoker Tobacco Use: Non-smoker Assessment/Plan All Active Problems (Last Updated 02/12/19 @ 14:15 by Gisele Barnhart) Myocardial infarction (Resolved) COVID-19 (Acute) Respiratory failure (Acute) Upper GI bleed (Acute) Atherosclerosis of coronary artery of [place] heart without angina pectoris (Ruled-out) RECOMMENDATIONS: 1. Proceed with a trial of extubation this morning. 2. Once extubated, wean supplemental oxygen to maintain saturations at or above 90%. 3. Continue antimicrobials per infectious diseases recommendations. 4. Continue D5W, given persistent hypernatremia/hyperchloremia. 5. Continue PPI therapy twice daily. 6. Continue to monitor H&H daily. Transfuse for a hemoglobin less than 7 g/dL. 7. NG to remain in place. Possibly to attempt clear liquids tomorrow. IMPRESSIONS: 1. Acute hypoxemic respiratory failure secondary to coronavirus pneumonia The patient was diagnosed with coronavirus infection and does have bilateral infiltrates on CTA chest consistent with COVID pneumonia. The patient initially received supportive measures with supplemental oxygen, convalescent plasma, Remdesevir and Decadron. In addition, the patient was placed on systemic anticoagulation. However, he developed what is likely a bleeding ulcer as a consequence of systemic anticoagulation and eventually had to be intubated. The patient has stabilized at this time. Respiratory status has improved and the patient is currently a candidate for a trial of extubation. Given that the patient does have what appears to be a superimposed MSSA pneumonia, he will be continued on antimicrobials per ID recommendations. Once extubated, supplemental oxygen will be weaned to maintain saturations at or above 90%. Encourage incentive spirometer use and mobilize patient as tolerated. 2. Hemorrhagic shock secondary to bleeding peptic ulcer complicated by systemic anticoagulation Resolved. The patient's hemodynamics have stabilized with vasopressor support and transfusion of blood products. Plan to continue to monitor blood counts and transfuse if hemoglobin drops below 7 g/dL. The patient will be continued on twice daily PPI therapy. NG tube remain in place yet today. General surgery is following. Plan to possibly attempt clear liquids tomorrow. 3. Hypernatremia Continue D5W as ordered. Continue to monitor electrolytes daily. 4. History of CVA/chronic kidney disease/hypertension/hyperlipidemia/CODE STATUS Complicates care, management, recovery and prognosis. CODE STATUS remains full code. TIME: 37 minutes of critical care time, independent of procedures, was spent addressing the patient's acute hypoxemic respiratory failure secondary to coronavirus pneumonia, hemorrhagic shock secondary to bleeding peptic ulcer, hypernatremia, review of all data and collaboration with the care team. [id number]) [id number] Critical care first hour
[2020-04-01] MEDS: TITRATION PARAMETER CHANGE 1 EACH IV (06:16)
[2020-04-01 06:31] LABS: Bedside Glucose 162 mg/dL (70-110)
--- NOTE | 2020-04-01 07:51 | EKG12_ITS ---
Test Reason : AF Blood Pressure : / mmHG Vent. Rate : 077 BPM Atrial Rate : 077 BPM P-R Int : 144 ms QRS Dur : 146 ms QT Int : 458 ms P-R-T Axes : 043 004 010 degrees QTc Int : 518 ms Normal sinus rhythm Right bundle branch block Abnormal ECG When compared with ECG of 01-APR-2020 08:12, MANUAL COMPARISON REQUIRED, DATA IS UNCONFIRMED Confirmed by DEJA HEATH, KOBI ([id number]), subeditor LEONEL DAILEY ([id number]) on 04/09/2020 11:45:01 AM Referred By: KENNEDY Confirmed By:RYAN SHORT MD
[2020-04-01] MEDS: 0.9% Saline Lock 10 ML Syringe IV (08:22)
[2020-04-01] MEDS: CHLORHEXIDINE GLUC 2% CLOTH 1 EACH TOWELETTE TOPICAL (08:23)
--- NOTE | 2020-04-01 08:32 | PCM.PN.SRG ---
Patient Problems: Active and Suspected Problems (Last Updated 02/12/19 @ 14:15 by Gisele Barnhart) COVID-19 (Acute) Respiratory failure (Acute) Upper GI bleed (Acute) Subjective: No issues overnight - Physical Exam Vitals/I&O's: Vital Signs Temp Pulse Resp BP Pulse Ox 97.6 F L 78 16 104/78 98 04/01/20 06:00 04/01/20 07:39 04/01/20 06:00 04/01/20 06:00 04/01/20 06:00 Oxygen Flow Rate (L/min) 4 Oxygen Delivery Method Mechanical Ventilator Weight: 220 lb 14.451 oz Body Mass Index (BMI) 31.8 Intake and Output for Last 24 Hours 03/30/20 03/31/20 04/01/20 23:59 23:59 23:59 Intake Total 3150.17 / 3162.37 3416.91 / 3436.81 1458.16 / 1458.16 Output Total 3550 / 3550 2180 / 2180 480 / 480 Balance -399.83 / -387.63 1236.91 / 1256.81 978.16 / 978.16 General: Alert, Cooperative Cardiovascular: Regular rate, Regular Rhythm Abdomen: Soft, Non-Distended Microbiology Past 72 Hours 03/29/20 19:15 Sputum, Induced/Lukens Gram Stain - Final 03/29/20 19:15 Sputum, Induced/Lukens Respiratory Culture - Final Staphylococcus aureus Laboratory Results 03/28/20 07:35: Crossmatch See Detail 03/29/20 03:55: Diff Path Review Reviewed 03/30/20 07:35: Crossmatch See Detail 03/30/20 07:35: Crossmatch See Detail 03/31/20 12:40: POC Glucose 149 H 03/31/20 14:30: Hgb 9.0 L, Hct 28.8 L 03/31/20 16:52: POC Glucose 170 H 03/31/20 23:36: POC Glucose 149 H 04/01/20 03:45: WBC 8.8, RBC 3.28 L, Hgb 9.3 L, Hct 29.5 L, MCV 89.9, MCH 28.4, MCHC 31.5 L, RDW Std Deviation 53.9 H, RDW Coeff of Fadumo 16.4 H, Plt Count 240, MPV 10.1, Immature Gran % (Auto) 0.600, Neut % (Auto) 86.8 H, Lymph % (Auto) 7.6 L, [place] % (Auto) 4.1, Eos % (Auto) 0.8, Baso % (Auto) 0.1, Absolute Neuts (auto) 7.6, Absolute Lymphs (auto) 0.67 L, Nucleated RBC % 0 04/01/20 03:45: Sodium 152 H, Potassium 3.1 L, Chloride 118 H, Carbon Dioxide 33.0 H, Anion Gap 1 L, BUN 38 H, Creatinine 1.03, Estim Creat Clear Calc 65.95, Est GFR (MDRD) Af Amer 91, Est GFR (MDRD) Non-Af 75, BUN/Creatinine Ratio 36.9 H, Glucose 162 H, Calcium 7.3 L 04/01/20 05:56: POC Glucose 162 H Current Medications Acetaminophen (Tylenol Liquid) 650 mg GT Q6H PRN PRN PRN Reason: Pain Score 1-10/Temp > 100.7 F Last Admin: 03/28/20 22:58 Dose: 650 mg Documented by: Albuterol Sulfate (Ventolin Aerosols) 2.5 mg INHALATION Q2H PRN PRN PRN Reason: SOB/Wheezing Atorvastatin Calcium (Lipitor) 10 mg GT DAILY [facility] Last Admin: 03/31/20 14:38 Dose: 10 mg Documented by: Chlorhexidine Gluconate () 1 each TOPICAL DAILY [facility] Last Admin: 04/01/20 08:23 Dose: 1 each Documented by: Dextrose (D50w Syringe) 0 gm IV X1 PRN; Protocol PRN Reason: Hypoglycemia Ergocalciferol (Vitamin D) 50,000 unit PO Q7D [facility] Last Admin: 03/30/20 14:06 Dose: Not Given Documented by: Glucagon () 1 mg IM .X1 PRN PRN Reason: Hypoglycemia Guaifenesin (Robitussin Dm) 10 ml GT Q4H PRN PRN PRN Reason: COUGH Hydralazine HCl (Apresoline Iv) 20 mg IV Q4H PRN PRN PRN Reason: SBP > 160 Last Admin: 03/26/20 00:23 Dose: 20 mg Documented by: Dexmedetomidine HCl 400 mcg/ (Sodium Chloride) 100 mls @ 12.525 mls/hr CONT INF .Q8H RICHY; Protocol Last Titration: 04/01/20 06:00 Dose: 0.6 mcg/kg/hr, 14.9 mls/hr Documented by: Sodium Chloride () 500 mls @ 15 mls/hr IV PRN PRN PRN Reason: Blood Transfusion Sodium Chloride () 250 mls @ 15 mls/hr IV .[id number] PRN PRN Reason: Saline Flush Sodium Chloride () 250 mls @ 15 mls/hr IV .[id number] PRN PRN Reason: Additional IVPB Infusion Pantoprazole Sodium 40 mg/ (Sodium Chloride) 110 mls @ 330 mls/hr IV Q12 [facility] Last Infusion: 03/31/20 21:21 Dose: Infused Documented by: Dextrose () 1,000 mls @ 100 mls/hr IV .Q10H [facility] Last Admin: 04/01/20 08:03 Dose: 100 mls/hr Documented by: Cefazolin Sodium 2 gm/ Sodium (Chloride) 110 mls @ 150 mls/hr IV Q8 [facility] Last Infusion: 04/01/20 06:04 Dose: Infused Documented by: Potassium Chloride 40 meq/ (Sodium Chloride) 120 mls @ 100 mls/hr IV BOLUS X1 ONE Stop: 04/01/20 09:11 Last Admin: 04/01/20 08:01 Dose: 100 mls/hr Documented by: Potassium Chloride 40 meq/ (Sodium Chloride) 120 mls @ 100 mls/hr IV BOLUS X1 ONE Stop: 04/01/20 11:11 Insulin Glargine (Lantus (Bkc)) 10 units SC DAILY [facility] Last Admin: 03/31/20 09:25 Dose: 10 u Documented by: Insulin Human Lispro (Humalog Kwikpen (Bk)) 0 unit SC Q6 [facility]; Protocol Last Admin: 04/01/20 05:57 Dose: 1 u Documented by: Ondansetron HCl (Zofran) 4 mg IV Q8H PRN PRN PRN Reason: NAUSEA/VOMITING Last Admin: 03/26/20 10:49 Dose: 4 mg Documented by: Polyethylene Glycol (Miralax) 17 gm GT DAILY PRN PRN Reason: Constipation Prochlorperazine Edisylate (Compazine Iv) 5 mg IV Q6H PRN PRN PRN Reason: NAUSEA/VOMITING Last Admin: 03/27/20 09:33 Dose: 5 mg Documented by: Senna (Senokot) 2 tablet GT BID PRN PRN PRN Reason: Constipation Sodium Chloride () 10 - 40 ml IV UD PRN PRN Reason: SALINE FLUSH Last Admin: 04/01/20 08:22 Dose: 40 ml Documented by: Sodium Chloride () 10 - 40 ml IV UD PRN PRN Reason: Multilumen/Kim Flush Sodium Chloride (0.9% Nacl (Sterile) Posiflush) 10 - 40 ml IV UD PRN PRN Reason: Port access or dressing change Temazepam (Restoril) 15 mg PO QHS PRN PRN PRN Reason: INSOMNIA Last Admin: 03/27/20 21:08 Dose: 15 mg Documented by: Medical Necessity - Tobacco Use Smoking Status: Never smoker Tobacco Use: Non-smoker Assessment/Plan All Active Problems (Last Updated 02/12/19 @ 14:15 by Gisele Barnhart) Myocardial infarction (Resolved) COVID-19 (Acute) Respiratory failure (Acute) Upper GI bleed (Acute) Atherosclerosis of coronary artery of [place] heart without angina pectoris (Ruled-out) 75-year-old male with duodenal ulcer with possible perforation 1. Patient had a large duodenal ulcer on EGD yesterday which is not actively bleeding. Patient is NG was placed at the end of the procedure. The patient was extubated overnight. Given the fact that he had a possible perforation and we are not able to perform a CT with oral contrast I recommend 1 more day of NG suctioning as well as IV PPI. If he is doing well tomorrow with minimal output and no bleeding I will probably recommend removing the NG tube and starting clear liquids. Sami Figueroa MD Pager: [facility] [address] [place] [address], [address] [place] [address] Office:
--- NOTE | 2020-04-01 09:47 | PN.ID_ITS ---
Patient Problems: Active and Suspected Problems (Last Updated 02/12/19 @ 14:15 by Gisele Barnhart) COVID-19 (Acute) Respiratory failure (Acute) Upper GI bleed (Acute) Subjective: Now off vent, having trouble bringing up sputum. No fever. - Physical Exam Vitals/I&O's: Vital Signs Temp Pulse Resp BP Pulse Ox 98.1 F 91 22 H 111/57 L 93 04/01/20 09:00 04/01/20 09:00 04/01/20 09:00 04/01/20 09:00 04/01/20 09:00 Oxygen Flow Rate (L/min) 5 Oxygen Delivery Method Nasal Cannula Weight: 100.2 kg Body Mass Index (BMI) 31.8 Intake and Output for Last 24 Hours 03/30/20 03/31/20 04/01/20 23:59 23:59 23:59 Intake Total 3150.17 / 3162.37 3416.91 / 3436.81 1638.06 / 1638.06 Output Total 3550 / 3550 2180 / 2180 830 / 830 Balance -399.83 / -387.63 1236.91 / 1256.81 808.06 / 808.06 General: Alert, Cooperative Lungs: Rhonchi Cardiovascular: Tachycardic Abdomen: Soft, Non Tender, Non-Distended Skin: No rashes Microbiology Past 72 Hours 03/29/20 19:15 Sputum, Induced/Lukens Gram Stain - Final 03/29/20 19:15 Sputum, Induced/Lukens Respiratory Culture - Final Staphylococcus aureus Laboratory Results 03/28/20 07:35: Crossmatch See Detail 03/29/20 03:55: Diff Path Review Reviewed 03/30/20 07:35: Crossmatch See Detail 03/30/20 07:35: Crossmatch See Detail 03/31/20 12:40: POC Glucose 149 H 03/31/20 14:30: Hgb 9.0 L, Hct 28.8 L 03/31/20 16:52: POC Glucose 170 H 03/31/20 23:36: POC Glucose 149 H 04/01/20 03:45: WBC 8.8, RBC 3.28 L, Hgb 9.3 L, Hct 29.5 L, MCV 89.9, MCH 28.4, MCHC 31.5 L, RDW Std Deviation 53.9 H, RDW Coeff of Fadumo 16.4 H, Plt Count 240, MPV 10.1, Immature Gran % (Auto) 0.600, Neut % (Auto) 86.8 H, Lymph % (Auto) 7.6 L, Nicholas % (Auto) 4.1, Eos % (Auto) 0.8, Baso % (Auto) 0.1, Absolute Neuts (auto) 7.6, Absolute Lymphs (auto) 0.67 L, Nucleated RBC % 0 04/01/20 03:45: Sodium 152 H, Potassium 3.1 L, Chloride 118 H, Carbon Dioxide 33.0 H, Anion Gap 1 L, BUN 38 H, Creatinine 1.03, Estim Creat Clear Calc 65.95, Est GFR (MDRD) Af Amer 91, Est GFR (MDRD) Non-Af 75, BUN/Creatinine Ratio 36.9 H , Glucose 162 H, Calcium 7.3 L 04/01/20 05:56: POC Glucose 162 H Current Medications Acetaminophen (Tylenol Liquid) 650 mg GT Q6H PRN PRN PRN Reason: Pain Score 1-10/Temp > 100.7 F Last Admin: 03/28/20 22:58 Dose: 650 mg Documented by: Albuterol Sulfate (Ventolin Aerosols) 2.5 mg INHALATION Q2H PRN PRN PRN Reason: SOB/Wheezing Atorvastatin Calcium (Lipitor) 10 mg GT DAILY [facility] Last Admin: 04/01/20 09:32 Dose: Not Given Documented by: Chlorhexidine Gluconate () 1 each TOPICAL DAILY [facility] Last Admin: 04/01/20 08:23 Dose: 1 each Documented by: Dextrose (D50w Syringe) 0 gm IV X1 PRN; Protocol PRN Reason: Hypoglycemia Ergocalciferol (Vitamin D) 50,000 unit PO Q7D [facility] Last Admin: 03/30/20 14:06 Dose: Not Given Documented by: Glucagon () 1 mg IM .X1 PRN PRN Reason: Hypoglycemia Guaifenesin (Robitussin Dm) 10 ml GT Q4H PRN PRN PRN Reason: COUGH Hydralazine HCl (Apresoline Iv) 20 mg IV Q4H PRN PRN PRN Reason: SBP > 160 Last Admin: 03/26/20 00:23 Dose: 20 mg Documented by: Sodium Chloride () 500 mls @ 15 mls/hr IV PRN PRN PRN Reason: Blood Transfusion Sodium Chloride () 250 mls @ 15 mls/hr IV .[id number] PRN PRN Reason: Saline Flush Last Admin: 04/01/20 09:42 Dose: 15 mls/hr Documented by: Sodium Chloride () 250 mls @ 15 mls/hr IV .[id number] PRN PRN Reason: Additional IVPB Infusion Pantoprazole Sodium 40 mg/ (Sodium Chloride) 110 mls @ 330 mls/hr IV Q12 RICHY Last Admin: 04/01/20 09:39 Dose: 330 mls/hr Documented by: Dextrose () 1,000 mls @ 100 mls/hr IV .Q10H RICHY Last Admin: 04/01/20 08:03 Dose: 100 mls/hr Documented by: Cefazolin Sodium 2 gm/ Sodium (Chloride) 110 mls @ 150 mls/hr IV Q8 [facility] Last Infusion: 04/01/20 06:04 Dose: Infused Documented by: Potassium Chloride 40 meq/ (Sodium Chloride) 120 mls @ 100 mls/hr IV BOLUS X1 ONE Stop: 04/01/20 11:11 Last Admin: 04/01/20 09:43 Dose: 100 mls/hr Documented by: Insulin Glargine (Lantus (Bkc)) 10 units SC DAILY [facility] Last Admin: 03/31/20 09:25 Dose: 10 u Documented by: Insulin Human Lispro (Humalog Kwikpen (Bk)) 0 unit SC Q6 [facility]; Protocol Last Admin: 04/01/20 05:57 Dose: 1 u Documented by: Ondansetron HCl (Zofran) 4 mg IV Q8H PRN PRN PRN Reason: NAUSEA/VOMITING Last Admin: 03/26/20 10:49 Dose: 4 mg Documented by: Polyethylene Glycol (Miralax) 17 gm GT DAILY PRN PRN Reason: Constipation Prochlorperazine Edisylate (Compazine Iv) 5 mg IV Q6H PRN PRN PRN Reason: NAUSEA/VOMITING Last Admin: 03/27/20 09:33 Dose: 5 mg Documented by: Senna (Senokot) 2 tablet GT BID PRN PRN PRN Reason: Constipation Sodium Chloride () 10 - 40 ml IV UD PRN PRN Reason: SALINE FLUSH Last Admin: 04/01/20 08:22 Dose: 40 ml Documented by: Sodium Chloride () 10 - 40 ml IV UD PRN PRN Reason: Multilumen/Kim Flush Sodium Chloride (0.9% Nacl (Sterile) Posiflush) 10 - 40 ml IV UD PRN PRN Reason: Port access or dressing change Temazepam (Restoril) 15 mg PO QHS PRN PRN PRN Reason: INSOMNIA Last Admin: 03/27/20 21:08 Dose: 15 mg Documented by: Medical Necessity - Tobacco Use Smoking Status: Never smoker Tobacco Use: Non-smoker Route of nutrition/ use of supplements: [] Nutritional Intake: [] IV Site: [] Dejesus Catheter: [] - Assessment/Plan Antibiotics: [] Assessment/Plan: [] Active and Suspected Problems (Last Updated 02/12/19 @ 14:15 by Gisele Barnhart) COVID-19 (Acute) Respiratory failure (Acute) Acute hypoxic resp failure due to covid - on decadron. CTA neg for PE. Received plasma, completed 5 day course of remdesivir. Placed on vent due to GI bleed. Sputum with mssa. Cont cefazolin. He reports reaction to PCN as a . Monitor for reaction, but should be low risk. Wbc and Cr now back to normal. Extubated this AM. will follow
--- NOTE | 2020-04-01 09:51 | PN_ITS ---
Patient Problems: Active and Suspected Problems (Last Updated 02/12/19 @ 14:15 by Gisele Barnhart) COVID-19 (Acute) Respiratory failure (Acute) Upper GI bleed (Acute) Subjective: Patient seen and examined. He was successfully extubated this morning and was on 6 L of oxygen at time of review. He had another EGD yesterday which showed a nonbleeding peptic ulcer. Patient developed A. fib today and is rate controlled. This A. fib is new for him. He has remained hemodynamically stable otherwise. Sodium is down to 152 and potassium is 3.1 today. Hemoglobin is 9.3. Vitals/I&O's: Vital Signs Temp Pulse Resp BP Pulse Ox 98.1 F 91 22 H 111/57 L 93 04/01/20 09:00 04/01/20 09:00 04/01/20 09:00 04/01/20 09:00 04/01/20 09:00 Oxygen Flow Rate (L/min) 5 Oxygen Delivery Method Nasal Cannula Weight: 220 lb 14.451 oz Body Mass Index (BMI) 31.8 Intake and Output for Last 24 Hours 03/30/20 03/31/20 04/01/20 23:59 23:59 23:59 Intake Total 3150.17 / 3162.37 3416.91 / 3436.81 1638.06 / 1638.06 Output Total 3550 / 3550 2180 / 2180 830 / 830 Balance -399.83 / -387.63 1236.91 / 1256.81 808.06 / 808.06 General: Alert, Oriented x3, Cooperative, No apparent distress, Lethargic HEENT: Atraumatic, PERRLA, EOMI, Normocephalic Oral: Dry Mucosa Neck: Supple, No JVD, Negative Carotid Bruits Lungs: - - decreased breath sounds bibasally, no wheezes or crackles. on 6L of oxygen by nasal canula Cardiovascular: Normal S1, Normal S2, No murmurs, Irregular Rate - afib, rate controlled Abdomen: Bowel Sounds Present, Soft, Non Tender, Non-Distended, No Hepato- splenomegaly Extremities: No clubbing, No cyanosis, No edema, Capillary Refill Less than 3 Seconds Skin: No rashes, No breakdown Musculoskeletal: No Tenderness to Palpation of Joints or Extremities Lymphatic: No Cervical, Supraclavicular, or Inguinal Adenopathy Neurological: Cranial nerves II-XII grossly intact, Neuro grossly intact, Motor Exam 5/5 strength throughout Psych/Mental Status: Normal Affect, Appropriate, Alert and oriented to time, place, person, mood and affect Microbiology Past 72 Hours 03/29/20 19:15 Sputum, Induced/Lukens Gram Stain - Final 03/29/20 19:15 Sputum, Induced/Lukens Respiratory Culture - Final Staphylococcus aureus Laboratory Results 03/28/20 07:35: Crossmatch See Detail 03/29/20 03:55: Diff Path Review Reviewed 03/30/20 07:35: Crossmatch See Detail 03/30/20 07:35: Crossmatch See Detail 03/31/20 12:40: POC Glucose 149 H 03/31/20 14:30: Hgb 9.0 L, Hct 28.8 L 03/31/20 16:52: POC Glucose 170 H 03/31/20 23:36: POC Glucose 149 H 04/01/20 03:45: WBC 8.8, RBC 3.28 L, Hgb 9.3 L, Hct 29.5 L, MCV 89.9, MCH 28.4, MCHC 31.5 L, RDW Std Deviation 53.9 H, RDW Coeff of Fadumo 16.4 H, Plt Count 240, MPV 10.1, Immature Gran % (Auto) 0.600, Neut % (Auto) 86.8 H, Lymph % (Auto) 7.6 L, [place] % (Auto) 4.1, Eos % (Auto) 0.8, Baso % (Auto) 0.1, Absolute Neuts (auto) 7.6, Absolute Lymphs (auto) 0.67 L, Nucleated RBC % 0 04/01/20 03:45: Sodium 152 H, Potassium 3.1 L, Chloride 118 H, Carbon Dioxide 33.0 H, Anion Gap 1 L, BUN 38 H, Creatinine 1.03, Estim Creat Clear Calc 65.95, Est GFR (MDRD) Af Amer 91, Est GFR (MDRD) Non-Af 75, BUN/Creatinine Ratio 36.9 H , Glucose 162 H, Calcium 7.3 L 04/01/20 05:56: POC Glucose 162 H Diagnostic Data Chest CTA 09/24/20 11:43 IMPRESSION: Diffuse bilateral infiltrates involving both lungs in the differential peripheral distribution in keeping with the patient''s Covid diagnosis. 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 Electronically Signed: Ross Mojgan, at 12:45 EDT , Service support , Chest X-Ray 03/28/20 10:45 IMPRESSION: The tip of the right central catheter is at the junction of the superior vena cava and right atrium. Electronically Signed: Ross Ulrich, at 11:48 EDT , Service support , Renal Ultrasound 03/29/20 09:43 IMPRESSION: No hydronephrosis. Electronically Signed: Kostas Aquino MD ([place]) at 12:42 EDT , Service support , KUB X-Ray 03/31/20 12:57 IMPRESSION: Nasogastric tube extends into the stomach. Bibasilar atelectasis. Focal left basilar infiltrate cannot be excluded. Electronically Signed: Moose Simon DO at 15:15 EDT Tel [phone], Service support , Current Medications Acetaminophen (Tylenol Liquid) 650 mg GT Q6H PRN PRN PRN Reason: Pain Score 1-10/Temp > 100.7 F Last Admin: 03/28/20 22:58 Dose: 650 mg Documented by: Albuterol Sulfate (Ventolin Aerosols) 2.5 mg INHALATION Q2H PRN PRN PRN Reason: SOB/Wheezing Atorvastatin Calcium (Lipitor) 10 mg GT DAILY [facility] Last Admin: 04/01/20 09:32 Dose: Not Given Documented by: Chlorhexidine Gluconate () 1 each TOPICAL DAILY [facility] Last Admin: 04/01/20 08:23 Dose: 1 each Documented by: Dextrose (D50w Syringe) 0 gm IV X1 PRN; Protocol PRN Reason: Hypoglycemia Ergocalciferol (Vitamin D) 50,000 unit PO Q7D [facility] Last Admin: 03/30/20 14:06 Dose: Not Given Documented by: Glucagon () 1 mg IM .X1 PRN PRN Reason: Hypoglycemia Guaifenesin (Robitussin Dm) 10 ml GT Q4H PRN PRN PRN Reason: COUGH Hydralazine HCl (Apresoline Iv) 20 mg IV Q4H PRN PRN PRN Reason: SBP > 160 Last Admin: 03/26/20 00:23 Dose: 20 mg Documented by: Sodium Chloride () 500 mls @ 15 mls/hr IV PRN PRN PRN Reason: Blood Transfusion Sodium Chloride () 250 mls @ 15 mls/hr IV .[id number] PRN PRN Reason: Saline Flush Last Admin: 04/01/20 09:42 Dose: 15 mls/hr Documented by: Sodium Chloride () 250 mls @ 15 mls/hr IV .[id number] PRN PRN Reason: Additional IVPB Infusion Pantoprazole Sodium 40 mg/ (Sodium Chloride) 110 mls @ 330 mls/hr IV Q12 [facility] Last Admin: 04/01/20 09:39 Dose: 330 mls/hr Documented by: Dextrose () 1,000 mls @ 100 mls/hr IV .Q10H [facility] Last Admin: 04/01/20 08:03 Dose: 100 mls/hr Documented by: Cefazolin Sodium 2 gm/ Sodium (Chloride) 110 mls @ 150 mls/hr IV Q8 [facility] Last Infusion: 04/01/20 06:04 Dose: Infused Documented by: Potassium Chloride 40 meq/ (Sodium Chloride) 120 mls @ 100 mls/hr IV BOLUS X1 ONE Stop: 04/01/20 11:11 Last Admin: 04/01/20 09:43 Dose: 100 mls/hr Documented by: Insulin Glargine (Lantus (Bk)) 10 units SC DAILY [facility] Last Admin: 03/31/20 09:25 Dose: 10 u Documented by: Insulin Human Lispro (Humalog Kwikpen (Bk)) 0 unit SC Q6 [facility]; Protocol Last Admin: 04/01/20 05:57 Dose: 1 u Documented by: Ondansetron HCl (Zofran) 4 mg IV Q8H PRN PRN PRN Reason: NAUSEA/VOMITING Last Admin: 03/26/20 10:49 Dose: 4 mg Documented by: Polyethylene Glycol (Miralax) 17 gm GT DAILY PRN PRN Reason: Constipation Prochlorperazine Edisylate (Compazine Iv) 5 mg IV Q6H PRN PRN PRN Reason: NAUSEA/VOMITING Last Admin: 03/27/20 09:33 Dose: 5 mg Documented by: Senna (Senokot) 2 tablet GT BID PRN PRN PRN Reason: Constipation Sodium Chloride () 10 - 40 ml IV UD PRN PRN Reason: SALINE FLUSH Last Admin: 04/01/20 08:22 Dose: 40 ml Documented by: Sodium Chloride () 10 - 40 ml IV UD PRN PRN Reason: Multilumen/Kim Flush Sodium Chloride (0.9% Nacl (Sterile) Posiflush) 10 - 40 ml IV UD PRN PRN Reason: Port access or dressing change Temazepam (Restoril) 15 mg PO QHS PRN PRN PRN Reason: INSOMNIA Last Admin: 03/27/20 21:08 Dose: 15 mg Documented by: STROKE Vital Signs/Narrative: Vital Signs Temp Pulse Resp BP Pulse Ox 04/01/20 09:00 98.1 F 91 22 H 111/57 L 93 04/01/20 08:00 97.9 F 84 16 152/76 H 99 04/01/20 07:39 78 04/01/20 07:00 97.8 F 87 17 130/79 H 98 04/01/20 06:00 97.6 F L 82 16 104/78 98 Medical Necessity - Tobacco Use Smoking Status: Never smoker Tobacco Use: Non-smoker Assessment/Plan All Active Problems (Last Updated 02/12/19 @ 14:15 by Gisele Barnhart) Myocardial infarction (Resolved) COVID-19 (Acute) Respiratory failure (Acute) Upper GI bleed (Acute) Atherosclerosis of coronary artery of [place] heart without angina pectoris (Ruled-out) # Acute hemorrhagic shock due to bleeding peptic ulcer * patient now off vasopressors and hemodynamically stable * had repeat EGD yesterday which showed a nonbleeding ulcer. * s/p transfusion of 4 units of PRBCs * Hb today is 9.3 * on IV protonix q12 * critical care and general surgery on board * for repeat EGD today to ensure bleeding has ceased. * * # Acute hypoxic respiratory failure due to covid 19 pneumonia * was successfully extubated this morning, and is on 6L of oxygen * sputum cultured Staph * now on IV cefazolin. * critical care on board * #Afib: * patient noted to be in Afib this morning. is rate controlled. * CHADVASC score is 1. patient cannot be anticoagulated due to bleeding peptic ulcer * to get 2D echo once covid has resolved * monitor HR * # Hypernatremia: Na is 152 today. On D10W. Trend sodium levels # COVID 19 infection: * completed course of remdesivir and received convalescent plasma. * steroids and anticoagulation discontinued due to bleeding ulcer. #Hypokalemia: K is 3.1. Will replace and monitor # Bleeding peptic ulcer: as under hemorrhagic shock. # CAROLYNN: * resolved. Cr down to 1.03 today * renal USG was essentially normal # History of CVA; stable # Hypertension; BP meds on hold o/a of of hemorrhgic shock # CAD: on statin. aspirin on hold o/a of bleeding peptic ulcer DVT prophylaxis: on SCDs W Inpatient E&M: 14032 Subs Hosp L3
[2020-04-01 12:30] LABS: Bedside Glucose 114 mg/dL (70-110)
[2020-04-01 17:50] LABS: Bedside Glucose 126 mg/dL (70-110)
[2020-04-02] VITALS (21 sets, daily range): BP systolic 134–160; BP diastolic 52–77; PULSE 58–93; RESP 14–20; TEMP 37.1–37.4; O2SAT 84–97
[2020-04-02 01:31] LABS: Bedside Glucose 116 mg/dL (70-110)
--- NOTE | 2020-04-02 01:44 | EKG12_ITS ---
Test Reason : AF Blood Pressure : / mmHG Vent. Rate : 097 BPM Atrial Rate : 097 BPM P-R Int : 000 ms QRS Dur : 150 ms QT Int : 446 ms P-R-T Axes : 000 023 -27 degrees QTc Int : 566 ms Atrial fibrillation Right bundle branch block Abnormal ECG When compared with ECG of 20-MAR-2020 11:19, Atrial fibrillation has replaced Sinus rhythm T wave inversion more evident in Anterior leads QT has lengthened Confirmed by DEJA HEATH, KOBI ([id number]), assistant production editor LEONEL DAILEY ([id number]) on 04/09/2020 11:45:14 AM Referred By: KENNEDY Confirmed By:RYAN SHORT MD
[2020-04-02 05:00] LABS: Absolute Lymphocyte Count 0.84 X10^3/uL (0.83-4.51); Absolute Neutrophil Count 8.6 X10^3/uL (2.0-7.7); Basophil# 0.01 X10^3/uL; Basophil% 0.1 % (0-1); Eosinophil# 0.09 X10^3/uL; Eosinophils% 0.9 % (0-5); Hematocrit 29.2 % (40-54); Hemoglobin 9.1 g/dL (13.0-16.5); Lymphocyte # 0.84 X10^3/ul (4.0); Lymphocyte % 8.5 % (19-41); Mean Corp Hgb Conc 31.2 g/dL (32-36); Mean Corpuscular Volume 89.8 fL (80-94); Mean Platelet Vol. 10.1 fl (6.2-12.0); Monocyte# 0.33 X10^3/uL; Monocyte% 3.3 % (0-10); NRBC Flagged by Analyzer 0 % (0-5); Neutrophil # 8.58 X10^3/uL (2.7-7.7); Neutrophil % 86.5 % (47-70); Platelet Count 229 K/mm3 (150-450); RBC Distribution Width CV 15.9 % (11.6-14.6); RBC Distribution Width SD 52.4 fl (35.1-43.9); Red Blood Count 3.25 M/mm3 (4.6-6.2); White Blood Count 9.9 K/mm3 (4.4-11.0)
[2020-04-02] MEDS: 0.9% Saline Lock 10 ML Syringe IV ×2 (05:03→09:08)
[2020-04-02] MEDS: Cefazolin 2 GM in 0.9% Normal Saline 100 ML IV ×3 (05:04→22:49)
[2020-04-02 05:13] LABS: Anion Gap 3 (5-15); BUN 28 mg/dL (7-18); BUN/Creat Ratio 27.5 RATIO (10-20); Calcium,Total 7.1 mg/dL (8.5-10.1); Chloride 113 mmol/L (98-107); Creatinine, Serum 1.02 mg/dL (0.70-1.30); EST Glomerular Filtration Rate 76 mL/min (>60); Est Glom Filt Rate - Afr Amer 92 mL/min (>60); Glucose 138 mg/dL (74-106); Potassium 3.2 mmol/L (3.5-5.1); Sodium Level 147 mmol/L (136-145)
[2020-04-02 05:36] LABS: Bedside Glucose 137 mg/dL (70-110)
--- NOTE | 2020-04-02 06:10 | PN_ITS ---
Subjective: The patient was seen and examined at the bedside this morning. Events from the last 24 hours have been reviewed. The patient is currently afebrile, hemodynamically stable and maintaining appropriate oxygen saturations on 5 L/min via nasal cannula. Blood counts remain stable this morning. The patient's nasogastric tube was dislodged yesterday. Hypernatremia is improving. Potassium remains low this morning at 3.2. The patient is currently documented to be overall net +1 L for the hospital admission. The patient did spontaneously convert from atrial fibrillation to normal sinus rhythm sometime around midnight. Objective: The patient's most recent lab work, culture data and imaging studies have all been personally reviewed. General: Alert, Cooperative, No apparent distress HEENT: Atraumatic, Normocephalic Oral: No Gingival or Mucosal Lesions/ Ulcerations Neck: Supple, No Nodes, Trachea Midline Lungs: Diminished Cardiovascular: Regular rate, Regular Rhythm Abdomen: Bowel Sounds Present, Soft, Non Tender, Obese Extremities: No clubbing, No cyanosis, No edema Skin: No breakdown Musculoskeletal: No Muscle Wasting Lymphatic: No Cervical, Supraclavicular, or Inguinal Adenopathy Neurological: Neuro grossly intact Psych/Mental Status: Normal Affect, Appropriate Vital Signs Temp Pulse Resp BP Pulse Ox 98.9 F 75 17 155/61 H 95 04/02/20 05:00 04/02/20 05:00 04/02/20 05:00 04/02/20 05:00 04/02/20 05:00 Oxygen Flow Rate (L/min) 5 Oxygen Delivery Method Nasal Cannula Weight: 216 lb 7.903 oz Body Mass Index (BMI) 31.8 Intake and Output for Last 24 Hours 03/31/20 04/01/20 04/02/20 23:59 23:59 23:59 Intake Total 3416.91 / 3436.81 3198.06 / 4113.06 1372.25 / 1372.25 Output Total 2180 / 2180 2190 / 2460 770 / 770 Balance 1236.91 / 1256.81 1008.06 / 1653.06 602.25 / 602.25 Labs (Last 48 Hours) 03/28/20 03/29/20 03/30/20 07:35 03:55 07:35 WBC RBC Hgb Hct MCV MCH MCHC RDW Std Deviation RDW Coeff of Fadumo Plt Count MPV Immature Gran % (Auto) Neut % (Auto) Lymph % (Auto) Tompkins % (Auto) Eos % (Auto) Baso % (Auto) Absolute Neuts (auto) Absolute Lymphs (auto) Nucleated RBC % Diff Path Review Reviewed Sodium Potassium Chloride Carbon Dioxide Anion Gap BUN Creatinine Estim Creat Clear Calc Est GFR (MDRD) Af Amer Est GFR (MDRD) Non-Af BUN/Creatinine Ratio Glucose Calcium POC Glucose Crossmatch See Detail See Detail 03/30/20 03/31/20 03/31/20 07:35 12:40 14:30 WBC RBC Hgb 9.0 L Hct 28.8 L MCV MCH MCHC RDW Std Deviation RDW Coeff of Fadumo Plt Count MPV Immature Gran % (Auto) Neut % (Auto) Lymph % (Auto) [place] % (Auto) Eos % (Auto) Baso % (Auto) Absolute Neuts (auto) Absolute Lymphs (auto) Nucleated RBC % Diff Path Review Sodium Potassium Chloride Carbon Dioxide Anion Gap BUN Creatinine Estim Creat Clear Calc Est GFR (MDRD) Af Amer Est GFR (MDRD) Non-Af BUN/Creatinine Ratio Glucose Calcium POC Glucose 149 H Crossmatch See Detail 03/31/20 03/31/20 04/01/20 16:52 23:36 03:45 WBC 8.8 RBC 3.28 L Hgb 9.3 L Hct 29.5 L MCV 89.9 MCH 28.4 MCHC 31.5 L RDW Std Deviation 53.9 H RDW Coeff of Fadumo 16.4 H Plt Count 240 MPV 10.1 Immature Gran % (Auto) 0.600 Neut % (Auto) 86.8 H Lymph % (Auto) 7.6 L Tompkins % (Auto) 4.1 Eos % (Auto) 0.8 Baso % (Auto) 0.1 Absolute Neuts (auto) 7.6 Absolute Lymphs (auto) 0.67 L Nucleated RBC % 0 [address] Review Sodium Potassium Chloride Carbon Dioxide Anion Gap BUN Creatinine Estim Creat Clear Calc Est GFR (MDRD) Af Amer Est GFR (MDRD) Non-Af BUN/Creatinine Ratio Glucose Calcium POC Glucose 170 H 149 H Crossmatch 04/01/20 04/01/20 04/01/20 03:45 05:56 12:03 WBC RBC Hgb Hct MCV MCH MCHC RDW Std Deviation RDW Coeff of Fadumo Plt Count MPV Immature Gran % (Auto) Neut % (Auto) Lymph % (Auto) Tompkins % (Auto) Eos % (Auto) Baso % (Auto) Absolute Neuts (auto) Absolute Lymphs (auto) Nucleated RBC % Diff Path Review Sodium 152 H Potassium 3.1 L Chloride 118 H Carbon Dioxide 33.0 H Anion Gap 1 L BUN 38 H Creatinine 1.03 Estim Creat Clear Calc 65.95 Est GFR (MDRD) Af Amer 91 Est GFR (MDRD) Non-Af 75 BUN/Creatinine Ratio 36.9 H Glucose 162 H Calcium 7.3 L POC Glucose 162 H 114 H Crossmatch 04/01/20 04/02/20 04/02/20 17:36 00:25 04:47 WBC RBC Hgb Hct MCV MCH MCHC RDW Std Deviation RDW Coeff of Fadumo Plt Count MPV Immature Gran % (Auto) Neut % (Auto) Lymph % (Auto) Tompkins % (Auto) Eos % (Auto) Baso % (Auto) Absolute Neuts (auto) Absolute Lymphs (auto) Nucleated RBC % Diff Path Review Sodium Potassium Chloride Carbon Dioxide Anion Gap BUN Creatinine Estim Creat Clear Calc Est GFR (MDRD) Af Amer Est GFR (MDRD) Non-Af BUN/Creatinine Ratio Glucose Calcium POC Glucose 126 H 116 H 137 H Crossmatch 04/02/20 04/02/20 04:50 04:50 WBC 9.9 RBC 3.25 L Hgb 9.1 L Hct 29.2 L MCV 89.8 MCH 28.0 MCHC 31.2 L RDW Std Deviation 52.4 H RDW Coeff of Fadumo 15.9 H Plt Count 229 MPV 10.1 Immature Gran % (Auto) 0.700 Neut % (Auto) 86.5 H Lymph % (Auto) 8.5 L Tompkins % (Auto) 3.3 Eos % (Auto) 0.9 Baso % (Auto) 0.1 Absolute Neuts (auto) 8.6 H Absolute Lymphs (auto) 0.84 Nucleated RBC % [address] Review Sodium 147 H Potassium 3.2 L Chloride 113 H Carbon Dioxide 31.0 Anion Gap 3 L BUN 28 H Creatinine 1.02 Estim Creat Clear Calc 66.60 Est GFR (MDRD) Af Amer 92 Est GFR (MDRD) Non-Af 76 BUN/Creatinine Ratio 27.5 H Glucose 138 H Calcium 7.1 L POC Glucose Crossmatch Microbiology 03/29/20 19:15 Sputum, Induced/Lukens Gram Stain - Final 03/29/20 19:15 Sputum, Induced/Lukens Respiratory Culture - Final Staphylococcus aureus Clinical Impression(s) from Imaging Studies Chest X-Ray 03/20/20 10:47 IMPRESSION: Bilateral pulmonary infiltrates with a peripheral tendency for distribution. With the patient''s history of Covid positive, this is in keeping with coal but pneumonitis. Electronically Signed: Ross Ulrich, at 11:17 EDT , Service support , Chest CTA 03/20/20 11:43 IMPRESSION: Diffuse bilateral infiltrates involving both lungs in the differential peripheral distribution in keeping with the patient''s Covid diagnosis. 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 Electronically Signed: Ross Ulrich, at 12:45 EDT , Service support , Chest X-Ray 03/22/20 06:29 IMPRESSION: Minimal change in bilateral infiltrates. at 0700 Reported and signed by: Sushma Fong MD Electronically Signed: Sushma Fong MD at 7:00 EDT Tel , Service support , Chest X-Ray 03/28/20 10:05 IMPRESSION: Bibasilar infiltrates left greater than right although there has been improvement. The tip of the orogastric tube is at the gastroesophageal junction. Electronically Signed: Ross Ulrich, at 10:24 EDT , Service support , Chest X-Ray 03/28/20 10:45 IMPRESSION: The tip of the right central catheter is at the junction of the superior vena cava and right atrium. Electronically Signed: Ross Mojgan, at 11:48 EDT , Service support , Renal Ultrasound 03/29/20 09:43 IMPRESSION: No hydronephrosis. Electronically Signed: Kostas Aquino MD ([place]) at 12:42 EDT , Service support , KUB X-Ray 03/31/20 12:57 IMPRESSION: Nasogastric tube extends into the stomach. Bibasilar atelectasis. Focal left basilar infiltrate cannot be excluded. Electronically Signed: Moose Simon DO at 15:15 EDT Tel [phone], Service support , Medical Necessity - Tobacco Use Smoking Status: Never smoker Tobacco Use: Non-smoker Assessment/Plan All Active Problems (Last Updated 02/12/19 @ 14:15 by Gisele Barnhart) Myocardial infarction (Resolved) COVID-19 (Acute) Respiratory failure (Acute) Upper GI bleed (Acute) Atherosclerosis of coronary artery of [place] heart without angina pectoris (Ruled-out) RECOMMENDATIONS: 1. Continue to wean supplemental oxygen to maintain saturations at or above 90%. 2. Encourage incentive spirometer use and mobilize patient as tolerated. 3. Advanced to clear liquids today per general surgery. 4. Restart home beta-blaze regimen. 5. Continue antimicrobials per ID recommendations. 6. Continue twice daily PPI therapy. IMPRESSIONS: 1. Acute hypoxemic respiratory failure secondary to coronavirus pneumonia The patient was diagnosed with coronavirus infection and does have bilateral infiltrates on CTA chest consistent with COVID pneumonia. The patient initially received supportive measures with supplemental oxygen, convalescent plasma, Remdesevir and Decadron. In addition, the patient was placed on systemic anticoagulation. However, he developed what is likely a bleeding ulcer as a consequence of systemic anticoagulation and eventually had to be intubated. The patient's respiratory status has improved and he was able to be successfully extubated from mechanical ventilatory support. Plan to continue to wean supplemental oxygen to maintain saturations at or above 90%. He will be continued on antimicrobials per ID recommendations. Encourage incentive spirometer use and mobilize patient as tolerated. 2. Hemorrhagic shock secondary to bleeding peptic ulcer complicated by systemic anticoagulation Resolved. The patient's hemodynamics have stabilized with vasopressor support and transfusion of blood products. Plan to continue to monitor blood counts and transfuse if hemoglobin drops below 7 g/dL. The patient will be continued on twice daily PPI therapy. General surgery is following. Plan to advance to clear liquid diet today. 3. Hypernatremia/hypokalemia Continue D5W as ordered. Potassium repletion as ordered. Continue to monitor electrolytes daily. 4. Paroxysmal atrial fibrillation The patient did transiently go into atrial fibrillation yesterday but spontaneously converted to a normal sinus rhythm overnight. Plan to restart home beta-blaze regimen, once the patient tolerates p.o. intake. 5. History of CVA/chronic kidney disease/hypertension/hyperlipidemia/CODE STATUS Complicates care, management, recovery and prognosis. CODE STATUS remains full code. This note was generated with [employer] dictation software. It may contain incorrect words, spelling, and punctuation that were not noted in checking the note before signing. Inpatient E&M: [id number] [facility] L3
[2020-04-02 06:24] LABS: Magnesium 2.6 mg/dL (1.6-2.6)
--- NOTE | 2020-04-02 07:29 | PN_ITS ---
Patient Problems: Active and Suspected Problems (Last Updated 02/12/19 @ 14:15 by Gisele Barnhart) COVID-19 (Acute) Respiratory failure (Acute) Upper GI bleed (Acute) Subjective: Patient seen and examined. He is doing well today and has no conmplaints. He remains on 5L of oxygen by nasal canula. NG tube is out after it was dislodged yesterday. REview of systems otherwise negative. He did convert spontaneously to sinus rhythm from afib yesterday. He is in cumulative positive balance by ~ 1L. Review of systems otherwise negative. Vitals/I&O's: Vital Signs Temp Pulse Resp BP Pulse Ox 98.9 F 65 16 151/55 H 97 04/02/20 06:00 04/02/20 06:00 04/02/20 06:00 04/02/20 06:00 04/02/20 06:00 Oxygen Flow Rate (L/min) 5 Oxygen Delivery Method Nasal Cannula Weight: 216 lb 7.903 oz Body Mass Index (BMI) 31.8 Intake and Output for Last 24 Hours 03/31/20 04/01/20 04/02/20 23:59 23:59 23:59 Intake Total 3416.91 / 3436.81 3198.06 / 4113.06 2156.50 / 2156.50 Output Total 2180 / 2180 2190 / 2460 770 / 770 Balance 1236.91 / 1256.81 1008.06 / 1653.06 1386.50 / 1386.50 General: Alert, Oriented x3, Cooperative, No apparent distress, HEENT: Atraumatic, PERRLA, EOMI, Normocephalic Oral: Dry Mucosa Neck: Supple, No JVD, Negative Carotid Bruits Lungs: - - decreased breath sounds bibasally, no wheezes or crackles. on 5L of oxygen by nasal canula Cardiovascular: Normal S1, Normal S2, No murmurs, normal sinus rhythm Abdomen: Bowel Sounds Present, Soft, Non Tender, Non-Distended, No Hepato- splenomegaly Extremities: No clubbing, No cyanosis, No edema, Capillary Refill Less than 3 Seconds Skin: No rashes, No breakdown Musculoskeletal: No Tenderness to Palpation of Joints or Extremities Lymphatic: No Cervical, Supraclavicular, or Inguinal Adenopathy Neurological: Cranial nerves II-XII grossly intact, Neuro grossly intact, Motor Exam 5/5 strength throughout Psych/Mental Status: Normal Affect, Appropriate, Alert and oriented to time, place, person, mood and affect Microbiology Past 72 Hours 03/29/20 19:15 Sputum, Induced/Lukens Gram Stain - Final 03/29/20 19:15 Sputum, Induced/Lukens Respiratory Culture - Final Staphylococcus aureus Laboratory Results 03/28/20 07:35: Crossmatch See Detail 03/30/20 07:35: Crossmatch See Detail 03/30/20 07:35: Crossmatch See Detail 04/01/20 12:03: POC Glucose 114 H 04/01/20 17:36: POC Glucose 126 H 04/02/20 00:25: POC Glucose 116 H 04/02/20 04:47: POC Glucose 137 H 04/02/20 04:50: WBC 9.9, RBC 3.25 L, Hgb 9.1 L, Hct 29.2 L, MCV 89.8, MCH 28.0, MCHC 31.2 L, RDW Std Deviation 52.4 H, RDW Coeff of Fadumo 15.9 H, Plt Count 229, MPV 10.1, Immature Gran % (Auto) 0.700, Neut % (Auto) 86.5 H, Lymph % (Auto) 8.5 L, Barry % (Auto) 3.3, Eos % (Auto) 0.9, Baso % (Auto) 0.1, Absolute Neuts (auto) 8.6 H, Absolute Lymphs (auto) 0.84, Nucleated RBC % 0 04/02/20 04:50: Sodium 147 H, Potassium 3.2 L, Chloride 113 H, Carbon Dioxide 31 .0, Anion Gap 3 L, BUN 28 H, Creatinine 1.02, Estim Creat Clear Calc 66.60, Est GFR (MDRD) Af Amer 92, Est GFR (MDRD) Non-Af 76, BUN/Creatinine Ratio 27.5 H, Glucose 138 H, Calcium 7.1 L 04/02/20 04:50: Magnesium 2.6 Diagnostic Data Chest CTA 03/20/20 11:43 IMPRESSION: Diffuse bilateral infiltrates involving both lungs in the differential peripheral distribution in keeping with the patient''s Covid diagnosis. 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 Electronically Signed: Ross Mojgan, at 12:45 EDT , Service support , Chest X-Ray 03/28/20 10:45 IMPRESSION: The tip of the right central catheter is at the junction of the superior vena cava and right atrium. Electronically Signed: Ross Mojgan, at 11:48 EDT , Service support , Renal Ultrasound 03/29/20 09:43 IMPRESSION: No hydronephrosis. Electronically Signed: Kostas Aquino MD ([place]) at 12:42 EDT , Service support , KUB X-Ray 03/31/20 12:57 IMPRESSION: Nasogastric tube extends into the stomach. Bibasilar atelectasis. Focal left basilar infiltrate cannot be excluded. Electronically Signed: Moose Simon DO at 15:15 EDT Tel [phone], Service support , Current Medications Acetaminophen (Tylenol Liquid) 650 mg GT Q6H PRN PRN PRN Reason: Pain Score 1-10/Temp > 100.7 F Last Admin: 03/28/20 22:58 Dose: 650 mg Documented by: Albuterol Sulfate (Ventolin Aerosols) 2.5 mg INHALATION Q2H PRN PRN PRN Reason: SOB/Wheezing Atorvastatin Calcium (Lipitor) 10 mg GT DAILY [facility] Last Admin: 04/01/20 09:32 Dose: Not Given Documented by: Chlorhexidine Gluconate () 1 each TOPICAL DAILY [facility] Last Admin: 04/01/20 08:23 Dose: 1 each Documented by: Dextrose (D50w Syringe) 0 gm IV X1 PRN; Protocol PRN Reason: Hypoglycemia Ergocalciferol (Vitamin D) 50,000 unit PO Q7D [facility] Last Admin: 03/30/20 14:06 Dose: Not Given Documented by: Glucagon () 1 mg IM .X1 PRN PRN Reason: Hypoglycemia Guaifenesin (Robitussin Dm) 10 ml GT Q4H PRN PRN PRN Reason: COUGH Hydralazine HCl (Apresoline Iv) 20 mg IV Q4H PRN PRN PRN Reason: SBP > 160 Last Admin: 03/26/20 00:23 Dose: 20 mg Documented by: Sodium Chloride () 500 mls @ 15 mls/hr IV PRN PRN PRN Reason: Blood Transfusion Sodium Chloride () 250 mls @ 15 mls/hr IV .[id number] PRN PRN Reason: Saline Flush Last Infusion: 04/02/20 07:25 Dose: 0 mls/hr Documented by: Sodium Chloride () 250 mls @ 15 mls/hr IV .[id number] PRN PRN Reason: Additional IVPB Infusion Pantoprazole Sodium 40 mg/ (Sodium Chloride) 110 mls @ 330 mls/hr IV Q12 RICHY Last Infusion: 04/01/20 22:30 Dose: Infused Documented by: Dextrose () 1,000 mls @ 150 mls/hr IV .[id number] RICHY Last Admin: 04/02/20 07:19 Dose: 150 mls/hr Documented by: Cefazolin Sodium 2 gm/ Sodium (Chloride) 110 mls @ 150 mls/hr IV Q8 RICHY Last Infusion: 04/02/20 05:48 Dose: Infused Documented by: Potassium Chloride 40 meq/ (Sodium Chloride) 120 mls @ 100 mls/hr IV BOLUS X1 ONE Stop: 04/02/20 07:40 Last Admin: 04/02/20 06:46 Dose: 100 mls/hr Documented by: Insulin Glargine (Lantus ([facility])) 10 units SC DAILY [facility] Last Admin: 04/01/20 12:09 Dose: 10 u Documented by: Insulin Human Lispro (Humalog Kwikpen ([facility])) 0 unit SC Q6 [facility]; Protocol Last Admin: 04/02/20 05:03 Dose: Not Given Documented by: Ondansetron HCl (Zofran) 4 mg IV Q8H PRN PRN PRN Reason: NAUSEA/VOMITING Last Admin: 03/26/20 10:49 Dose: 4 mg Documented by: Polyethylene Glycol (Miralax) 17 gm GT DAILY PRN PRN Reason: Constipation Prochlorperazine Edisylate (Compazine Iv) 5 mg IV Q6H PRN PRN PRN Reason: NAUSEA/VOMITING Last Admin: 03/27/20 09:33 Dose: 5 mg Documented by: Theresa (Senokot) 2 tablet GT BID PRN PRN PRN Reason: Constipation Sodium Chloride () 10 - 40 ml IV UD PRN PRN Reason: SALINE FLUSH Last Admin: 04/02/20 05:03 Dose: 40 ml Documented by: Sodium Chloride () 10 - 40 ml IV UD PRN PRN Reason: Multilumen/Kim Flush Sodium Chloride (0.9% Nacl (Sterile) Posiflush) 10 - 40 ml IV UD PRN PRN Reason: Port access or dressing change Temazepam (Restoril) 15 mg PO QHS PRN PRN PRN Reason: INSOMNIA Last Admin: 03/27/20 21:08 Dose: 15 mg Documented by: STROKE Vital Signs/Narrative: Vital Signs Temp Pulse Resp BP Pulse Ox 04/02/20 06:00 98.9 F 65 16 151/55 H 97 04/02/20 05:00 98.9 F 75 17 155/61 H 95 04/02/20 04:00 98.9 F 65 17 160/57 H 96 Medical Necessity - Tobacco Use Smoking Status: Never smoker Tobacco Use: Non-smoker Assessment/Plan All Active Problems (Last Updated 02/12/19 @ 14:15 by Gisele Barnhart) Myocardial infarction (Resolved) COVID-19 (Acute) Respiratory failure (Acute) Upper GI bleed (Acute) Atherosclerosis of coronary artery of [place] heart without angina pectoris (Ruled-out) # Acute hemorrhagic shock due to bleeding peptic ulcer * patient now off vasopressors and hemodynamically stable * had repeat EGD which showed a nonbleeding ulcer. * s/p transfusion of 4 units of PRBCs * Hb today is 9.1 * on IV protonix q12 * critical care and general surgery on board * for repeat EGD today to ensure bleeding has ceased. * * # Acute hypoxic respiratory failure due to covid 19 pneumonia * was extubated yesterday, and now on 5L oxygen * sputum cultured Staph * now on IV cefazolin. * critical care on board * #Afib: * has now converted spontaneously to normal sinus rhythm. * patient cannot be anticoagulated due to bleeding peptic ulcer * to get 2D echo once covid has resolved * monitor HR * # Hypernatremia: Na is down to 147 today. On D10W. Trend sodium levels # COVID 19 infection: * completed course of remdesivir and received convalescent plasma. * steroids and anticoagulation discontinued due to bleeding ulcer. #Hypokalemia: K is 3.2. Will replace and monitor # Bleeding peptic ulcer: as under hemorrhagic shock. # CAROLYNN: * resolved. Cr down to 1.03 today * renal USG was essentially normal # History of CVA; stable # Hypertension; BP meds on hold o/a of of hemorrhgic shock # CAD: on statin. aspirin on hold o/a of bleeding peptic ulcer DVT prophylaxis: on SCDs W Inpatient E&M: [id number] [facility] L3
--- NOTE | 2020-04-02 07:36 | PN.SURG_ITS ---
Patient Problems: Active and Suspected Problems (Last Updated 02/12/19 @ 14:15 by Gisele Barnhart) COVID-19 (Acute) Respiratory failure (Acute) Upper GI bleed (Acute) Subjective: No nausea or vomiting overnight no abdominal pain - Physical Exam Vitals/I&O's: Vital Signs Temp Pulse Resp BP Pulse Ox 98.9 F 65 16 151/55 H 97 04/02/20 06:00 04/02/20 06:00 04/02/20 06:00 04/02/20 06:00 04/02/20 06:00 Oxygen Flow Rate (L/min) 5 Oxygen Delivery Method Nasal Cannula Weight: 216 lb 7.903 oz Body Mass Index (BMI) 31.8 Intake and Output for Last 24 Hours 03/31/20 04/01/20 04/02/20 23:59 23:59 23:59 Intake Total 3416.91 / 3436.81 3198.06 / 4113.06 2156.50 / 2156.50 Output Total 2180 / 2180 2190 / 2460 770 / 770 Balance 1236.91 / 1256.81 1008.06 / 1653.06 1386.50 / 1386.50 General: Alert, Cooperative Lungs: Normal air movement Abdomen: Soft, Non Tender, Non-Distended Microbiology Past 72 Hours 03/29/20 19:15 Sputum, Induced/Lukens Gram Stain - Final 03/29/20 19:15 Sputum, Induced/Lukens Respiratory Culture - Final Staphylococcus aureus Laboratory Results 03/28/20 07:35: Crossmatch See Detail 03/30/20 07:35: Crossmatch See Detail 03/30/20 07:35: Crossmatch See Detail 04/01/20 12:03: POC Glucose 114 H 04/01/20 17:36: POC Glucose 126 H 04/02/20 00:25: POC Glucose 116 H 04/02/20 04:47: POC Glucose 137 H 04/02/20 04:50: WBC 9.9, RBC 3.25 L, Hgb 9.1 L, Hct 29.2 L, MCV 89.8, MCH 28.0, MCHC 31.2 L, RDW Std Deviation 52.4 H, RDW Coeff of Fadumo 15.9 H, Plt Count 229, MPV 10.1, Immature Gran % (Auto) 0.700, Neut % (Auto) 86.5 H, Lymph % (Auto) 8.5 L, [place] % (Auto) 3.3, Eos % (Auto) 0.9, Baso % (Auto) 0.1, Absolute Neuts (auto) 8.6 H, Absolute Lymphs (auto) 0.84, Nucleated RBC % 0 04/02/20 04:50: Sodium 147 H, Potassium 3.2 L, Chloride 113 H, Carbon Dioxide 31.0, Anion Gap 3 L, BUN 28 H, Creatinine 1.02, Estim Creat Clear Calc 66.60, Est GFR (MDRD) Af Amer 92, Est GFR (MDRD) Non-Af 76, BUN/Creatinine Ratio 27.5 H , Glucose 138 H, Calcium 7.1 L 04/02/20 04:50: Magnesium 2.6 Current Medications Acetaminophen (Tylenol Liquid) 650 mg GT Q6H PRN PRN PRN Reason: Pain Score 1-10/Temp > 100.7 F Last Admin: 03/28/20 22:58 Dose: 650 mg Documented by: Albuterol Sulfate (Ventolin Aerosols) 2.5 mg INHALATION Q2H PRN PRN PRN Reason: SOB/Wheezing Atorvastatin Calcium (Lipitor) 10 mg GT DAILY [facility] Last Admin: 04/01/20 09:32 Dose: Not Given Documented by: Chlorhexidine Gluconate () 1 each TOPICAL DAILY [facility] Last Admin: 04/01/20 08:23 Dose: 1 each Documented by: Dextrose (D50w Syringe) 0 gm IV X1 PRN; Protocol PRN Reason: Hypoglycemia Ergocalciferol (Vitamin D) 50,000 unit PO Q7D [facility] Last Admin: 03/30/20 14:06 Dose: Not Given Documented by: Glucagon () 1 mg IM .X1 PRN PRN Reason: Hypoglycemia Guaifenesin (Robitussin Dm) 10 ml GT Q4H PRN PRN PRN Reason: COUGH Hydralazine HCl (Apresoline Iv) 20 mg IV Q4H PRN PRN PRN Reason: SBP > 160 Last Admin: 03/26/20 00:23 Dose: 20 mg Documented by: Sodium Chloride () 500 mls @ 15 mls/hr IV PRN PRN PRN Reason: Blood Transfusion Sodium Chloride () 250 mls @ 15 mls/hr IV .[id number] PRN PRN Reason: Saline Flush Last Infusion: 04/02/20 07:25 Dose: 0 mls/hr Documented by: Sodium Chloride () 250 mls @ 15 mls/hr IV .[id number] PRN PRN Reason: Additional IVPB Infusion Pantoprazole Sodium 40 mg/ (Sodium Chloride) 110 mls @ 330 mls/hr IV Q12 [facility] Last Infusion: 04/01/20 22:30 Dose: Infused Documented by: Dextrose () 1,000 mls @ 150 mls/hr IV .[id number] RICHY Last Admin: 04/02/20 07:19 Dose: 150 mls/hr Documented by: Cefazolin Sodium 2 gm/ Sodium (Chloride) 110 mls @ 150 mls/hr IV Q8 RICHY Last Infusion: 04/02/20 05:48 Dose: Infused Documented by: Potassium Chloride 40 meq/ (Sodium Chloride) 120 mls @ 100 mls/hr IV BOLUS X1 ONE Stop: 04/02/20 07:40 Last Admin: 04/02/20 06:46 Dose: 100 mls/hr Documented by: Insulin Glargine (Lantus (Bkc)) 10 units SC DAILY RICHY Last Admin: 04/01/20 12:09 Dose: 10 u Documented by: Insulin Human Lispro (Humalog Kwikpen (Bk)) 0 unit SC Q6 [facility]; Protocol Last Admin: 04/02/20 05:03 Dose: Not Given Documented by: Ondansetron HCl (Zofran) 4 mg IV Q8H PRN PRN PRN Reason: NAUSEA/VOMITING Last Admin: 03/26/20 10:49 Dose: 4 mg Documented by: Polyethylene Glycol (Miralax) 17 gm GT DAILY PRN PRN Reason: Constipation Prochlorperazine Edisylate (Compazine Iv) 5 mg IV Q6H PRN PRN PRN Reason: NAUSEA/VOMITING Last Admin: 03/27/20 09:33 Dose: 5 mg Documented by: Senna (Senokot) 2 tablet GT BID PRN PRN PRN Reason: Constipation Sodium Chloride () 10 - 40 ml IV UD PRN PRN Reason: SALINE FLUSH Last Admin: 04/02/20 05:03 Dose: 40 ml Documented by: Sodium Chloride () 10 - 40 ml IV UD PRN PRN Reason: Multilumen/Kim Flush Sodium Chloride (0.9% Nacl (Sterile) Posiflush) 10 - 40 ml IV UD PRN PRN Reason: Port access or dressing change Temazepam (Restoril) 15 mg PO QHS PRN PRN PRN Reason: INSOMNIA Last Admin: 03/27/20 21:08 Dose: 15 mg Documented by: Medical Necessity - Tobacco Use Smoking Status: Never smoker Tobacco Use: Non-smoker Assessment/Plan All Active Problems (Last Updated 02/12/19 @ 14:15 by Gisele Barnhart) Myocardial infarction (Resolved) COVID-19 (Acute) Respiratory failure (Acute) Upper GI bleed (Acute) Atherosclerosis of coronary artery of [place] heart without angina pectoris (Ruled-out) 75-year-old male with large duodenal ulcer and possible perforation 1. Patient's hemoglobin is stable and he is not having abdominal pain. NG was dislodged yesterday and he kept n.p.o. all day yesterday. White count is normal today. Okay to start clear liquid diet with p.o. medication. Do not advance diet beyond clears today. Sami Figueroa MD Pager: [facility] [address] [place] [address], [address] [place] [address] Office:
[2020-04-02] MEDS: Atorvastatin Calcium 10 MG Tablet GT (09:04)
--- NOTE | 2020-04-02 09:45 | CASEMGMT ---
Pt is PCU status in ICU at this time d/t COVID infection. Pt's NG dislodged yesterday during therapy and pt to be started on clear liquid diet today. Pt currently on 5-6liters nc at rest at this time. Pt was a mod assist of 2 yesterday for therapy and took several attempts to go from sit to standing. CM to follow for therapy notes and home oxygen need. SHERINE CM to touch base with pt tomorrow to see what his plan is for discharge at that time. SStaten SHERINE BANKS
[2020-04-02] MEDS: Labetalol 100 MG Tablet PO (11:10)
[2020-04-02] MEDS: Insulin Lispro 100 UNIT/ML INSULN.PEN SC (11:11)
[2020-04-02 11:26] LABS: Bedside Glucose 192 mg/dL (70-110)
[2020-04-02 17:55] LABS: Bedside Glucose 134 mg/dL (70-110)
[2020-04-03] VITALS (15 sets, daily range): BP systolic 126–168; BP diastolic 54–86; PULSE 62–90; RESP 18–20; TEMP 36.7–37.4; O2SAT 93–96
[2020-04-03 01:45] LABS: Bedside Glucose 133 mg/dL (70-110)
[2020-04-03] MEDS: 0.9% Saline Lock 10 ML Syringe IV (04:45)
[2020-04-03 04:48] LABS: Absolute Lymphocyte Count 1.04 X10^3/uL (0.83-4.51); Basophil# 0.01 X10^3/uL; Basophil% 0.1 % (0-1); Eosinophil# 0.17 X10^3/uL; Eosinophils% 1.6 % (0-5); Hematocrit 28.8 % (40-54); Hemoglobin 9.2 g/dL (13.0-16.5); Lymphocyte # 1.04 X10^3/ul (4.0); Lymphocyte % 9.7 % (19-41); Mean Corp Hgb Conc 31.9 g/dL (32-36); Mean Corpuscular Hgb 28.3 pg (27.0-32.0); Mean Corpuscular Volume 88.6 fL (80-94); Mean Platelet Vol. 10.5 fl (6.2-12.0); Monocyte# 0.42 X10^3/uL; Monocyte% 3.9 % (0-10); NRBC Flagged by Analyzer 0 % (0-5); Neutrophil # 9.02 X10^3/uL (2.7-7.7); Platelet Count 214 K/mm3 (150-450); RBC Distribution Width CV 14.8 % (11.6-14.6); RBC Distribution Width SD 48.3 fl (35.1-43.9); Red Blood Count 3.25 M/mm3 (4.6-6.2); White Blood Count 10.7 K/mm3 (4.4-11.0)
[2020-04-03 05:07] LABS: Anion Gap 5 (5-15); BUN 16 mg/dL (7-18); BUN/Creat Ratio 16.2 RATIO (10-20); Chloride 104 mmol/L (98-107); Creatinine, Serum 0.98 mg/dL (0.70-1.30); EST Glomerular Filtration Rate 79 mL/min (>60); Est Glom Filt Rate - Afr Amer 96 mL/min (>60); Estimated Creatinine Clearance 69.32 ml/min; Glucose 137 mg/dL (74-106); Potassium 2.9 mmol/L (3.5-5.1); Sodium Level 141 mmol/L (136-145)
[2020-04-03] MEDS: Cefazolin 2 GM in 0.9% Normal Saline 100 ML IV ×3 (05:34→22:21)
--- NOTE | 2020-04-03 06:10 | PN_ITS ---
Subjective: The patient was seen and examined at the bedside this morning. Events from the last 24 hours have been reviewed. The patient is currently afebrile, hemodynamically stable and maintaining appropriate oxygen saturations on 4 L/min via nasal cannula. Hemoglobin again remains stable. Potassium remains low this morning at 2.9. Sodium and chloride levels have both improved. The patient is currently documented to be overall net +3.4 L for the hospital admission. Overnight, the patient did develop a globus sensation, which prompted the overnight nurse to place him in an n.p.o. status. However, over the course of the night, the aforementioned sensation resolved. Objective: The patient's most recent lab work, culture data and imaging studies have all been personally reviewed. General: Alert, Cooperative, No apparent distress HEENT: Atraumatic, PERRLA, Normocephalic Oral: No Gingival or Mucosal Lesions/ Ulcerations Neck: Supple, No Nodes, Trachea Midline Lungs: No rhonchi, No wheeze, No rales, Diminished Cardiovascular: Regular rate, Regular Rhythm Abdomen: Bowel Sounds Present, Soft, Non Tender, Obese Extremities: No clubbing, No cyanosis, No edema Skin: No breakdown Musculoskeletal: No Tenderness to Palpation of Joints or Extremities, No Muscle Wasting Lymphatic: No Cervical, Supraclavicular, or Inguinal Adenopathy Neurological: Cranial nerves II-XII grossly intact, Neuro grossly intact Psych/Mental Status: Alert and oriented to time, place, person, mood and affect Vital Signs Temp Pulse Resp BP Pulse Ox 99.4 F H 63 19 H 158/68 H 93 04/03/20 02:25 04/03/20 04:00 04/03/20 02:25 04/03/20 02:25 04/03/20 02:25 Oxygen Flow Rate (L/min) 4 Oxygen Delivery Method Nasal Cannula Weight: 219 lb 5.759 oz Body Mass Index (BMI) 31.8 Intake and Output for Last 24 Hours 04/01/20 04/02/20 04/03/20 23:59 23:59 23:59 Intake Total 3198.06 / 4113.06 5783.50 / 5783.50 932.75 / 932.75 Output Total 2190 / 2460 2445 / 2445 1400 / 1400 Balance 1008.06 / 1653.06 3338.50 / 3338.50 -467.25 / -467.25 Labs (Last 48 Hours) 03/28/20 03/30/20 03/30/20 07:35 07:35 07:35 WBC RBC Hgb Hct MCV MCH MCHC RDW Std Deviation RDW Coeff of Fadumo Plt Count MPV Immature Gran % (Auto) Neut % (Auto) Lymph % (Auto) [place] % (Auto) Eos % (Auto) Baso % (Auto) Absolute Neuts (auto) Absolute Lymphs (auto) Nucleated RBC % Sodium Potassium Chloride Carbon Dioxide Anion Gap BUN Creatinine Estim Creat Clear Calc Est GFR (MDRD) Af Amer Est GFR (MDRD) Non-Af BUN/Creatinine Ratio Glucose Calcium Magnesium POC Glucose Crossmatch See Detail See Detail See Detail 04/01/20 04/01/20 04/01/20 05:56 12:03 17:36 WBC RBC Hgb Hct MCV MCH MCHC RDW Std Deviation RDW Coeff of Fadumo Plt Count MPV Immature Gran % (Auto) Neut % (Auto) Lymph % (Auto) [place] % (Auto) Eos % (Auto) Baso % (Auto) Absolute Neuts (auto) Absolute Lymphs (auto) Nucleated RBC % Sodium Potassium Chloride Carbon Dioxide Anion Gap BUN Creatinine Estim Creat Clear Calc Est GFR (MDRD) Af Amer Est GFR (MDRD) Non-Af BUN/Creatinine Ratio Glucose Calcium Magnesium POC Glucose 162 H 114 H 126 H Crossmatch 04/02/20 04/02/20 04/02/20 00:25 04:47 04:50 WBC 9.9 RBC 3.25 L Hgb 9.1 L Hct 29.2 L MCV 89.8 MCH 28.0 MCHC 31.2 L RDW Std Deviation 52.4 H RDW Coeff of Fadumo 15.9 H Plt Count 229 MPV 10.1 Immature Gran % (Auto) 0.700 Neut % (Auto) 86.5 H Lymph % (Auto) 8.5 L [place] % (Auto) 3.3 Eos % (Auto) 0.9 Baso % (Auto) 0.1 Absolute Neuts (auto) 8.6 H Absolute Lymphs (auto) 0.84 Nucleated RBC % 0 Sodium Potassium Chloride Carbon Dioxide Anion Gap BUN Creatinine Estim Creat Clear Calc Est GFR (MDRD) Af Amer Est GFR (MDRD) Non-Af BUN/Creatinine Ratio Glucose Calcium Magnesium POC Glucose 116 H 137 H Crossmatch 04/02/20 04/02/20 04/02/20 04:50 04:50 11:09 WBC RBC Hgb Hct MCV MCH MCHC RDW Std Deviation RDW Coeff of Fadumo Plt Count MPV Immature Gran % (Auto) Neut % (Auto) Lymph % (Auto) [place] % (Auto) Eos % (Auto) Baso % (Auto) Absolute Neuts (auto) Absolute Lymphs (auto) Nucleated RBC % Sodium 147 H Potassium 3.2 L Chloride 113 H Carbon Dioxide 31.0 Anion Gap 3 L BUN 28 H Creatinine 1.02 Estim Creat Clear Calc 66.60 Est GFR (MDRD) Af Amer 92 Est GFR (MDRD) Non-Af 76 BUN/Creatinine Ratio 27.5 H Glucose 138 H Calcium 7.1 L Magnesium 2.6 POC Glucose 192 H Crossmatch 04/02/20 04/02/20 04/03/20 17:39 23:02 04:40 WBC 10.7 RBC 3.25 L Hgb 9.2 L Hct 28.8 L MCV 88.6 MCH 28.3 MCHC 31.9 L RDW Std Deviation 48.3 H RDW Coeff of Fadumo 14.8 H Plt Count 214 MPV 10.5 Immature Gran % (Auto) 0.700 Neut % (Auto) 84.0 H Lymph % (Auto) 9.7 L [place] % (Auto) 3.9 Eos % (Auto) 1.6 Baso % (Auto) 0.1 Absolute Neuts (auto) 9.0 H Absolute Lymphs (auto) 1.04 Nucleated RBC % 0 Sodium Potassium Chloride Carbon Dioxide Anion Gap BUN Creatinine Estim Creat Clear Calc Est GFR (MDRD) Af Amer Est GFR (MDRD) Non-Af BUN/Creatinine Ratio Glucose Calcium Magnesium POC Glucose 134 H 133 H Crossmatch 04/03/20 04:40 WBC RBC Hgb Hct MCV MCH MCHC RDW Std Deviation RDW Coeff of Fadumo Plt Count MPV Immature Gran % (Auto) Neut % (Auto) Lymph % (Auto) [place] % (Auto) Eos % (Auto) Baso % (Auto) Absolute Neuts (auto) Absolute Lymphs (auto) Nucleated RBC % Sodium 141 Potassium 2.9 L Chloride 104 Carbon Dioxide 32.0 Anion Gap 5 BUN 16 Creatinine 0.98 Estim Creat Clear Calc 69.32 Est GFR (MDRD) Af Amer 96 Est GFR (MDRD) Non-Af 79 BUN/Creatinine Ratio 16.2 Glucose 137 H Calcium 7.0 L Magnesium POC Glucose Crossmatch Clinical Impression(s) from Imaging Studies Chest X-Ray 03/20/20 10:47 IMPRESSION: Bilateral pulmonary infiltrates with a peripheral tendency for distribution. With the patient''s history of Covid positive, this is in keeping with coal but pneumonitis. Electronically Signed: Ross Ulrich, at 11:17 EDT , Service support , Chest CTA 03/20/20 11:43 IMPRESSION: Diffuse bilateral infiltrates involving both lungs in the differential peripheral distribution in keeping with the patient''s Covid diagnosis. 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 Electronically Signed: Ross Ulrich, at 12:45 EDT , Service support , Chest X-Ray 03/22/20 06:29 IMPRESSION: Minimal change in bilateral infiltrates. at 0700 Reported and signed by: Sushma Fong MD Electronically Signed: Sushma Fong MD at 7:00 EDT Tel , Service support , Chest X-Ray 03/28/20 10:05 IMPRESSION: Bibasilar infiltrates left greater than right although there has been improvement. The tip of the orogastric tube is at the gastroesophageal junction. Electronically Signed: Ross Ulrich, at 10:24 EDT , Service support , Chest X-Ray 03/28/20 10:45 IMPRESSION: The tip of the right central catheter is at the junction of the superior vena cava and right atrium. Electronically Signed: Ross Joynerdiony, at 11:48 EDT , Service support , Renal Ultrasound 03/29/20 09:43 IMPRESSION: No hydronephrosis. Electronically Signed: Kostas Aquino MD ([place]) at 12:42 EDT , Service support , KUB X-Ray 03/31/20 12:57 IMPRESSION: Nasogastric tube extends into the stomach. Bibasilar atelectasis. Focal left basilar infiltrate cannot be excluded. Electronically Signed: Moose Simon DO at 15:15 EDT Tel [phone], Service support , Medical Necessity - Tobacco Use Smoking Status: Never smoker Tobacco Use: Non-smoker Assessment/Plan All Active Problems (Last Updated 02/12/19 @ 14:15 by Gisele Barnhart) Myocardial infarction (Resolved) COVID-19 (Acute) Respiratory failure (Acute) Upper GI bleed (Acute) Atherosclerosis of coronary artery of [place] heart without angina pectoris (Ruled-out) RECOMMENDATIONS: 1. Continue to wean supplemental oxygen to maintain saturations at or above 90%. 2. Encourage incentive spirometer use and mobilize patient as tolerated. 3. Dietary advancement per general surgery recommendations. 4. Continue home beta-blaze regimen. 5. Continue antimicrobials per ID recommendations. 6. Continue twice daily PPI therapy. 7. Additional potassium repletion. 8. Stop supplemental IV fluids. 9. Remove central venous catheter. IMPRESSIONS: 1. Acute hypoxemic respiratory failure secondary to coronavirus pneumonia The patient was diagnosed with coronavirus infection and does have bilateral infiltrates on CTA chest consistent with COVID pneumonia. The patient initially received supportive measures with supplemental oxygen, convalescent plasma, Remdesevir and Decadron. In addition, the patient was placed on systemic anticoagulation. However, he developed what is likely a bleeding ulcer as a consequence of systemic anticoagulation and eventually had to be intubated. The patient's respiratory status has improved and he was able to be successfully extubated from mechanical ventilatory support. Plan to continue to wean supplemental oxygen to maintain saturations at or above 90%. He will be continued on antimicrobials per ID recommendations. Encourage incentive spirometer use and mobilize patient as tolerated. 2. Hemorrhagic shock secondary to bleeding peptic ulcer complicated by systemic anticoagulation Resolved. The patient's hemodynamics have stabilized with vasopressor support and transfusion of blood products. Plan to continue to monitor blood counts and transfuse if hemoglobin drops below 7 g/dL. The patient will be continued on twice daily PPI therapy. General surgery is following. Plan to advance diet as tolerated. 3. Hypokalemia Additional potassium repletion as ordered. Continue to monitor electrolytes daily. 4. Paroxysmal atrial fibrillation The patient did transiently go into atrial fibrillation yesterday but spontaneously converted to a normal sinus rhythm overnight. Plan to continue home beta-blaze regimen. 5. History of CVA/chronic kidney disease/hypertension/hyperlipidemia/CODE STATUS Complicates care, management, recovery and prognosis. CODE STATUS remains full code. Case management/social work to assist with disposition planning. This note was generated with Trac[employer] dictation software. It may contain incorrect words, spelling, and punctuation that were not noted in checking the note before signing. Inpatient E&M: [id number] [facility] L[facility]
[2020-04-03 06:31] LABS: Bedside Glucose 145 mg/dL (70-110)
--- NOTE | 2020-04-03 07:56 | PCM.PN.SRG ---
Patient Problems: Active and Suspected Problems (Last Updated 02/12/19 @ 14:15 by Gisele Barnhart) COVID-19 (Acute) Respiratory failure (Acute) Upper GI bleed (Acute) Subjective: Patient had a feeling like something was stuck in his mouth yesterday and was made n.p.o. overnight. No nausea vomiting or abdominal pain. Positive flatus and a small smear of stool. - Physical Exam Vitals/I&O's: Vital Signs Temp Pulse Resp BP Pulse Ox 99.4 F H 83 19 H 158/68 H 94 04/03/20 02:25 04/03/20 07:13 04/03/20 02:25 04/03/20 02:25 04/03/20 07:03 Oxygen Flow Rate (L/min) 4 Oxygen Delivery Method Nasal Cannula Weight: 219 lb 5.759 oz Body Mass Index (BMI) 31.8 Intake and Output for Last 24 Hours 04/01/20 04/02/20 04/03/20 23:59 23:59 23:59 Intake Total 3198.06 / 4113.06 5783.50 / 5783.50 1169.50 / 1169.50 Output Total 2190 / 2460 2445 / 2445 2050 / 2050 Balance 1008.06 / 1653.06 3338.50 / 3338.50 -880.50 / -880.50 General: Alert, Cooperative Abdomen: Soft, Non Tender, Non-Distended Microbiology Past 72 Hours 03/29/20 19:15 Sputum, Induced/Lukens Gram Stain - Final 03/29/20 19:15 Sputum, Induced/Lukens Respiratory Culture - Final Staphylococcus aureus Laboratory Results 04/02/20 11:09: POC Glucose 192 H 04/02/20 17:39: POC Glucose 134 H 04/02/20 23:02: POC Glucose 133 H 04/03/20 04:40: WBC 10.7, RBC 3.25 L, Hgb 9.2 L, Hct 28.8 L, MCV 88.6, MCH 28.3, MCHC 31.9 L, RDW Std Deviation 48.3 H, RDW Coeff of Fadumo 14.8 H, Plt Count 214, MPV 10.5, Immature Gran % (Auto) 0.700, Neut % (Auto) 84.0 H, Lymph % (Auto) 9.7 L, [place] % (Auto) 3.9, Eos % (Auto) 1.6, Baso % (Auto) 0.1, Absolute Neuts (auto) 9.0 H, Absolute Lymphs (auto) 1.04, Nucleated RBC % 0 04/03/20 04:40: Sodium 141, Potassium 2.9 L, Chloride 104, Carbon Dioxide 32.0, Anion Gap 5, BUN 16, Creatinine 0.98, Estim Creat Clear Calc 69.32, Est GFR (MDRD) Af Amer 96, Est GFR (MDRD) Non-Af 79, BUN/Creatinine Ratio 16.2, Glucose 137 H, Calcium 7.0 L 04/03/20 04:45: POC Glucose 145 H Current Medications Acetaminophen (Tylenol) 650 mg PO Q6H PRN PRN PRN Reason: Pain Score 1-10/Temp > 100.7 F Albuterol Sulfate (Ventolin Aerosols) 2.5 mg INHALATION Q2H PRN PRN PRN Reason: SOB/Wheezing Atorvastatin Calcium (Lipitor) 10 mg PO DAILY R[facility]Y Dextrose (D50w Syringe) 0 gm IV X1 PRN; Protocol PRN Reason: Hypoglycemia Ergocalciferol (Vitamin D) 50,000 unit PO Q7D [facility] Last Admin: 03/30/20 14:06 Dose: Not Given Documented by: Glucagon () 1 mg IM .X1 PRN PRN Reason: Hypoglycemia Guaifenesin (Robitussin Dm) 10 ml PO Q4H PRN PRN PRN Reason: COUGH Hydralazine HCl (Apresoline Iv) 20 mg IV Q4H PRN PRN PRN Reason: SBP > 160 Last Admin: 03/26/20 00:23 Dose: 20 mg Documented by: Sodium Chloride () 500 mls @ 15 mls/hr IV PRN PRN PRN Reason: Blood Transfusion Sodium Chloride () 250 mls @ 15 mls/hr IV .[id number] PRN PRN Reason: Saline Flush Last Infusion: 04/03/20 07:15 Dose: 0 mls/hr Documented by: Sodium Chloride () 250 mls @ 15 mls/hr IV .[id number] PRN PRN Reason: Additional IVPB Infusion Pantoprazole Sodium 40 mg/ (Sodium Chloride) 110 mls @ 330 mls/hr IV Q12 R[facility] Last Infusion: 04/02/20 22:13 Dose: Infused Documented by: Cefazolin Sodium 2 gm/ Sodium (Chloride) 110 mls @ 150 mls/hr IV Q8 [facility] Last Infusion: 04/03/20 06:18 Dose: Infused Documented by: Insulin Glargine (Lantus ([facility])) 10 units SC DAILY [facility] Last Admin: 04/02/20 11:10 Dose: 10 u Documented by: Insulin Human Lispro (Humalog Kwikpen ([facility])) 0 unit SC Q6 [facility]; Protocol Last Admin: 04/03/20 04:45 Dose: Not Given Documented by: Labetalol HCl (Trandate) 100 mg PO TID [facility] Last Admin: 04/03/20 04:52 Dose: Not Given Documented by: Ondansetron HCl (Zofran) 4 mg IV Q8H PRN PRN PRN Reason: NAUSEA/VOMITING Last Admin: 03/26/20 10:49 Dose: 4 mg Documented by: Polyethylene Glycol (Miralax) 17 gm PO DAILY PRN PRN Reason: Constipation Potassium Chloride (K-Dur) 40 meq PO DAILYCM [facility] Prochlorperazine Edisylate (Compazine Iv) 5 mg IV Q6H PRN PRN PRN Reason: NAUSEA/VOMITING Last Admin: 03/27/20 09:33 Dose: 5 mg Documented by: Senna (Senokot) 2 tablet PO BID PRN PRN PRN Reason: Constipation Sodium Chloride () 10 - 40 ml IV UD PRN PRN Reason: SALINE FLUSH Last Admin: 04/03/20 04:45 Dose: 40 ml Documented by: Sodium Chloride () 10 - 40 ml IV UD PRN PRN Reason: Multilumen/Kim Flush Sodium Chloride (0.9% Nacl (Sterile) Posiflush) 10 - 40 ml IV UD PRN PRN Reason: Port access or dressing change Temazepam (Restoril) 15 mg PO QHS PRN PRN PRN Reason: INSOMNIA Last Admin: 03/27/20 21:08 Dose: 15 mg Documented by: Medical Necessity - Tobacco Use Smoking Status: Never smoker Tobacco Use: Non-smoker Assessment/Plan All Active Problems (Last Updated 02/12/19 @ 14:15 by Gisele Barnhart) Myocardial infarction (Resolved) COVID-19 (Acute) Respiratory failure (Acute) Upper GI bleed (Acute) Atherosclerosis of coronary artery of [place] heart without angina pectoris (Ruled-out) 75-year-old male with possibly perforated large duodenal ulcer with bleeding 1. Patient seems to be improving. He is having a speech therapy evaluation today. If he passes swallow evaluation and is able to restart a diet I recommend advancing to a full liquid diet today and continuing IV PPI. Sami Figueroa MD Pager: [facility] [address] [place] [address], [address] [place] [address] Office:
[2020-04-03] MEDS: Atorvastatin Calcium 10 MG Tablet PO (08:48)
--- NOTE | 2020-04-03 09:00 | CASEMGMT ---
Addendum entered by Trina Sue 04/03/20 15:08: Pt's COVID result is 'not detected' at this time. Per therapy, pt did ok today but he does not have good safety awareness at this time and they recommend that further skilled therapy and states pt initially agreed to SNF but then stated, ' I think I will try to go home first.' This RN DARREN spoke with again at this time and she is updated on all per request and pt ok. states she would prefer pt to go to TCU at discharge and states she will discuss this with him. Karthik METZ aware, voices understanding and pt placed on TCU list at this time. Ayanna BASURTO and Dr. Ureña aware that pt will need another negative COVID 24 hours after todays for TCU acceptance. is aware that pt will be quarantined in TCU for 14 days. Pt is currently on 2liters nc at rest and only needed 3 liters with exertion with therapy at this time. voice no further questions/concerns/needs at this time and thanks this RN DARREN at this time. CM to follow. Susana BASURTO CM Original Note: Call to pt to discuss discharge plan at this time d/t pt being in COVID precautions. Pt is very upbeat and motivated a at this time and states I know I need to get myself moving.' Pt states he would like to go home with [facility] at discharge and is aware that he will most likely need home oxygen at discharge(previously agreeable to [facility]). Pt needed 7liters when up with therapy yesterday and was a min assist of 2 at that time but did not want to be up for long. Pt is on 4liters at rest at this time and pt speaks in full sentences with no resp distress at this time. Pt states that he has a WW already and that they do have an elevator in the home and pt would have no steps into home. Call to [facility] to notify of referral but per Carmen, they are not taking COVID positive pt's at this time. Dr. Ureña updated on all at this time, voices understanding. This SHERINE BANKS then received a call from pt's , Sade, stating she does have concerns with pt coming home at discharge d/t current weakness, home oxygen need, and also if he is still COVID positive. This SHERINE BANKS to call back after pt works with therapy per request and Dr. Ureña to order another COVID test. states that she would like pt to go to TCU, if needed at discharge for further therapy, if he had 2 negative COVID tests(per TCU guidelines). CM to follow for PT/OT notes and COVID testing. Pt to advance to a full liquid diet today. SStaten RN CM
[2020-04-03] MEDS: Labetalol 100 MG Tablet PO ×3 (09:55→20:58)
--- NOTE | 2020-04-03 09:55 | PN.ID_ITS ---
Patient Problems: Active and Suspected Problems (Last Updated 02/12/19 @ 14:15 by Gisele Barnhart) COVID-19 (Acute) Respiratory failure (Acute) Upper GI bleed (Acute) Subjective: Feeling better, breathing improved, no fever, mild abd soreness - Physical Exam Vitals/I&O's: Vital Signs Temp Pulse Resp BP Pulse Ox 98.5 F 71 20 H 168/77 H 96 04/03/20 08:25 04/03/20 08:25 04/03/20 08:25 04/03/20 08:25 04/03/20 08:25 Oxygen Flow Rate (L/min) 3 Oxygen Delivery Method Nasal Cannula Weight: 99.5 kg Body Mass Index (BMI) 31.8 Intake and Output for Last 24 Hours 04/01/20 04/02/20 04/03/20 23:59 23:59 23:59 Intake Total 3198.06 / 4113.06 5783.50 / 5783.50 1289.50 / 1289.50 Output Total 2190 / 2460 2445 / 2445 2049 / 2049 Balance 1008.06 / 1653.06 3338.50 / 3338.50 -760.50 / -760.50 General: Alert, Cooperative, No apparent distress Lungs: Clear to auscultation, Normal air movement Cardiovascular: Regular rate, Regular Rhythm Abdomen: Soft, Non Tender, Non-Distended Skin: No rashes Microbiology Past 72 Hours 03/29/20 19:15 Sputum, Induced/Lukens Gram Stain - Final 03/29/20 19:15 Sputum, Induced/Lukens Respiratory Culture - Final Staphylococcus aureus Laboratory Results 04/02/20 11:09: POC Glucose 192 H 04/02/20 17:39: POC Glucose 134 H 04/02/20 23:02: POC Glucose 133 H 04/03/20 04:40: WBC 10.7, RBC 3.25 L, Hgb 9.2 L, Hct 28.8 L, MCV 88.6, MCH 28.3, MCHC 31.9 L, RDW Std Deviation 48.3 H, RDW Coeff of Fadumo 14.8 H, Plt Count 214, MPV 10.5, Immature Gran % (Auto) 0.700, Neut % (Auto) 84.0 H, Lymph % (Auto) 9.7 L, [place] % (Auto) 3.9, Eos % (Auto) 1.6, Baso % (Auto) 0.1, Absolute Neuts (auto) 9.0 H, Absolute Lymphs (auto) 1.04, Nucleated RBC % 0 04/03/20 04:40: Sodium 141, Potassium 2.9 L, Chloride 104, Carbon Dioxide 32.0, Anion Gap 5, BUN 16, Creatinine 0.98, Estim Creat Clear Calc 69.32, Est GFR (MDRD) Af Amer 96, Est GFR (MDRD) Non-Af 79, BUN/Creatinine Ratio 16.2, Glucose 137 H, Calcium 7.0 L 04/03/20 04:45: POC Glucose 145 H Current Medications Acetaminophen (Tylenol) 650 mg PO Q6H PRN PRN PRN Reason: Pain Score 1-10/Temp > 100.7 F Albuterol Sulfate (Ventolin Aerosols) 2.5 mg INHALATION Q2H PRN PRN PRN Reason: SOB/Wheezing Atorvastatin Calcium (Lipitor) 10 mg PO DAILY [facility] Last Admin: 04/03/20 08:48 Dose: 10 mg Documented by: Dextrose (D50w Syringe) 0 gm IV X1 PRN; Protocol PRN Reason: Hypoglycemia Ergocalciferol (Vitamin D) 50,000 unit PO Q7D [facility] Last Admin: 03/30/20 14:06 Dose: Not Given Documented by: Glucagon () 1 mg IM .X1 PRN PRN Reason: Hypoglycemia Guaifenesin (Robitussin Dm) 10 ml PO Q4H PRN PRN PRN Reason: COUGH Hydralazine HCl (Apresoline Iv) 20 mg IV Q4H PRN PRN PRN Reason: SBP > 160 Last Admin: 03/26/20 00:23 Dose: 20 mg Documented by: Sodium Chloride () 500 mls @ 15 mls/hr IV PRN PRN PRN Reason: Blood Transfusion Sodium Chloride () 250 mls @ 15 mls/hr IV .[id number] PRN PRN Reason: Saline Flush Last Infusion: 04/03/20 07:15 Dose: 0 mls/hr Documented by: Sodium Chloride () 250 mls @ 15 mls/hr IV .[id number] PRN PRN Reason: Additional IVPB Infusion Pantoprazole Sodium 40 mg/ (Sodium Chloride) 110 mls @ 330 mls/hr IV Q12 [facility] Last Admin: 04/03/20 09:51 Dose: 330 mls/hr Documented by: Cefazolin Sodium 2 gm/ Sodium (Chloride) 110 mls @ 150 mls/hr IV Q8 [facility] Last Infusion: 04/03/20 06:18 Dose: Infused Documented by: Insulin Glargine (Lantus ([facility])) 10 units SC DAILY [facility] Last Admin: 04/02/20 11:10 Dose: 10 u Documented by: Insulin Human Lispro (Humalog Kwikpen ([facility])) 0 unit SC Q6 [facility]; Protocol Last Admin: 04/03/20 04:45 Dose: Not Given Documented by: Labetalol HCl (Trandate) 100 mg PO TID [facility] Last Admin: 04/03/20 04:52 Dose: Not Given Documented by: Labetalol HCl (Trandate) 100 mg PO X1 ONE Stop: 04/03/20 10:01 Ondansetron HCl (Zofran) 4 mg IV Q8H PRN PRN PRN Reason: NAUSEA/VOMITING Last Admin: 03/26/20 10:49 Dose: 4 mg Documented by: Polyethylene Glycol (Miralax) 17 gm PO DAILY PRN PRN Reason: Constipation Potassium Chloride (K-Dur) 40 meq PO DAILYCM [facility] Last Admin: 04/03/20 08:48 Dose: 40 meq Documented by: Prochlorperazine Edisylate (Compazine Iv) 5 mg IV Q6H PRN PRN PRN Reason: NAUSEA/VOMITING Last Admin: 03/27/20 09:33 Dose: 5 mg Documented by: Senna (Senokot) 2 tablet PO BID PRN PRN PRN Reason: Constipation Sodium Chloride () 10 - 40 ml IV UD PRN PRN Reason: SALINE FLUSH Last Admin: 04/03/20 04:45 Dose: 40 ml Documented by: Sodium Chloride () 10 - 40 ml IV UD PRN PRN Reason: Multilumen/Kim Flush Sodium Chloride (0.9% Nacl (Sterile) Posiflush) 10 - 40 ml IV UD PRN PRN Reason: Port access or dressing change Temazepam (Restoril) 15 mg PO QHS PRN PRN PRN Reason: INSOMNIA Last Admin: 03/27/20 21:08 Dose: 15 mg Documented by: Medical Necessity - Tobacco Use Smoking Status: Never smoker Tobacco Use: Non-smoker Route of nutrition/ use of supplements: [] Nutritional Intake: [] IV Site: [] Dejesus Catheter: [] - Assessment/Plan Antibiotics: [] Assessment/Plan: [] Active and Suspected Problems (Last Updated 02/12/19 @ 14:15 by Gisele Barnhart) COVID-19 (Acute) Respiratory failure (Acute) Acute hypoxic resp failure due to covid - on decadron. CTA neg for PE. Received plasma, completed 5 day course of remdesivir. Placed on vent due to GI bleed. Sputum with mssa. Cont cefazolin. He reports reaction to PCN as a . Monitor for reaction, but should be low risk. Wbc and Cr now back to normal. Remains off vent now. Day 5 of abx, likely stop in next 1-2 days. will follow
[2020-04-03] MEDS: Insulin Lispro 100 UNIT/ML INSULN.PEN SC (11:18)
[2020-04-03 13:00] LABS: Bedside Glucose 150 mg/dL (70-110)
--- NOTE | 2020-04-03 14:20 | PCM.PN.HOSP ---
Patient Problems: Active and Suspected Problems (Last Updated 02/12/19 @ 14:15 by Gisele Barnhart) COVID-19 (Acute) Respiratory failure (Acute) Upper GI bleed (Acute) Subjective: Patient seen and examined. He has no complaints and feels well. He feels much better today and says he wants to go home. He denies any fever, chills, cough, shortness of breath, chest pain, nausea, vomiting or diarrhea. Review of systems otherwise negative. He has remained hemodynamically stable, though BP has been elevated a bit. Potassium is 2.9. Vitals/I&O's: Vital Signs Temp Pulse Resp BP Pulse Ox 98.5 F 77 18 155/76 H 94 04/03/20 13:27 04/03/20 13:27 04/03/20 13:27 04/03/20 13:27 04/03/20 13:27 Oxygen Flow Rate (L/min) 2 Oxygen Delivery Method Nasal Cannula Weight: 219 lb 5.759 oz Body Mass Index (BMI) 31.8 Intake and Output for Last 24 Hours 04/01/20 04/02/20 04/03/20 23:59 23:59 23:59 Intake Total 3198.06 / 4113.06 5783.50 / 5783.50 1679.50 / 1679.50 Output Total 2190 / 2460 2445 / 2445 2500 / 2500 Balance 1008.06 / 1653.06 3338.50 / 3338.50 -820.50 / -820.50 General: Alert, Oriented x3, Cooperative, No apparent distress, HEENT: Atraumatic, PERRLA, EOMI, Normocephalic Oral: Dry Mucosa Neck: Supple, No JVD, Negative Carotid Bruits Lungs: - - decreased breath sounds bibasally, no wheezes or crackles. on 3L of oxygen by nasal canula Cardiovascular: Normal S1, Normal S2, No murmurs, normal sinus rhythm Abdomen: Bowel Sounds Present, Soft, Non Tender, Non-Distended, No Hepato-splenomegaly Extremities: No clubbing, No cyanosis, No edema, Capillary Refill Less than 3 Seconds Skin: No rashes, No breakdown Musculoskeletal: No Tenderness to Palpation of Joints or Extremities Lymphatic: No Cervical, Supraclavicular, or Inguinal Adenopathy Neurological: Cranial nerves II-XII grossly intact, Neuro grossly intact, Motor Exam 5/5 strength throughout Psych/Mental Status: Normal Affect, Appropriate, Alert and oriented to time, place, person, mood and affect Laboratory Results 04/02/20 17:39: POC Glucose 134 H 04/02/20 23:02: POC Glucose 133 H 04/03/20 04:40: WBC 10.7, RBC 3.25 L, Hgb 9.2 L, Hct 28.8 L, MCV 88.6, MCH 28.3, MCHC 31.9 L, RDW Std Deviation 48.3 H, RDW Coeff of Fadumo 14.8 H, Plt Count 214, MPV 10.5, Immature Gran % (Auto) 0.700, Neut % (Auto) 84.0 H, Lymph % (Auto) 9.7 L, [place] % (Auto) 3.9, Eos % (Auto) 1.6, Baso % (Auto) 0.1, Absolute Neuts (auto) 9.0 H, Absolute Lymphs (auto) 1.04, Nucleated RBC % 0 04/03/20 04:40: Sodium 141, Potassium 2.9 L, Chloride 104, Carbon Dioxide 32.0, Anion Gap 5, BUN 16, Creatinine 0.98, Estim Creat Clear Calc 69.32, Est GFR (MDRD) Af Amer 96, Est GFR (MDRD) Non-Af 79, BUN/Creatinine Ratio 16.2, Glucose 137 H, Calcium 7.0 L 04/03/20 04:45: POC Glucose 145 H 04/03/20 10:25: COVID-19 (DERRICK) Not Detected 04/03/20 11:16: POC Glucose 150 H Current Medications Acetaminophen (Tylenol) 650 mg PO Q6H PRN PRN PRN Reason: Pain Score 1-10/Temp > 100.7 F Albuterol Sulfate (Ventolin Aerosols) 2.5 mg INHALATION Q2H PRN PRN PRN Reason: SOB/Wheezing Atorvastatin Calcium (Lipitor) 10 mg PO DAILY [facility] Last Admin: 04/03/20 08:48 Dose: 10 mg Documented by: Dextrose (D50w Syringe) 0 gm IV X1 PRN; Protocol PRN Reason: Hypoglycemia Ergocalciferol (Vitamin D) 50,000 unit PO Q7D [facility] Last Admin: 03/30/20 14:06 Dose: Not Given Documented by: Glucagon () 1 mg IM .X1 PRN PRN Reason: Hypoglycemia Guaifenesin (Robitussin Dm) 10 ml PO Q4H PRN PRN PRN Reason: COUGH Hydralazine HCl (Apresoline Iv) 20 mg IV Q4H PRN PRN PRN Reason: SBP > 160 Last Admin: 03/26/20 00:23 Dose: 20 mg Documented by: Sodium Chloride () 500 mls @ 15 mls/hr IV PRN PRN PRN Reason: Blood Transfusion Sodium Chloride () 250 mls @ 15 mls/hr IV .[id number] PRN PRN Reason: Saline Flush Last Infusion: 04/03/20 07:15 Dose: 0 mls/hr Documented by: Sodium Chloride () 250 mls @ 15 mls/hr IV .[id number] PRN PRN Reason: Additional IVPB Infusion Pantoprazole Sodium 40 mg/ (Sodium Chloride) 110 mls @ 330 mls/hr IV Q12 [facility] Last Infusion: 04/03/20 10:54 Dose: Infused Documented by: Cefazolin Sodium 2 gm/ Sodium (Chloride) 110 mls @ 150 mls/hr IV Q8 [facility] Last Admin: 04/03/20 13:16 Dose: 150 mls/hr Documented by: Insulin Glargine (Lantus ([facility])) 10 units SC DAILY [facility] Last Admin: 04/03/20 11:18 Dose: 10 u Documented by: Insulin Human Lispro (Humalog Kwikpen ([facility])) 0 unit SC Q6 [facility]; Protocol Last Admin: 04/03/20 11:18 Dose: 1 u Documented by: Labetalol HCl (Trandate) 100 mg PO TID [facility] Last Admin: 04/03/20 13:25 Dose: 100 mg Documented by: Ondansetron HCl (Zofran) 4 mg IV Q8H PRN PRN PRN Reason: NAUSEA/VOMITING Last Admin: 03/26/20 10:49 Dose: 4 mg Documented by: Polyethylene Glycol (Miralax) 17 gm PO DAILY PRN PRN Reason: Constipation Potassium Chloride (K-Dur) 40 meq PO DAILYCM [facility] Last Admin: 04/03/20 08:48 Dose: 40 meq Documented by: Prochlorperazine Edisylate (Compazine Iv) 5 mg IV Q6H PRN PRN PRN Reason: NAUSEA/VOMITING Last Admin: 03/27/20 09:33 Dose: 5 mg Documented by: Senmat (Senokot) 2 tablet PO BID PRN PRN PRN Reason: Constipation Sodium Chloride () 10 - 40 ml IV UD PRN PRN Reason: SALINE FLUSH Last Admin: 04/03/20 04:45 Dose: 40 ml Documented by: Sodium Chloride () 10 - 40 ml IV UD PRN PRN Reason: Multilumen/Kim Flush Sodium Chloride (0.9% Nacl (Sterile) Posiflush) 10 - 40 ml IV UD PRN PRN Reason: Port access or dressing change Temazepam (Restoril) 15 mg PO QHS PRN PRN PRN Reason: INSOMNIA Last Admin: 03/27/20 21:08 Dose: 15 mg Documented by: STROKE Vital Signs/Narrative: Vital Signs Temp Pulse Resp BP Pulse Ox 04/03/20 13:27 98.5 F 77 18 155/76 H 94 04/03/20 11:53 90 Medical Necessity - Tobacco Use Smoking Status: Never smoker Tobacco Use: Non-smoker Assessment/Plan All Active Problems (Last Updated 02/12/19 @ 14:15 by Gisele Barnhart) Myocardial infarction (Resolved) COVID-19 (Acute) Respiratory failure (Acute) Upper GI bleed (Acute) Atherosclerosis of coronary artery of [place] heart without angina pectoris (Ruled-out) # Acute hemorrhagic shock due to bleeding peptic ulcer patient now off vasopressors and hemodynamically stable had repeat EGD which showed a nonbleeding ulcer. s/p transfusion of 4 units of PRBCs Hb today is 9.2 on IV protonix q12 critical care and general surgery on board # Acute hypoxic respiratory failure due to covid 19 pneumonia now on 3L of oxygen. sputum cultured Staph now on IV cefazolin. critical care on board #Afib: has now converted spontaneously to normal sinus rhythm. patient cannot be anticoagulated due to bleeding peptic ulcer to get 2D echo once covid has resolved monitor HR, and follow up with cardiology on outpatient basis. # Hypernatremia: resolved. Na today is 141 # COVID 19 infection: completed course of remdesivir and received convalescent plasma. steroids and anticoagulation discontinued due to bleeding ulcer. #Hypokalemia: K is 2.9. Will replace aggressively and monitor # Bleeding peptic ulcer: as under hemorrhagic shock. # CAROLYNN: resolved. renal USG was essentially normal # History of CVA; stable # Hypertension; BP meds on hold o/a of of hemorrhgic shock. Now off pressors. Will resume BP meds since BP is now up in the 150s and 160s systolic # CAD: on statin. aspirin on hold o/a of bleeding peptic ulcer DVT prophylaxis: on SCDs Disposition Patient wanted to be discharged home today. However he will do physical therapy and was not deemed safe enough to go home. Plan is to consider placement. Inpatient E&M: [id number] Subs Hosp L2
[2020-04-03] MEDS: amLODIPine 10 MG Tablet PO (17:10)
[2020-04-03 17:20] LABS: Bedside Glucose 107 mg/dL (70-110)
--- NOTE | 2020-04-03 22:50 | NURSING ---
in depth education provided on importance of wearing SCDs to prevent blood clots, pt still refused.
[2020-04-04] VITALS (9 sets, daily range): BP systolic 117–145; BP diastolic 54–68; PULSE 59–100; RESP 16–20; TEMP 36.9–37.1; O2SAT 94–96
[2020-04-04 01:31] LABS: Bedside Glucose 112 mg/dL (70-110)
[2020-04-04 04:09] LABS: Absolute Lymphocyte Count 0.93 X10^3/uL (0.83-4.51); Absolute Neutrophil Count 7.4 X10^3/uL (2.0-7.7); Basophil# 0.02 X10^3/uL; Basophil% 0.2 % (0-1); Eosinophil# 0.17 X10^3/uL; Eosinophils% 1.9 % (0-5); Hematocrit 31.3 % (40-54); Hemoglobin 9.8 g/dL (13.0-16.5); Lymphocyte # 0.93 X10^3/ul (4.0); Lymphocyte % 10.4 % (19-41); Mean Corp Hgb Conc 31.3 g/dL (32-36); Mean Corpuscular Volume 89.4 fL (80-94); Mean Platelet Vol. 10.5 fl (6.2-12.0); Monocyte# 0.36 X10^3/uL; NRBC Flagged by Analyzer 0 % (0-5); Neutrophil # 7.41 X10^3/uL (2.7-7.7); Neutrophil % 82.8 % (47-70); Platelet Count 225 K/mm3 (150-450); RBC Distribution Width CV 14.8 % (11.6-14.6); RBC Distribution Width SD 47.9 fl (35.1-43.9)
[2020-04-04] MEDS: Cefazolin 2 GM in 0.9% Normal Saline 100 ML IV (05:11)
[2020-04-04] MEDS: Labetalol 100 MG Tablet PO ×2 (05:35→21:00)
[2020-04-04 05:44] LABS: Anion Gap 6 (5-15); BUN 14 mg/dL (7-18); BUN/Creat Ratio 14.3 RATIO (10-20); Calcium,Total 7.2 mg/dL (8.5-10.1); Chloride 107 mmol/L (98-107); Creatinine, Serum 0.98 mg/dL (0.70-1.30); EST Glomerular Filtration Rate 80 mL/min (>60); Est Glom Filt Rate - Afr Amer 96 mL/min (>60); Estimated Creatinine Clearance 69.32 ml/min; Glucose 98 mg/dL (74-106); Potassium 3.1 mmol/L (3.5-5.1); Sodium Level 144 mmol/L (136-145)
--- NOTE | 2020-04-04 07:20 | PN_ITS ---
Patient Problems: Active and Suspected Problems (Last Updated 02/12/19 @ 14:15 by Gisele Barnhart) COVID-19 (Acute) Respiratory failure (Acute) Upper GI bleed (Acute) Subjective: The patient was seen and examined at the bedside this morning. Events from the last 24 hours have been reviewed. The patient is currently afebrile, hemo dynamically stable and maintaining appropriate oxygen saturations on 2 L/min via nasal cannula. Potassium remains low this morning at 3.1. Repeat coronavirus testing yesterday was negative. Objective: The patient's most recent lab work, culture data and imaging studies have all been personally reviewed. - Physical Exam Vitals/I&O's: Vital Signs Temp Pulse Resp BP Pulse Ox 98.5 F 78 19 H 128/61 H 95 04/04/20 04:00 04/04/20 04:00 04/04/20 04:00 04/04/20 04:00 04/04/20 04:00 Oxygen Flow Rate (L/min) 2 Oxygen Delivery Method Nasal Cannula Weight: 220 lb 3.869 oz Body Mass Index (BMI) 31.8 Intake and Output for Last 24 Hours 04/02/20 04/03/20 04/04/20 23:59 23:59 23:59 Intake Total 5783.50 / 5783.50 2369.50 / 2369.50 247.25 / 247.25 Output Total 2445 / 2445 3250 / 3250 350 / 350 Balance 3338.50 / 3338.50 -880.50 / -880.50 -102.75 / -102.75 General: Alert, No apparent distress HEENT: Atraumatic, Normocephalic Oral: Moist Mucosa, No Gingival or Mucosal Lesions/ Ulcerations Neck: Supple, No Nodes, Trachea Midline Lungs: No rhonchi, No wheeze, No rales, Diminished Cardiovascular: Regular rate, Regular Rhythm, Normal S1, Normal S2, No murmurs Abdomen: Bowel Sounds Present, Soft, Non Tender, Obese Extremities: No clubbing, No cyanosis, No edema Skin: No breakdown Musculoskeletal: No Tenderness to Palpation of Joints or Extremities Lymphatic: No Cervical, Supraclavicular, or Inguinal Adenopathy Neurological: Cranial nerves II-XII grossly intact, Neuro grossly intact Psych/Mental Status: Normal Affect, Appropriate Labs (Last 48 Hours) 04/02/20 04/02/20 04/02/20 11:09 17:39 23:02 WBC RBC Hgb Hct MCV MCH MCHC RDW Std Deviation RDW Coeff of Fadumo Plt Count MPV Immature Gran % (Auto) Neut % (Auto) Lymph % (Auto) Randall % (Auto) Eos % (Auto) Baso % (Auto) Absolute Neuts (auto) Absolute Lymphs (auto) Nucleated RBC % Sodium Potassium Chloride Carbon Dioxide Anion Gap BUN Creatinine Estim Creat Clear Calc Est GFR (MDRD) Af Amer Est GFR (MDRD) Non-Af BUN/Creatinine Ratio Glucose Calcium COVID-19 (DERRICK) POC Glucose 192 H 134 H 133 H 04/03/20 04/03/20 04/03/20 04:40 04:40 04:45 WBC 10.7 RBC 3.25 L Hgb 9.2 L Hct 28.8 L MCV 88.6 MCH 28.3 MCHC 31.9 L RDW Std Deviation 48.3 H RDW Coeff of Fadumo 14.8 H Plt Count 214 MPV 10.5 Immature Gran % (Auto) 0.700 Neut % (Auto) 84.0 H Lymph % (Auto) 9.7 L Randall % (Auto) 3.9 Eos % (Auto) 1.6 Baso % (Auto) 0.1 Absolute Neuts (auto) 9.0 H Absolute Lymphs (auto) 1.04 Nucleated RBC % 0 Sodium 141 Potassium 2.9 L Chloride 104 Carbon Dioxide 32.0 Anion Gap 5 BUN 16 Creatinine 0.98 Estim Creat Clear Calc 69.32 Est GFR (MDRD) Af Amer 96 Est GFR (MDRD) Non-Af 79 BUN/Creatinine Ratio 16.2 Glucose 137 H Calcium 7.0 L COVID-19 (DERRICK) POC Glucose 145 H 04/03/20 04/03/20 04/03/20 10:25 11:16 17:05 WBC RBC Hgb Hct MCV MCH MCHC RDW Std Deviation RDW Coeff of Fadumo Plt Count MPV Immature Gran % (Auto) Neut % (Auto) Lymph % (Auto) Randall % (Auto) Eos % (Auto) Baso % (Auto) Absolute Neuts (auto) Absolute Lymphs (auto) Nucleated RBC % Sodium Potassium Chloride Carbon Dioxide Anion Gap BUN Creatinine Estim Creat Clear Calc Est GFR (MDRD) Af Amer Est GFR (MDRD) Non-Af BUN/Creatinine Ratio Glucose Calcium COVID-19 (DERRICK) Not Detected POC Glucose 150 H 107 04/03/20 04/04/20 04/04/20 23:19 04:00 04:00 WBC 9.0 RBC 3.50 L Hgb 9.8 L Hct 31.3 L MCV 89.4 MCH 28.0 MCHC 31.3 L RDW Std Deviation 47.9 H RDW Coeff of Fadumo 14.8 H Plt Count 225 MPV 10.5 Immature Gran % (Auto) 0.700 Neut % (Auto) 82.8 H Lymph % (Auto) 10.4 L Randall % (Auto) 4.0 Eos % (Auto) 1.9 Baso % (Auto) 0.2 Absolute Neuts (auto) 7.4 Absolute Lymphs (auto) 0.93 Nucleated RBC % 0 Sodium 144 Potassium 3.1 L Chloride 107 Carbon Dioxide 31.0 Anion Gap 6 BUN 14 Creatinine 0.98 Estim Creat Clear Calc 69.32 Est GFR (MDRD) Af Amer 96 Est GFR (MDRD) Non-Af 80 BUN/Creatinine Ratio 14.3 Glucose 98 Calcium 7.2 L COVID-19 (DERRICK) POC Glucose 112 H Clinical Impression(s) from Imaging Studies Chest X-Ray 03/20/20 10:47 IMPRESSION: Bilateral pulmonary infiltrates with a peripheral tendency for distribution. With the patient''s history of Covid positive, this is in keeping with coal but pneumonitis. Electronically Signed: Ross Ulrich, at 11:17 EDT , Service support , Chest CTA 03/20/20 11:43 IMPRESSION: Diffuse bilateral infiltrates involving both lungs in the differential peripheral distribution in keeping with the patient''s Covid diagnosis. 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 Electronically Signed: Ross Ulrich, at 12:45 EDT , Service support , Chest X-Ray 03/22/20 06:29 IMPRESSION: Minimal change in bilateral infiltrates. at 0700 Reported and signed by: Sushma Fong MD Electronically Signed: Sushma Fong MD at 7:00 EDT Tel , Service support , Chest X-Ray 03/28/20 10:05 IMPRESSION: Bibasilar infiltrates left greater than right although there has been improvement. The tip of the orogastric tube is at the gastroesophageal junction. Electronically Signed: Ross Ulrich, at 10:24 EDT , Service support , Chest X-Ray 03/28/20 10:45 IMPRESSION: The tip of the right central catheter is at the junction of the superior vena cava and right atrium. Electronically Signed: Ross Ulrich, at 11:48 EDT , Service support , Renal Ultrasound 03/29/20 09:43 IMPRESSION: No hydronephrosis. Electronically Signed: Kostas Aquino MD ([facility]) at 12:42 EDT , Service support , KUB X-Ray 03/31/20 12:57 IMPRESSION: Nasogastric tube extends into the stomach. Bibasilar atelectasis. Focal left basilar infiltrate cannot be excluded. Electronically Signed: Moose Simon DO at 15:15 EDT Tel [phone], Service support , Current Medications Acetaminophen (Tylenol) 650 mg PO Q6H PRN PRN PRN Reason: Pain Score 1-10/Temp > 100.7 F Albuterol Sulfate (Ventolin Aerosols) 2.5 mg INHALATION Q2H PRN PRN PRN Reason: SOB/Wheezing Amlodipine Besylate (Norvasc) 10 mg PO DAILY [facility] Last Admin: 04/03/20 17:10 Dose: 10 mg Documented by: Atorvastatin Calcium (Lipitor) 10 mg PO DAILY [facility] Last Admin: 04/03/20 08:48 Dose: 10 mg Documented by: Dextrose (D50w Syringe) 0 gm IV X1 PRN; Protocol PRN Reason: Hypoglycemia Ergocalciferol (Vitamin D) 50,000 unit PO Q7D [facility] Last Admin: 03/30/20 14:06 Dose: Not Given Documented by: Glucagon () 1 mg IM .X1 PRN PRN Reason: Hypoglycemia Guaifenesin (Robitussin Dm) 10 ml PO Q4H PRN PRN PRN Reason: COUGH Hydralazine HCl (Apresoline Iv) 20 mg IV Q4H PRN PRN PRN Reason: SBP > 160 Last Admin: 03/26/20 00:23 Dose: 20 mg Documented by: Sodium Chloride () 500 mls @ 15 mls/hr IV PRN PRN PRN Reason: Blood Transfusion Sodium Chloride () 250 mls @ 15 mls/hr IV .[id number] PRN PRN Reason: Saline Flush Last Infusion: 04/04/20 05:55 Dose: 15 mls/hr Documented by: Sodium Chloride () 250 mls @ 15 mls/hr IV .[id number] PRN PRN Reason: Additional IVPB Infusion Pantoprazole Sodium 40 mg/ (Sodium Chloride) 110 mls @ 330 mls/hr IV Q12 [facility] Last Infusion: 04/03/20 21:18 Dose: Infused Documented by: Cefazolin Sodium 2 gm/ Sodium (Chloride) 110 mls @ 150 mls/hr IV Q8 [facility] Last Infusion: 04/04/20 05:55 Dose: Infused Documented by: Insulin Glargine (Lantus (Bk)) 10 units SC DAILY [facility] Last Admin: 04/03/20 11:18 Dose: 10 u Documented by: Insulin Human Lispro (Humalog Kwikpen (Bk)) 0 unit SC Q6 [facility]; Protocol Last Admin: 04/04/20 05:35 Dose: Not Given Documented by: Labetalol HCl (Trandate) 100 mg PO TID [facility] Last Admin: 04/04/20 05:35 Dose: 100 mg Documented by: Ondansetron HCl (Zofran) 4 mg IV Q8H PRN PRN PRN Reason: NAUSEA/VOMITING Last Admin: 03/26/20 10:49 Dose: 4 mg Documented by: Polyethylene Glycol (Miralax) 17 gm PO DAILY PRN PRN Reason: Constipation Potassium Chloride (K-Dur) 40 meq PO DAILYCM [facility] Last Admin: 04/03/20 08:48 Dose: 40 meq Documented by: Prochlorperazine Edisylate (Compazine Iv) 5 mg IV Q6H PRN PRN PRN Reason: NAUSEA/VOMITING Last Admin: 03/27/20 09:33 Dose: 5 mg Documented by: Senna (Senokot) 2 tablet PO BID PRN PRN PRN Reason: Constipation Sodium Chloride () 10 - 40 ml IV UD PRN PRN Reason: SALINE FLUSH Last Admin: 04/03/20 04:45 Dose: 40 ml Documented by: Sodium Chloride () 10 - 40 ml IV UD PRN PRN Reason: Multilumen/Kim Flush Sodium Chloride (0.9% Nacl (Sterile) Posiflush) 10 - 40 ml IV UD PRN PRN Reason: Port access or dressing change Temazepam (Restoril) 15 mg PO QHS PRN PRN PRN Reason: INSOMNIA Last Admin: 03/27/20 21:08 Dose: 15 mg Documented by: Medical Necessity - Tobacco Use Smoking Status: Never smoker Tobacco Use: Non-smoker Assessment/Plan All Active Problems (Last Updated 02/12/19 @ 14:15 by Gisele Barnhart) Myocardial infarction (Resolved) COVID-19 (Acute) Respiratory failure (Acute) Upper GI bleed (Acute) Atherosclerosis of coronary artery of [place] heart without angina pectoris (Ruled-out) RECOMMENDATIONS: 1. Continue to wean supplemental oxygen to maintain saturations at or above 90%. 2. Encourage incentive spirometer use and mobilize patient as tolerated. 3. Dietary advancement per general surgery recommendations. 4. Continue home beta-blaze regimen. 5. Continue antimicrobials per ID recommendations. 6. Continue twice daily PPI therapy. 7. Additional potassium repletion. IMPRESSIONS: 1. Acute hypoxemic respiratory failure secondary to coronavirus pneumonia The patient was diagnosed with coronavirus infection and does have bilateral infiltrates on CTA chest consistent with COVID pneumonia. The patient initially received supportive measures with supplemental oxygen, convalescent plasma, Remdesevir and Decadron. In addition, the patient was placed on systemic anticoagulation. However, he developed what is likely a bleeding ulcer as a con sequence of systemic anticoagulation and eventually had to be intubated. The patient's respiratory status has improved and he was able to be successfully extubated from mechanical ventilatory support. Plan to continue to wean supplemental oxygen to maintain saturations at or above 90%. He will be continued on antimicrobials per ID recommendations. Encourage incentive spirometer use and mobilize patient as tolerated. 2. Hemorrhagic shock secondary to bleeding peptic ulcer complicated by systemic anticoagulation Resolved. The patient's hemodynamics have stabilized with vasopressor support and transfusion of blood products. Plan to continue to monitor blood counts and transfuse if hemoglobin drops below 7 g/dL. The patient will be continued on twice daily PPI therapy. General surgery is following. Plan to advance diet as tolerated. 3. Hypokalemia Additional potassium repletion as ordered. Continue to monitor electrolytes daily. 4. Paroxysmal atrial fibrillation The patient did transiently go into atrial fibrillation yesterday but spontaneously converted to a normal sinus rhythm overnight. Plan to continue home beta-blaze regimen. 5. History of CVA/chronic kidney disease/hypertension/hyperlipidemia/CODE STATUS Complicates care, management, recovery and prognosis. CODE STATUS remains full code. Case management/social work to assist with disposition planning. This note was generated with [employer] dictation software. It may contain incorrect words, spelling, and punctuation that were not noted in checking the note before signing. Inpatient E&M: 69048 Subs Hosp L2
[2020-04-04] MEDS: Atorvastatin Calcium 10 MG Tablet PO (10:18)
[2020-04-04] MEDS: amLODIPine 10 MG Tablet PO (10:18)
--- NOTE | 2020-04-04 10:19 | TREXTCAR_ITS ---
- Diet 04/03/20 07:44 Diet: Full Liquid Is pt able to select menu?: Yes Diet Comments: vanilla magic cup milkshake - Routine Orders/Code Status Enema Type: Fleetz Enema Frequency: Daily PRN Suppository Type: Dulcolax 10mg Suppository Frequency: Daily PRN O2 Liters per Minute: 2 O2 Frequency: PRN Keep PO Greater than or Equal to (%): 90 - Wound(s) LT radial wrist Wound Type: Puncture - Therapies Weight Bearing: Weight bearing as tolerated Physical Therapy: Eval and Treat Occupational Therapy: Eval and Treat Speech Therapy: Eval and Treat - Allergies/Procedures Done in Hospital Allergies/Adverse Reactions: Allergies Penicillins Allergy (Verified 03/20/20 10:34) Unknown Procedures: EGD - Type of Care/Length of Stay Estimated LOS: Convalescent Care Less Than 30 days Type of Care Needed: Skilled Rehab Potential: Good Prognosis: Good - Additional Orders/Day of Discharge Day of Discharge: 04/04/20 - Dietary and Speech Recommendations Dietitian Recommendations/Changes: Recommend advance diet as tolerated to regular - consistency per EXPLORATION GEOLOGIST. - Follow Up Care Primary Care Physician: Libia Corona MD [Primary Care Provider] - Please follow up with your Primary Care Physician in: 1-2 weeks Please Follow Up With: Sami Figueroa MD When: 1-2 weeks Please Follow Up With: Kishan Malone MD When: 1-2 weeks
--- NOTE | 2020-04-04 10:32 | PCM.DC.SUM ---
Discharge Date and Diagnosis - Problem List Patient Problems: Active and Suspected Problems (Last Updated 02/12/19 @ 14:15 by Gisele Barnhart) COVID-19 (Acute) Respiratory failure (Acute) Upper GI bleed (Acute) Date of Admission: 03/20/20 Date of Discharge: 04/04/20 - Primary Discharge Diagnosis Acute Problems: Active Problems (Last Updated 02/12/19 @ 14:15 by Gisele Barnhart) COVID-19 (Acute) Respiratory failure (Acute) Upper GI bleed (Acute) hypokalemia acute hypoxic respiratory failure bleeding peptic ulcer anemia due to acute blood loss - Secondary Discharge Diagnosis Chronic Problems: Chronic Problems (Last Updated 02/12/19 @ 14:15 by Gisele Barnhart) Coronary artery disease (Chronic) CVA (cerebral vascular accident) (Chronic 2012) HLD (hyperlipidemia) (Chronic) Essential hypertension (Chronic) Hospital Course and Treatment Imaging Results: Diagnostic Data Chest CTA 03/20/20 11:43 IMPRESSION: Diffuse bilateral infiltrates involving both lungs in the differential peripheral distribution in keeping with the patient''s Covid diagnosis. 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 Electronically Signed: Ross Ulrich, at 12:45 EDT , Service support , Chest X-Ray 03/28/20 10:45 IMPRESSION: The tip of the right central catheter is at the junction of the superior vena cava and right atrium. Electronically Signed: Ross Ulrich at 11:48 EDT , Service support , Renal Ultrasound 03/29/20 09:43 IMPRESSION: No hydronephrosis. Electronically Signed: Kostas Aquino MD ([place]) at 12:42 EDT , Service support , KUB X-Ray 03/31/20 12:57 IMPRESSION: Nasogastric tube extends into the stomach. Bibasilar atelectasis. Focal left basilar infiltrate cannot be excluded. Electronically Signed: Moose Simon DO at 15:15 EDT Tel [phone], Service support , critical care general surgery- Dr Figueroa Operations: None Procedures: EGD Summary of Care Provided: The patient is a 75 year old M with a past medical history as outlined was admitted through the ED on 03/20/2020 with a complaint of shortness of breath and cough for 1 week. Patient had been tested for COVID a few days prior to admission and had received the results the day before admission that he was positive for COVID-19. He went see his PCP and was found to be hypoxic, with saturation in the 80s/ he also had mild fever. He denied any nausea, vomiting or diarrhea or any other associated symptoms. He was admitted and managed for acute hypoxic respiratory failure due to COVID-[address] of the chest done showed diffuse bilateral infiltrates involving both lungs. He was started on IV decadron and breathing treatments with bronchodilators. He was also hydrated with IV fluids and ID was consulted. Patient was initially placed on oxygen and then transitioned to BiPAP intermittently. He completed a course of intensive care was also put on Lovenox for DVT prophylaxis. He was subsequently switched to Eliquis for DVT prophylaxis. Patient subsequently had a large melanotic stool during his stay and was also found to be hypotensive. He had also been having bloody emesis. General surgery was emergently consulted and Eliquis was stopped. At that point, pointed out that patient did have a history of peptic ulcer and had had bleeding peptic ulcer in the past. Patient was emergently intubated to protect his airway. He was started on IV pantoprazole 40mg bid. He had EGD which showed a bleeding peptic ulcer; bleeding was significant and required epinephrine injections as well as 4 hemostatic clips being placed. Findings were therefore a spurting gastric ulcer with adherent clot. Patient became hypotensive and required vasopressor support. Required up to 2 vasopressors to remain hemodynamically stable. Was also started on IV antibiotics on account of elevated white cell count and fever. He was initially started on ciprofloxacin and this was broadened to meropenem. Sputum cultured at methicillin sensitive Staphylococcus aureus and so antibiotics were narrowed down to IV cefazolin. Required transfusion of up to 4 units of packed red blood cells. He had a repeat EGD which showed a nonbleeding cratered duodenal ulcer with pigmented material in the duodenal bulb but no evidence of overt bleeding. Patient remained stable and subsequently extubated successfully after he passed a spontaneous breathing trial. He was weaned off of vasopressors and was able to maintain his blood pressure. Stay was also complicated by hypokalemia which was successfully repleted. Patient remained stable and did very well with physical therapy. Patient had wanted to be discharged home but was not comfortable with him going home as she did not think he was strong enough to go movements or not take care of him by herself at home. Patient was therefore agreeable for discharge with transitional care unit. He was discharged to the TCU on 04/04/2020. Was discharged with a prescription for p.o. potassium as well as p.o. pantoprazole 40 mg twice daily. He is follow-up with his primary care doctor and general surgery as well as infectious disease. He is to have a follow-up BMP within 1 week to check on potassium levels. Patient seen and examined prior to discharge. Patient had somewhat of a flat affect but denied any feeling of depression and said he was just tired and wanted to rest. He was on 2 L of oxygen. Review of systems otherwise negative. Labs and vitals reviewed. Home medications reviewed and reconciled. O/E; Vital Signs Temp Pulse Resp BP Pulse Ox 98.5 F 79 20 H 145/68 H 94 04/04/20 13:12 04/04/20 13:12 04/04/20 13:12 04/04/20 13:12 04/04/20 13:12 [] General: Alert, Oriented x3, Cooperative, No apparent distress, HEENT: Atraumatic, PERRLA, EOMI, Normocephalic Oral: Dry Mucosa Neck: Supple, No JVD, Negative Carotid Bruits Lungs: - - decreased breath sounds bibasally, no wheezes or crackles. on 2L of oxygen by nasal canula Cardiovascular: Normal S1, Normal S2, No murmurs, normal sinus rhythm Abdomen: Bowel Sounds Present, Soft, Non Tender, Non-Distended, No Hepato-splenomegaly Extremities: No clubbing, No cyanosis, No edema, Capillary Refill Less than 3 Seconds Skin: No rashes, No breakdown Musculoskeletal: No Tenderness to Palpation of Joints or Extremities Lymphatic: No Cervical, Supraclavicular, or Inguinal Adenopathy Neurological: Cranial nerves II-XII grossly intact, Neuro grossly intact, Motor Exam 5/5 strength throughout Psych/Mental Status: Normal Affect, Appropriate, Alert and oriented to time, place, person, mood and affect Plan is for discharge to the transitional care unit today. Patient Problems: Active and Suspected Problems (Last Updated 02/12/19 @ 14:15 by Gisele Barnhart) COVID-19 (Acute) Respiratory failure (Acute) Upper GI bleed (Acute) - Physical Exam Vitals/I&O's: Vital Signs Temp Pulse Resp BP Pulse Ox 98.4 F 65 20 H 133/54 H 96 04/04/20 09:00 04/04/20 09:00 04/04/20 09:00 04/04/20 09:00 04/04/20 09:00 Oxygen Flow Rate (L/min) 2 Oxygen Delivery Method Nasal Cannula Weight: 220 lb 3.869 oz Body Mass Index (BMI) 31.8 Intake and Output for Last 24 Hours 04/02/20 04/03/20 04/04/20 23:59 23:59 23:59 Intake Total 5783.50 / 5783.50 2369.50 / 2369.50 247.25 / 247.25 Output Total 2445 / 2445 3250 / 3250 575 / 575 Balance 3338.50 / 3338.50 -880.50 / -880.50 -327.75 / -327.75 Laboratory Results 04/03/20 10:25: COVID-19 (DERRICK) Not Detected 04/03/20 11:16: POC Glucose 150 H 04/03/20 17:05: POC Glucose 107 04/03/20 23:19: POC Glucose 112 H 04/04/20 04:00: WBC 9.0, RBC 3.50 L, Hgb 9.8 L, Hct 31.3 L, MCV 89.4, MCH 28.0, MCHC 31.3 L, RDW Std Deviation 47.9 H, RDW Coeff of Fadumo 14.8 H, Plt Count 225, MPV 10.5, Immature Gran % (Auto) 0.700, Neut % (Auto) 82.8 H, Lymph % (Auto) 10.4 L, [place] % (Auto) 4.0, Eos % (Auto) 1.9, Baso % (Auto) 0.2, Absolute Neuts (auto) 7.4, Absolute Lymphs (auto) 0.93, Nucleated RBC % 0 04/04/20 04:00: Sodium 144, Potassium 3.1 L, Chloride 107, Carbon Dioxide 31.0, Anion Gap 6, BUN 14, Creatinine 0.98, Estim Creat Clear Calc 69.32, Est GFR (MDRD) Af Amer 96, Est GFR (MDRD) Non-Af 80, BUN/Creatinine Ratio 14.3, Glucose 98, Calcium 7.2 L 04/04/20 07:25: COVID-19 (DERRICK) Not Detected Current Medications Acetaminophen (Tylenol) 650 mg PO Q6H PRN PRN PRN Reason: Pain Score 1-10/Temp > 100.7 F Albuterol Sulfate (Ventolin Aerosols) 2.5 mg INHALATION Q2H PRN PRN PRN Reason: SOB/Wheezing Amlodipine Besylate (Norvasc) 10 mg PO DAILY [facility] Last Admin: 04/04/20 10:18 Dose: 10 mg Documented by: Atorvastatin Calcium (Lipitor) 10 mg PO DAILY [facility] Last Admin: 04/04/20 10:18 Dose: 10 mg Documented by: Dextrose (D50w Syringe) 0 gm IV X1 PRN; Protocol PRN Reason: Hypoglycemia Ergocalciferol (Vitamin D) 50,000 unit PO Q7D [facility] Last Admin: 03/30/20 14:06 Dose: Not Given Documented by: Glucagon () 1 mg IM .X1 PRN PRN Reason: Hypoglycemia Guaifenesin (Robitussin Dm) 10 ml PO Q4H PRN PRN PRN Reason: COUGH Hydralazine HCl (Apresoline Iv) 20 mg IV Q4H PRN PRN PRN Reason: SBP > 160 Last Admin: 03/26/20 00:23 Dose: 20 mg Documented by: Sodium Chloride () 500 mls @ 15 mls/hr IV PRN PRN PRN Reason: Blood Transfusion Sodium Chloride () 250 mls @ 15 mls/hr IV .[id number] PRN PRN Reason: Saline Flush Last Infusion: 04/04/20 05:55 Dose: 15 mls/hr Documented by: Sodium Chloride () 250 mls @ 15 mls/hr IV .[id number] PRN PRN Reason: Additional IVPB Infusion Pantoprazole Sodium 40 mg/ (Sodium Chloride) 110 mls @ 330 mls/hr IV Q12 [facility] Last Infusion: 04/03/20 21:18 Dose: Infused Documented by: Cefazolin Sodium 2 gm/ Sodium (Chloride) 110 mls @ 150 mls/hr IV Q8 [facility] Last Infusion: 04/04/20 05:55 Dose: Infused Documented by: Potassium Chloride () 10 meq in 100 mls @ 100 mls/hr IV BOLUS Q1H [facility] Stop: 04/04/20 11:29 Insulin Glargine (Lantus ([facility])) 10 units SC DAILY [facility] Last Admin: 04/03/20 11:18 Dose: 10 u Documented by: Insulin Human Lispro (Humalog Kwikpen ([facility])) 0 unit SC Q6 [facility]; Protocol Last Admin: 04/04/20 05:35 Dose: Not Given Documented by: Labetalol HCl (Trandate) 100 mg PO TID [facility] Last Admin: 04/04/20 05:35 Dose: 100 mg Documented by: Ondansetron HCl (Zofran) 4 mg IV Q8H PRN PRN PRN Reason: NAUSEA/VOMITING Last Admin: 03/26/20 10:49 Dose: 4 mg Documented by: Polyethylene Glycol (Miralax) 17 gm PO DAILY PRN PRN Reason: Constipation Potassium Chloride (K-Dur) 40 meq PO DAILYCM [facility] Last Admin: 04/04/20 10:18 Dose: 40 meq Documented by: Prochlorperazine Edisylate (Compazine Iv) 5 mg IV Q6H PRN PRN PRN Reason: NAUSEA/VOMITING Last Admin: 03/27/20 09:33 Dose: 5 mg Documented by: Senna (Senokot) 2 tablet PO BID PRN PRN PRN Reason: Constipation Sodium Chloride () 10 - 40 ml IV UD PRN PRN Reason: SALINE FLUSH Last Admin: 04/03/20 04:45 Dose: 40 ml Documented by: Sodium Chloride () 10 - 40 ml IV UD PRN PRN Reason: Multilumen/Kim Flush Sodium Chloride (0.9% Nacl (Sterile) Posiflush) 10 - 40 ml IV UD PRN PRN Reason: Port access or dressing change Temazepam (Restoril) 15 mg PO QHS PRN PRN PRN Reason: INSOMNIA Last Admin: 03/27/20 21:08 Dose: 15 mg Documented by: Discharge Diet: Low fat/ Low Cholesterol Discharge Activity: Return to Normal Activity Weight Bearing Status: Weight bearing as tolerated Home Medications: Medications to take at Discharge Amlodipine [Norvasc] 10 mg PO DAILY 03/20/20 Atorvastatin Calcium [Lipitor] 10 mg PO QHS 03/20/20 Cholecalciferol (Vitamin D3) [Vitamin D3] 5,000 unit PO DAILY 03/20/20 Hydralazine HCl 100 mg PO BID 03/20/20 Labetalol HCl 300 mg PO TID 03/20/20 Phenylephrine/Dm/Acetaminop/GG [Tylenol Cold-Flu Severe Caplet] 1 tab PO BID 03/20/20 Pantoprazole Sodium [Protonix] 40 mg PO BID #60 tab 04/04/20 Potassium Chloride 40 meq PO DAILY #30 liquid 04/04/20 Following Prescriptions Were Given to Patient: Potassium Chloride [K-Dur] 40 meq PO DAILY #30 tab Prescription Printed Pantoprazole Sodium [Protonix] 40 mg PO BID #60 tab Prescription Printed Primary Care Physician: Libia Corona MD [Primary Care Provider] - Please follow up with your Primary Care Physician in: 1-2 weeks Please Follow Up With: Sami Figueroa MD When: 1-2 weeks Please Follow Up With: Kishan Malone MD When: 1-2 weeks Disposition: [facility] facility Minutes spent on discharge:: 50 Patient Condition:: Fair Medical Necessity - Tobacco Use Smoking Status: Never smoker Tobacco Use: Non-smoker Meaningful Use Info Meaningful Use Diagnoses (Choose all that apply): None applicable Inpatient E&M: 99258 Disch Hosp
[2020-04-04] MEDS: Potassium Chloride 10mEq/100mL 10 MEQ/100 ML IV.SOLN. 100 MEQ IV BOLUS (10:46)
--- NOTE | 2020-04-04 11:05 | PHA.DC.MR ---
Pharmacy Service has performed discharge medication reconciliation for this patient upon transfer to TCU. Home Medications Amlodipine [Norvasc] 10 mg PO DAILY 03/20/20 Atorvastatin Calcium [Lipitor] 10 mg PO QHS 03/20/20 Cholecalciferol (Vitamin D3) [Vitamin D3] 5,000 unit PO DAILY 03/20/20 Hydralazine HCl 100 mg PO BID 03/20/20 Labetalol HCl 300 mg PO TID 03/20/20 Phenylephrine/Dm/Acetaminop/GG [Tylenol Cold-Flu Severe Caplet] 1 tab PO BID 03/20/20 Pantoprazole Sodium [Protonix] 40 mg PO BID #60 tab 04/04/20 Potassium Chloride [K-Dur] 40 meq PO DAILY #30 tab 04/04/20 The patient's discharge medication list was reviewed for discrepancies and discrepancies were resolved.
--- NOTE | 2020-04-04 11:51 | CASEMGMT ---
Social Work SW attempted to call pt in room x3 due to Covid precautions however Pt not answering phone. Call to pt Sade. Sade stating that she has spoke with spouse and that pt will be going to TCU for short term rehab prior to returning home. SW completed ICU rounds and pt is ready for discharge today. Physician to complete orders and SW will fax to TCU. Phone call to Pilar in TCU and notified of pt d/c today. TCU is able to accept. Followup phone call to Sade and informed of confirmed d/c today. Sade is in agreement and appreciative of plan. Plan: TCU today JEFF Posada
--- NOTE | 2020-04-04 12:15 | PCM.PN.SRG ---
Patient Problems: Active and Suspected Problems (Last Updated 02/12/19 @ 14:15 by Gisele Barnhart) COVID-19 (Acute) Respiratory failure (Acute) Upper GI bleed (Acute) Subjective: Patient is doing well tolerating full liquids but he did have a tarry dark bowel movement yesterday. He not having any abdominal pain. - Physical Exam Vitals/I&O's: Vital Signs Temp Pulse Resp BP Pulse Ox 98.4 F 65 20 H 133/54 H 96 04/04/20 09:00 04/04/20 09:00 04/04/20 09:00 04/04/20 09:00 04/04/20 09:00 Oxygen Flow Rate (L/min) 2 Oxygen Delivery Method Nasal Cannula Weight: 220 lb 3.869 oz Body Mass Index (BMI) 31.8 Intake and Output for Last 24 Hours 04/02/20 04/03/20 04/04/20 23:59 23:59 23:59 Intake Total 5783.50 / 5783.50 2369.50 / 2369.50 320.00 / 320.00 Output Total 2445 / 2445 3250 / 3250 575 / 575 Balance 3338.50 / 3338.50 -880.50 / -880.50 -255.00 / -255.00 General: Alert, Oriented x3 Lungs: Normal air movement Abdomen: Soft, Non Tender, Non-Distended Laboratory Results 04/03/20 10:25: COVID-19 (DERRICK) Not Detected 04/03/20 11:16: POC Glucose 150 H 04/03/20 17:05: POC Glucose 107 04/03/20 23:19: POC Glucose 112 H 04/04/20 04:00: WBC 9.0, RBC 3.50 L, Hgb 9.8 L, Hct 31.3 L, MCV 89.4, MCH 28.0, MCHC 31.3 L, RDW Std Deviation 47.9 H, RDW Coeff of Fadumo 14.8 H, Plt Count 225, MPV 10.5, Immature Gran % (Auto) 0.700, Neut % (Auto) 82.8 H, Lymph % (Auto) 10.4 L, [place] % (Auto) 4.0, Eos % (Auto) 1.9, Baso % (Auto) 0.2, Absolute Neuts (auto) 7.4, Absolute Lymphs (auto) 0.93, Nucleated RBC % 0 04/04/20 04:00: Sodium 144, Potassium 3.1 L, Chloride 107, Carbon Dioxide 31.0, Anion Gap 6, BUN 14, Creatinine 0.98, Estim Creat Clear Calc 69.32, Est GFR (MDRD) Af Amer 96, Est GFR (MDRD) Non-Af 80, BUN/Creatinine Ratio 14.3, Glucose 98, Calcium 7.2 L 04/04/20 07:25: COVID-19 (DERRICK) Not Detected Current Medications Acetaminophen (Tylenol) 650 mg PO Q6H PRN PRN PRN Reason: Pain Score 1-10/Temp > 100.7 F Albuterol Sulfate (Ventolin Aerosols) 2.5 mg INHALATION Q2H PRN PRN PRN Reason: SOB/Wheezing Amlodipine Besylate (Norvasc) 10 mg PO DAILY [facility] Last Admin: 04/04/20 10:18 Dose: 10 mg Documented by: Atorvastatin Calcium (Lipitor) 10 mg PO DAILY [facility] Last Admin: 04/04/20 10:18 Dose: 10 mg Documented by: Dextrose (D50w Syringe) 0 gm IV X1 PRN; Protocol PRN Reason: Hypoglycemia Ergocalciferol (Vitamin D) 50,000 unit PO Q7D [facility] Last Admin: 03/30/20 14:06 Dose: Not Given Documented by: Glucagon () 1 mg IM .X1 PRN PRN Reason: Hypoglycemia Guaifenesin (Robitussin Dm) 10 ml PO Q4H PRN PRN PRN Reason: COUGH Hydralazine HCl (Apresoline Iv) 20 mg IV Q4H PRN PRN PRN Reason: SBP > 160 Last Admin: 03/26/20 00:23 Dose: 20 mg Documented by: Sodium Chloride () 500 mls @ 15 mls/hr IV PRN PRN PRN Reason: Blood Transfusion Sodium Chloride () 250 mls @ 15 mls/hr IV .[id number] PRN PRN Reason: Saline Flush Last Infusion: 04/04/20 10:46 Dose: 0 mls/hr Documented by: Sodium Chloride () 250 mls @ 15 mls/hr IV .[id number] PRN PRN Reason: Additional IVPB Infusion Pantoprazole Sodium 40 mg/ (Sodium Chloride) 110 mls @ 330 mls/hr IV Q12 [facility] Last Infusion: 04/03/20 21:18 Dose: Infused Documented by: Cefazolin Sodium 2 gm/ Sodium (Chloride) 110 mls @ 150 mls/hr IV Q8 [facility] Last Infusion: 04/04/20 05:55 Dose: Infused Documented by: Insulin Glargine (Lantus ([facility])) 10 units SC DAILY [facility] Last Admin: 04/03/20 11:18 Dose: 10 u Documented by: Insulin Human Lispro (Humalog Kwikpen ([facility])) 0 unit SC Q6 [facility]; Protocol Last Admin: 04/04/20 05:35 Dose: Not Given Documented by: Labetalol HCl (Trandate) 100 mg PO TID [facility] Last Admin: 04/04/20 05:35 Dose: 100 mg Documented by: Ondansetron HCl (Zofran) 4 mg IV Q8H PRN PRN PRN Reason: NAUSEA/VOMITING Last Admin: 03/26/20 10:49 Dose: 4 mg Documented by: Polyethylene Glycol (Miralax) 17 gm PO DAILY PRN PRN Reason: Constipation Potassium Chloride (K-Dur) 40 meq PO DAILYCM [facility] Last Admin: 04/04/20 10:18 Dose: 40 meq Documented by: Prochlorperazine Edisylate (Compazine Iv) 5 mg IV Q6H PRN PRN PRN Reason: NAUSEA/VOMITING Last Admin: 03/27/20 09:33 Dose: 5 mg Documented by: Senna (Senokot) 2 tablet PO BID PRN PRN PRN Reason: Constipation Sodium Chloride () 10 - 40 ml IV UD PRN PRN Reason: SALINE FLUSH Last Admin: 04/03/20 04:45 Dose: 40 ml Documented by: Sodium Chloride () 10 - 40 ml IV UD PRN PRN Reason: Multilumen/Kim Flush Sodium Chloride (0.9% Nacl (Sterile) Posiflush) 10 - 40 ml IV UD PRN PRN Reason: Port access or dressing change Temazepam (Restoril) 15 mg PO QHS PRN PRN PRN Reason: INSOMNIA Last Admin: 03/27/20 21:08 Dose: 15 mg Documented by: Medical Necessity - Tobacco Use Smoking Status: Never smoker Tobacco Use: Non-smoker Assessment/Plan All Active Problems (Last Updated 02/12/19 @ 14:15 by Gisele Barnhart) Myocardial infarction (Resolved) COVID-19 (Acute) Respiratory failure (Acute) Upper GI bleed (Acute) Atherosclerosis of coronary artery of [place] heart without angina pectoris (Ruled-out) 75-year-old male with bleeding duodenal ulcer 1. Patient was advanced to full liquids yesterday. He is tolerating his full liquids no nausea or vomiting or abdominal pain but he did have a dark tarry bowel movement yesterday. His hemoglobin appears stable. I would recommend continuing full liquids for today and advancing to a regular diet tomorrow if there are no further dark tarry bowel movements. Sami Figueroa MD Pager: [facility] [address] [place] [address], [address] [place] [phone] Office:
[2020-04-04] MEDS: Pantoprazole Sodium 40 MG Tablet PO ×2 (12:51→21:00)
--- NOTE | 2020-04-04 15:17 | PN_ITS ---
Patient Problems: Active and Suspected Problems (Last Updated 02/12/19 @ 14:15 by Gisele Barnhart) COVID-19 (Acute) Respiratory failure (Acute) Upper GI bleed (Acute) Subjective: Patient seen and examined. He had no complaitns this morning. Patient did have dark tarry stool overnight. Hemoglobin is over 9.8. Patient did have a flat affect but denied feeling depressed and said he just wanted to rest. Review of signs otherwise negative. Potassium is 3.1 today. Patient has otherwise remained stable. Plan was to discharge patient to the transitional care unit stay. However patient subsequently had another dark tarry stool later in the day. This was discussed with general surgery. Per discussion with Dr. ann, he is concerned that patient may bleed again as he thought that patient also may have been perforated. He would therefore like to keep patient for 1 more day in light of patient having had 2 dark tarry stools a few hours apart to monitor patient before patient is discharged to the TCU. Vitals/I&O's: Vital Signs Temp Pulse Resp BP Pulse Ox 98.5 F 79 20 H 145/68 H 94 04/04/20 13:12 04/04/20 13:12 04/04/20 13:12 04/04/20 13:12 04/04/20 13:12 Oxygen Flow Rate (L/min) 2 Oxygen Delivery Method Nasal Cannula Weight: 220 lb 3.869 oz Body Mass Index (BMI) 31.8 Intake and Output for Last 24 Hours 04/02/20 04/03/20 04/04/20 23:59 23:59 23:59 Intake Total 5783.50 / 5783.50 2369.50 / 2369.50 660.00 / 660.00 Output Total 2445 / 2445 3250 / 3250 725 / 725 Balance 3338.50 / 3338.50 -880.50 / -880.50 -65.00 / -65.00 General: Alert, Oriented x3, Cooperative, No apparent distress, HEENT: Atraumatic, PERRLA, EOMI, Normocephalic Oral: Dry Mucosa Neck: Supple, No JVD, Negative Carotid Bruits Lungs: - - decreased breath sounds bibasally, no wheezes or crackles. on 2L of oxygen by nasal canula Cardiovascular: Normal S1, Normal S2, No murmurs, normal sinus rhythm Abdomen: Bowel Sounds Present, Soft, Non Tender, Non-Distended, No Hepato- splenomegaly Extremities: No clubbing, No cyanosis, No edema, Capillary Refill Less than 3 Seconds Skin: No rashes, No breakdown Musculoskeletal: No Tenderness to Palpation of Joints or Extremities Lymphatic: No Cervical, Supraclavicular, or Inguinal Adenopathy Neurological: Cranial nerves II-XII grossly intact, Neuro grossly intact, Motor Exam 5/5 strength throughout Psych/Mental Status: Normal Affect, Appropriate, Alert and oriented to time, place, person, mood and affect Laboratory Results 04/03/20 17:05: POC Glucose 107 04/03/20 23:19: POC Glucose 112 H 04/04/20 04:00: WBC 9.0, RBC 3.50 L, Hgb 9.8 L, Hct 31.3 L, MCV 89.4, MCH 28.0, MCHC 31.3 L, RDW Std Deviation 47.9 H, RDW Coeff of Fadumo 14.8 H, Plt Count 225, MPV 10.5, Immature Gran % (Auto) 0.700, Neut % (Auto) 82.8 H, Lymph % (Auto) 10.4 L, [place] % (Auto) 4.0, Eos % (Auto) 1.9, Baso % (Auto) 0.2, Absolute Neuts (auto) 7.4, Absolute Lymphs (auto) 0.93, Nucleated RBC % 0 04/04/20 04:00: Sodium 144, Potassium 3.1 L, Chloride 107, Carbon Dioxide 31.0, Anion Gap 6, BUN 14, Creatinine 0.98, Estim Creat Clear Calc 69.32, Est GFR (MDRD) Af Amer 96, Est GFR (MDRD) Non-Af 80, BUN/Creatinine Ratio 14.3, Glucose 98, Calcium 7.2 L 04/04/20 07:25: COVID-19 (DERRICK) Not Detected Current Medications Acetaminophen (Tylenol) 650 mg PO Q6H PRN PRN PRN Reason: Pain Score 1-10/Temp > 100.7 F Albuterol Sulfate (Ventolin Aerosols) 2.5 mg INHALATION Q2H PRN PRN PRN Reason: SOB/Wheezing Amlodipine Besylate (Norvasc) 10 mg PO DAILY [facility] Last Admin: 04/04/20 10:18 Dose: 10 mg Documented by: Atorvastatin Calcium (Lipitor) 10 mg PO DAILY [facility] Last Admin: 04/04/20 10:18 Dose: 10 mg Documented by: Dextrose (D50w Syringe) 0 gm IV X1 PRN; Protocol PRN Reason: Hypoglycemia Ergocalciferol (Vitamin D) 50,000 unit PO Q7D [facility] Last Admin: 03/30/20 14:06 Dose: Not Given Documented by: Glucagon () 1 mg IM .X1 PRN PRN Reason: Hypoglycemia Guaifenesin (Robitussin Dm) 10 ml PO Q4H PRN PRN PRN Reason: COUGH Hydralazine HCl (Apresoline Iv) 20 mg IV Q4H PRN PRN PRN Reason: SBP > 160 Last Admin: 03/26/20 00:23 Dose: 20 mg Documented by: Sodium Chloride () 500 mls @ 15 mls/hr IV PRN PRN PRN Reason: Blood Transfusion Sodium Chloride () 250 mls @ 15 mls/hr IV .[id number] PRN PRN Reason: Saline Flush Last Infusion: 04/04/20 10:46 Dose: 0 mls/hr Documented by: Sodium Chloride () 250 mls @ 15 mls/hr IV .[id number] PRN PRN Reason: Additional IVPB Infusion Pantoprazole Sodium 40 mg/ (Sodium Chloride) 110 mls @ 330 mls/hr IV Q12 [facility] Last Admin: 04/04/20 12:30 Dose: Not Given Documented by: Insulin Glargine (Lantus (Bk)) 10 units SC DAILY [facility] Last Admin: 04/03/20 11:18 Dose: 10 u Documented by: Insulin Human Lispro (Humalog Kwikpen (Bk)) 0 unit SC Q6 [facility]; Protocol Last Admin: 04/04/20 05:35 Dose: Not Given Documented by: Labetalol HCl (Trandate) 100 mg PO TID [facility] Last Admin: 04/04/20 05:35 Dose: 100 mg Documented by: Ondansetron HCl (Zofran) 4 mg IV Q8H PRN PRN PRN Reason: NAUSEA/VOMITING Last Admin: 03/26/20 10:49 Dose: 4 mg Documented by: Polyethylene Glycol (Miralax) 17 gm PO DAILY PRN PRN Reason: Constipation Potassium Chloride (K-Dur) 40 meq PO DAILYCM [facility] Last Admin: 04/04/20 10:18 Dose: 40 meq Documented by: Prochlorperazine Edisylate (Compazine Iv) 5 mg IV Q6H PRN PRN PRN Reason: NAUSEA/VOMITING Last Admin: 03/27/20 09:33 Dose: 5 mg Documented by: Senna (Senokot) 2 tablet PO BID PRN PRN PRN Reason: Constipation Sodium Chloride () 10 - 40 ml IV UD PRN PRN Reason: SALINE FLUSH Last Admin: 04/03/20 04:45 Dose: 40 ml Documented by: Sodium Chloride () 10 - 40 ml IV UD PRN PRN Reason: Multilumen/Kim Flush Sodium Chloride (0.9% Nacl (Sterile) Posiflush) 10 - 40 ml IV UD PRN PRN Reason: Port access or dressing change Temazepam (Restoril) 15 mg PO QHS PRN PRN PRN Reason: INSOMNIA Last Admin: 03/27/20 21:08 Dose: 15 mg Documented by: STROKE Vital Signs/Narrative: Vital Signs Temp Pulse Resp BP Pulse Ox 04/04/20 13:12 98.5 F 79 20 H 145/68 H 94 Medical Necessity - Tobacco Use Smoking Status: Never smoker Tobacco Use: Non-smoker Assessment/Plan All Active Problems (Last Updated 02/12/19 @ 14:15 by Gisele Barnhart) Myocardial infarction (Resolved) COVID-19 (Acute) Respiratory failure (Acute) Upper GI bleed (Acute) Atherosclerosis of coronary artery of [place] heart without angina pectoris (Ruled-out) # Acute hemorrhagic shock due to bleeding peptic ulcer * patient now off vasopressors and hemodynamically stable * had repeat EGD which showed a nonbleeding ulcer. * s/p transfusion of 4 units of PRBCs * Hb today is 9.8 * he had 2 episodes of dark tarry stool today. * on IV protonix q12 * critical care and general surgery on board * per discussion with general surgery, to monitor him overnight to make sure he doesnt bleed again, as general surgery concerned that his ulcer may have been perforated, so he is at a higher risk of bleeding. * # Acute hypoxic respiratory failure due to covid 19 pneumonia * now on 2L of oxygen. * sputum cultured Staph * now on IV cefazolin. * critical care on board * #Afib: * has now converted spontaneously to normal sinus rhythm. * patient cannot be anticoagulated due to bleeding peptic ulcer * to get 2D echo once covid has resolved * monitor HR, and follow up with cardiology on outpatient basis. * # Hypernatremia: resolved. Na today is 144 # COVID 19 infection: * completed course of remdesivir and received convalescent plasma. * steroids and anticoagulation discontinued due to bleeding ulcer. #Hypokalemia: K is 3.1. Will replace aggressively and monitor # Bleeding peptic ulcer: as under hemorrhagic shock. # CAROLYNN: * resolved. * renal USG was essentially normal # History of CVA; stable # Hypertension; on amlodipine # CAD: on statin. aspirin on hold o/a of bleeding peptic ulcer DVT prophylaxis: on SCDs Disposition * Discharge to TCU canceled as patient had 2 episodes of dark tarry stools. To monitor overnight and for likely discharge to TCU tomorrow. Inpatient E&M: 06959 Subs Hosp L2
--- NOTE | 2020-04-04 15:18 | CASEMGMT ---
Social Work SW spoke with Miquel RN who states pt discharge has been cancelled for today for medical reasons. Miquel did speak with pt and inform. LASHAY placed call to [facility] in TCU and left a VM informing pt would not be coming today but likely tomorrow. Plan: TCU, when medically ready JEFF Posada
[2020-04-04 17:20] LABS: Bedside Glucose 120 mg/dL (70-110)
[2020-04-04 17:26] LABS: Bedside Glucose 117 mg/dL (70-110)
[2020-04-05 00:36] LABS: Bedside Glucose 135 mg/dL (70-110)
[2020-04-05 02:00] VITALS: RESP 16
[2020-04-05 03:00] VITALS: BP 114/77; PULSE 74; RESP 16; TEMP 37.1; O2SAT 97
--- NOTE | 2020-04-05 05:05 | NURSING ---
pt refused to let this rn draw labs, stated he is tired of getting poked..i as poked 7 times yesterday!...i am done!
[2020-04-05] MEDS: Labetalol 100 MG Tablet PO (06:34)
--- NOTE | 2020-04-05 06:41 | PN_ITS ---
Patient Problems: Active and Suspected Problems (Last Updated 02/12/19 @ 14:15 by Gisele Barnhart) COVID-19 (Acute) Respiratory failure (Acute) Upper GI bleed (Acute) Subjective: The patient was seen and examined at the bedside this morning. Events from the last 24 hours have been reviewed. The patient is currently afebrile, hemo dynamically stable and maintaining appropriate oxygen saturations on 2 L/min via nasal cannula. The patient was supposed to be transferred to the TCU yesterday. However, he had a melanotic bowel movement late yesterday afternoon, which prompted his transfer to be placed on hold. No overnight issues were identified by the nursing staff. The patient refused to allow for a blood draw this morning. Objective: The patient's most recent lab work, culture data and imaging studies have all been personally reviewed. - Physical Exam Vitals/I&O's: Vital Signs Temp Pulse Resp BP Pulse Ox 98.8 F 74 16 114/77 97 04/05/20 03:00 04/05/20 03:00 04/05/20 03:00 04/05/20 03:00 04/05/20 03:00 Oxygen Flow Rate (L/min) 2 Oxygen Delivery Method Nasal Cannula Weight: 212 lb 15.465 oz Body Mass Index (BMI) 31.8 Intake and Output for Last 24 Hours 04/03/20 04/04/20 04/05/20 23:59 23:59 23:59 Intake Total 2369.50 / 2369.50 660.00 / 660.00 240 / 240 Output Total 3250 / 3250 925 / 925 500 / 500 Balance -880.50 / -880.50 -265.00 / -265.00 -260 / -260 General: Alert, No apparent distress HEENT: Atraumatic, Normocephalic Oral: No Gingival or Mucosal Lesions/ Ulcerations Neck: Supple, No Nodes, Trachea Midline Lungs: No rhonchi, No wheeze, No rales, Diminished Cardiovascular: Regular rate, Regular Rhythm Abdomen: Bowel Sounds Present, Soft, Obese Extremities: No clubbing, No cyanosis, No edema Skin: No breakdown Musculoskeletal: No Tenderness to Palpation of Joints or Extremities Lymphatic: No Cervical, Supraclavicular, or Inguinal Adenopathy Neurological: Cranial nerves II-XII grossly intact, Neuro grossly intact Psych/Mental Status: Normal Affect, Appropriate Labs (Last 48 Hours) 04/03/20 04/03/20 04/03/20 10:25 11:16 17:05 WBC RBC Hgb Hct MCV MCH MCHC RDW Std Deviation RDW Coeff of Fadumo Plt Count MPV Immature Gran % (Auto) Neut % (Auto) Lymph % (Auto) [place] % (Auto) Eos % (Auto) Baso % (Auto) Absolute Neuts (auto) Absolute Lymphs (auto) Nucleated RBC % Sodium Potassium Chloride Carbon Dioxide Anion Gap BUN Creatinine Estim Creat Clear Calc Est GFR (MDRD) Af Amer Est GFR (MDRD) Non-Af BUN/Creatinine Ratio Glucose Calcium COVID-19 (DERRICK) Not Detected POC Glucose 150 H 107 04/03/20 04/04/20 04/04/20 23:19 04:00 04:00 WBC 9.0 RBC 3.50 L Hgb 9.8 L Hct 31.3 L MCV 89.4 MCH 28.0 MCHC 31.3 L RDW Std Deviation 47.9 H RDW Coeff of Fadumo 14.8 H Plt Count 225 MPV 10.5 Immature Gran % (Auto) 0.700 Neut % (Auto) 82.8 H Lymph % (Auto) 10.4 L [place] % (Auto) 4.0 Eos % (Auto) 1.9 Baso % (Auto) 0.2 Absolute Neuts (auto) 7.4 Absolute Lymphs (auto) 0.93 Nucleated RBC % 0 Sodium 144 Potassium 3.1 L Chloride 107 Carbon Dioxide 31.0 Anion Gap 6 BUN 14 Creatinine 0.98 Estim Creat Clear Calc 69.32 Est GFR (MDRD) Af Amer 96 Est GFR (MDRD) Non-Af 80 BUN/Creatinine Ratio 14.3 Glucose 98 Calcium 7.2 L COVID-19 (DERRICK) POC Glucose 112 H 04/04/20 04/04/20 04/04/20 05:33 07:25 17:05 WBC RBC Hgb Hct MCV MCH MCHC RDW Std Deviation RDW Coeff of Fadumo Plt Count MPV Immature Gran % (Auto) Neut % (Auto) Lymph % (Auto) [place] % (Auto) Eos % (Auto) Baso % (Auto) Absolute Neuts (auto) Absolute Lymphs (auto) Nucleated RBC % Sodium Potassium Chloride Carbon Dioxide Anion Gap BUN Creatinine Estim Creat Clear Calc Est GFR (MDRD) Af Amer Est GFR (MDRD) Non-Af BUN/Creatinine Ratio Glucose Calcium COVID-19 (DERRICK) Not Detected POC Glucose 120 H 117 H 04/05/20 00:26 WBC RBC Hgb Hct MCV MCH MCHC RDW Std Deviation RDW Coeff of Fadumo Plt Count MPV Immature Gran % (Auto) Neut % (Auto) Lymph % (Auto) [place] % (Auto) Eos % (Auto) Baso % (Auto) Absolute Neuts (auto) Absolute Lymphs (auto) Nucleated RBC % Sodium Potassium Chloride Carbon Dioxide Anion Gap BUN Creatinine Estim Creat Clear Calc Est GFR (MDRD) Af Amer Est GFR (MDRD) Non-Af BUN/Creatinine Ratio Glucose Calcium COVID-19 (DERRICK) POC Glucose 135 H Clinical Impression(s) from Imaging Studies Chest X-Ray 03/20/20 10:47 IMPRESSION: Bilateral pulmonary infiltrates with a peripheral tendency for distribution. With the patient''s history of Covid positive, this is in keeping with coal but pneumonitis. Electronically Signed: Ross Ulrich, at 11:17 EDT , Service support , Chest CTA 03/20/20 11:43 IMPRESSION: Diffuse bilateral infiltrates involving both lungs in the differential peripheral distribution in keeping with the patient''s Covid diagnosis. 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 Electronically Signed: Ross Ulrich, at 12:45 EDT , Service support , Chest X-Ray 03/22/20 06:29 IMPRESSION: Minimal change in bilateral infiltrates. at 0700 Reported and signed by: Sushma Fong MD Electronically Signed: Sushma Fong MD at 7:00 EDT Tel , Service support , Chest X-Ray 03/28/20 10:05 IMPRESSION: Bibasilar infiltrates left greater than right although there has been improvement. The tip of the orogastric tube is at the gastroesophageal junction. Electronically Signed: Ross Mojgan, at 10:24 EDT , Service support , Chest X-Ray 03/28/20 10:45 IMPRESSION: The tip of the right central catheter is at the junction of the superior vena cava and right atrium. Electronically Signed: Ross Mojgan, at 11:48 EDT , Service support , Renal Ultrasound 03/29/20 09:43 IMPRESSION: No hydronephrosis. Electronically Signed: Kostas Aquino MD ([place]) at 12:42 EDT , Service support , KUB X-Ray 03/31/20 12:57 IMPRESSION: Nasogastric tube extends into the stomach. Bibasilar atelectasis. Focal left basilar infiltrate cannot be excluded. Electronically Signed: Moose Simon DO at 15:15 EDT Tel [phone], Service support , Current Medications Acetaminophen (Tylenol) 650 mg PO Q6H PRN PRN PRN Reason: Pain Score 1-10/Temp > 100.7 F Albuterol Sulfate (Ventolin Aerosols) 2.5 mg INHALATION Q2H PRN PRN PRN Reason: SOB/Wheezing Amlodipine Besylate (Norvasc) 10 mg PO DAILY [facility] Last Admin: 04/04/20 10:18 Dose: 10 mg Documented by: Atorvastatin Calcium (Lipitor) 10 mg PO DAILY [facility] Last Admin: 04/04/20 10:18 Dose: 10 mg Documented by: Dextrose (D50w Syringe) 0 gm IV X1 PRN; Protocol PRN Reason: Hypoglycemia Ergocalciferol (Vitamin D) 50,000 unit PO Q7D [facility] Last Admin: 03/30/20 14:06 Dose: Not Given Documented by: Glucagon () 1 mg IM .X1 PRN PRN Reason: Hypoglycemia Guaifenesin (Robitussin Dm) 10 ml PO Q4H PRN PRN PRN Reason: COUGH Hydralazine HCl (Apresoline Iv) 20 mg IV Q4H PRN PRN PRN Reason: SBP > 160 Last Admin: 03/26/20 00:23 Dose: 20 mg Documented by: Sodium Chloride () 500 mls @ 15 mls/hr IV PRN PRN PRN Reason: Blood Transfusion Sodium Chloride () 250 mls @ 15 mls/hr IV .[id number] PRN PRN Reason: Saline Flush Last Infusion: 04/04/20 10:46 Dose: 0 mls/hr Documented by: Sodium Chloride () 250 mls @ 15 mls/hr IV .[id number] PRN PRN Reason: Additional IVPB Infusion Insulin Glargine (Lantus (Bk)) 10 units SC DAILY [facility] Last Admin: 04/04/20 17:07 Dose: Not Given Documented by: Insulin Human Lispro (Humalog Kwikpen ([facility])) 0 unit SC Q6 [facility]; Protocol Last Admin: 04/05/20 06:33 Dose: Not Given Documented by: Labetalol HCl (Trandate) 100 mg PO TID [facility] Last Admin: 04/05/20 06:34 Dose: 100 mg Documented by: Ondansetron HCl (Zofran) 4 mg IV Q8H PRN PRN PRN Reason: NAUSEA/VOMITING Last Admin: 03/26/20 10:49 Dose: 4 mg Documented by: Pantoprazole Sodium (Protonix) 40 mg PO BID [facility] Last Admin: 04/04/20 21:00 Dose: 40 mg Documented by: Polyethylene Glycol (Miralax) 17 gm PO DAILY PRN PRN Reason: Constipation Potassium Chloride (K-Dur) 40 meq PO DAILYCM [facility] Last Admin: 04/04/20 10:18 Dose: 40 meq Documented by: Prochlorperazine Edisylate (Compazine Iv) 5 mg IV Q6H PRN PRN PRN Reason: NAUSEA/VOMITING Last Admin: 03/27/20 09:33 Dose: 5 mg Documented by: Senna (Senokot) 2 tablet PO BID PRN PRN PRN Reason: Constipation Sodium Chloride () 10 - 40 ml IV UD PRN PRN Reason: SALINE FLUSH Last Admin: 04/03/20 04:45 Dose: 40 ml Documented by: Sodium Chloride () 10 - 40 ml IV UD PRN PRN Reason: Multilumen/Kim Flush Sodium Chloride (0.9% Nacl (Sterile) Posiflush) 10 - 40 ml IV UD PRN PRN Reason: Port access or dressing change Temazepam (Restoril) 15 mg PO QHS PRN PRN PRN Reason: INSOMNIA Last Admin: 03/27/20 21:08 Dose: 15 mg Documented by: Medical Necessity - Tobacco Use Smoking Status: Never smoker Tobacco Use: Non-smoker Assessment/Plan All Active Problems (Last Updated 02/12/19 @ 14:15 by Gisele Barnhart) Myocardial infarction (Resolved) COVID-19 (Acute) Respiratory failure (Acute) Upper GI bleed (Acute) Atherosclerosis of coronary artery of [place] heart without angina pectoris (Ruled-out) RECOMMENDATIONS: 1. Continue to wean supplemental oxygen to maintain saturations at or above 90%. 2. Encourage incentive spirometer use and mobilize patient as tolerated. 3. Dietary advancement per general surgery recommendations. 4. Continue home beta-blaze regimen. 5. Continue antimicrobials per ID recommendations. 6. Continue twice daily PPI therapy. 7. Given the patient's lack of further ICU needs, will sign off. Please call with any additional questions. IMPRESSIONS: 1. Acute hypoxemic respiratory failure secondary to coronavirus pneumonia The patient was diagnosed with coronavirus infection and does have bilateral infiltrates on CTA chest consistent with COVID pneumonia. The patient initially received supportive measures with supplemental oxygen, convalescent plasma, Remdesevir and Decadron. In addition, the patient was placed on systemic anticoagulation. However, he developed what is likely a bleeding ulcer as a consequence of systemic anticoagulation and eventually had to be intubated. The patient's respiratory status has improved and he was able to be successfully extubated from mechanical ventilatory support. Plan to continue to wean sup plemental oxygen to maintain saturations at or above 90%. He will be continued on antimicrobials per ID recommendations. Encourage incentive spirometer use and mobilize patient as tolerated. 2. Hemorrhagic shock secondary to bleeding peptic ulcer complicated by systemic anticoagulation Resolved. The patient's hemodynamics have stabilized with vasopressor support and transfusion of blood products. Plan to continue to monitor blood counts and transfuse if hemoglobin drops below 7 g/dL. The patient will be continued on twice daily PPI therapy. General surgery is following. Plan to advance diet as tolerated. 3. Paroxysmal atrial fibrillation The patient did transiently go into atrial fibrillation yesterday but spontaneously converted to a normal sinus rhythm overnight. Plan to continue home beta-blaze regimen. 4. History of CVA/chronic kidney disease/hypertension/hyperlipidemia/CODE S TATUS Complicates care, management, recovery and prognosis. CODE STATUS remains full code. Case management/social work to assist with disposition planning. This note was generated with [employer] dictation software. It may contain incorrect words, spelling, and punctuation that were not noted in checking the note before signing. Inpatient E&M: 38010 Subs Hosp L2
[2020-04-05 06:46] LABS: Bedside Glucose 116 mg/dL (70-110)
[2020-04-05 08:13] LABS: Absolute Lymphocyte Count 0.87 X10^3/uL (0.83-4.51); Absolute Neutrophil Count 5.5 X10^3/uL (2.0-7.7); Basophil# 0.01 X10^3/uL; Basophil% 0.1 % (0-1); Eosinophil# 0.18 X10^3/uL; Eosinophils% 2.6 % (0-5); Hemoglobin 9.4 g/dL (13.0-16.5); Lymphocyte # 0.87 X10^3/ul (4.0); Lymphocyte % 12.6 % (19-41); Mean Corp Hgb Conc 31.3 g/dL (32-36); Mean Corpuscular Hgb 28.4 pg (27.0-32.0); Mean Corpuscular Volume 90.6 fL (80-94); Mean Platelet Vol. 10.4 fl (6.2-12.0); Monocyte# 0.32 X10^3/uL; Monocyte% 4.6 % (0-10); NRBC Flagged by Analyzer 0 % (0-5); Neutrophil # 5.48 X10^3/uL (2.7-7.7); Neutrophil % 79.5 % (47-70); Platelet Count 219 K/mm3 (150-450); RBC Distribution Width CV 14.6 % (11.6-14.6); RBC Distribution Width SD 47.8 fl (35.1-43.9); Red Blood Count 3.31 M/mm3 (4.6-6.2); White Blood Count 6.9 K/mm3 (4.4-11.0)
--- NOTE | 2020-04-05 08:14 | PCM.PN.SRG ---
Patient Problems: Active and Suspected Problems (Last Updated 02/12/19 @ 14:15 by Gislee Barnhart) COVID-19 (Acute) Respiratory failure (Acute) Upper GI bleed (Acute) Subjective: Patient had no further bloody bowel movements overnight - Physical Exam Vitals/I&O's: Vital Signs Temp Pulse Resp BP Pulse Ox 98.8 F 74 16 114/77 97 04/05/20 03:00 04/05/20 03:00 04/05/20 03:00 04/05/20 03:00 04/05/20 03:00 Oxygen Flow Rate (L/min) 2 Oxygen Delivery Method Nasal Cannula Weight: 212 lb 15.465 oz Body Mass Index (BMI) 31.8 Intake and Output for Last 24 Hours 04/03/20 04/04/20 04/05/20 23:59 23:59 23:59 Intake Total 2369.50 / 2369.50 660.00 / 660.00 240 / 240 Output Total 3250 / 3250 925 / 925 500 / 500 Balance -880.50 / -880.50 -265.00 / -265.00 -260 / -260 General: Alert, Cooperative Lungs: Normal air movement Abdomen: Soft, Non Tender, Non-Distended Laboratory Results 04/04/20 05:33: POC Glucose 120 H 04/04/20 07:25: COVID-19 (DERRICK) Not Detected 04/04/20 17:05: POC Glucose 117 H 04/05/20 00:26: POC Glucose 135 H 04/05/20 06:30: POC Glucose 116 H 04/05/20 07:50: Sodium Pending, Potassium Pending, Chloride Pending, Carbon Dioxide Pending, Anion Gap Pending, BUN Pending, Creatinine Pending, Est GFR (MDRD) Af Amer Pending, Est GFR (MDRD) Non-Af Pending, BUN/Creatinine Ratio Pending, Glucose Pending, Calcium Pending 04/05/20 07:50: WBC Pending, RBC Pending, Hgb Pending, Hct Pending, MCV Pending, MCH Pending, MCHC Pending, RDW Std Deviation Pending, RDW Coeff of Fadumo Pending, Plt Count Pending, Neut % (Auto) Pending, Absolute Neuts (auto) Pending Current Medications Acetaminophen (Tylenol) 650 mg PO Q6H PRN PRN PRN Reason: Pain Score 1-10/Temp > 100.7 F Albuterol Sulfate (Ventolin Aerosols) 2.5 mg INHALATION Q2H PRN PRN PRN Reason: SOB/Wheezing Amlodipine Besylate (Norvasc) 10 mg PO DAILY [facility] Last Admin: 04/04/20 10:18 Dose: 10 mg Documented by: Atorvastatin Calcium (Lipitor) 10 mg PO DAILY [facility] Last Admin: 04/04/20 10:18 Dose: 10 mg Documented by: Dextrose (D50w Syringe) 0 gm IV X1 PRN; Protocol PRN Reason: Hypoglycemia Ergocalciferol (Vitamin D) 50,000 unit PO Q7D [facility] Last Admin: 03/30/20 14:06 Dose: Not Given Documented by: Glucagon () 1 mg IM .X1 PRN PRN Reason: Hypoglycemia Guaifenesin (Robitussin Dm) 10 ml PO Q4H PRN PRN PRN Reason: COUGH Hydralazine HCl (Apresoline Iv) 20 mg IV Q4H PRN PRN PRN Reason: SBP > 160 Last Admin: 03/26/20 00:23 Dose: 20 mg Documented by: Sodium Chloride () 500 mls @ 15 mls/hr IV PRN PRN PRN Reason: Blood Transfusion Sodium Chloride () 250 mls @ 15 mls/hr IV .[id number] PRN PRN Reason: Saline Flush Last Infusion: 04/04/20 10:46 Dose: 0 mls/hr Documented by: Sodium Chloride () 250 mls @ 15 mls/hr IV .[id number] PRN PRN Reason: Additional IVPB Infusion Insulin Glargine (Lantus (Bkc)) 10 units SC DAILY [facility] Last Admin: 04/04/20 17:07 Dose: Not Given Documented by: Insulin Human Lispro (Humalog Kwikpen (Bk)) 0 unit SC Q6 [facility]; Protocol Last Admin: 04/05/20 06:33 Dose: Not Given Documented by: Labetalol HCl (Trandate) 100 mg PO TID [facility] Last Admin: 04/05/20 06:34 Dose: 100 mg Documented by: Ondansetron HCl (Zofran) 4 mg IV Q8H PRN PRN PRN Reason: NAUSEA/VOMITING Last Admin: 03/26/20 10:49 Dose: 4 mg Documented by: Pantoprazole Sodium (Protonix) 40 mg PO BID [facility] Last Admin: 04/04/20 21:00 Dose: 40 mg Documented by: Polyethylene Glycol (Miralax) 17 gm PO DAILY PRN PRN Reason: Constipation Potassium Chloride (K-Dur) 40 meq PO DAILYCM [facility] Last Admin: 04/04/20 10:18 Dose: 40 meq Documented by: Prochlorperazine Edisylate (Compazine Iv) 5 mg IV Q6H PRN PRN PRN Reason: NAUSEA/VOMITING Last Admin: 03/27/20 09:33 Dose: 5 mg Documented by: Senna (Senokot) 2 tablet PO BID PRN PRN PRN Reason: Constipation Sodium Chloride () 10 - 40 ml IV UD PRN PRN Reason: SALINE FLUSH Last Admin: 04/03/20 04:45 Dose: 40 ml Documented by: Sodium Chloride () 10 - 40 ml IV UD PRN PRN Reason: Multilumen/Kim Flush Sodium Chloride (0.9% Nacl (Sterile) Posiflush) 10 - 40 ml IV UD PRN PRN Reason: Port access or dressing change Temazepam (Restoril) 15 mg PO QHS PRN PRN PRN Reason: INSOMNIA Last Admin: 03/27/20 21:08 Dose: 15 mg Documented by: Medical Necessity - Tobacco Use Smoking Status: Never smoker Tobacco Use: Non-smoker Assessment/Plan All Active Problems (Last Updated 02/12/19 @ 14:15 by Gisele Barnhart) Myocardial infarction (Resolved) COVID-19 (Acute) Respiratory failure (Acute) Upper GI bleed (Acute) Atherosclerosis of coronary artery of [place] heart without angina pectoris (Ruled-out) 75-year-old male with large duodenal ulcer which was bleeding 1. Patient had tarry bowel movement yesterday and the day before but none overnight. I will advance him to a transitional diet and observe today. If he tolerates transitional diet with no signs of active bleeding he will be transferred to the TCU later today. Patient will need to follow-up with me in 2 weeks for repeat EGD to ensure healing. Sami Figueroa MD Pager: [facility] [address] [place] [address], [address] [place] [phone] Office:
[2020-04-05 08:21] LABS: Anion Gap 5 (5-15); BUN 13 mg/dL (7-18); BUN/Creat Ratio 12.9 RATIO (10-20); Calcium,Total 7.5 mg/dL (8.5-10.1); Chloride 104 mmol/L (98-107); Creatinine, Serum 1.01 mg/dL (0.70-1.30); EST Glomerular Filtration Rate 77 mL/min (>60); Est Glom Filt Rate - Afr Amer 93 mL/min (>60); Estimated Creatinine Clearance 67.26 ml/min; Glucose 112 mg/dL (74-106); Potassium 3.2 mmol/L (3.5-5.1); Sodium Level 142 mmol/L (136-145)
--- NOTE | 2020-04-05 09:40 | CM.UR ---
Participated in interdisciplinary round this am. Patient is stable. Plan to transfer to TCU. Jose Alberto Ratliff RN, CCM.
[2020-04-05 10:30] VITALS: BP 118/53; PULSE 90; RESP 16; TEMP 36.9; O2SAT 96
[2020-04-05] MEDS: Atorvastatin Calcium 10 MG Tablet PO (10:36)
[2020-04-05] MEDS: amLODIPine 10 MG Tablet PO (10:36)
[2020-04-05] MEDS: Pantoprazole Sodium 40 MG Tablet PO (10:36)
== END 2020-04-05 12:30 | disposition skilled nursing facility (03) | DRG 208 ==
LOC: ED 12:53 → ICU 14:13
PROVIDERS: Internal Medicine Critical Care Medicine; Internal Medicine Infectious Disease; Surgery; Admitting Provider Internal Medicine; Emergency Provider Emergency Medicine; PCP Internal Medicine; Visit Provider Student in an Organized Health Care Education/Training Program
PROC: 0DJ08ZZ Inspection of Upper Intestinal Tract, Via Natural or Artificial Opening Endoscopic (ICD-10-PCS; CPT 43235; principal; 2020-03-28 10:55)
DX: U07.1 COVID-19 (principal); J96.01 Acute respiratory failure with hypoxia; K25.4 Chronic or unspecified gastric ulcer with hemorrhage; J12.89 Other viral pneumonia; R57.8 Other shock; N17.9 Acute kidney failure, unspecified; D62 Acute posthemorrhagic anemia; E44.0 Moderate protein-calorie malnutrition; E87.0 Hyperosmolality and hypernatremia; I25.2 Old myocardial infarction; I25.10 Atherosclerotic heart disease of native coronary artery without angina pectoris; E78.5 Hyperlipidemia, unspecified; I12.9 Hypertensive chronic kidney disease with stage 1 through stage 4 chronic kidney disease, or unspecified chronic kidney disease; E87.6 Hypokalemia; N18.9 Chronic kidney disease, unspecified; E66.9 Obesity, unspecified; Z68.34 Body mass index [BMI] 34.0-34.9, adult; K59.00 Constipation, unspecified; Z86.73 Personal history of transient ischemic attack (TIA), and cerebral infarction without residual deficits; K26.7 Chronic duodenal ulcer without hemorrhage or perforation; I48.0 Paroxysmal atrial fibrillation
CPT/HCPCS: 31500; 31720; 36600; 36620; 71045; 71275; 74018; 76770; 80048; 80053; 80076; 82550; 82570; 82803; 82962; 83605; 83735; 83880; 84100; 84145; 84300; 84478; 84484; 85014; 85018; 85025; 85027; 85379; 85610; 85730; 86850; 86900; 86901; 86920; 87040; 87070; 87077; 87186; 87205; 87635; 92610; 93005; 94002; 94003; 94660; 97110; 97116; 97162; 97166; 97530; 97535; 97802; 99251; 99285; C9132; J2185; J7030; J7040; J7050; J7120; P9016; P9040; Q9967; A4216; C1751; G0463; J0744; J1940; J2405; J3010; J3490; U0003

== ENCOUNTER 2020-04-05 13:00 | Inpatient (IN) | payer MEDICARE, OTHER, SELFPAY ==
[2020-03-29 08:09] VITALS: BMI 31.8
[2020-04-05 13:24] VITALS: BMI 31.1; BMI 31.3
[2020-04-05 13:27] VITALS: BP 151/73; PULSE 70; RESP 18; TEMP 36.3; O2SAT 92
--- NOTE | 2020-04-05 15:59 | PCM.HP.STD ---
Problem List (1) Debility Status: Acute (2) Pneumonia due to COVID-19 virus Status: Acute (3) Acute respiratory failure Status: Acute (4) Peptic ulcer Status: Acute (5) Duodenal ulcer Status: Acute (6) Hypotension Status: Acute (7) Anemia Status: Acute (8) Hypokalemia Status: Acute (9) Hypertension Status: Chronic (10) Coronary artery disease Status: Chronic (11) Upper GI bleed Status: Acute (12) CVA (cerebral vascular accident) Status: Chronic (13) HLD (hyperlipidemia) Status: Chronic History of Present Illness Date of Admission: 04/05/20 Chief Complaint: Here for rehabilitation, strengthening, prior to discharge home with . 03/20/20 The patient is a 75 year old Male with below past medical history admitted to [facility] for COVID-19, respiratory failure. Shortness of breath, cough x 1 week, COVID-[address] chest showed diffuse bilateral infiltrates. Treated with IV decadron, aerosols. IV Fluids for hydration. Oxygen transitioned to BiPAP intermittently. Lovenox, then Eliquis for DVT prophylaxis. Developed melena, hypotension, hematemesis. Eliquis stopped, IV Pantoprazole stated. EGD showed bleeding peptic ulcer treated with epinephrine injections, 4 hemostatic clips. Hypotension required 2 vasopressor support. Antibiotic treatment for MSSA in sputum, narrowed to Cefazolin. Required 4 units PRBC transfusion for upper GI bleeding. Repeat EGD showed duodenal ulcer, no further bleeding. Extubated, weaned off pressors. Hypokalemia repleted. reluctant to take patient home due to weakness. 04/05/20 Admit to TCU with debility, here for rehabilitation, strengthening, prior to discharge home with . Past Medical History Past Medical History (Chronic Problems): Chronic Problems (Last Updated 02/12/19 @ 14:15 by Gisele Barnhart) Coronary artery disease (Chronic) Hypertension (Chronic) CVA (cerebral vascular accident) (Chronic 2012) HLD (hyperlipidemia) (Chronic) Essential hypertension (Chronic) Medical History: Medical History (Last Updated 02/12/19 @ 14:15 by Gisele Barnhart) CVA (cerebral vascular accident) (Chronic) Onset Date: 2012 I63.9 HLD (hyperlipidemia) (Chronic) E78.5 Essential hypertension (Chronic) I10 Anemia D64.9 Obesity E66.9 GI bleed K92.2 Non-ST elevation (NSTEMI) myocardial infarction I21.4 Atherosclerosis of coronary artery of [place] heart without angina pectoris (Ruled-out) I25.10 Allergies Penicillins Allergy (Verified 03/20/20 10:34) Unknown Home Medications: Ambulatory Orders Medication Instructions Recorded Amlodipine [Norvasc] 10 mg PO DAILY 03/20/20 Atorvastatin Calcium [Lipitor] 10 mg PO QHS 03/20/20 Cholecalciferol (Vitamin D3) 5,000 unit PO DAILY 03/20/20 [Vitamin D3] Hydralazine HCl 100 mg PO BID 03/20/20 Labetalol HCl 300 mg PO TID 03/20/20 Phenylephrine/Dm/Acetaminop/GG 1 tab PO BID 03/20/20 [Tylenol Cold-Flu Severe Caplet] Pantoprazole Sodium [Protonix] 40 mg PO BID 04/05/20 Potassium Chloride 40 meq PO DAILY 04/05/20 Surgical History: Surgical History (Last Updated 02/03/18 @ 15:02 by Nettie Magallon) H/O: knee surgery Z98.890 Surgical History: - - Knee surgery Psychiatric History: No pertinent psych hx Lives: Spouse/ Significant Other Smoking Status: Never smoker Tobacco Use: Non-smoker Alcohol: None Drugs: None - *Family History Maternal Family History: Family History (Last Updated 02/03/18 @ 15:02 by Nettie Magallon) Father CAD (coronary artery disease) History Items: - - Denies known maternal medical history including cardiac history. Paternal Family History: Family History (Last Updated 02/03/18 @ 15:02 by Nettie Magallon) Father CAD (coronary artery disease) History Items: Heart Disease Review of Systems Constitutional: Reports: Weakness. Denies: Chills, Fever, Weight Change HEENT: Denies: Head Aches, Sinus Congestion, Sinus Drainage Cardiovascular: Denies: Chest Pain, Palpitations Respiratory: Denies: Cough, Shortness of breath at rest, Sputum production Gastrointestinal: Denies: Abdominal Pain, Nausea, Vomiting Genitourinary: Denies: Dysuria Musculoskeletal: Denies: Joint Pain, Joint Tenderness Skin: Denies: Rash, Wounds Neurological: Denies: Numbness, Tingling, Focal weakness Psychiatric: Denies: Anxiety, Depression, Homicidal Ideations, Suicidal Ideations Hematologic/ Lymphatic: Denies: Easy Bruising, Easy Bleeding VTE Information - Inpt Only VTE Present on Admission: No VTE Mechan Device Prophylaxis: Knee High LENNY Hose VTE Pharm Prophylaxis ordered?: No Reason prophylaxis not ordered:: Medical Contraindication Patient Problems: Active and Suspected Problems (Last Updated 02/12/19 @ 14:15 by Gisele Barnhart) Debility (Acute) Pneumonia due to COVID-19 virus (Acute) Acute respiratory failure (Acute) Peptic ulcer (Acute) Duodenal ulcer (Acute) Hypotension (Acute) Anemia (Acute) Hypokalemia (Acute) - Physical Exam Vitals/I&O's: Vital Signs Temp Pulse Resp BP Pulse Ox 97.4 F L 70 18 151/73 H 92 04/05/20 13:27 04/05/20 13:27 04/05/20 13:27 04/05/20 13:27 04/05/20 15:27 Oxygen Flow Rate (L/min) 2 Oxygen Delivery Method Nasal Cannula Weight: 98.515 kg Body Mass Index (BMI) 31.1 Intake and Output for Last 24 Hours 04/03/20 04/04/20 04/05/20 23:59 23:59 23:59 Output Total 150 / 150 Balance -150 / -150 General: Alert, Oriented x3, Cooperative HEENT: Atraumatic, PERRLA, EOMI, Normocephalic Neck: Supple, No JVD, Negative Carotid Bruits Lungs: Clear to auscultation, Normal air movement Cardiovascular: Regular rate, No murmurs Abdomen: Bowel Sounds Present, Soft, Non Tender Extremities: No edema, Capillary Refill Less than 3 Seconds Skin: No rashes, No breakdown Musculoskeletal: No Tenderness to Palpation of Joints or Extremities Neurological: Cranial nerves II-XII grossly intact Psych/Mental Status: Normal Affect, Appropriate Current Medications Amlodipine Besylate (Norvasc) 10 mg PO DAILY [facility] Atorvastatin Calcium (Lipitor) 10 mg PO QHS [facility] Bisacodyl (Dulcolax) 10 mg RECTAL DAILY PRN PRN Reason: Constipation Calamine/Phenol (Calmoseptine Ointment) 1 applic TOPICAL TID [facility]; Protocol Cholecalciferol (Vitamin D (25mcg)) 5,000 unit PO DAILY [facility] Hydralazine HCl (Apresoline) 100 mg PO BID [facility] Labetalol HCl (Trandate) 300 mg PO TID [facility] Sodium Biphosphate/Sodium Phosphate (Fleet Enema) 1 bottle RECTAL DAILY PRN PRN Reason: Constipation Tuberculin PPD (Tubersol, Aplisol, Ppd) 5 tu ID X1 ONE Stop: 04/06/20 10:01 Tuberculin PPD (Tubersol, Aplisol, Ppd) 5 tu ID X1 ONE Stop: 04/13/20 10:01 Assessment/Plan All Active Problems (Last Updated 02/12/19 @ 14:15 by Gisele Barnhart) Myocardial infarction (Resolved) COVID-19 (Acute) Respiratory failure (Acute) Upper GI bleed (Acute) Debility (Acute) Pneumonia due to COVID-19 virus (Acute) Acute respiratory failure (Acute) Peptic ulcer (Acute) Duodenal ulcer (Acute) Hypotension (Acute) Anemia (Acute) Hypokalemia (Acute) Atherosclerosis of coronary artery of [place] heart without angina pectoris (Ruled-out) 75 year old male with below past medical history hospitalized for COVID-19, acute respiratory failure, complicated by upper gastrointestinal bleed secondary to peptic ulcer, hypokalemia, MSSA sputum, admitted to TCU with debility, here for rehabilitation, strengthening, prior to discharge home with . Debility - PT/OT. Dysphagia - ST. Pain - Tylenol 1000MG Q6H PRN pain (1-10). Bowel - Miralax 17GM daily, Senna/colace 1 tablet BID, Dulcolax 10MG [place] daily PRN. Adult immunization - Administer Prevnar 13, Pneumovax 23, Fluzone as appropriate. DVT prophylaxis - Contraindicated due to UGIB. Hypertension - Off all blood pressure medications due to hypotension. Hyperlipidemia - Atorvastatin 10MG QHS. Vitamin D deficiency - D3 5000IU daily. Skin irritation - Calmoseptine topical TID. Peptic ulcer - Pantoprazole 40MG BID, Sucralfate 1GM QACHS.
[2020-04-05 16:00] VITALS: PULSE 63; RESP 18; O2SAT 92
[2020-04-05] MEDS: Senna/Docusate Sodium 1 Tablet PO (17:46)
[2020-04-05 17:47] VITALS: BP 151/73; PULSE 70
[2020-04-05] MEDS: hydrALAZINE 50 MG Tablet 100 MG PO (17:47)
[2020-04-05 18:07] VITALS: O2SAT 92
--- NOTE | 2020-04-05 20:29 | NURSING ---
pt voiced concerns tonight about not realizing he would be on another 14 day quarantine and not happy he has a small room to do therapy in. Asked what kind of therapy he would even be getting and if he could just go home tonight and start home health therapy instead. This nurse reassured him he will start therapy on Tuesday and his therapist will assess him and work on specific exercises to help him gain strength, till then this nurse suggested asking to walk in room with assistance, and try getting up to chair while awake. Pt has books he can read, at this time pt in bed on phone with voicing concerns. RN aware.
[2020-04-05] MEDS: Labetalol 100 MG Tablet 300 MG PO (21:00)
[2020-04-05] MEDS: Atorvastatin Calcium 10 MG Tablet PO (21:34)
[2020-04-05] MEDS: Menthol/Lanolin/Calamine/Znox 113 GM Tube 1 APPLIC TOPICAL (21:34)
[2020-04-06 04:45] VITALS: BP 142/60; PULSE 89; RESP 18; TEMP 36.6; O2SAT 62
[2020-04-06] MEDS: Polyethylene Glycol 3350 17 GM PACKET PO (04:49)
[2020-04-06 04:50] VITALS: BP 142/60; PULSE 89
[2020-04-06] MEDS: amLODIPine 10 MG Tablet PO (04:50)
[2020-04-06] MEDS: hydrALAZINE 50 MG Tablet 100 MG PO (04:50)
[2020-04-06] MEDS: Senna/Docusate Sodium 1 Tablet PO (04:50)
[2020-04-06] MEDS: Menthol/Lanolin/Calamine/Znox 113 GM Tube 1 APPLIC TOPICAL ×3 (04:50→20:50)
[2020-04-06] MEDS: Labetalol 100 MG Tablet 300 MG PO (04:52)
[2020-04-06 06:20] LABS: Absolute Lymphocyte Count 0.96 X10^3/uL (0.83-4.51); Absolute Neutrophil Count 6.3 X10^3/uL (2.0-7.7); Basophil# 0.01 X10^3/uL; Basophil% 0.1 % (0-1); Eosinophil# 0.15 X10^3/uL; Eosinophils% 1.9 % (0-5); Hematocrit 28.8 % (40-54); Hemoglobin 8.9 g/dL (13.0-16.5); Lymphocyte # 0.96 X10^3/ul (4.0); Lymphocyte % 12.2 % (19-41); Mean Corp Hgb Conc 30.9 g/dL (32-36); Mean Corpuscular Hgb 28.4 pg (27.0-32.0); Mean Platelet Vol. 10.4 fl (6.2-12.0); Monocyte# 0.44 X10^3/uL; Monocyte% 5.6 % (0-10); NRBC Flagged by Analyzer 0 % (0-5); Neutrophil # 6.27 X10^3/uL (2.7-7.7); Neutrophil % 79.6 % (47-70); Platelet Count 218 K/mm3 (150-450); RBC Distribution Width CV 14.4 % (11.6-14.6); RBC Distribution Width SD 47.8 fl (35.1-43.9); Red Blood Count 3.13 M/mm3 (4.6-6.2); White Blood Count 7.9 K/mm3 (4.4-11.0)
[2020-04-06 06:47] LABS: Anion Gap 5 (5-15); BUN 13 mg/dL (7-18); BUN/Creat Ratio 12.3 RATIO (10-20); Calcium,Total 7.6 mg/dL (8.5-10.1); Chloride 104 mmol/L (98-107); Creatinine, Serum 1.06 mg/dL (0.70-1.30); EST Glomerular Filtration Rate 73 mL/min (>60); Est Glom Filt Rate - Afr Amer 88 mL/min (>60); Estimated Creatinine Clearance 64.09 ml/min; Glucose 121 mg/dL (74-106); Potassium 3.2 mmol/L (3.5-5.1); Sodium Level 140 mmol/L (136-145)
[2020-04-06 07:24] VITALS: O2SAT 93
--- NOTE | 2020-04-06 07:53 | NURSING ---
pt noted to have coughing spells intermittently throughout shift. dr joy updated, new order robitussin DM PRN & mucinex BID
[2020-04-06 08:45] VITALS: BP 73/37; PULSE 67; RESP 12; TEMP 35.5; O2SAT 82
[2020-04-06] MEDS: 0.9% Normal Saline 1,000 ML 999 ML IV (09:13)
--- NOTE | 2020-04-06 09:14 | EKG12_ITS ---
Test Reason : RAPID RESPONSE Blood Pressure : / mmHG Vent. Rate : 066 BPM Atrial Rate : 066 BPM P-R Int : 140 ms QRS Dur : 148 ms QT Int : 486 ms P-R-T Axes : 083 013 -08 degrees QTc Int : 509 ms Sinus rhythm with Fusion complexes Right bundle branch block Abnormal ECG Confirmed by REJI HEATH, TAMMIE ([id number]), editor index LEONEL DAILEY ([id number]) on 04/10/2020 10:27:46 AM Referred By: RADHA Confirmed By:TAMMIE MENDOZA MD
--- NOTE | 2020-04-06 09:15 | RAD_ITS ---
STUDY: X-RAY CHEST REASON FOR EXAM: Male, 75 years old. SOB, COVID TECHNIQUE: AP COMPARISON: 03/28/2020 FINDINGS: Enteric tube and central venous catheter has been removed. Lungs are hypoinflated with persistent reticular and groundglass opacity in the left more than right lung base, not substantially changed. No sizable effusion. There is mild cardiac enlargement. Normal mediastinum and anupam. Normal visualized pulmonary arteries. Normal visualized aortic arch and descending thoracic aorta. No acute bony process. There is no demonstrated abnormality of the visualized soft tissue structures of the upper abdomen. RAD/Chest 1 View (Portable) IMPRESSION: 1. Similar interstitial and groundglass opacities can relate to typical and atypical pneumonia as well as fibrotic sequela. Electronically Signed: Kostas Aquino MD ([place]) at 13:45 EDT , Service support ,
--- NOTE | 2020-04-06 09:15 | RRT_ITS ---
Rapid Response Note Rapid response was activated on patient after patient was found to be lethargic with hypotension. Patient was found to have blood pressure in the 70s. Patient had apparently had a protracted stay in the hospital, admitted with COVID-19 infection hospital stay complicated by hemorrhagic shock secondary to bleeding peptic ulcer. Patient was managed with Protonix. Patient condition stabilized and subsequently transferred to the transitional care unit. Patient mentation was back to baseline at the time of my assessment with patient being able to carry intelligent conversation. He knew where he was he knew his name. Chest and heart examination was unremarkable. Patient resuscitated with IV fluid bolus. Stat labs including CBC BMP magnesium chest x-ray ordered. EKG obtained did not show any acute ST?T changes. Subsequent management decisions will be based on findings of above initial studies. Did review patient's medications antihypertensives held Patient Problems: Active and Suspected Problems (Last Updated 02/12/19 @ 14:15 by Gisele Barnhart) Debility (Acute) Pneumonia due to COVID-19 virus (Acute) Acute respiratory failure (Acute) Peptic ulcer (Acute) Duodenal ulcer (Acute) Hypotension (Acute) Anemia (Acute) Hypokalemia (Acute) - Physical Exam Vitals/I&O's: Vital Signs Temp Pulse Resp BP Pulse Ox 97.8 F 89 18 142/60 H 93 04/06/20 04:45 04/06/20 04:50 04/06/20 04:45 04/06/20 04:50 04/06/20 07:24 Oxygen Flow Rate (L/min) 2 Oxygen Delivery Method Nasal Cannula Weight: 98.515 kg Body Mass Index (BMI) 31.1 Intake and Output for Last 24 Hours 04/04/20 04/05/20 04/06/20 23:59 23:59 23:59 Intake Total 120 / 120 Output Total 150 / 150 Balance -30 / -30 Laboratory Results 04/06/20 06:00: WBC 7.9, RBC 3.13 L, Hgb 8.9 L, Hct 28.8 L, MCV 92.0, MCH 28.4, MCHC 30.9 L, RDW Std Deviation 47.8 H, RDW Coeff of Fadumo 14.4, Plt Count 218, MPV 10.4, Immature Gran % (Auto) 0.600, Neut % (Auto) 79.6 H, Lymph % (Auto) 12.2 L, [place] % (Auto) 5.6, Eos % (Auto) 1.9, Baso % (Auto) 0.1, Absolute Neuts (auto) 6.3, Absolute Lymphs (auto) 0.96, Nucleated RBC % 0 04/06/20 06:00: Sodium 140, Potassium 3.2 L, Chloride 104, Carbon Dioxide 31.0, Anion Gap 5, BUN 13, Creatinine 1.06, Estim Creat Clear Calc 64.09, Est GFR (MDRD) Af Amer 88, Est GFR (MDRD) Non-Af 73, BUN/Creatinine Ratio 12.3, Glucose 121 H, Calcium 7.6 L Current Medications Acetaminophen (Tylenol) 1,000 mg PO Q6H PRN PRN Reason: Pain Score 1-10 Amlodipine Besylate (Norvasc) 10 mg PO DAILY [facility] Last Admin: 04/06/20 04:50 Dose: 10 mg Documented by: Atorvastatin Calcium (Lipitor) 10 mg PO QHS [facility] Last Admin: 04/05/20 21:34 Dose: 10 mg Documented by: Bisacodyl (Dulcolax) 10 mg RECTAL DAILY PRN PRN Reason: Constipation Calamine/Phenol (Calmoseptine Ointment) 1 applic TOPICAL TID [facility]; Protocol Last Admin: 04/06/20 04:50 Dose: 1 applicatio Documented by: Cholecalciferol (Vitamin D (25mcg)) 5,000 unit PO DAILY [facility] Last Admin: 04/06/20 04:49 Dose: 5,000 unit Documented by: Guaifenesin (Mucinex) 600 mg PO BID [facility] Guaifenesin (Robitussin Dm) 10 ml PO Q6H PRN PRN PRN Reason: COUGH Hydralazine HCl (Apresoline) 100 mg PO BID [facility] Last Admin: 04/06/20 04:50 Dose: 100 mg Documented by: Sodium Chloride () 1,000 mls @ 999 mls/hr IV .Q1H1M ONE Stop: 04/06/20 10:03 Last Admin: 04/06/20 09:13 Dose: 999 mls/hr Documented by: Labetalol HCl (Trandate) 300 mg PO TID [facility] Last Admin: 04/06/20 04:52 Dose: 300 mg Documented by: Polyethylene Glycol (Miralax) 17 gm PO DAILY [facility] Last Admin: 04/06/20 04:49 Dose: 17 gm Documented by: Polysaccharide Iron Complex (Ferrex 150) 150 mg PO DAILYCM [facility] Potassium Chloride (K-Dur) 20 meq PO DAILYCM [facility] Senna/Docusate Sodium (Senokot-S, Kimmy-Colace) 1 tablet PO BID [facility] Last Admin: 04/06/20 04:50 Dose: 1 tablet Documented by: Tuberculin PPD (Tubersol, Aplisol, Ppd) 5 tu ID X1 ONE Stop: 04/06/20 10:01 Tuberculin PPD (Tubersol, Aplisol, Ppd) 5 tu ID X1 ONE Stop: 04/13/20 10:01 Assessment/Plan All Active Problems (Last Updated 02/12/19 @ 14:15 by Gisele Barnhart) Myocardial infarction (Resolved) COVID-19 (Acute) Respiratory failure (Acute) Upper GI bleed (Acute) Debility (Acute) Pneumonia due to COVID-19 virus (Acute) Acute respiratory failure (Acute) Peptic ulcer (Acute) Duodenal ulcer (Acute) Hypotension (Acute) Anemia (Acute) Hypokalemia (Acute) Atherosclerosis of coronary artery of [place] heart without angina pectoris (Ruled-out)
[2020-04-06 09:19] LABS: Absolute Lymphocyte Count 1.16 X10^3/uL (0.83-4.51); Absolute Neutrophil Count 7.3 X10^3/uL (2.0-7.7); Basophil# 0.01 X10^3/uL; Basophil% 0.1 % (0-1); Eosinophil# 0.16 X10^3/uL; Eosinophils% 1.8 % (0-5); Hematocrit 30.4 % (40-54); Hemoglobin 9.4 g/dL (13.0-16.5); Lymphocyte # 1.16 X10^3/ul (4.0); Lymphocyte % 12.8 % (19-41); Mean Corp Hgb Conc 30.9 g/dL (32-36); Mean Corpuscular Hgb 28.2 pg (27.0-32.0); Mean Corpuscular Volume 91.3 fL (80-94); Mean Platelet Vol. 10.5 fl (6.2-12.0); Monocyte# 0.46 X10^3/uL; Monocyte% 5.1 % (0-10); NRBC Flagged by Analyzer 0 % (0-5); Neutrophil # 7.25 X10^3/uL (2.7-7.7); Neutrophil % 79.8 % (47-70); Platelet Count 259 K/mm3 (150-450); RBC Distribution Width CV 14.6 % (11.6-14.6); Red Blood Count 3.33 M/mm3 (4.6-6.2); White Blood Count 9.1 K/mm3 (4.4-11.0)
[2020-04-06 09:26] LABS: Bedside Glucose 124 mg/dL (70-110)
[2020-04-06 09:27] LABS: International Normalized Ratio 1.2; Prothrombin Time (Protime)PT. 14.5 SECONDS (11.7-14.9)
[2020-04-06 09:37] LABS: Anion Gap 5 (5-15); BUN 14 mg/dL (7-18); Calcium,Total 7.8 mg/dL (8.5-10.1); Chloride 103 mmol/L (98-107); Creatinine, Serum 1.17 mg/dL (0.70-1.30); EST Glomerular Filtration Rate 65 mL/min (>60); Est Glom Filt Rate - Afr Amer 79 mL/min (>60); Estimated Creatinine Clearance 58.06 ml/min; Glucose 129 mg/dL (74-106); Potassium 3.5 mmol/L (3.5-5.1); Sodium Level 140 mmol/L (136-145)
--- NOTE | 2020-04-06 09:56 | NURSING ---
AT 8:45 AM THIS NURSE WENT IN PT ROOM AND THERAPY STATED THAT THEY GOT PT IN CHAIR AND PT JUST WENT TO SLEEP AND WONT WAKE UP FOR THEM. THIS NURSE TALKING TO PT AND GIVING STERNAL RUB. PT NOT RESPONDING. PT BEATTY IN COLOR AND COLD SWEAT. CALLED RN TO ROOM AND BIOMEDICAL ENGINEERING TECHNICIAN CALLED. BP 73/37 RIGHT ARM, HR 67,T 95.7 TA, BLOOD SUGAR 124,OXYGEN 82% ON 3L.
--- NOTE | 2020-04-06 10:08 | NURSING ---
0845 [employer] UT[employer] SUPERVISOR called, pt went unresponsive after therapy evaluation. Pt was assisted to chair after finishing ambulation from bed to marker board. pt given 1 liter bolus NS, labs, & chest xray done. Dr joy & updated. pt responding, oriented to what happened, pt unaware of being unresponsive. pt resting in bed w/eyes closed, awakens easily. call light in reach. Will continue to monitor.
--- NOTE | 2020-04-06 10:45 | NURSING ---
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 labs stable.
[2020-04-06] MEDS: Tuberculin,Purif.prot.deriv. 50 TU/ML Vial 5 ML ID (10:59)
[2020-04-06 11:01] VITALS: BP 135/69; PULSE 61; O2SAT 96
[2020-04-06] MEDS: guaiFENesin Dm 10 ML UDC PO ×2 (14:16→20:47)
[2020-04-06 14:33] VITALS: BP 127/58; PULSE 59; RESP 18; TEMP 36.7; O2SAT 96
[2020-04-06] MEDS: Pantoprazole Sodium 40 MG Tablet PO (18:18)
[2020-04-06] MEDS: guaiFENesin 600 MG Tablet PO (18:18)
[2020-04-06] MEDS: Atorvastatin Calcium 10 MG Tablet PO (20:47)
[2020-04-07 05:33] VITALS: BP 150/78; PULSE 87; RESP 18; TEMP 36.6; O2SAT 97
[2020-04-07] MEDS: Menthol/Lanolin/Calamine/Znox 113 GM Tube 1 APPLIC TOPICAL ×3 (05:34→22:04)
[2020-04-07] MEDS: Pantoprazole Sodium 40 MG Tablet PO ×2 (05:35→17:01)
[2020-04-07] MEDS: Senna/Docusate Sodium 1 Tablet PO ×2 (05:35→17:01)
[2020-04-07] MEDS: guaiFENesin 600 MG Tablet PO ×2 (05:35→17:01)
[2020-04-07] MEDS: Polyethylene Glycol 3350 17 GM PACKET PO (05:35)
[2020-04-07] MEDS: Iron Polysaccharide Complex 150 MG CAPSULE PO (08:28)
[2020-04-07 08:46] VITALS: O2SAT 97
[2020-04-07] MEDS: Sucralfate 1 GM Tablet PO ×3 (11:57→22:03)
[2020-04-07 13:12] VITALS: BP 150/62; PULSE 61; RESP 18; TEMP 37; O2SAT 97
--- NOTE | 2020-04-07 13:33 | CASEMGMT ---
Social Work Discussed patient's code status. Pt confirmed DNR-CC. MOLST form reviewed and placed in chart. Violetta Diana MSW FINISHER BRUSH
--- NOTE | 2020-04-07 13:46 | NURSING ---
Spoke with Dr. Figueroa about patients diet orders. Pt to be on transitional diet and if he tolerates it well he is to progress to a regular diet.
--- NOTE | 2020-04-07 15:02 | CASEMGMT ---
Social Work Met with patient for initial assessment. Pt inquiring about returning home. Pt continued to reiterate he is very weak and doesn't understand why he is so weak. Pt expressed frustration because he feels he has gotten worse since admitting to TCU. Validated patient's feelings. Provided supportive listening. Explained to pt he had a major illness that causes significant fatigue and muscle weakness, the goal in TCU is strengthening to return home. SW offered pt was supposed to admit 04/04 but had change in condition and DC was held, admitted 04/05 and had LAUNDRY ASSISTANT unresponsiveness d/t low BP, 04/06 was for rest and this date normal therapy routine will begin. Explained all of those events can contribute to significant weakness. Encouraged to remain in TCU and to allow therapy to work with pt to work on muscle strengthening. Pt expressed frustration with remaining in room to complete therapy. Explained that is due to 14 day isolation restrictions, but therapy will still be able to work effectively with pt in room for that time frame. Explained Medicare insurance and IDT with pt/ family decide on DC date and the goal is for pt to return home as soon as he is able. Explained to pt SW spoke with and she sees the benefit of pt remaining in TCU to get to PLOF. Pt expressed understanding and agreeable to remain to get stronger. Offered for pt to contact SW at any time if he feels things are not improving. Pt appreciative. However, pt struggling to understand why he is so weak, despite conversation and explanation. Provided emotional and verbal support throughout conversation. Will continue to follow. NETTA TongW
[2020-04-07 22:00] VITALS: PULSE 74; RESP 16; O2SAT 94
[2020-04-07] MEDS: Atorvastatin Calcium 10 MG Tablet PO (22:02)
[2020-04-08] MEDS: guaiFENesin Dm 10 ML UDC PO ×2 (01:48→21:19)
[2020-04-08 06:00] VITALS: BP 152/78; PULSE 74; RESP 18; TEMP 36.7; O2SAT 94
[2020-04-08 06:16] LABS: Anion Gap 6 (5-15); BUN 11 mg/dL (7-18); BUN/Creat Ratio 10.5 RATIO (10-20); Calcium,Total 7.6 mg/dL (8.5-10.1); Chloride 102 mmol/L (98-107); Creatinine, Serum 1.05 mg/dL (0.70-1.30); EST Glomerular Filtration Rate 74 mL/min (>60); Est Glom Filt Rate - Afr Amer 89 mL/min (>60); Glucose 158 mg/dL (74-106); Potassium 3.1 mmol/L (3.5-5.1); Sodium Level 138 mmol/L (136-145)
[2020-04-08] MEDS: Pantoprazole Sodium 40 MG Tablet PO ×2 (06:31→18:28)
[2020-04-08] MEDS: Senna/Docusate Sodium 1 Tablet PO ×2 (06:31→18:28)
[2020-04-08] MEDS: guaiFENesin 600 MG Tablet PO ×2 (06:31→18:28)
[2020-04-08] MEDS: Sucralfate 1 GM Tablet PO ×4 (06:31→21:19)
[2020-04-08] MEDS: Menthol/Lanolin/Calamine/Znox 113 GM Tube 1 APPLIC TOPICAL ×3 (06:35→21:31)
--- NOTE | 2020-04-08 07:08 | PCA ---
this hydro operator and another entered pt room .pt was on the phone with his spouse stating that he wants to go home after pt was finished on the phone cytology teacher asked if we could wash and pull pt up in the bed to get ready for breakfast pt states that it would be fine pt will not assist with rolling in the bed and was screaming out in pain stating that he had pain in his legs and that the cytology teacher would have to hold his legs up while turning in the bed pt continues not to assist with rolling in the bed and pushes back on the cytology teacher
[2020-04-08] MEDS: Iron Polysaccharide Complex 150 MG CAPSULE PO (09:07)
--- NOTE | 2020-04-08 10:06 | PHA.CONS_ITS ---
<Flora Morales M - Last Filed: 04/08/20 10:06> Progress Note - Pharmacy Subjective: [] Objective: Allergies Penicillins Allergy (Verified 03/20/20 10:34) Unknown Current Medications Generic Name Dose Route Start Last Admin Trade Name Freq PRN Reason Stop Dose Admin Acetaminophen 1,000 mg 04/05/20 16:11 Tylenol PO Q6H PRN Pain Score 1-10 Atorvastatin Calcium 10 mg 04/05/20 22:00 04/07/20 22:02 Lipitor PO 10 mg QHS RICHY Administration Bisacodyl 10 mg 04/05/20 13:57 Dulcolax RECTAL DAILY PRN Constipation Calamine/Phenol 1 applic 04/05/20 22:00 04/08/20 06:35 Calmoseptine Ointment TOPICAL 1 applicatio TID RICHY Administration Protocol Cholecalciferol 5,000 unit 04/06/20 06:00 04/08/20 06:31 Vitamin D (25mcg) PO 5,000 unit DAILY RICHY Administration Guaifenesin 600 mg 04/06/20 18:00 04/08/20 06:31 Mucinex PO 600 mg BID RICHY Administration Guaifenesin 10 ml 04/06/20 07:52 04/08/20 01:48 Robitussin Dm PO 10 ml Q6H PRN PRN Administration COUGH Melatonin 10 mg 04/08/20 22:00 Melatonin 10 Mg Tablet PO QHS RICHY Pantoprazole Sodium 40 mg 04/06/20 18:00 04/08/20 06:31 Protonix PO 40 mg BID RICHY Administration Polyethylene Glycol 17 gm 04/06/20 06:00 04/08/20 06:35 Miralax PO Not Given DAILY [facility] Polysaccharide Iron Complex 150 mg 04/07/20 08:00 04/08/20 09:07 Ferrex 150 PO 150 mg DAILYCM [facility] Administration Potassium Chloride 20 meq 04/08/20 17:00 Potassium Chloride 20 Meq Tablet PO BIDCM [facility] Senna/Docusate Sodium 1 tablet 04/05/20 18:00 04/08/20 06:31 Senokot-S, Kimmy-Colace PO 1 tablet BID RICHY Administration Sucralfate 1 gm 04/07/20 11:00 04/08/20 06:31 Carafate PO 05/07/20 11:01 1 gm 1HR_ACHS RICHY Administration Tuberculin PPD 5 tu 10/18/20 10:00 Tubersol, Aplisol, Ppd ID 04/13/20 10:01 X1 ONE Problem List (Last Updated 02/12/19 @ 14:15 by Gisele Barnhart) Debility (Acute) Pneumonia due to COVID-19 virus (Acute) Acute respiratory failure (Acute) Peptic ulcer (Acute) Duodenal ulcer (Acute) Hypotension (Acute) Anemia (Acute) Hypokalemia (Acute) Hypertension (Chronic) Vital Signs Temp Pulse Resp BP Pulse Ox 98.0 F 74 18 152/78 H 94 04/08/20 06:00 04/08/20 06:00 04/08/20 06:00 04/08/20 06:00 04/08/20 06:00 Oxygen Flow Rate (L/min) 4 Oxygen Delivery Method Nasal Cannula Weight: 95.708 kg Body Mass Index (BMI) 31.1 Sodium 138 mmol/L (136-145) 04/08/20 05:10 Potassium 3.1 mmol/L (3.5-5.1) L 04/08/20 05:10 Chloride 102 mmol/L (98-107) 04/08/20 05:10 Carbon Dioxide 30.0 mmol/L (21.0-32.0) 04/08/20 05:10 Anion Gap 6 (5-15) 04/08/20 05:10 BUN 11 mg/dL (7-18) 04/08/20 05:10 Creatinine 1.05 mg/dL (0.70-1.30) 04/08/20 05:10 Est GFR (MDRD) Af Amer 89 mL/min (>60) 04/08/20 05:10 Est GFR (MDRD) Non-Af 74 mL/min (>60) 04/08/20 05:10 BUN/Creatinine Ratio 10.5 RATIO (10-20) 04/08/20 05:10 Glucose 158 mg/dL (74-106) H 04/08/20 05:10 Assessment/Plan: 1. Pain: Tylenol 1000mg PO Q6h PRN Pain 1-10. Please continue to monitor for increased/decreased pain, PRN medication usage. 2. Peptic ulcer: Protonix 40mg PO BID, Carafate 1g PO ACHS. Please continue to monitor for resolution of ulcer, medication effectiveness. 3. Hyperlipidemia: Lipitor 10mg PO QHS. Please continue to monitor lipid panel annually or sooner if clinically indicated. 4. Hypokalemia: KCl 20mEq PO BID. last K = 3.1 on 04/08. Please continue to monitor potassium levels and replace as clinically indicated. 5. Cough: Mucinex 600mg PO BID, Robitussin DM 10mL PO Q6h PRN. Please continue to monitor for symptom improvement, PRN medication usage. 6. Vitamin D Deficiency: Cholecalciferol 5,000 unit PO Daily. Please continue to monitor Vitamin D levels as clinically appropriate. Psychotropic Medications: None Unnecessary Medications: 1. Melatonin 10mg PO QHS - no indication noted in documentation. 2. Ferrex 150mg PO Daily - No indication noted in documentation. Bowel Regimen: Miralax 17g PO Daily, Senna/Docusate 1 tab PO BID, Dulcolax 10mg MA Daily PRN. Please continue to monitor for S/S constipation and/or diarrhea. Date of Note:: 04/08/20 - Provider Comments Provider responsibility: Provider responsible to enter orders to implement recommendations <Donato Simmons Chi - Last Filed: 04/08/20 17:20> Progress Note - Pharmacy Subjective: [] Objective: Allergies Penicillins Allergy (Verified 03/20/20 10:34) Unknown Current Medications Generic Name Dose Route Start Last Admin Trade Name Freq PRN Reason Stop Dose Admin Acetaminophen 1,000 mg 04/05/20 16:11 04/08/20 10:31 Tylenol PO 1,000 mg Q6H PRN Administration Pain Score 1-10 Atorvastatin Calcium 10 mg 04/05/20 22:00 04/07/20 22:02 Lipitor PO 10 mg QHS RICHY Administration Bisacodyl 10 mg 04/05/20 13:57 Dulcolax RECTAL DAILY PRN Constipation Calamine/Phenol 1 applic 04/05/20 22:00 04/08/20 13:24 Calmoseptine Ointment TOPICAL 1 applicatio TID RICHY Administration Protocol Cholecalciferol 5,000 unit 04/06/20 06:00 04/08/20 06:31 Vitamin D (25mcg) PO 5,000 unit DAILY RICHY Administration Guaifenesin 600 mg 04/06/20 18:00 04/08/20 06:31 Mucinex PO 600 mg BID RICHY Administration Guaifenesin 10 ml 10/11/20 07:52 04/08/20 01:48 Robitussin Dm PO 10 ml Q6H PRN PRN Administration COUGH Melatonin 10 mg 04/08/20 22:00 Melatonin 10 Mg Tablet PO QHS RICHY Pantoprazole Sodium 40 mg 04/06/20 18:00 04/08/20 06:31 Protonix PO 40 mg BID RICHY Administration Polyethylene Glycol 17 gm 04/06/20 06:00 04/08/20 06:35 Miralax PO Not Given DAILY RICHY Polysaccharide Iron Complex 150 mg 04/07/20 08:00 04/08/20 09:07 Ferrex 150 PO 150 mg DAILYCM RICHY Administration Potassium Chloride 20 meq 04/08/20 17:00 Potassium Chloride 20 Meq Tablet PO BIDCM RICHY Senna/Docusate Sodium 1 tablet 04/05/20 18:00 04/08/20 06:31 Senokot-S, Kimmy-Colace PO 1 tablet BID RICHY Administration Sodium Chloride 10 - 40 ml 04/08/20 10:40 04/08/20 11:05 0.9% Saline Lock 10 Ml Syringe IV 10 ml UD PRN Administration SALINE FLUSH Sucralfate 1 gm 04/07/20 11:00 04/08/20 10:37 Carafate PO 05/07/20 11:01 1 gm 1HR_ACHS RICHY Administration Tuberculin PPD 5 tu 04/13/20 10:00 Tubersol, Aplisol, Ppd ID 04/13/20 10:01 X1 ONE Problem List (Last Updated 02/12/19 @ 14:15 by Gisele Barnhart) Debility (Acute) Pneumonia due to COVID-19 virus (Acute) Acute respiratory failure (Acute) Peptic ulcer (Acute) Duodenal ulcer (Acute) Hypotension (Acute) Anemia (Acute) Hypokalemia (Acute) Hypertension (Chronic) Vital Signs Temp Pulse Resp BP Pulse Ox 98.2 F 95 17 145/75 H 95 04/08/20 13:27 04/08/20 13:27 04/08/20 13:27 04/08/20 13:27 04/08/20 13:27 Oxygen Flow Rate (L/min) 3 Oxygen Delivery Method Nasal Cannula Weight: 95.708 kg Body Mass Index (BMI) 31.1 Sodium 138 mmol/L (136-145) 04/08/20 05:10 Potassium 3.1 mmol/L (3.5-5.1) L 04/08/20 05:10 Chloride 102 mmol/L (98-107) 04/08/20 05:10 Carbon Dioxide 30.0 mmol/L (21.0-32.0) 04/08/20 05:10 Anion Gap 6 (5-15) 04/08/20 05:10 BUN 11 mg/dL (7-18) 04/08/20 05:10 Creatinine 1.05 mg/dL (0.70-1.30) 04/08/20 05:10 Est GFR (MDRD) Af Amer 89 mL/min (>60) 04/08/20 05:10 Est GFR (MDRD) Non-Af 74 mL/min (>60) 04/08/20 05:10 BUN/Creatinine Ratio 10.5 RATIO (-20) 04/08/20 05:10 Glucose 158 mg/dL (74-106) H 04/08/20 05:10 Assessment/Plan: Psychotropic Medications: Unnecessary Medications: Bowel Regimen: - Provider Comments Provider responsibility: Provider responsible to enter orders to implement recommendations Provider Comments to Recommendations by Pharmacy: Agree
[2020-04-08] MEDS: Acetaminophen 500 MG Tablet 1000 MG PO (10:31)
[2020-04-08] MEDS: 0.9% Saline Lock 10 ML Syringe IV (11:05)
--- NOTE | 2020-04-08 13:11 | NURSING ---
PT REFUSING AGAIN TO DO THERAPY PER THERAPY. PRN MED WAS GIVEN EARLIER FOR LEFT KNEE. NOW STATED THAT BOTH KNEES HURT AND ONE IS A 8 AND THE OTHER A 10. PT STATED HE HURT LEFT ONE ON OTHER SIDE GOT WRAPPED UP IN THE SHEETS AND THE OTHER DID NOT SAY. PT STATED TO THIS NURSE HE HAD SURGERY ON THE LEFT AT 45 YEARS OLD THIS MORNING. RN AWARE AND LEFT NOTE TO
[2020-04-08 13:27] VITALS: BP 145/75; PULSE 95; RESP 17; TEMP 36.8; O2SAT 95
[2020-04-08 14:15] VITALS: PULSE 71; RESP 18; O2SAT 97
--- NOTE | 2020-04-08 17:23 | RAD_ITS ---
HISTORY: Left knee pain, not able to bend very well. ADDITIONAL HISTORY: None provided. EXAMINATION/TECHNIQUE: XR Knee 3 Views Left Number of images including paperwork: 3 COMPARISON: None FINDINGS: BONES: No acute fracture. JOINTS: No subluxation. Moderate sized left knee joint effusion. Moderate tri-compartment degenerative changes with joint space narrowing and periarticular osteophytes. SOFT TISSUES: No distinct foreign body. RAD/Knee 3 Views IMPRESSION: Degenerative changes without acute osseous abnormality. Left knee joint effusion. at 2311 Reported and signed by: Sushma Fong MD Electronically Signed: Sushma Fong MD at 23:11 EDT Tel , Service support ,
[2020-04-08] MEDS: MELATONIN 10 MG TABLET PO (21:19)
[2020-04-08] MEDS: Atorvastatin Calcium 10 MG Tablet PO (21:19)
[2020-04-09] MEDS: Senna/Docusate Sodium 1 Tablet PO ×2 (04:51→18:15)
[2020-04-09] MEDS: guaiFENesin 600 MG Tablet PO ×2 (04:51→18:15)
[2020-04-09] MEDS: Pantoprazole Sodium 40 MG Tablet PO ×2 (04:51→18:15)
[2020-04-09] MEDS: Sucralfate 1 GM Tablet PO ×4 (04:52→20:44)
[2020-04-09 04:53] VITALS: BP 148/74; PULSE 90; RESP 16; TEMP 37.1; O2SAT 94
[2020-04-09] MEDS: Menthol/Lanolin/Calamine/Znox 113 GM Tube 1 APPLIC TOPICAL ×3 (04:53→20:49)
[2020-04-09 06:32] VITALS: O2SAT 94
[2020-04-09] MEDS: Iron Polysaccharide Complex 150 MG CAPSULE PO (09:01)
[2020-04-09] MEDS: Acetaminophen 500 MG Tablet 1000 MG PO (09:08)
--- NOTE | 2020-04-09 09:11 | NURSING ---
pt stated he is going home today,i cant sleep here and its affecting my mental issues. stated to pt his plan of care meeting is today and they will discusses that issue then. pt stated ok sounds good.
--- NOTE | 2020-04-09 13:24 | CASEMGMT ---
Addendum entered by Violetta Diana 04/09/20 13:43: Pt requested SW. Met with pt. Pt initially asked what did I do wrong? SW stated he didn't do anything wrong, why? He stated his was upset with him and hung up on him. Pt expressed, I wasn't actually serious about going to [place], I meant it as a joke, but my really wasn't happy I said that. 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 Pt expressed he is so weak and tired, the pain and not sleeping is really negatively affecting him. SW validated these feelings, provided verbal and emotional support. Reexplained this is to be expected in recovery, and the little steps lead to big steps, and he has to start small. Pt expressed understanding. Pt inquired about nonskilled [facility] list to get help at home instead of burdening his . SW provided list and encouraged pt to call agencies. SW offered to make a list of pt's goals, now that pt has decided to remain and agree to work with therapy to get stronger. SW wrote on whiteboard in room pt goals: such as sleeping better, control pain, get a shower, get a haircut, get out of bed, walk, wean off of O2, etc. SW discussed pt reframing mindset to no longer having negative self-talk - wrote a goal for pt to have positive self-talk. Pt agreed. Nurse entered room and goals were relayed for appropriate parties to follow up on completing. Nurse also explained events that happened with pt on acute and while in TCU. Pt was unaware of GI bleed, the unresponsive episode, etc. Pt appreciative and understanding of information. Pt agrees TCU is where he needs to be and has hope of regaining strength to return home safely. Pt very appreciative of SW. Followed up with and relayed above information. expressed her frustration with him as well and him not understanding what happened to him, the need to be here and that she cannot care for him at home at this state. was grateful for nursing and SW conversation with pt and that pt agreed to remain. Will continue to follow. Original Note: Social Work IDT met with patient, and dtr via conference call for care plan meeting. Discussed patient's progress in therapy. Pt is max x2 for bed mobility, SPT. Pt has refused to get out of bed the last two days due to c.o pain in BLE, especially L knee. Pt needs assistance with performing full ROM with exercises. Pt is dependent at bed level for all ADLs, except set up for UE dressing. ST working with pt on memory strategies. Pt remains oriented. ST continues to reeducate pt on memory issues as pt does not believe he has deficits. Pt is on a regular, soft, bite size pieces diet, intake variable, lost some weight since hospitalization. Pt receiving magic cup in milkshake, and will start receiving fortified foods. Pt is out of isolation 04/19, has new O2 - however, weaning 4L to 2L. Explained Medicare insurance. Discussed at length with pt and about pt's weakness - reexplained pt's past medical events and this is normal and will take time to recover. Pt expressed having major difficulty sleeping, getting his pain controlled, and wanting to DC home. Validated pt's concerns and will notify of issues sleeping and pain. Pt reported he would like to use the therabands an hour a day for the next 4 weeks and feels like he will get better from there. Pt continues to have poor insight into deficits. Explained IDT recommending continued stay as pt is very weak and there's hope he will improve with strength and endurance. Explained if pt leaves today or prior to Dr. richter - he would be discharging AMA. Explained AMA. Pt stated either I discharge tonight or transfer me to [facility]. SW offered to send to [place] as IDT takes his mental health seriously as well and the goal is for pt to be comfortable and recover as a whole. Pt and began to discuss pt's statement - SW offered for them to discuss 1:1 and SW to follow up and assist with either route- DC AMA or transfer to [place]. Will continue to follow. Violetta Diana, WAIST PLEATER WARE TESTER
[2020-04-09 14:07] VITALS: BP 134/69; PULSE 70; RESP 18; TEMP 36.6; O2SAT 95
[2020-04-09] MEDS: MethylPREDNISolone DosePak 4 MG BOX PO (20:42)
[2020-04-09] MEDS: Atorvastatin Calcium 10 MG Tablet PO (20:44)
[2020-04-09] MEDS: Doxepin Hydrochloride 10 MG Capsule PO (20:49)
[2020-04-09 20:50] VITALS: PULSE 78; RESP 18; O2SAT 95
--- NOTE | 2020-04-09 21:40 | NURSING ---
Patient called and wanted this nurse to give her a call. This nurse called the and gave a update on the new medications patient was started on and a update on his condition. stated thanks for the report and if we need anything be gladly to call her.
[2020-04-10 05:08] VITALS: BP 153/83; RESP 18; TEMP 36.5; O2SAT 93
[2020-04-10] MEDS: guaiFENesin 600 MG Tablet PO ×2 (05:10→18:20)
[2020-04-10] MEDS: Menthol/Lanolin/Calamine/Znox 113 GM Tube 1 APPLIC TOPICAL ×3 (05:10→21:31)
[2020-04-10] MEDS: Pantoprazole Sodium 40 MG Tablet PO ×2 (05:10→18:20)
[2020-04-10] MEDS: Senna/Docusate Sodium 1 Tablet PO ×2 (05:10→18:23)
[2020-04-10] MEDS: Sucralfate 1 GM Tablet PO ×4 (05:11→21:26)
[2020-04-10 05:48] LABS: Anion Gap 5 (5-15); BUN 15 mg/dL (7-18); BUN/Creat Ratio 14.6 RATIO (10-20); Calcium,Total 8.1 mg/dL (8.5-10.1); Chloride 102 mmol/L (98-107); Creatinine, Serum 1.03 mg/dL (0.70-1.30); EST Glomerular Filtration Rate 75 mL/min (>60); Est Glom Filt Rate - Afr Amer 91 mL/min (>60); Estimated Creatinine Clearance 65.95 ml/min; Glucose 186 mg/dL (74-106); Potassium 4.3 mmol/L (3.5-5.1); Sodium Level 136 mmol/L (136-145)
[2020-04-10 07:12] VITALS: O2SAT 93
[2020-04-10] MEDS: MethylPREDNISolone DosePak 4 MG BOX PO ×4 (09:12→21:28)
[2020-04-10] MEDS: Iron Polysaccharide Complex 150 MG CAPSULE PO (09:13)
[2020-04-10 09:35] VITALS: PULSE 81; RESP 18; O2SAT 91
[2020-04-10 13:50] VITALS: BP 134/88; PULSE 91; RESP 16; TEMP 36.4; O2SAT 95
[2020-04-10] MEDS: Doxepin Hydrochloride 10 MG Capsule PO (21:26)
[2020-04-10] MEDS: Atorvastatin Calcium 10 MG Tablet PO (21:28)
[2020-04-11 04:00] VITALS: BP 149/85; PULSE 74; RESP 16; TEMP 36.7; O2SAT 92
[2020-04-11] MEDS: Senna/Docusate Sodium 1 Tablet PO ×2 (05:30→17:20)
[2020-04-11] MEDS: Sucralfate 1 GM Tablet PO ×4 (05:30→22:00)
[2020-04-11] MEDS: guaiFENesin 600 MG Tablet PO ×2 (05:30→17:17)
[2020-04-11] MEDS: Pantoprazole Sodium 40 MG Tablet PO ×2 (05:30→17:19)
[2020-04-11] MEDS: Menthol/Lanolin/Calamine/Znox 113 GM Tube 1 APPLIC TOPICAL ×3 (05:32→22:02)
--- NOTE | 2020-04-11 05:33 | NURSING ---
This nurse explained to the patient that he hasn't had a bowel movement since 04/07/20 and I would like to given him the mirlax this morning. Patient states no I don't want it I'm not eating that much I explained to him the bowel movement protocol for the unit and continue to say no. This nurse look at patient intake on nutritional intake and they are poor nibble 25%-49%. I asked patient if he would like for me to get him something to help with appetite and he refused. Will leave on doctor list.
[2020-04-11 06:04] LABS: Anion Gap 5 (5-15); BUN 21 mg/dL (7-18); BUN/Creat Ratio 20.2 RATIO (10-20); Calcium,Total 8.4 mg/dL (8.5-10.1); Chloride 103 mmol/L (98-107); Creatinine, Serum 1.04 mg/dL (0.70-1.30); EST Glomerular Filtration Rate 74 mL/min (>60); Est Glom Filt Rate - Afr Amer 90 mL/min (>60); Estimated Creatinine Clearance 65.32 ml/min; Glucose 156 mg/dL (74-106); Potassium 4.3 mmol/L (3.5-5.1); Sodium Level 137 mmol/L (136-145)
[2020-04-11 06:50] VITALS: O2SAT 95
[2020-04-11] MEDS: Iron Polysaccharide Complex 150 MG CAPSULE PO (07:57)
[2020-04-11] MEDS: MethylPREDNISolone DosePak 4 MG BOX PO ×4 (07:57→21:59)
--- NOTE | 2020-04-11 07:59 | RAD_ITS ---
STUDY: X-RAY - ABDOMEN/PELVIS REASON FOR EXAM: Male, 75 years old. CONSTIPATION TECHNIQUE: Single AP view of the abdomen / pelvis. COMPARISON: Comparison is made with prior examination 03/31/2020. FINDINGS: Persistent increased markings at the lung bases suggestive of scarring. There is a moderate amount of colonic fecal material. Surgical clips are seen in the right upper quadrant suggestive of prior cholecystectomy. Normal soft tissue structures. There are diffuse degenerative changes of the visualized lumbar spine. RAD/Abdomen Single View IMPRESSION: Moderate amount of fecal material is seen throughout the colon. Electronically Signed: Ross Ulrich, at 14:15 EDT , Service support ,
--- NOTE | 2020-04-11 10:25 | MDS.RN ---
Completed pain interview for giuseppe 04/12/20
[2020-04-11 14:17] VITALS: BP 141/72; PULSE 83; RESP 17; TEMP 37.1; O2SAT 91
--- NOTE | 2020-04-11 14:27 | NURSING ---
Addendum entered by Catherine Garcia 04/11/20 16:18: Pt drank Mag citrate per order and had positive results. Pt had large bm Original Note: Dr. Simmons notified about KUB results. Moderate amount of fecal material noted new order of Mag Citrate x1.
[2020-04-11] MEDS: Magnesium Citrate 300 ML PO (14:47)
--- NOTE | 2020-04-11 15:01 | CASEMGMT ---
Social Work BIMS and PHQ- completed for MDS assessment. Violetta Diana, PRODUCT MGR GAS FITTER HELPER
[2020-04-11] MEDS: Atorvastatin Calcium 10 MG Tablet PO (22:01)
[2020-04-11] MEDS: Doxepin Hydrochloride 10 MG Capsule PO (22:01)
[2020-04-12 04:00] VITALS: BP 133/79; PULSE 82; RESP 18; TEMP 36.7; O2SAT 97
[2020-04-12] MEDS: Pantoprazole Sodium 40 MG Tablet PO ×2 (05:12→18:03)
[2020-04-12] MEDS: Senna/Docusate Sodium 1 Tablet PO ×2 (05:12→18:03)
[2020-04-12] MEDS: guaiFENesin 600 MG Tablet PO ×2 (05:12→18:03)
[2020-04-12] MEDS: Sucralfate 1 GM Tablet PO ×4 (05:12→22:06)
[2020-04-12] MEDS: Menthol/Lanolin/Calamine/Znox 113 GM Tube 1 APPLIC TOPICAL ×3 (05:13→22:09)
[2020-04-12] MEDS: Iron Polysaccharide Complex 150 MG CAPSULE PO (08:49)
[2020-04-12] MEDS: MethylPREDNISolone DosePak 4 MG BOX PO ×3 (08:49→22:07)
[2020-04-12 14:36] VITALS: BP 158/83; PULSE 94; RESP 20; TEMP 36.2; O2SAT 95
[2020-04-12] MEDS: Doxepin Hydrochloride 10 MG Capsule PO (22:06)
[2020-04-12] MEDS: Atorvastatin Calcium 10 MG Tablet PO (22:06)
[2020-04-13] MEDS: guaiFENesin Dm 10 ML UDC PO ×3 (00:41→23:24)
[2020-04-13 04:00] VITALS: BP 167/88; PULSE 78; RESP 18; TEMP 36.6; O2SAT 97
[2020-04-13] MEDS: Menthol/Lanolin/Calamine/Znox 113 GM Tube 1 APPLIC TOPICAL ×3 (05:47→21:27)
[2020-04-13] MEDS: guaiFENesin 600 MG Tablet PO ×2 (05:48→17:19)
[2020-04-13] MEDS: Senna/Docusate Sodium 1 Tablet PO ×2 (05:49→17:19)
[2020-04-13] MEDS: Pantoprazole Sodium 40 MG Tablet PO ×2 (05:49→17:19)
[2020-04-13 06:13] LABS: Absolute Lymphocyte Count 1.13 X10^3/uL (0.83-4.51); Absolute Neutrophil Count 4.3 X10^3/uL (2.0-7.7); Basophil# 0.01 X10^3/uL; Basophil% 0.2 % (0-1); Eosinophil# 0.14 X10^3/uL; Eosinophils% 2.3 % (0-5); Hematocrit 31.3 % (40-54); Hemoglobin 9.4 g/dL (13.0-16.5); Lymphocyte # 1.13 X10^3/ul (4.0); Lymphocyte % 18.7 % (19-41); Mean Corpuscular Hgb 27.3 pg (27.0-32.0); Mean Platelet Vol. 9.7 fl (6.2-12.0); Monocyte# 0.42 X10^3/uL; NRBC Flagged by Analyzer 0 % (0-5); Neutrophil # 4.25 X10^3/uL (2.7-7.7); Neutrophil % 70.5 % (47-70); Platelet Count 285 K/mm3 (150-450); RBC Distribution Width CV 13.9 % (11.6-14.6); RBC Distribution Width SD 46.4 fl (35.1-43.9); Red Blood Count 3.44 M/mm3 (4.6-6.2)
[2020-04-13 06:38] LABS: Anion Gap 4 (5-15); BUN 22 mg/dL (7-18); BUN/Creat Ratio 22.7 RATIO (10-20); Calcium,Total 8.2 mg/dL (8.5-10.1); Chloride 103 mmol/L (98-107); Creatinine, Serum 0.97 mg/dL (0.70-1.30); EST Glomerular Filtration Rate 81 mL/min (>60); Est Glom Filt Rate - Afr Amer 98 mL/min (>60); Estimated Creatinine Clearance 70.03 ml/min; Glucose 177 mg/dL (74-106); Potassium 4.1 mmol/L (3.5-5.1); Sodium Level 137 mmol/L (136-145)
[2020-04-13] MEDS: Sucralfate 1 GM Tablet PO ×4 (08:09→21:28)
[2020-04-13] MEDS: Iron Polysaccharide Complex 150 MG CAPSULE PO (08:09)
[2020-04-13] MEDS: MethylPREDNISolone DosePak 4 MG BOX PO ×2 (08:14→21:28)
[2020-04-13] MEDS: Tuberculin,Purif.prot.deriv. 50 TU/ML Vial 5 ML ID (10:19)
[2020-04-13 13:56] VITALS: BP 141/82; PULSE 89; RESP 18; TEMP 36.2; O2SAT 97
--- NOTE | 2020-04-13 14:16 | NURSING ---
pt BPs trending upward, Dr Simmons updated, new order to restart norvasc for now. Trandate, norvasc & apresoline stopped on 04/06/20 d/t hypotension and calling SAW CLEANER by hospitialist. continue to monitor BP and HR.
[2020-04-13] MEDS: Atorvastatin Calcium 10 MG Tablet PO (21:28)
[2020-04-13] MEDS: Doxepin Hydrochloride 10 MG Capsule PO (21:29)
[2020-04-14 04:05] VITALS: BP 147/97; PULSE 98; RESP 18; TEMP 36.6; O2SAT 95
[2020-04-14] MEDS: Pantoprazole Sodium 40 MG Tablet PO (05:22)
[2020-04-14] MEDS: guaiFENesin 600 MG Tablet PO (05:22)
[2020-04-14] MEDS: amLODIPine 10 MG Tablet PO (05:22)
[2020-04-14] MEDS: Sucralfate 1 GM Tablet PO ×2 (05:24→10:57)
[2020-04-14] MEDS: Menthol/Lanolin/Calamine/Znox 113 GM Tube 1 APPLIC TOPICAL (05:27)
[2020-04-14 06:58] VITALS: O2SAT 98
[2020-04-14] MEDS: Iron Polysaccharide Complex 150 MG CAPSULE PO (08:41)
[2020-04-14] MEDS: MethylPREDNISolone DosePak 4 MG BOX PO (08:41)
[2020-04-14] MEDS: guaiFENesin Dm 10 ML UDC PO (10:57)
[2020-04-14 11:21] LABS: Bedside Glucose 203 mg/dL (70-110)
--- NOTE | 2020-04-14 11:31 | NURSING ---
S.Brittney. notified patient's spouse who came to unit.
--- NOTE | 2020-04-14 11:34 | CB_ITS ---
Code Blue Report I responded to a CARBONATION EQUIPMENT TENDER and found the pt lying on his bed. He was up with therapy this AM and and his eyes rolled back in his head while standing. He was assisted back to bed and when I entered the room he was unresponsive and very diaphoretic. He had a very weak carotid pulse and agonal respirations. He was very pale. I reviewed his code status which was DNR CC. A call was made to his and she confirmed to keep him comfortable. He awoke briefly and c/o chest pain. The HR was 140 and irregular. MS and NTG were ordered for comfort. Phu spread his arms and said very forcefully No more. His pupils dilated and deviated to the left. He had agonal respirations and remained diaphoretic but the skin was now cool to touch. He quit breathing except for agonal respirations. He had no pulse and no heart sounds could be auscultated. He was pronounced at 11:30. His was called by the SW and she came immediately to the hospital. Pastor Carey, Violetta Vega and myself me with Sade to give her the news of Phu's passing. All questions were answered and she was escorted into the room to be with her . Patient Problems: Active and Suspected Problems (Last Updated 02/12/19 @ 14:15 by Gisele Barnhart) Debility (Acute) Pneumonia due to COVID-19 virus (Acute) Acute respiratory failure (Acute) Peptic ulcer (Acute) Duodenal ulcer (Acute) Hypotension (Acute) Anemia (Acute) Hypokalemia (Acute) Objective: appears older than his stated age. - Physical Exam Vitals/I&O's: Vital Signs Temp Pulse Resp BP Pulse Ox 97.8 F 98 18 147/97 H 98 04/14/20 04:05 04/14/20 04:05 04/14/20 04:05 04/14/20 04:05 04/14/20 06:58 Oxygen Flow Rate (L/min) 3 Oxygen Delivery Method Nasal Cannula Weight: 211 lb Body Mass Index (BMI) 31.1 Intake and Output for Last 24 Hours 04/12/20 04/13/20 04/14/20 23:59 23:59 23:59 Intake Total 700 / 700 600 / 600 120 / 120 Output Total 125 / 125 Balance 575 / 575 600 / 600 120 / 120 General: - - unresponsive initially and then became alert for a brief time and said no more. Very pale HEENT: - - Pupils were initially equal round and reactive and then dilated and deviated to the right. Palpebral conjunctiva was very pale but the HGB yesterday was 9.4 and stable. He has not had any blood per rectum Oral: Dry Mucosa Neck: - - thready carotid pulse when I first examined him with a systolic BP of 54 Lungs: Short of Breath, - - agonal respirations Cardiovascular: Irregular Rate - and tachycardic. Abdomen: - - no guarding with palpation, soft and ND Extremities: No edema Laboratory Results 04/14/20 11:05: POC Glucose 203 H Current Medications Acetaminophen (Tylenol) 1,000 mg PO Q6H PRN PRN Reason: Pain Score 1-10 Last Admin: 04/09/20 09:08 Dose: 1,000 mg Documented by: Amlodipine Besylate (Amlodipine 10 Mg Tablet) 10 mg PO DAILY [facility] Last Admin: 04/14/20 05:22 Dose: 10 mg Documented by: Atorvastatin Calcium (Lipitor) 10 mg PO QHS [facility] Last Admin: 04/13/20 21:28 Dose: 10 mg Documented by: Bisacodyl (Dulcolax) 10 mg RECTAL DAILY PRN PRN Reason: Constipation Calamine/Phenol (Calmoseptine Ointment) 1 applic TOPICAL TID [facility]; Protocol Last Admin: 04/14/20 05:27 Dose: 1 applicatio Documented by: Cholecalciferol (Vitamin D (25mcg)) 5,000 unit PO DAILY [facility] Last Admin: 04/14/20 05:22 Dose: 5,000 unit Documented by: Colchicine (Colchicine 0.6 Mg Tablet) 0.6 mg PO DAILY [facility] Stop: 04/17/20 06:01 Last Admin: 04/14/20 05:25 Dose: 0.6 mg Documented by: Doxepin HCl (Doxepin Hydrochloride 10 Mg Capsule) 10 mg PO QHS [facility] Last Admin: 04/13/20 21:29 Dose: 10 mg Documented by: Guaifenesin (Mucinex) 600 mg PO BID [facility] Last Admin: 04/14/20 05:22 Dose: 600 mg Documented by: Guaifenesin (Robitussin Dm) 10 ml PO Q6H PRN PRN PRN Reason: COUGH Last Admin: 04/14/20 10:57 Dose: 10 ml Documented by: Sodium Chloride () 1,000 mls @ 999 mls/hr IV .Q1H1M ONE Stop: 04/14/20 12:02 Pantoprazole Sodium (Protonix) 40 mg PO BID [facility] Last Admin: 04/14/20 05:22 Dose: 40 mg Documented by: Polyethylene Glycol (Miralax) 17 gm PO DAILY [facility] Last Admin: 04/14/20 05:23 Dose: Not Given Documented by: Polysaccharide Iron Complex (Ferrex 150) 150 mg PO DAILYCM [facility] Last Admin: 04/14/20 08:41 Dose: 150 mg Documented by: Potassium Chloride (Potassium Chloride 20 Meq Tablet) 20 meq PO TIDCM [facility] Last Admin: 04/14/20 08:41 Dose: 20 meq Documented by: Senna/Docusate Sodium (Senokot-S, Kimmy-Colace) 1 tablet PO BID [facility] Last Admin: 04/14/20 05:23 Dose: Not Given Documented by: Sodium Chloride (0.9% Saline Lock 10 Ml Syringe) 10 - 40 ml IV UD PRN PRN Reason: SALINE FLUSH Last Admin: 04/08/20 11:05 Dose: 10 ml Documented by: Sucralfate (Carafate) 1 gm PO 1HR_ACHS [facility] Stop: 05/07/20 11:01 Last Admin: 04/14/20 10:57 Dose: 1 gm Documented by: Assessment/Plan All Active Problems (Last Updated 02/12/19 @ 14:15 by Gisele Barnhart) Myocardial infarction (Resolved) COVID-19 (Acute) Respiratory failure (Acute) Upper GI bleed (Acute) Debility (Acute) Pneumonia due to COVID-19 virus (Acute) Acute respiratory failure (Acute) Peptic ulcer (Acute) Duodenal ulcer (Acute) Hypotension (Acute) Anemia (Acute) Hypokalemia (Acute) Atherosclerosis of coronary artery of [place] heart without angina pectoris (Ruled-out) Impressions 1. suspected orthostatic hypotension initially. He has had this a number of times in the past few weeks. 2. Severely debilitated pt with hypotension, hypoxemia and probable AF with RVR with recent hx of COVID 19, respiratory failure, MRSA PNA, GI bleed due to active PUD requiring clips and EPI injections, hypotension requiring 2 pressors while in the ICU. 3. suspected Angina with clutching chest with a hx of CAD Pt DNR CC. He was made comfortable as possible and allowed to pass without intervention. Pastor Carey was at the bedside. Pronounced at 11:30 on 04/14/20.
--- NOTE | 2020-04-14 12:43 | NURSING ---
See GRAY TENDER notes at 1105.
--- NOTE | 2020-04-14 16:47 | DCINST_ITS ---
- Discharge Diagnoses Current Active Problems: Current Active and Chronic Problems (Last Updated 02/12/19 @ 14:15 by Gisele Barnhart) Debility (Acute) Pneumonia due to COVID-19 virus (Acute) Acute respiratory failure (Acute) Peptic ulcer (Acute) Duodenal ulcer (Acute) Hypotension (Acute) Anemia (Acute) Hypokalemia (Acute) Hypertension (Chronic) Allergies/Adverse Reactions: Allergies Penicillins Allergy (Verified 03/20/20 10:34) Unknown Medications to take at Discharge Amlodipine [Norvasc] 10 mg PO DAILY 03/20/20 Atorvastatin Calcium [Lipitor] 10 mg PO QHS 03/20/20 Cholecalciferol (Vitamin D3) [Vitamin D3] 5,000 unit PO DAILY 03/20/20 Hydralazine HCl 100 mg PO BID 03/20/20 Labetalol HCl 300 mg PO TID 03/20/20 Phenylephrine/Dm/Acetaminop/GG [Tylenol Cold-Flu Severe [place]] 1 tab PO BID 03/20/20 Pantoprazole Sodium [Protonix] 40 mg PO BID 04/05/20 Potassium Chloride 40 meq PO DAILY 04/05/20 Primary Care Physician: Libia Corona MD [Primary Care Provider] - Please follow up with your Primary Care Physician in: N/A. Test Results: Test results from this visit will be discussed in further detail at your follow- up appointment, if applicable. Please Follow Up With: Libia Corona MD When: N/A. Please Follow Up With: Sami Figueroa MD When: N/A. Please Follow Up With: Kishan Malone MD When: N/A. Proposed Discharge Date: 04/14/20
--- NOTE | 2020-04-14 16:48 | DS.PCM_ITS ---
Discharge Date and Diagnosis - Problem List Patient Problems: Active and Suspected Problems (Last Updated 02/12/19 @ 14:15 by Gisele Barnhart) Debility (Acute) Pneumonia due to COVID-19 virus (Acute) Acute respiratory failure (Acute) Peptic ulcer (Acute) Duodenal ulcer (Acute) Hypotension (Acute) Anemia (Acute) Hypokalemia (Acute) Date of Admission: 04/05/20 Date of Discharge: 04/14/20 - Primary Discharge Diagnosis Acute Problems: Active Problems (Last Updated 02/12/19 @ 14:15 by Gisele Barnhart) Debility (Acute) Pneumonia due to COVID-19 virus (Acute) Acute respiratory failure (Acute) Peptic ulcer (Acute) Duodenal ulcer (Acute) Hypotension (Acute) Anemia (Acute) Hypokalemia (Acute) - Secondary Discharge Diagnosis Chronic Problems: Chronic Problems (Last Updated 02/12/19 @ 14:15 by Gisele Barnhart) Coronary artery disease (Chronic) Hypertension (Chronic) CVA (cerebral vascular accident) (Chronic 2012) HLD (hyperlipidemia) (Chronic) Essential hypertension (Chronic) Hospital Course and Treatment Operations: None Summary of Care Provided: The patient is a 75 year old Male with below past medical history hospitalized for COVID-19, acute respiratory failure, complicated by upper gastrointestinal bleed secondary to peptic ulcer, hypokalemia, MSSA sputum, admitted to TCU with debility, here for rehabilitation, strengthening, prior to discharge home with . 04/14/20 Resident hypotensive, unresponsive, [employer] called, resident . Resident . Patient Problems: Active and Suspected Problems (Last Updated 02/12/19 @ 14:15 by Gisele Barnhart) Debility (Acute) Pneumonia due to COVID-19 virus (Acute) Acute respiratory failure (Acute) Peptic ulcer (Acute) Duodenal ulcer (Acute) Hypotension (Acute) Anemia (Acute) Hypokalemia (Acute) - Physical Exam Vitals/I&O's: Vital Signs Temp Pulse Resp BP Pulse Ox 97.8 F 98 18 147/97 H 98 04/14/20 04:05 04/14/20 04:05 04/14/20 04:05 04/14/20 04:05 04/14/20 06:58 Oxygen Flow Rate (L/min) 2 Oxygen Delivery Method Nasal Cannula Weight: 95.708 kg Body Mass Index (BMI) 31.1 Intake and Output for Last 24 Hours 04/12/20 04/13/20 04/14/20 23:59 23:59 23:59 Intake Total 700 / 700 600 / 600 120 / 120 Output Total 125 / 125 Balance 575 / 575 600 / 600 120 / 120 Laboratory Results 04/14/20 11:05: POC Glucose 203 H Home Medications: Medications to take at Discharge Amlodipine [Norvasc] 10 mg PO DAILY 03/20/20 Atorvastatin Calcium [Lipitor] 10 mg PO QHS 03/20/20 Cholecalciferol (Vitamin D3) [Vitamin D3] 5,000 unit PO DAILY 03/20/20 Hydralazine HCl 100 mg PO BID 03/20/20 Labetalol HCl 300 mg PO TID 03/20/20 Phenylephrine/Dm/Acetaminop/GG [Tylenol Cold-Flu Severe Caplet] 1 tab PO BID 03/20/20 Pantoprazole Sodium [Protonix] 40 mg PO BID 04/05/20 Potassium Chloride 40 meq PO DAILY 04/05/20 Primary Care Physician: Libia Corona MD [Primary Care Provider] - Please follow up with your Primary Care Physician in: N/A. Please Follow Up With: Libia Corona MD When: N/A. Please Follow Up With: Sami Figueroa MD When: N/A. Please Follow Up With: Kishan Malone MD When: N/A. Disposition: Minutes spent on discharge:: 30 Patient Condition:: Poor Medical Necessity - Tobacco Use Smoking Status: Never smoker Tobacco Use: Non-smoker Meaningful Use Info Meaningful Use Diagnoses (Choose all that apply): None applicable
--- NOTE | 2020-04-16 07:46 | MDS.RN ---
Information for the mds was obtained from review of the clinical record, interview of resident, staff, and direct observation of resident's care.
== END 2020-04-14 11:30 | DRG 189 ==
PROVIDERS: Internal Medicine; Admitting Provider Family Medicine Geriatric Medicine; PCP Internal Medicine; Visit Provider Family Medicine Geriatric Medicine
DX: J96.00 Acute respiratory failure, unspecified whether with hypoxia or hypercapnia (principal); K26.3 Acute duodenal ulcer without hemorrhage or perforation; Z23 Encounter for immunization; I10 Essential (primary) hypertension; E78.5 Hyperlipidemia, unspecified; I95.9 Hypotension, unspecified; E55.9 Vitamin D deficiency, unspecified; I25.10 Atherosclerotic heart disease of native coronary artery without angina pectoris; Z86.73 Personal history of transient ischemic attack (TIA), and cerebral infarction without residual deficits; I25.2 Old myocardial infarction; E66.9 Obesity, unspecified; D64.9 Anemia, unspecified; E87.6 Hypokalemia; M13.862 Other specified arthritis, left knee; Z86.19 Personal history of other infectious and parasitic diseases; Z68.31 Body mass index [BMI] 31.0-31.9, adult; Z87.01 Personal history of pneumonia (recurrent); Z66 Do not resuscitate
CPT/HCPCS: 36415; 71045; 73562; 74018; 80048; 82962; 83735; 84484; 85025; 85610; 85730; 92507; 92523; 93005; 97110; 97161; 97165; 97530; 97535; 97802; 99251; G0009; J7030; 90670; A4216; G0463